=== PATIENT | female | born 1940 | race Caucasian/White ===

== ENCOUNTER → 2016-07-10 | Outpatient (CLI) | payer OTHER ==
[~2016-07-10] MED LIST: ADVIN25/60 INH; ALBINS/ INH; ALBU1NEB10 INH; ALBUAER19 INH; ANT25 PO; ASPI-435 PO; BENZ100C84 PO; BYS/5 PO; CHOL200010 PO; CLOB-65 EXT; CLOB-77 TOP; CYAN100048 PO; DBT/25 PO; FEXO1TAB46 PO; FLUT0.0529; FLUT0.15 NAE; GARL400T5 PO; GLYB2.5T7 PO; HYDR25SU4 RE; LEVO50TA6 PO; LIDO2GEL9; MENT4GEL TOP; METF-384 PO; MULT-190 PO; MULT-845 PO; OMEG-112 PO; SERT-234 PO; TELM40TA11 PO; VNTHFA/IN INH; ZNTT/150 PO
--- NOTE | 2016-07-10 15:33 | MAMMOGRAPHY REPORT ---
BILATERAL DIGITAL SCREENING MAMMOGRAM WITH CAD: 07/10/2016 CLINICAL HISTORY: Routine screening examination. TECHNIQUE: Bilateral CC, MLO and right axillary tail views were obtained. Current study was also ev aluated with a Computer Aided Detection (CAD) system. COMPARISON: Comparison is made to exams dated: 07/05/2015 mammogram, 02/03/2013 mammogram, 05/05/2014 mammogram, 01/29/2012 mammogram, 12/26/2010 mammogram, and 12/20/2009 mammogram - [facility]. BREAST COMPOSITION: The tissue of both breasts is almost entirely fatty. FINDINGS: There are benign calcifications and benign-appearing rodlike secretory calcifications in the breasts. No suspicious mass, architectural distortion or cluster of microcalcifications is seen . IMPRESSION: ACR BI-RADS CATEGORY 1: NEGATIVE There is no mammographic evidence of malignancy. A 1 year screening mammogram is recommended. The p atient will receive written notification of the results. Approximately 10% of breast cancers are not detected with mammography. A negative mammographic repor t should not delay biopsy if a clinically suggestive mass is present. Shantelle Vicente M.D. ay/:07/10/2016 14:35:59 Laser Set Up Operator: Ely HUMMEL(Master)(Edel), [facility] letter sent: Normal 1/2 BI-RADS Code: ACR BI-RADS Category 1: Negative
== END | disposition home or self-care (01) ==
LOC: C.MAMM 13:44
PROVIDERS: ATTEND Obstetrics & Gynecology
DX: Z12.31 Encounter for screening mammogram for malignant neoplasm of breast (principal)

== ENCOUNTER → 2016-07-12 | Outpatient (CLI) | payer OTHER ==
[2016-07-12 12:29] LABS: BASO % 0.3 %; BASO ABS # 0.02 K/uL (0-0.2); COMPLETE YES; EOS % 1.6 %; HEMATOCRIT 38.1 % (37-47); IG% 0.2 %; LYMPH % 31.9 %; LYMPH ABS # 1.83 K/uL (1.2-3.4); MEAN CELL VOLUME 82.3 fL (80-100); MEAN CORPUSCULAR HEMOGLOBIN 27.2 pg (25-34); MEAN CORPUSCULAR HGB CONC 33.1 g/dl (32-36); MONO % 9.1 %; NEUT % 56.9 %; PLATELET COUNT 147 K/uL (130-400); RED BLOOD COUNT 4.63 M/uL (4.2-5.4); WHITE BLOOD COUNT 5.73 K/uL (4.8-10.8)
[2016-07-12 12:49] LABS: ESTIMATED AVERAGE GLUCOSE 140 mg/dl; HA1C FLAG Normal (Normal)
[2016-07-12 12:57] LABS: ALT/SGPT 24 U/L (12-78); AST/SGOT 19 U/L (15-37); BLOOD UREA NITROGEN 12 mg/dl (7-18); BUN/CREATININE RATIO 19.3 (10-20); CALCIUM 9.3 mg/dl (8.5-10.1); CARBON DIOXIDE 24 mmol/L (21-32); CHLORIDE 106 mmol/L (98-107); CREATININE 0.64 mg/dl (0.60-1.20); GLUCOSE 154 mg/dl (70-99); POTASSIUM 4.4 mmol/L (3.5-5.1); SODIUM 140 mmol/L (136-145)
[2016-07-12 13:09] LABS: ALKALINE PHOSPHATASE 44 U/L (45-117); CHOLESTEROL 213 mg/dl (0-200); CHOLESTEROL/HDL RATIO 3.8; HDL CHOLESTEROL 56 mg/dl; LDL CHOLESTEROL CALCULATED 117 mg/dl; TRIGLYCERIDES 202 mg/dl (0-150); VERY LOW DENSITY LIPOPROT CALC 40 mg/dl
== END | disposition home or self-care (01) ==
LOC: C.LABBFT 08:58
PROVIDERS: ATTEND Internal Medicine
DX: E11.9 Type 2 diabetes mellitus without complications (principal); E03.9 Hypothyroidism, unspecified; E78.00 Pure hypercholesterolemia, unspecified; E55.9 Vitamin D deficiency, unspecified

== ENCOUNTER → 2016-07-22 | Outpatient (CLI) | payer OTHER ==
[2016-07-22 17:48] LABS: URINE APPEARANCE CLEAR (CLEAR); URINE BILIRUBIN NEG (NEG); URINE COLOR DK YELLOW; URINE EPITHELIAL CELL AUTO >30 /lpf (0-5); URINE NITRITE NEG (NEG); UROBILINOGEN NEG (NEG)
[2016-07-22 17:52] LABS: MANUAL MICROSCOPIC REQUIRED? NO; REVIEW REQ? YES
[2016-07-22 18:00] LABS: URINE MUCUS PRESENT (NONE PRSENT)
== END | disposition home or self-care (01) ==
LOC: C.LABBFT 16:36
PROVIDERS: ATTEND Internal Medicine
DX: R39.9 Unspecified symptoms and signs involving the genitourinary system (principal)

== ENCOUNTER 2016-09-08 12:00 | Emergency (ER) | payer OTHER ==
[~2016-09-08] VITALS: Ht 160 cm; Wt 108.0 kg
[~2016-09-08 12:00] MED LIST changes: -ALBINS/ INH; -BENZ100C84 PO; -CLOB-77 TOP; -FLUT0.15 NAE; -GLYB2.5T7 PO; -MULT-190 PO; -VNTHFA/IN INH
[2016-09-08 12:05] VITALS: TEMP 36.5; Ht 160 cm; Wt 108.0 kg
[2016-09-08] MEDS ORDERED: MULT-190 PO (12:20)
[2016-09-08] MEDS ORDERED: VNTHFA/IN INH (12:20)
[2016-09-08] MEDS ORDERED: BENZ100C84 PO (12:20)
[2016-09-08] MEDS ORDERED: ALBINS/ INH (12:20)
[2016-09-08] MEDS ORDERED: FLUT0.15 NAE (12:22)
[2016-09-08] MEDS ORDERED: CLOB-77 TOP (12:22)
[2016-09-08] MEDS ORDERED: GLYB2.5T7 PO (12:22)
[2016-09-08 12:50] LABS: HEMATOCRIT 41.1 % (37-47); MEAN CELL VOLUME 83.5 fL (80-100); MEAN CORPUSCULAR HEMOGLOBIN 26.8 pg (25-34); MEAN CORPUSCULAR HGB CONC 32.1 g/dl (32-36); MEAN PLATELET VOLUME 10.6 fL (7.4-10.4); PLATELET COUNT 123 K/uL (130-400); RED BLOOD COUNT 4.92 M/uL (4.2-5.4); WHITE BLOOD COUNT 6.75 K/uL (4.8-10.8)
[2016-09-08] MEDS ORDERED: SODIUM CHLORIDE 0.9% 500ML 500 ML IV STA (13:03)
--- NOTE | 2016-09-08 13:08 | EMERGENCY ROOM VISIT NOTE ---
History Report prepared by Rebecca: Romario Morel Under the Supervision of: Dr. Jatinder Vaughn M.D. First contact with patient: 12:55 Chief Complaint: NAUSEA Stated Complaint: NAUSEA, VOMIT Nursing Triage Summary: patient to ED via EMS from [facility], states "I was sitting at [facility] and all of a sudden just got really nauseous, I went and sat outside and vomited a little." Patient denies pain, symptoms at time of triage hx diabetes, hypertension History of Present Illness The patient is a 75 year old female who presents to the Emergency Room with complaints of nausea that began 1 and a half hours ago. She rates her symptom severity a 0/10, with her symptoms being resolved at this time. The patient was sitting down at [facility] when she began to feel dizzy and nauseated. She had one episode of emesis into her purse. She denies any problems with her upper extremities when this occurred. Her symptoms only lasted a couple of minutes. She denies any chest pain or shortness of breath when this occurred. She currently feels normal. Today, she was tired secondary to not sleeping last night. She notes that she did eat breakfast this morning. She has a history of hypertension, for which she is medicated. She took her medication this morning. Source of History: patient Onset: 1 and a half hours ago Position: other (GI) Symptom Intensity: moderate Quality: other (Nausea) Timing: resolved Associated Symptoms: + vomiting, No SOB, No chest pain Note: She experienced dizziness as well. Review of Systems See HPI for pertinent positives & negatives. A total of 10 systems reviewed and were otherwise negative. Past Medical & Surgical Medical Problems: (1) Diabetes (2) Heart murmur (3) HTN (hypertension) (4) Hyperlipidemia Family History Omitted secondary to age. Social History Smoking Status: Never Smoker Smokeless Tobacco Use: No Drug Use: none Occupation Status: retired Current/Historical Medications Scheduled Albuterol Hfa (Ventolin Hfa), 2 PUFFS INH QID Albuterol Sulf (Proventil 0.083% 2.5MG/3ML), 2.5 MG INH Q4H Aspirin (Aspirin 81), 81 MG PO HS Benzonatate (Tessalon Perles), 100 MG PO UD Cholecalciferol (Vitamin D), 2,000 INTUNIT PO QAM Clobetasol Propionate (Temovate), 1 APPLN TOP UD Cyanocobalamin (Vitamin B-12), 1 TAB PO QAM Fexofenadine Hcl (Sheila), 180 MG PO QAM Fluticasone Prop/Salmeterol (Advair Diskus 250/50 60 Dose), 1 PUFF INH BID Fluticasone Propionate (Nasal) (Flonase Allergy Relief), 1-2 SPRAYS ELEAZAR DAILY Garlic (Garlique), 1 TAB PO QAM Glyburide (Diabeta), 1.25-2.5 MG PO AC Levothyroxine Sodium (Levothyroxine Sodium), 50 MCG PO QAM Menthol (Topical Analgesic) (Biofreeze), 1 APPL TOP UD Metformin Hcl (Glucophage), 1,000 MG PO BID Multiple Vitamins W/ Minerals (Centrum Silver Adult 50+), 1 TAB PO LUNCH Nebivolol Hcl (Bystolic), 2.5 MG PO HS Ocuvite Preservision (Ocuvite Preservision), 1 TAB PO DAILY Qaweu-6-Hwxl Ethyl Esters ([place]-3), 1 CAP PO QAM Ranitidine (Zantac), 150 MG PO BID Sertraline (Zoloft), 100 MG PO QAM Telmisartan (Micardis), 40 MG PO QAM Allergies Coded Allergies: Amoxicillin (Verified Allergy, Mild, YEAST INFECTION, 09/08/16) Doxycycline (Verified Allergy, Mild, unknown, 09/08/16) Meloxicam (Verified Allergy, Mild, unknown, 09/08/16) Nitrofurantoin (Verified Allergy, Mild, unknown, 09/08/16) Ofloxacin (Verified Allergy, Mild, unknown, 09/08/16) Sulfamethoxazole w/Trimethoprim (Verified Allergy, Mild, unknown, 09/08/16) Ezetimibe (Verified Allergy, Unknown, UNKNOWN, 09/08/16) Rosuvastatin (Verified Allergy, Unknown, BODY PAINS, 09/08/16) Oxycodone (Verified Adverse Reaction, Mild, VOMITING, 09/08/16) Physical Exam Vital Signs Date Time Temp Pulse Resp B/P Pulse Ox O2 Delivery O2 Flow Rate FiO2 09/08/16 15:49 161/91 09/08/16 15:11 71 18 168/71 95 Room Air 09/08/16 13:43 74 20 156/106 96 Room Air 09/08/16 12:16 74 09/08/16 12:05 36.5 80 20 196/88 93 Room Air Physical Exam GENERAL: Patient is in no acute distress. HEENT: No acute trauma, normocephalic atraumatic, mucous membranes moist, no nasal congestion, no scleral icterus. NECK: No stridor, no adenopathy, no meningismus, trachea is midline. LUNGS: Clear to auscultation bilaterally, no wheeze, no rhonchi, breath sounds equal. HEART: 4/6 systolic murmur, with a regular rate and rhythm. ABDOMEN: Soft, nontender, bowel sounds positive, no hernias, no peritonitis. EXTREMITIES: No cyanosis or edema, full range of motion of all the joints without pain or difficulty, no signs for acute trauma. NEUROLOGIC: Oriented x 3, no acute motor or sensory deficits, no focal weakness. No cerebellar dysfunction or pronator drift. SKIN: No rash, no jaundice, no diaphoresis. Medical Decision & Procedures ER Provider Diagnostic Interpretation: Radiology results are stated below per my review and radiologist interpretation: HEAD CT NONCONTRAST CT DOSE: 537.48 mGy.cm HISTORY: dizzy, poss stroke TECHNIQUE: Multiaxial CT images of the head were performed without the use of intravenous contrast. Automated exposure control was utilized for this study. Comparison: None. Findings: Partially visualized right maxillary sinus is opacified. The calvarium and skull base are intact. There is no mass, hematoma, midline shift, acute infarct. White matter hypodensity is nonspecific but suggestive of microvascular ischemic change. The ventricles and sulci demonstrate mild age-related involutional changes. Impression: No acute intracranial abnormality. Atrophy and microvascular ischemic changes. Opacified right maxillary sinus. Electronically signed by: [place] M.D. 09/08/2016 2:04 PM Dictated Date/Time: 09/08/2016 2:00 PM CHEST ONE VIEW PORTABLE HISTORY: Short of breath. COMPARISON: Chest 09/09/2013. FINDINGS: The lungs are clear. No pleural effusions. No pneumothorax. The heart is mildly enlarged. IMPRESSION: Mild cardiomegaly. Electronically signed by: [place] M.D. 09/08/2016 1:41 PM Dictated Date/Time: 09/08/2016 1:40 PM Laboratory Results 09/08/16 12:40 Red Blood Count 4.92, Mean Corpuscular Volume 83.5, Mean Corpuscular Hemoglobin 26.8, Mean Corpuscular Hemoglobin Concent 32.1, Mean Platelet Volume 10.6, Neutrophils (%) (Auto) 71.9, Lymphocytes (%) (Auto) 20.7, Monocytes (%) (Auto) 6.1, Eosinophils (%) (Auto) 0.9, Basophils (%) (Auto) 0.1, Neutrophils # (Auto) 4.85, Lymphocytes # (Auto) 1.40, Monocytes # (Auto) 0.41, Eosinophils # (Auto) 0.06, Basophils # (Auto) 0.01 09/08/16 12:40 Test 09/08/16 12:06 09/08/16 12:40 09/08/16 14:15 09/08/16 15:11 Bedside Glucose 131 mg/dl (70-90) White Blood Count 6.75 K/uL (4.8-10.8) Red Blood Count 4.92 M/uL (4.2-5.4) Hemoglobin 13.2 g/dL (12.0-16.0) Hematocrit 41.1 % (37-47) Mean Corpuscular Volume 83.5 fL (80-100) Mean Corpuscular Hemoglobin 26.8 pg (25-34) Mean Corpuscular Hemoglobin Concent 32.1 g/dl (32-36) Platelet Count 123 K/uL (130-400) Mean Platelet Volume 10.6 fL (7.4-10.4) Neutrophils (%) (Auto) 71.9 % Lymphocytes (%) (Auto) 20.7 % Monocytes (%) (Auto) 6.1 % Eosinophils (%) (Auto) 0.9 % Basophils (%) (Auto) 0.1 % Neutrophils # (Auto) 4.85 K/uL (1.4-6.5) Lymphocytes # (Auto) 1.40 K/uL (1.2-3.4) Monocytes # (Auto) 0.41 K/uL (0.11-0.59) Eosinophils # (Auto) 0.06 K/uL (0-0.5) Basophils # (Auto) 0.01 K/uL (0-0.2) RDW Standard Deviation 43.8 fL (36.4-46.3) RDW Coefficient of Variation 14.3 % (11.5-14.5) Immature Granulocyte % (Auto) 0.3 % Immature Granulocyte # (Auto) 0.02 K/uL (0.00-0.02) Anion Gap 9.0 mmol/L (3-11) Est Creatinine Clear Calc Drug Dose 86.7 ml/min Estimated GFR () 99.8 Estimated GFR (Non- 86.1 BUN/Creatinine Ratio 20.6 (10-20) Calcium Level 9.3 mg/dl (8.5-10.1) Total Bilirubin 0.3 mg/dl (0.2-1) Aspartate Amino Transf (AST/SGOT) 19 U/L (15-37) Alanine Aminotransferase (ALT/SGPT) 29 U/L (12-78) Alkaline Phosphatase 52 U/L (45-117) Total Protein 8.0 gm/dl (6.4-8.2) Albumin 4.0 gm/dl (3.4-5.0) Globulin 4.0 gm/dl (2.5-4.0) Albumin/Globulin Ratio 1.0 (0.9-2) Urine Color YELLOW Urine Appearance CLEAR (CLEAR) Urine pH 5.0 (4.5-7.5) Urine Specific [place] 1.019 (1.000-1.030) Urine Protein TRACE (NEG) Urine Glucose (UA) NEG (NEG) Urine Ketones NEG (NEG) Urine Occult Blood TRACE (NEG) Urine Nitrite NEG (NEG) Urine Bilirubin NEG (NEG) Urine Urobilinogen NEG (NEG) Urine Leukocyte Esterase NEG (NEG) Urine WBC (Auto) 0 /hpf (0-5) Urine RBC (Auto) 0-4 /hpf (0-4) Urine Hyaline Casts (Auto) 1-5 /lpf (0-5) Urine Epithelial Cells (Auto) 10-20 /lpf (0-5) Urine Bacteria (Auto) NEG (NEG) Bedside Troponin I 0.000 ng/ml (0-0.045) Laboratory results reviewed by me. Medications Administered Medications (Trade) Dose Ordered Sig/Juan Route Start Time Stop Time Status Last Admin Dose Admin Sodium Chloride (Nss 500ml) 500 ml @ 999 mls/hr Q31M STAT IV 09/08/16 13:03 09/08/16 13:33 DC 09/08/16 13:16 999 MLS/HR ECG Indication: nausea, other (dizziness) Rate (beats per minute): 76 Rhythm: normal sinus Findings: no acute ischemic change, no ectopy ED Course 1255: The patient was evaluated in room C7. A complete history and physical exam was performed. 1303: Ordered Sodium Chloride 500 ml @ 999 mls/hr IV. 1530: Reevaluated the patient. She is doing well. Discussed results and discharge instructions: She verbalized understanding and agreement. The patient is ready for discharge. Medical Decision Differential diagnosis includes but is not limited to vertigo, electrolyte abnormality, anemia, infection, stroke, dysrhythmia, and VA. There is no leukocytosis or concerning anemia. No significant electrolyte abnormality, kidney failure or hepatitis. EKG shows a normal sinus rhythm, no acute ischemia. Cardiac enzyme testing 2 is not consistent with acute cardiac injury. Chest x-ray does not show pneumonia or CHF. Brain CT shows no acute bleed or mass effect. On exam, the patient is now completely asymptomatic, there are no focal neurologic findings. Urinalysis does not show infection. Patient has had no recurrence of symptoms while in the emergency room. She was given some IV saline during her stay. The patient is stable for discharge. She is hypertensive but she is anxious. The patient will follow with her doctors office for a repeat blood pressure check. She can return for worsening symptoms. Her presentation today may have been consistent with some intermittent vertigo. Impression Primary Impression: Dizziness Additional Impression: Vomiting Scribe Attestation The scribe's documentation has been prepared under my direction and personally reviewed by me in its entirety. I confirm that the note above accurately reflects all work, treatment, procedures, and medical decision making performed by me. Departure Information Dispostion Home / Self-Care Referrals Vinh Ardon M.D. (PCP) Forms HOME CARE DOCUMENTATION FORM, IMPORTANT VISIT INFORMATION Patient Instructions My [facility] Additional Instructions stay hydrated see your doctor this week for a recheck return if worsening testing today was all ok as we discussed see your doctor this week and be sure your blood pressure is checked--it was higher today Problem Qualifiers
[2016-09-08 13:14] LABS: BASO % 0.1 %; BASO ABS # 0.01 K/uL (0-0.2); COMPLETE YES; EOS % 0.9 %; IG% 0.3 %; LYMPH % 20.7 %; MONO % 6.1 %; NEUT % 71.9 %
[2016-09-08 13:17] LABS: BUN/CREATININE RATIO 20.6 (10-20); CALCIUM 9.3 mg/dl (8.5-10.1); CREATININE 0.64 mg/dl (0.60-1.20); POTASSIUM 4.4 mmol/L (3.5-5.1)
--- NOTE | 2016-09-08 13:43 | DIAGNOSTIC IMAGING REPORT ---
CHEST ONE VIEW PORTABLE HISTORY: Short of breath. COMPARISON: Chest 09/09/2013. FINDINGS: The lungs are clear. No pleural effusions. No pneumothorax. The heart is mildly enlarged. IMPRESSION: Mild cardiomegaly. Electronically signed by: [place] M.D. 09/08/2016 1:41 PM Dictated Date/Time: 09/08/2016 1:40 PM
--- NOTE | 2016-09-08 14:06 | DIAGNOSTIC IMAGING REPORT ---
HEAD CT NONCONTRAST CT DOSE: 537.48 mGy.cm HISTORY: dizzy, poss stroke TECHNIQUE: Multiaxial CT images of the head were performed without the use of intravenous contrast. Automated exposure control was utilized for this study. Comparison: None. Findings: Partially visualized right maxillary sinus is opacified. The calvarium and skull base are intact. There is no mass, hematoma, midline shift, acute infarct. White matter hypodensity is nonspecific but suggestive of microvascular ischemic change. The ventricles and sulci demonstrate mild age-related involutional changes. Impression: No acute intracranial abnormality. Atrophy and microvascular ischemic changes. Opacified right maxillary sinus. Electronically signed by: [place] M.D. 09/08/2016 2:04 PM Dictated Date/Time: 09/08/2016 2:00 PM
[2016-09-08 14:31] LABS: MANUAL MICROSCOPIC REQUIRED? NO; REVIEW REQ? NO; URINE APPEARANCE CLEAR (CLEAR); URINE BILIRUBIN NEG (NEG); URINE COLOR YELLOW; URINE NITRITE NEG (NEG); URINE SPECIFIC GRAVITY 1.019 (1.000-1.030); UROBILINOGEN NEG (NEG); ZZUR CULT IF INDIC CLEAN CATCH NO
[2016-09-08 15:11] VITALS: PULSE 71; O2SAT 95
[2016-09-08 15:49] VITALS: BP 161/91
== END 2016-09-08 15:45 | disposition home or self-care (01) ==
LOC: EDBD 12:00 → C.EDC 12:01
DX: R42 Dizziness and giddiness (principal); R11.10 Vomiting, unspecified; E11.9 Type 2 diabetes mellitus without complications; I10 Essential (primary) hypertension; E78.5 Hyperlipidemia, unspecified; Z79.82 Long term (current) use of aspirin; Z79.84 Long term (current) use of oral hypoglycemic drugs; Z79.899 Other long term (current) drug therapy; Z88.1 Allergy status to other antibiotic agents; Z88.2 Allergy status to sulfonamides; Z88.8 Allergy status to other drugs, medicaments and biological substances

== ENCOUNTER → 2016-09-24 | Outpatient (CLI) | payer OTHER ==
[~2016-09-24] MED LIST changes: +ALBINS/ INH; -ALBU1NEB10 INH; -ALBUAER19 INH; -ANT25 PO; +BENZ100C84 PO; -CLOB-65 EXT; +CLOB-77 TOP; -DBT/25 PO; -FLUT0.0529; +FLUT0.15 NAE; +GLYB2.5T7 PO; -HYDR25SU4 RE; -LIDO2GEL9; +MULT-190 PO; +VNTHFA/IN INH
== END | disposition home or self-care (01) ==
LOC: C.PAPS 08:17
PROVIDERS: ATTEND Obstetrics & Gynecology
DX: Z12.4 Encounter for screening for malignant neoplasm of cervix (principal)

== ENCOUNTER → 2016-11-27 | Outpatient (CLI) | payer OTHER ==
[2016-11-27 12:46] LABS: URINE APPEARANCE CLEAR (CLEAR); URINE BILIRUBIN NEG (NEG); URINE COLOR YELLOW; URINE NITRITE NEG (NEG); URINE PH 5.5 (4.5-7.5); URINE SPECIFIC GRAVITY 1.019 (1.000-1.030); UROBILINOGEN NEG (NEG); ZZUR CULT IF INDIC CLEAN CATCH NO
[2016-11-27 12:47] LABS: MANUAL MICROSCOPIC REQUIRED? NO; REVIEW REQ? NO
[2016-11-27 12:51] LABS: ALT/SGPT 24 U/L (12-78); AST/SGOT 18 U/L (15-37); BLOOD UREA NITROGEN 12 mg/dl (7-18); BUN/CREATININE RATIO 18.8 (10-20); CALCIUM 9.3 mg/dl (8.5-10.1); CARBON DIOXIDE 26 mmol/L (21-32); CHLORIDE 107 mmol/L (98-107); CHOLESTEROL 200 mg/dl (0-200); CREATININE 0.66 mg/dl (0.60-1.20); GLUCOSE 166 mg/dl (70-99); POTASSIUM 4.6 mmol/L (3.5-5.1); SODIUM 141 mmol/L (136-145)
[2016-11-27 12:55] LABS: ALB/GLOB RATIO 0.9 (0.9-2); ALKALINE PHOSPHATASE 45 U/L (45-117); HDL CHOLESTEROL 50 mg/dl; LDL CHOLESTEROL CALCULATED 116 mg/dl; TRIGLYCERIDES 171 mg/dl (0-150); VERY LOW DENSITY LIPOPROT CALC 34 mg/dl
[2016-11-27 13:06] LABS: ESTIMATED AVERAGE GLUCOSE 137 mg/dl; HA1C FLAG Normal (Normal)
[2016-11-27 13:24] LABS: RATIO 25.6 mcg/mg (0-30.0)
== END | disposition home or self-care (01) ==
LOC: C.LABBFT 10:02
PROVIDERS: ATTEND Internal Medicine
DX: E11.9 Type 2 diabetes mellitus without complications (principal); E78.00 Pure hypercholesterolemia, unspecified

== ENCOUNTER → 2017-05-27 | Outpatient (CLI) | payer OTHER ==
[2017-05-27 12:54] LABS: HEMOGLOBIN A1C 6.2 % (4.5-5.6)
== END | disposition home or self-care (01) ==
LOC: C.LABBFT 09:28
PROVIDERS: ATTEND Internal Medicine
DX: E55.9 Vitamin D deficiency, unspecified (principal); E11.9 Type 2 diabetes mellitus without complications; E03.9 Hypothyroidism, unspecified

== ENCOUNTER → 2017-06-27 | Outpatient (CLI) | payer OTHER ==
[~2017-06-27] MED LIST changes: +RANI150T85 PO; -ZNTT/150 PO
== END | disposition home or self-care (01) ==
LOC: C.LABBFT 14:51
PROVIDERS: ATTEND Internal Medicine
DX: R39.9 Unspecified symptoms and signs involving the genitourinary system (principal)

== ENCOUNTER → 2017-07-16 | Outpatient (CLI) | payer OTHER ==
--- NOTE | 2017-07-16 15:55 | MAMMOGRAPHY REPORT ---
BILATERAL DIGITAL SCREENING MAMMOGRAM TOMOSYNTHESIS WITH CAD: 07/16/2017 CLINICAL HISTORY: Routine screening. Patient has no complaints. TECHNIQUE: Breast tomosynthesis in addition to standard 2D mammography was performed. Current study was also evaluated with a Computer Aided Detection (CAD) system. COMPARISON: Comparison is made to exams dated: 07/10/2016 mammogram, 07/05/2015 mammogram, 05/05/2014 mammogram, 02/03/2013 mammogram, 01/29/2012 mammogram, and 12/26/2010 mammogram - [facility]. BREAST COMPOSITION: The tissue of both breasts is almost entirely fatty. FINDINGS: There are scattered benign-appearing rodlike and rim calcifications in both breasts. No kat spicious mass, architectural distortion or cluster of suspicious microcalcifications is seen. IMPRESSION: ACR BI-RADS CATEGORY 1: NEGATIVE There is no mammographic evidence of malignancy. A 1 year screening mammogram is recommended. The pa tient will receive written notification of the results. Approximately 10% of breast cancers are not detected with mammography. A negative mammographic report should not delay biopsy if a clinically suggestive mass is present. Shantelle Vicente M.D. ay/:07/16/2017 14:14:35 Mold Sander: Maricel HUMMEL(R)(M), [facility] letter sent: Normal 1/2 BI-RADS Code: ACR BI-RADS Category 1: Negative
== END | disposition home or self-care (01) ==
LOC: C.MAMM 13:24
PROVIDERS: ATTEND Obstetrics & Gynecology
DX: Z12.31 Encounter for screening mammogram for malignant neoplasm of breast (principal)

== ENCOUNTER → 2017-09-29 | Outpatient (CLI) | payer OTHER ==
--- NOTE | 2017-09-29 18:50 | DIAGNOSTIC IMAGING REPORT ---
CHEST 2 VIEWS ROUTINE CLINICAL HISTORY: 77 years-old Female presenting with R09.89 Lung [id number] Productive cough. TECHNIQUE: PA and lateral views of the chest were obtained. COMPARISON: 09/08/2016. FINDINGS: Atherosclerosis of aortic arch. Prominence and tortuosity of the aorta. Cardiac silhouette enlarged. Lungs and pleural spaces clear. Degenerative changes of the thoracic spine. Upper abdomen normal. IMPRESSION: 1. Cardiomegaly. No other convincing evidence of acute cardiopulmonary disease. Electronically signed by: Adolph Ruano M.D. 09/29/2017 6:49 PM Dictated Date/Time: 09/29/2017 6:48 PM
== END | disposition home or self-care (01) ==
LOC: C.RAD 18:19
PROVIDERS: ATTEND Internal Medicine
DX: I51.7 Cardiomegaly (principal); R05 Cough; R09.89 Other specified symptoms and signs involving the circulatory and respiratory systems

== ENCOUNTER 2020-03-06 12:38 | Inpatient (IN) ==
[2020-03-06] MEDS ORDERED: OPTIRAY 320 125ml IV ONE (12:55)
--- NOTE | 2020-03-06 13:01 | Emergency Department Note ---
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 sinus air-fluid levels are noted with moderate mucosal thickening of the left ethmoid air cells. Mastoid air cells are clear. Soft tissues are unremarkable. Prior bilateral lens replacement. IMPRESSION: 1. Motion degraded exam without acute intracranial abnormality identified. 2. Severe paranasal sinus disease as above with air-fluid levels suggestive of acute sinusitis. ACT 112: Negative or not required by law. The above report was generated using voice recognition software. It may contain grammatical, syntax or spelling errors. Electronically signed by: Po Sebastian M.D. 03/06/2020 1:12 PM HEAD & NECK CTA HISTORY: Stroke symptoms. Stroke evaluation TECHNIQUE: Multiaxial CT images of the head were performed following the intravenous administration of contrast to evaluate the major cerebral vessels. Multiaxial CT images of the neck were also performed following the intravenous administration of contrast to evaluate the major cervical vessels. Maximum intensity projection images were also obtained. A dose lowering technique was utilized adhering to the principles of ALARA. COMPARISON: Head CT 09/08/2016. FINDINGS: There is no mass, hematoma, midline shift, or acute infarct. Visualized intracranial internal carotid arteries, distal vertebral arteries, and basilar artery are widely patent. There is no significant stenosis, occlusion, or aneurysm seen within the bilateral ACAs, left MCA, or house officer. There is mild narrowing within the proximal right M1 segment. The distal branches of the right MCA appears slightly attenuated in comparison to the left. No definite arterial occlusion identified. The right A1 and right P1 segments are hypoplastic. The major dural venous sinuses appear patent. The aortic arch and proximal great vessels are widely patent. There is no significant stenosis, occlusion, or dissection identified within the bilateral common carotid, internal carotid, or vertebral arteries. Moderate calcified plaque within the aortic arch. There is a 9 mm saccular aneurysm extending from the left side of the aortic arch best seen image 77. Mild multifocal narrowing within the mid left subclavian artery and mild focal narrowing at the takeoff of the right subclavian artery. Evidence for a bovine arch. Medial deviation of the carotid arteries is noted. Mild calcified plaque within the bilateral carotid bifurcations. 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 The proximal vertebral arteries are not well visualized. This could be due to the severe hypoplasia rather than chronic occlusion. There are small collaterals extending from the subclavian arteries which likely feed the mid bilateral vertebral arteries. Question of a small weblike filling defect seen within the left lower lobe pulmonary artery is likely artifact. Advanced degenerative changes and a joint effusion within the left sternoclavicular joint. IMPRESSION: 1. Mild narrowing within the proximal right M1 segment. The distal branches of the right MCA appear attenuated in comparison to the left. However, no evidence for arterial occlusion at this time. 2. 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 The proximal vertebral arteries are not identified and could be absent on a congenital basis given the severe hypoplasia. 3. 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 4. Mild narrowing within the bilateral subclavian arteries. ACT 112: Negative or not required by law. Electronically signed by: [place] M.D. 03/06/2020 1:21 PM ECG Data Attestation: I personally reviewed and interpreted this ECG as follows: Indication: + weakness Rate (beats per minute): 85 Rhythm: + normal sinus ECG Intervals/blocks: + Normal QRS and + Normal QT ECG Cameron: + Normal ECG ST segments: + Nonspecific ST abnormalities Change: no significant change Blood Pressure Blood Pressure Findings: Elevated blood pressure Blood Pressure Disposition: further management by hospitalist MDM Narrative Pt initially brought by EMS for AMS but on initial bedside exam high suspicion of CVA so stroke alert immediately called to prioritize imaging and consultation with teleneurology. Pt recalls feeling well at 0830 and we attempted to contact PCP office to perhaps adjust last time known well. Pt at edge of window for extended tPA dosing at outset. Pt evaluated by neurology and tPA recommended. Dr. Blankenship did review CT and CTA's and I did confirm this with Maricel, environmental systems coordinator who was at the bedside throughout assisting with evaluation and o rders. Pt and son understood potential risks and were in agreement with Dr. Blankenship recommendation and and tPA ordered and given. VS remained stable and other labs were reassuring. Mild anemia noted although likely chronic given age. Magnesium also repleted. Pt showed improvement while in the ER following administration of tPA. An order was placed for continuous cardiac monitoring. The monitor shows a rate of _82__ with _normal sinus__ rhythm. Impression & Plan CVA (cerebral vascular accident), Aortic arch aneurysm, Hypomagnesemia, Anemia, Hyperglycemia Discharge Plan Visit Data Chief Complaint: Stroke/CVA Symptoms Stated Complaint: Illness ED Provider: Billie Degroot Discharge Problem: CVA (cerebral vascular accident), Aortic arch aneurysm, Hypomagnesemia, Anemia, Hyperglycemia Patient Disposition: Admitted As Inpatient Discharge Instructions Interventions: ED Discharge Assessment Last Done: 03/06/20 16:17 Discharge Problem: CVA (cerebral vascular accident) Qualifiers: CVA mechanism: unspecified Qualified Code(s): I63.9 - Cerebral infarction, unspecified Anemia Qualifiers: Anemia type: unspecified type Qualified Code(s): D64.9 - Anemia, unspecified
--- NOTE | 2020-03-06 13:14 | CT Scan Report ---
CT head/brain wo con CLINICAL HISTORY: 79 years-old Female with Stroke evaluation . Acute strokelike symptoms TECHNIQUE: Multiple axial CT images of the head were obtained without contrast. A dose lowering tech nique was utilized adhering to the principles of ALARA. COMPARISON: CTA head neck of same day. FINDINGS: Motion degraded exam. Portion of the study was then repeated. Age-related involutional changes. Cereb ral vascular calcifications. Patchy white matter hypodensities suggest chronic microvascular ischemic disease. No acute intracranial hemorrhage, midline shift, intracranial mass, hydrocephalus, territor ial ischemia or abnormal extra-axial collection. The calvarium is intact. There is severe opacification of the maxillary sinuses with air-fluid level on the left. Frontal sinus air-fluid levels are noted with moderate mucosal thickening of the left e thmoid air cells. Mastoid air cells are clear. Soft tissues are unremarkable. Prior bilateral lens re placement. IMPRESSION: 1. Motion degraded exam without acute intracranial abnormality identified. 2. Severe paranasal sinus disease as above with air-fluid levels suggestive of acute sinusitis. ACT 112: Negative or not required by law. The above report was generated using voice recognition software. It may contain grammatical, syntax o r spelling errors. Electronically signed by: Po Sebastian M.D. 03/06/2020 1:12 PM
--- NOTE | 2020-03-06 13:22 | CT Scan Report ---
HEAD & NECK CTA HISTORY: Stroke symptoms. Stroke evaluation TECHNIQUE: Multiaxial CT images of the head were performed following the intravenous administration o f contrast to evaluate the major cerebral vessels. Multiaxial CT images of the neck were also perform ed following the intravenous administration of contrast to evaluate the major cervical vessels. Maxim um intensity projection images were also obtained. A dose lowering technique was utilized adhering to the principles of ALARA. COMPARISON: Head CT 09/08/2016. FINDINGS: There is no mass, hematoma, midline shift, or acute infarct. Visualized intracranial internal carotid arteries, distal vertebral arteries, and basilar artery are widely patent. There is no significant s tenosis, occlusion, or aneurysm seen within the bilateral ACAs, left MCA, or activities assistant. There is mild narr owing within the proximal right M1 segment. The distal branches of the right MCA appears slightly att enuated in comparison to the left. No definite arterial occlusion identified. The right A1 and right P1 segments are hypoplastic. The major dural venous sinuses appear patent. The aortic arch and proximal great vessels are widely patent. There is no significant stenosis, occ lusion, or dissection identified within the bilateral common carotid, internal carotid, or vertebral arteries. Moderate calcified plaque within the aortic arch. There is a 9 mm saccular aneurysm extendi ng from the left side of the aortic arch best seen image 77. Mild multifocal narrowing within the mid left subclavian artery and mild focal narrowing at the takeoff of the right subclavian artery. Evide nce for a bovine arch. Medial deviation of the carotid arteries is noted. Mild calcified plaque withi n the bilateral carotid bifurcations. 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 The prox imal vertebral arteries are not well visualized. This could be due to the severe hypoplasia rather th an chronic occlusion. There are small collaterals extending from the subclavian arteries which likely feed the mid bilateral vertebral arteries. Question of a small weblike filling defect seen within th e left lower lobe pulmonary artery is likely artifact. Advanced degenerative changes and a joint effu duran within the left sternoclavicular joint. IMPRESSION: 1. Mild narrowing within the proximal right M1 segment. The distal branches of the right MCA appear a ttenuated in comparison to the left. However, no evidence for arterial occlusion at this time. 2. 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 The proximal vertebral arteries are not mehul ntified and could be absent on a congenital basis given the severe hypoplasia. 3. 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 4. Mild narrowing within the bilateral subclavian arteries. ACT 112: Negative or not required by law. Electronically signed by: [place] M.D. 03/06/2020 1:21 PM
[2020-03-06 13:32] LABS: Basophils # (auto) 0.01 K/uL (0-0.2); Basophils % (auto) 0.2 %; Eosinophils # (auto) 0.03 K/uL (0-0.5); Eosinophils % (auto) 0.5 %; Hematocrit (blood only) 36.7 % (37-47); Hemoglobin 11.7 g/dL (12.0-16.0); Immature Granulocytes # (auto) 0.01 K/uL (0.00-0.02); Immature Granulocytes % (auto) 0.2 %; Lymphocytes # (auto) 1.02 K/uL (1.2-3.4); Lymphocytes % (auto) 17.4 %; Mean Corpuscular Hemoglobin 26.5 pg (25-34); Mean Corpuscular Hgb Conc 31.9 g/dL (32-36); Mean Platelet Volume 11.6 fL (7.4-10.4); Monocytes # (auto) 0.47 K/uL (0.11-0.59); Neutrophils # (auto) 4.33 K/uL (1.4-6.5); Neutrophils % (auto) 73.7 %; Platelet Count 146 K/uL (130-400); RDW Coefficient of Variation 14.1 % (11.5-14.5); RDW Standard Deviation 43.1 fL (36.4-46.3); Red Blood Count 4.42 M/uL (4.2-5.4); White Blood Count 5.87 K/uL (4.8-10.8)
[2020-03-06] MEDS ORDERED: TPA for Stroke IV STA (13:32)
[2020-03-06 13:40] LABS: Alanine Aminotransferase 27 U/L (12-78); Albumin Level 3.1 gm/dl (3.4-5.0); Aspartate Aminotransferase 22 U/L (15-37); BUN Creatinine Ratio 16.8 (10-20); Blood Urea Nitrogen 11 mg/dl (7-18); Calcium 9.5 mg/dl (8.5-10.1); Carbon Dioxide 27 mmol/L (21-32); Chloride 101 mmol/L (98-107); Creatinine Clr Calc Pharmacy 70.7 ml/min; Est GFR (African American) 95.5; Est GFR (Non-African American) 82.4; Glucose 211 mg/dl (70-99); Magnesium 1.6 mg/dl (1.8-2.4); Potassium 3.8 mmol/L (3.5-5.1); Sodium 134 mmol/L (136-145)
[2020-03-06 13:41] LABS: INR 1.1 (0.9-1.1); Partial Thromboplastin Time 28.5 Seconds (21.0-31.0); Prothrombin Time 11.5 Seconds (9.0-12.0)
[2020-03-06] MEDS ORDERED: Alteplase Bolus 8 MG in SYRINGE 0 ML IV ONE (13:42)
[2020-03-06] MEDS ORDERED: RECOMBINANT IV ONE (13:43)
[2020-03-06] MEDS ORDERED: PRIMARY PLUMSET, PE LINED TUBING, 113 IN, NON-DEHP (2260-0500) IV ONE (13:43)
[2020-03-06] MEDS ORDERED: ALTEPLASE IV ONE (13:43)
[2020-03-06 13:44] LABS: Albumin Globulin Ratio 0.7 (0.9-2); Alkaline Phosphatase 48 U/L (45-117); Bilirubin,Total 0.7 mg/dl (0.2-1); Globulin 4.5 gm/dl (2.5-4.0); Total Protein 7.6 gm/dl (6.4-8.2); Troponin I < 0.015 ng/ml (0-0.045)
[2020-03-06] MEDS ORDERED: MAGNESIUM SULFATE / D5W 1 GM/100 ML BAG IV STA (13:58)
--- NOTE | 2020-03-06 14:08 | History & Physical Report ---
Date of Service March 06, 2020 Assessment & Plan (1) CVA (cerebral vascular accident): - Admit to PCU s/p TPA administration - Stroke order set completed - team to complete day 2 order set tomorrow - CT head shows some mild narrowing within the proximal right M1 segment. The distal branches of the right MCA appear attenuated in comparison to the left. However, no evidence for arterial occlusion at this time. - Check MRI brain - Neurology consulted - Dr. Berg - Will continue to control BP with aortic arch aneurysm which appears to be new on imaging. Consider cardiothoracic or vascular consultation - will need follow up on discharge - PT/OT consults - Neurochecks - Check A1C and lipids with am labs for completeness (2) Hyperlipidemia: - Check lipid panel with am labs - Cont omega 3 supplements (3) HTN (hypertension): - BP is well managed at 120/80 currently (4) Aortic arch aneurysm: - CT revealed 9mm aortic aneurysm- would recommend follow up after this to cardiothoracic surgeon as outpatient - s/p TPA administration (5) Aortic stenosis: - Noted, heard on exam (6) Carotid artery stenosis: -Noted (7) Diabetes: - ISS with accuchecks achs, glucose noted to be elevated at 200 on arrival, pt missed morning metformin. (8) Osteoarthritis: - Noted, continue supplements (9) Allergic rhinitis: - Continue flonase, tres, tessalon pearls prn (10) Sinusitis: - Will start on azithromycin for sinusititis as seen on imaging and pt with complaints of congestion/runny nose. - Very low probability of COVID since no fever, chills, loss of tast or smell, diarrhea, recent travel, known exposure or positive COVID contacts. (11) Asthma: - COntinue inhalers as ordered, CT revealed acute sinusitis, will start on azithromycin x 5 days for now. (12) Anxiety: - Stable on zoloft (13) Depression: - Well controlled currently on zoloft (14) Gastroesophageal reflux disease: - stable, noted (15) Hypothyroidism: -Continue levothyroxine DVT ppx; -teds CODE: Full Dispo: From home, likely to remain in the hospital x 2 days History of Present Illness Primary Care Provider: Vinh Ardon MD This is an 79 yo F with PMhx of HTN, HLD, aortic stenosis and insufficiency, DM II, hypothyroidism, osteoarthritis, GERD, depression, anxiety, Vit D deficiency, and also was subsequently found to have an aortic arch aneurysm measuring 9 mm on imaging performed today for concerns for CVA. Patient was found driving the wrong direction, 99, was confused and not able to recognize her family members earlier today. When authorities arrived on scene they noticed that she had eyes moving towards the right and her left upper extremity and ataxic and was brought to the hospital for fear for stroke. Once here she underwent evaluation by neurology at [facility] via telemedicine and was deemed a candidate for TPA. TPA was administered as well as magnesium IV for level of 1.6 on admission. Her left upper extremity weakness and ataxia is now improved compared to when she came in. Her son is present at baseline and reports she was talking like herself this morning when she was driving the wrong direction. She is making sense during our conversation and is able to follow commands. She denies any headache, changes in vision, pain, fever or chills. She reports the reason she was driving this morning was to try to get a COVID test because of having worsening dizziness and congestion. She typically gets bronchitis once a year, and has previously been treated with a Z-[place]. She has not been COVID-19 swab. She denies any fevers, loss of taste or smell, diarrhea, recent travel or known sick contacts. Allergies Allergy/AdvReac Type Severity Reaction Status Date / Time amoxicillin Allergy Mild YEAST Verified 03/06/20 15:04 INFECTION Bactrim Allergy Mild unknown Verified 09/08/16 12:12 doxycycline Allergy Mild unknown Verified 03/06/20 15:04 meloxicam Allergy Mild unknown Verified 03/06/20 15:04 nitrofurantoin Allergy Mild unknown Verified 03/06/20 15:04 ofloxacin Allergy Mild unknown Verified 03/06/20 15:04 sulfamethoxazole Allergy Mild unknown Verified 03/06/20 15:04 trimethoprim Allergy Mild unknown Verified 03/06/20 15:04 ezetimibe Allergy Unknown UNKNOWN Verified 03/06/20 15:04 rosuvastatin Allergy Unknown BODY PAINS Verified 03/06/20 15:04 atorvastatin [From Lipitor] Allergy Verified 03/06/20 15:04 gabapentin Allergy Verified 03/06/20 15:04 pravastatin Allergy Verified 03/06/20 15:04 oxycodone AdvReac Mild VOMITING Verified 03/06/20 15:04 Home Medications Home Medications Medication Instructions Recorded Confirmed Type aspirin 81 mg tablet,delayed 81 mg PO DAILY 12/21/18 01/17/20 History release fexofenadine 180 mg tablet 180 mg PO DAILY PRN tab 02/06/19 01/17/20 History omega 4-lci-pwl-fish oil 1,200 mg 1 cap PO DAILY cap 02/06/19 01/17/20 History (144 mg-216 mg) capsule cholecalciferol (vitamin D3) 50 1,000 units PO DAILY cap 04/12/19 01/17/20 History mcg (2,000 unit) capsule sertraline 100 mg tablet 100 mg PO DAILY #90 tab 05/05/19 01/17/20 Rx clobetasol 0.05 % topical ointment 1 appln TOP DAILY 28 Days #15 gm 06/22/19 01/17/20 Rx benzonatate 100 mg capsule 100 mg PO TID PRN #30 cap 06/24/19 01/17/20 Rx meclizine 25 mg tablet 25 mg PO .COMPLEX PRN #120 tab 06/24/19 01/17/20 Rx metformin 1,000 mg tablet 1,000 mg PO BID #180 tab 11/05/19 01/17/20 Rx albuterol sulfate 90 mcg/actuation 2 puffs INHALATION Q4H PRN #18 gm 12/15/19 01/17/20 Rx aerosol inhaler fluticasone 250 mcg-salmeterol 50 1 puffs INH BID #3 inhaler 12/15/19 01/17/20 Rx mcg/dose blistr powdr for inhalation psyllium husk PO 12/15/19 01/17/20 History mecobalamin (vitamin B12) 1,000 1,000 mcg PO DAILY #30 tab 01/17/20 01/17/20 Rx mcg chewable tablet glipizide 2.5 mg tablet, extended 2.5 mg PO DAILY #90 tab 01/19/20 Rx release 24 hr levothyroxine 50 mcg tablet 50 mcg PO DAILY #90 tab 02/03/20 Rx coenzyme Q10 10 mg PO DAILY 03/06/20 03/06/20 History garlic 1 ea PO DAILY 03/06/20 03/06/20 History geriatric pabimfmz-akko-drvn 1 tab PO DAILY 03/06/20 03/06/20 History [Multivitamin w/Minerals, Iron] Past Med/Surg History Medical History (Updated 03/06/20 @ 15:24 by Melinda Coronado PA-C) Hearing loss Sciatica TMJ (sprain of temporomandibular joint) Vertigo Surgical History History of cataract surgery History of laparoscopic cholecystectomy Family History (Updated 01/17/20 @ 13:07 by Merline Palmer MA) Unknown Esophageal reflux Denies family history of Ovarian cancer Prostate cancer Coronary heart disease Breast cancer Colorectal cancer Social History (Updated 01/17/20 @ 13:06 by Merline Palmer MA) Smoking Status: Unknown if ever smoked Second Hand Exposure: No; Hx Alcohol Use: Yes Hx Substance Use: No Preferred Language: Amharic Communication Ability: Effective Visual Impairment: No Limitations Hearing Ability: Use of Hearing Aid Beliefs That Will Affect Care: None marital status: / Current Living Situation: Alone current occupational status: retired Feels Safe at Home: Yes caffeine: Yes during the past year weight has: remained stable Dental Care, Regularly: Yes Physical Activity Frequency: 1-2 Times per Week Seatbelt Use: always Sunscreen Use: Yes Review of Systems Review of Systems: Constitutional: No fever, sweats or chills Eyes: No diplopia, no worsening or blurred vision ENT: normal hearing, no trouble swallowing Respiratory: No cough, sputum, dyspnea at rest or on exertion Cardiovascular: No chest pain, tightness or palpitations Abdomen: No pain, nausea, vomiting, diarrhea or constipation Musculoskeletal: No joint pain, calf pain, swelling Neurologic: No weakness, numbness/tingling, or balance problems Psychiatric: No anxiety or depression Skin: No rash or itch Physical Exam Physical Exam: General: awake, alert, no apparent distress Head: Normocephalic, atraumatic ENT: PERRL, EOMI, no pharyngeal exudate, mucous membranes moist Chest: Clear to auscultation, on room air, no adventitious breath sounds Cardiac: Regular rate and rhythm, + systolic murmur, no JVD, normal peripheral pulses, good capillary refill Abdominal: NABS x 4 quadrants, soft, nondistended, nontender to palpation, no rebound or guarding Extremities: Normal inspection, no peripheral edema or erythema, calfs nontender to palpation Psych: Normal mood and affect Neuro: AAO x 3, strength LUE slightly diminished compared to RUE, wheel shop supervisor strength 5/5 in BUE, otherwise BLE intact and rated 5/5, no motor deficits, speech is clear, no peripheral sensory deficits, able to perform cerebellar tests, [id number], rapid alternating movement slightly worse in the left compared to right, negative pronator drift. Results & Data Results & Data ([facility]) Vital Signs (Past 12 Hours) Vital Signs Temp Pulse Pulse Resp BP BP Pulse Ox 03/06/20 14:01 83 24 128/88 96 03/06/20 14:00 83 20 96 03/06/20 13:52 88 21 150/84 H 96 03/06/20 13:51 83 21 150/84 H 96 03/06/20 13:50 87 18 90 03/06/20 13:42 89 154/97 H 97 03/06/20 13:41 86 18 173/102 H 96 03/06/20 13:39 86 16 147/101 H 03/06/20 13:30 85 20 03/06/20 13:27 85 28 H 147/63 H 96 03/06/20 13:20 85 31 H 03/06/20 13:10 86 20 03/06/20 13:07 85 24 148/76 H 95 03/06/20 12:52 37.3 C 85 20 114/80 95 03/06/20 12:50 84 18 97 03/06/20 12:[address] head/brain wo con CLINICAL HISTORY: 79 years-old Female with Stroke evaluation . Acute strokelike symptoms TECHNIQUE: Multiple axial CT images of the head were obtained without contrast. A dose lowering technique was utilized adhering to the principles of ALARA. COMPARISON: CTA head neck of same day. FINDINGS: Motion degraded exam. Portion of the study was then repeated. Age-related involutional changes. Cerebral vascular calcifications. Patchy white matter hypodensities suggest chronic microvascular ischemic disease. No acute intracranial hemorrhage, midline shift, intracranial mass, hydrocephalus, territorial ischemia or abnormal extra-axial collection. The calvarium is intact. There is severe opacification of the maxillary sinuses with air-fluid level on the left. Frontal sinus air-fluid levels are noted with moderate mucosal thickening of the left ethmoid air cells. Mastoid air cells are clear. Soft tissues are unremarkable. Prior bilateral lens replacement. IMPRESSION: 1. Motion degraded exam without acute intracranial abnormality identified. 2. Severe paranasal sinus disease as above with air-fluid levels suggestive of acute sinusitis. ACT 112: Negative or not required by law. HEAD & NECK CTA HISTORY: Stroke symptoms. Stroke evaluation TECHNIQUE: Multiaxial CT images of the head were performed following the intravenous administration of contrast to evaluate the major cerebral vessels. Multiaxial CT images of the neck were also performed following the intravenous administration of contrast to evaluate the major cervical vessels. Maximum intensity projection images were also obtained. A dose lowering technique was utilized adhering to the principles of ALARA. COMPARISON: Head CT 09/08/2016. FINDINGS: There is no mass, hematoma, midline shift, or acute infarct. Visualized intracranial internal carotid arteries, distal vertebral arteries, and basilar artery are widely patent. There is no significant stenosis, occlusion, or aneurysm seen within the bilateral ACAs, left MCA, or manufacturing engineering manager. There is mild narrowing within the proximal right M1 segment. The distal branches of the right MCA appears slightly attenuated in comparison to the left. No definite arterial occlusion identified. The right A1 and right P1 segments are hypoplastic. The major dural venous sinuses appear patent. The aortic arch and proximal great vessels are widely patent. There is no significant stenosis, occlusion, or dissection identified within the bilateral common carotid, internal carotid, or vertebral arteries. Moderate calcified plaque within the aortic arch. There is a 9 mm saccular aneurysm extending from the left side of the aortic arch best seen image 77. Mild multifocal narrowing within the mid left subclavian artery and mild focal narrowing at the takeoff of the right subclavian artery. Evidence for a bovine arch. Medial deviation of the carotid arteries is noted. Mild calcified plaque within the bilateral carotid bifurcations. 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 The proximal vertebral arteries are not well visualized. This could be due to the severe hypoplasia rather than chronic occlusion. There are small collaterals extending from the subclavian arteries which likely feed the mid bilateral vertebral arteries. Question of a small weblike filling defect seen within the left lower lobe pulmonary artery is likely artifact. Advanced degenerative changes and a joint effusion within the left sternoclavicular joint. IMPRESSION: 1. Mild narrowing within the proximal right M1 segment. The distal branches of the right MCA appear attenuated in comparison to the left. However, no evidence for arterial occlusion at this time. 2. 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 The proximal vertebral arteries are not identified and could be absent on a congenital basis given the severe hypoplasia. 3. 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 4. Mild narrowing within the bilateral subclavian arteries. Code Status & VTE Plan Code Status Full code -discussed with the patient at bedside PG Care Time/CCT Total # of Minutes Spent Total Time Spent with Patient: Total time spent is greater than 50% in coordination of care (as documented) at patient's floor/unit and/or counseling patient: Coding Level of Care Code 72162 Initial Inpt Care Lvl 3 Diagnoses CVA (cerebral vascular accident) I63.9 Hyperlipidemia E78.5 HTN (hypertension) I10 Aortic arch aneurysm I71.2 Aortic stenosis I35.0 Carotid artery stenosis I65.29 Diabetes E11.9 Osteoarthritis M19.90 Allergic rhinitis J30.9 Sinusitis J32.9 Asthma J45.909 Anxiety F41.9 Depression F32.9 Gastroesophageal reflux disease K21.9 Hypothyroidism E03.9
--- NOTE | 2020-03-06 14:50 | XRay Report ---
XR chest 1V portable CLINICAL HISTORY: Cerebrovascular accident. COMPARISON STUDY: Chest radiograph September 29, 2017. FINDINGS: Moderate cardiomegaly is noted. There is no pneumothorax or pleural effusion. There is no e vidence for pulmonary edema. No consolidation is present. The appearance of the chest is similar to p rior exam. IMPRESSION: No acute cardiopulmonary findings. ACT 112: Negative or not required by law. Electronically signed by: Wilbur Wynn M.D. 03/06/2020 2:49 PM
--- NOTE | 2020-03-06 15:31 | Electrocardiogram Report ---
Test Reason : Blood Pressure : / mmHG Vent. Rate : 085 BPM Atrial Rate : 085 BPM P-R Int : 126 ms QRS Dur : 092 ms QT Int : 384 ms P-R-T Axes : 053 011 069 degrees QTc Int : 456 ms Poor data quality, interpretation may be adversely affected Normal sinus rhythm Minimal voltage criteria for LVH, may be normal variant Abnormal ECG When compared with ECG of 08-SEP-2016 12:05, No significant change was found Confirmed by Ran Nicole ([id number]) on 03/06/2020 3:31:10 PM Referred By: REFERRED SELF Confirmed By:Ran Nicole
[2020-03-06] MEDS ORDERED: GLUCOSE 10 TABS/TUBE PO PRN (17:04)
[2020-03-06] MEDS ORDERED: GLUCOSE 40% GEL 15 GM TUBE PO PRN (17:04)
[2020-03-06] MEDS ORDERED: DEXTROSE 50% 50 ML SYRINGE IV PRN (17:04)
[2020-03-06] MEDS ORDERED: ALBUTEROL HFA 8 GM INHALER INH PRN (17:04)
[2020-03-06] MEDS ORDERED: ACETAMINOPHEN 325 MG TAB PO PRN (17:04)
[2020-03-06] MEDS ORDERED: GLUCAGON FOR INJ 1 MG VIAL SQ PRN (17:04)
[2020-03-06] MEDS ORDERED: BENZONATATE 100 MG CAPSULE PO PRN (17:04)
[2020-03-06] MEDS ORDERED: CARBOHYDRATES FOR HYPOGLYCEMIA PO PRN (17:04)
[2020-03-06] MEDS ORDERED: ONDANSETRON INJ 2 MG/ML 2 ML VIAL IV PRN (17:04)
[2020-03-06] MEDS ORDERED: AZITHROMYCIN 250 MG TAB PO ONE (17:19)
[2020-03-06] MEDS: SODIUM CHLORIDE 0.9% 500 ML IV SCH (18:32)
[2020-03-06] MEDS: INSULIN ASPART 100 UNITS/ML 3 ML PEN SC SCH ×2 (18:37→20:43)
--- NOTE | 2020-03-06 20:12 | Critical Care Consultation ---
Date of Consultation March 06, 2020 Assessment & Plan (1) Admitted to intensive care unit: Reason Critically Ill: 79-year-old female with acute CVA status post TPA administration requiring close hemodynamic monitoring status post TPA administration. NEURO - * CAM ICU: NEGATIVE * CVA: * Received TPA in the ED. * Complete resolve of RIGHT sided gaze and confusion. * Slight residual LUE/LLE weakness. * Patient refuses MRI. * Neuro checks per unit protocol. * Close hemodynamic monitoring s/p TPA. * Will add AM Echo for sake of completeness. * Neuro consult placed per hospitalist. CARDIAC/VASCULAR - * HTN/HLD: * Continue home Rx as tolerated. * Aneurysmal dilation of the ascending aorta. * Agree with outpatient f/u. * EKG: NSR @ 85bpm. No ST/T-wave changes. QTc 456 ms. * Monitor on telemetry. RESPIRATORY - * No h/o pulmonary disease. * Saturating well on RA. GI/NUTRITION - * NPO pending swallow evaluation. RENAL/LYTES - * Hypomagnesemia. * Replace appropriately. - * No concerns at this time. ENDO - * h/o DM * BSGs per unit protocol. ISS --> gtt per unit policy. * Hypothyroidism: * Continue home Rx. HEME - * Stable H&H * Monitor for s/s bleeding s/p TPA administration. ID - * ??Sinusitis on CT. * Currently receiving Azithromycin. LINES/IV ACCESS - * PIVs x2 DVT PROPHYLAXIS - * Hold on chemoprophylaxis s/p TPA administration. * SCDs I have personally spent 35 minutes of critical care time in the direct management of this patient. This is a life/limb threatening event. This includes time spent evaluating patient, direct bedside care, chart review, placing orders, interpretation of diagnostic studies, discussion with consultants, patient, and family members, as well as other required patient management activities. This time is exclusive of all separately billable procedures, and teaching time and separate from and in addition to any other critical care service time. Thank you for allowing us to participate in the care of this patient. Please refer to my attending physician's documentation for any further recommendations. (2) CVA (cerebral vascular accident): (3) Received tissue plasminogen activator (tPA) less than 24 hours prior to arrival: (4) Sinusitis: (5) Aortic arch aneurysm: (6) Thrombocytopenia: (7) Hypothyroidism: (8) Gastroesophageal reflux disease: (9) Depression: (10) Asthma: (11) Anxiety: (12) AI (aortic insufficiency): (13) Hyperlipidemia: (14) Diabetes: (15) HTN (hypertension): History of Present Illness Attending Physician: Nash Morales MD History of Present Illness Patient is an 79-year-old female with a significant past medical history of hypertension, hyperlipidemia, diabetes, anxiety, aortic stenosis, asthma, carotid artery stenosis, depression, GERD, and hypothyroidism. Patient was reportedly having sinus congestion and on her way to receive COVID-19 testing. Apparently, she became confused and was [place] [address] When she was pulled over by police, the patient was confused. EMS performed a BSG which was appropriate. Stroke alert was called in to the emergency department. Upon arrival, the patient was taken to CT scan. She subsequently received TPA with near complete resolve of symptoms which included LEFT upper extremity weakness and RIGHT-sided gaze. Upon evaluation in the ICU, the patient is awake, alert, and oriented. She reports feeling much better at this time and complains of only minimal residual LEFT upper extremity weakness. She denies any complaints of headaches, dizziness, lightheadedness, chest pain, palpitations, shortness of breath, nausea, vomiting, abdominal pain, or numbness into the extremities. Allergies Allergy/AdvReac Type Severity Reaction Status Date / Time amoxicillin Allergy Mild YEAST Verified 03/06/20 15:04 INFECTION doxycycline Allergy Mild unknown Verified 03/06/20 15:04 meloxicam Allergy Mild unknown Verified 03/06/20 15:04 nitrofurantoin Allergy Mild unknown Verified 03/06/20 15:04 ofloxacin Allergy Mild unknown Verified 03/06/20 15:04 sulfamethoxazole Allergy Mild unknown Verified 03/06/20 15:04 trimethoprim Allergy Mild unknown Verified 03/06/20 15:04 atorvastatin [From Lipitor] Allergy Unknown ON MED LIST Verified 03/06/20 15:51 ezetimibe Allergy Unknown UNKNOWN Verified 03/06/20 15:04 gabapentin Allergy Unknown ON MED LIST Verified 03/06/20 15:51 pravastatin Allergy Unknown ON MED LIST Verified 03/06/20 15:51 rosuvastatin Allergy Unknown BODY PAINS Verified 03/06/20 15:04 oxycodone AdvReac Mild VOMITING Verified 03/06/20 15:04 Home Medications Home Medications Medication Instructions Recorded Confirmed Type aspirin 81 mg tablet,delayed 81 mg PO DAILY 12/21/18 03/06/20 History release fexofenadine 180 mg tablet 180 mg PO DAILY PRN tab 02/06/19 03/06/20 History omega 4-qlk-xae-fish oil 1,200 mg 1 cap PO DAILY cap 02/06/19 03/06/20 History (144 mg-216 mg) capsule cholecalciferol (vitamin D3) 50 1,000 units PO DAILY cap 04/12/19 03/06/20 History mcg (2,000 unit) capsule sertraline 100 mg tablet 100 mg PO DAILY #90 tab 05/05/19 03/06/20 Rx clobetasol 0.05 % topical ointment 1 appln TOP DAILY 28 Days #15 gm 06/22/19 03/06/20 Rx benzonatate 100 mg capsule 100 mg PO TID PRN #30 cap 06/24/19 03/06/20 Rx metformin 1,000 mg tablet 1,000 mg PO BID #180 tab 11/05/19 03/06/20 Rx albuterol sulfate 90 mcg/actuation 2 puffs INHALATION Q4H PRN #18 gm 12/15/19 03/06/20 Rx aerosol inhaler fluticasone 250 mcg-salmeterol 50 1 puffs INH BID #3 inhaler 12/15/19 03/06/20 Rx mcg/dose blistr powdr for inhalation levothyroxine 50 mcg tablet 50 mcg PO DAILY #90 tab 02/03/20 03/06/20 Rx coenzyme Q10 10 mg PO DAILY 03/06/20 03/06/20 History garlic 1 ea PO DAILY 03/06/20 03/06/20 History geriatric ektmtbtq-uuqv-xlxk 1 tab PO DAILY 03/06/20 03/06/20 History [Multivitamin w/Minerals, Iron] glyburide 1.25 mg PO BID 03/06/20 03/06/20 History meclizine 25 mg PO Q6H PRN 03/06/20 03/06/20 History psyllium husk 0.4 g PO DAILY 03/06/20 03/06/20 History Patient History Medical History Hearing loss Sciatica TMJ (sprain of temporomandibular joint) Vertigo Surgical History History of cataract surgery History of laparoscopic cholecystectomy Family History Unknown Esophageal reflux Denies family history of Ovarian cancer Prostate cancer Coronary heart disease Breast cancer Colorectal cancer Social History Smoking Status: Former smoker Second Hand Exposure: No; Do You Dip or Chew Tobacco: No; Tobacco Cessation Education Requested by Patient: No Hx Alcohol Use: No Hx Substance Use: No Preferred Language: Cambodian Communication Ability: Effective Visual Impairment: No Limitations Hearing Ability: Use of Hearing Aid 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 All else were negative. Physical Exam Physical Exam: VITAL SIGNS - Vital signs and nursing notes were reviewed. GENERAL - 79-year-old female appearing her stated age who is in no acute distress. Communicates well with provider and answers questions appropriately. HEAD - Normocephalic, Atraumatic. EYES - PERRL with EOMI bilaterally. Sclera anicteric. Palpebral conjunctiva pink and moist with no injection noted. EARS - No deformities of external structures noted on gross examination bilaterally. NOSE - Midline and without cyanosis. No epistaxis or purulent drainage noted. Septum midline without deviation or septal hematoma noted. MOUTH/OROPHARYNX - Without perioral cyanosis. Buccal mucosa pink and moist and without leukoplakia. Tongue midline with equal elevation of palate bilaterally. Good dentition noted. NECK - Neck with FROM. Supple to palpation. No lymphadenopathy noted. No nuchal rigidity. LUNGS - Chest wall symmetric without accessory muscle use, intercostals retractions, or central cyanosis. Normal vesicular breath sounds CTA B/L. No wheezes, rales, or rhonchi appreciated. CARDIAC - RRR with S1/S2. No murmur, rubs, or gallops appreciated. ABDOMEN - Abdominal contour flat without pulsations or visible masses. BS normoactive all four quadrants. No tenderness, palpable masses, hepatosplenomegaly, or ascites noted. EXTREMITIES - No pretibial edema present. +3/5 radial and dorsalis pedis pulses palpated throughout. FROM with no tremors, fasciculations, or clonus noted on PROM throughout. +5/5 strength noted in RU/RLE. +4/5 strength noted to the DORIS/LLE. NEUROLOGIC - Cranial nerves II through XII grossly intact. Sensory intact to light touch throughout. Negative drift. PSYCH - A&Ox3 and cooperates fully with examiner. Pt is very pleasant and interacts well with examiner. Results & Data Results & Data ([facility]) Vital Signs (Past 12 Hours) Vital Signs Temp Pulse Pulse Resp BP BP Pulse Ox 03/06/20 19:36 71 20 118/67 97 03/06/20 19:06 37.2 C 72 20 118/53 L 98 03/06/20 18:36 71 16 98/60 L 94 03/06/20 18:06 70 16 117/64 96 03/06/20 17:45 72 28 H 93 03/06/20 17:36 72 16 88/54 L 93 03/06/20 17:32 72 24 88/54 L 03/06/20 17:30 68 18 03/06/20 17:15 78 22 03/06/20 17:12 70 23 100/66 93 03/06/20 17:10 37.6 C H 69 16 81/63 L 96 03/06/20 17:06 69 18 81/63 L 94 03/06/20 17:00 37.6 C H 69 18 81/63 L 96 03/06/20 16:36 73 20 102/91 96 03/06/20 16:11 73 19 113/62 93 03/06/20 16:00 77 22 93 03/06/20 15:47 79 20 121/41 L 95 03/06/20 15:45 79 20 90 03/06/20 15:41 79 16 113/58 L 91 03/06/20 15:36 77 18 113/58 L 95 03/06/20 15:31 79 24 94 03/06/20 15:29 80 20 105/70 95 03/06/20 15:21 78 20 105/70 97 03/06/20 15:20 80 22 96 03/06/20 15:10 80 19 03/06/20 15:06 79 20 122/75 95 03/06/20 15:00 81 24 122/75 03/06/20 14:51 82 22 136/107 H 03/06/20 14:50 81 20 03/06/20 14:45 82 25 H 119/81 96 03/06/20 14:40 81 24 95 03/06/20 14:38 81 21 113/60 94 03/06/20 14:36 81 24 113/60 94 03/06/20 14:30 83 26 H 96 03/06/20 14:21 81 22 129/96 95 03/06/20 14:20 83 19 97 03/06/20 14:19 82 20 129/96 97 03/06/20 14:10 93 H 16 03/06/20 14:07 82 20 130/106 H 03/06/20 14:06 81 19 130/106 H 94 03/06/20 14:01 83 24 128/88 96 03/06/20 14:00 83 20 96 03/06/20 13:52 88 21 150/84 H 96 03/06/20 13:51 83 21 150/84 H 96 03/06/20 13:50 87 18 90 03/06/20 13:42 89 154/97 H 97 03/06/20 13:41 86 18 173/102 H 96 03/06/20 13:39 86 16 147/101 H 03/06/20 13:30 85 20 03/06/20 13:27 85 28 H 147/63 H 96 03/06/20 13:20 85 31 H 03/06/20 13:10 86 20 03/06/20 13:07 85 24 148/76 H 95 03/06/20 12:52 37.3 C 85 20 114/80 95 03/06/20 12:50 84 18 97 03/06/20 12:45 85 97 Coding Level of Care Code Critical Care 1st 30-74 mins Diagnoses Admitted to intensive care unit Z78.9 CVA (cerebral vascular accident) I63.9 Received tissue plasminogen activator (tPA) less than 24 hours prior to arrival Z92.82 Sinusitis J32.9 Aortic arch aneurysm I71.2 Thrombocytopenia D69.6 Hypothyroidism E03.9 Gastroesophageal reflux disease K21.9 Depression F32.9 Asthma J45.909 Anxiety F41.9 AI (aortic insufficiency) I35.1 Hyperlipidemia E78.5 Diabetes E11.9 HTN (hypertension) I10 Time Spent (min) 35
[2020-03-07] MEDS: SODIUM CHLORIDE 0.9% 500 ML IV SCH ×2 (00:51→08:31)
[2020-03-07 04:55] LABS: Hematocrit (blood only) 33.2 % (37-47); Hemoglobin 10.6 g/dL (12.0-16.0); Mean Corpuscular Hemoglobin 26.2 pg (25-34); Mean Corpuscular Hgb Conc 31.9 g/dL (32-36); Platelet Count 112 K/uL (130-400); RDW Coefficient of Variation 13.8 % (11.5-14.5); RDW Standard Deviation 41.8 fL (36.4-46.3); Red Blood Count 4.05 M/uL (4.2-5.4)
[2020-03-07 05:25] LABS: Albumin Level 2.5 gm/dl (3.4-5.0); BUN Creatinine Ratio 21.1 (10-20); Calcium 8.3 mg/dl (8.5-10.1); Creatinine Clr Calc Pharmacy 105.9 ml/min; Est GFR (African American) 110.6; Est GFR (Non-African American) 95.4; Magnesium 1.7 mg/dl (1.8-2.4); Potassium 3.8 mmol/L (3.5-5.1)
[2020-03-07 05:30] LABS: Albumin Globulin Ratio 0.7 (0.9-2); Bilirubin,Total 0.6 mg/dl (0.2-1); Globulin 3.7 gm/dl (2.5-4.0); Phosphorus 2.7 mg/dl (2.5-4.9); Total Protein 6.2 gm/dl (6.4-8.2)
[2020-03-07] MEDS: LEVOTHYROXINE SODIUM 50 MCG TABLET PO SCH (05:56)
[2020-03-07 07:47] LABS: Estimated Average Glucose 126 mg/dl
[2020-03-07] MEDS: OMEGA-3 (PURIFIED FISH OIL) 1 GM CAP PO SCH (08:20)
[2020-03-07] MEDS: FLUTICASONE/VILANTEROL 200/25MCG 14 PUFFS/INHALER INH SCH (08:20)
[2020-03-07] MEDS: CYANOCOBALAMIN 500 MCG TABLET (VITAMIN B-12) PO SCH (08:23)
[2020-03-07] MEDS: FEXOFENADINE HCL 180 MG TAB PO PRN (08:24)
[2020-03-07] MEDS: AZITHROMYCIN 250 MG TAB PO SCH ×2 (08:28→16:41)
[2020-03-07] MEDS: SERTRALINE HCL 100 MG TABLET PO SCH (08:29)
[2020-03-07] MEDS: CHOLECALCIFEROL 1,000 UNITS 25 MCG TAB PO SCH (08:29)
[2020-03-07] MEDS: INSULIN ASPART 100 UNITS/ML 3 ML PEN SC SCH ×4 (08:29→20:44)
--- NOTE | 2020-03-07 08:32 | Critical Care Progress Note ---
Date of Service March 07, 2020 Assessment & Plan (1) Admitted to intensive care unit: Reason Critically Ill: 79-year-old female with acute CVA status post TPA administration requiring close hemodynamic monitoring status post TPA administration. NEURO - * CAM ICU: NEGATIVE * CVA: * Received TPA in the ED. * Complete resolve of RIGHT sided gaze and confusion. * Slight residual LUE/LLE weakness. * Patient refuses MRI. * Neuro checks per unit protocol. * Close hemodynamic monitoring s/p TPA. * Echo was ordered * Neuro consult placed per hospitalist. * She is currently on aspirin and will need to be likely escalated to Plavix. Will wait for neuro input. She will need to be started on Lovenox full axis once her 24-hour CT head is completed. * She notes that she had previous weakness with statin. CARDIAC/VASCULAR - * HTN/HLD: * Continue home Rx as tolerated. * Aneurysmal dilation of the ascending aorta. * Agree with outpatient f/u. RESPIRATORY - * Continue inhaler. She was started on azithromycin by the hospitalist for sinusitis. We can continue this for 5 days. GI/NUTRITION - * NPO pending swallow evaluation. RENAL/LYTES - * Hypomagnesemia. * Replace appropriately. - * No concerns at this time. ENDO - * h/o DM however A1c is 6 * BSGs per unit protocol. ISS --> gtt per unit policy. * Hypothyroidism: * Continue home Rx. HEME - * Hemoglobin trended down a bit to 10.6. No obvious signs of bleeding. Continue to monitor. CT head pending. * Monitor for s/s bleeding s/p TPA administration. ID - * ??Sinusitis on CT. * Currently receiving Azithromycin. Complete a 5-day course. LINES/IV ACCESS - * PIVs x2 DVT PROPHYLAXIS - * Hold on chemoprophylaxis s/p TPA administration. * SCDs (2) CVA (cerebral vascular accident): (3) Received tissue plasminogen activator (tPA) less than 24 hours prior to arrival: (4) Sinusitis: (5) Aortic arch aneurysm: (6) Thrombocytopenia: (7) Hypothyroidism: (8) Gastroesophageal reflux disease: (9) Depression: (10) Asthma: (11) Anxiety: (12) AI (aortic insufficiency): (13) Hyperlipidemia: (14) Diabetes: (15) HTN (hypertension): Admission and Anticipated Discharge Date Admission Date: March 06, 2020 Subjective I woke the patient up and she was sleeping. She was a bit lethargic and falling asleep easily. She notes that some of her symptoms have improved along with her confusion. She apparently had a facial droop yesterday which seems to be improved. She still complains of some weakness in her left upper extremity. Review of Systems Review of Systems: All systems reviewed & are unremarkable except as noted in HPI & below Physical Exam Physical Exam: VITAL SIGNS - Vital signs and nursing notes were reviewed. GENERAL - 79-year-old female appearing her stated age who is in no acute distress. Communicates well with provider and answers questions appropriately. HEAD - Normocephalic, Atraumatic. EYES - PERRL with EOMI bilaterally. Sclera anicteric. Palpebral conjunctiva pink and moist with no injection noted. EARS - No deformities of external structures noted on gross examination bilaterally. NOSE - Midline and without cyanosis. No epistaxis or purulent drainage noted. Septum midline without deviation or septal hematoma noted. MOUTH/OROPHARYNX - Without perioral cyanosis. Buccal mucosa pink and moist and without leukoplakia. Tongue midline with equal elevation of palate bilaterally. Good dentition noted. NECK - Neck with FROM. Supple to palpation. No lymphadenopathy noted. No nuchal rigidity. LUNGS - Chest wall symmetric without accessory muscle use, intercostals retractions, or central cyanosis. Normal vesicular breath sounds CTA B/L. No wheezes, rales, or rhonchi appreciated. CARDIAC - RRR with S1/S2. No murmur, rubs, or gallops appreciated. ABDOMEN - Abdominal contour flat without pulsations or visible masses. BS normoactive all four quadrants. No tenderness, palpable masses, hepatosplenomegaly, or ascites noted. EXTREMITIES - No pretibial edema present. +3/5 radial and dorsalis pedis pulses palpated throughout. FROM with no tremors, fasciculations, or clonus noted on PROM throughout. +5/5 strength noted in RU/RLE. +4/5 strength noted to the DORIS/LLE. NEUROLOGIC - Cranial nerves II through XII grossly intact. Sensory intact to light touch throughout. Negative drift. PSYCH - A&Ox3 and cooperates fully with examiner. Pt is very pleasant and interacts well with examiner. Results & Data Results & Data ([place]) Vital Signs (Past 12 Hours) Vital Signs Temp Pulse Resp BP Pulse Ox 03/07/20 06:36 99.1 F 72 23 134/59 L 94 03/07/20 05:36 99.0 F 74 21 129/74 93 03/07/20 04:36 99.0 F 71 22 102/62 96 03/07/20 03:36 99.0 F 77 18 112/73 94 03/07/20 02:36 99.0 F 75 16 113/66 96 03/07/20 01:36 99.1 F 75 19 132/66 95 03/07/20 00:36 99.3 F 71 24 101/62 93 03/06/20 23:36 99.3 F 73 20 92/68 L 94 03/06/20 22:36 99.0 F 73 17 140/66 96 03/06/20 21:36 98.6 F 74 18 120/70 94 03/06/20 21:06 98.8 F 65 20 126/46 L 95 03/06/20 20:36 73 23 139/56 L 96 I reviewed vital signs, labs and imaging Coding Level of Care Code 26498 Subseq Hosp Care Lvl 3 Diagnoses Admitted to intensive care unit Z78.9 CVA (cerebral vascular accident) I63.9 Received tissue plasminogen activator (tPA) less than 24 hours prior to arrival Z92.82 Sinusitis J32.9 Aortic arch aneurysm I71.2 Thrombocytopenia D69.6 Hypothyroidism E03.9 Gastroesophageal reflux disease K21.9 Depression F32.9 Asthma J45.909 Anxiety F41.9 AI (aortic insufficiency) I35.1 Hyperlipidemia E78.5 Diabetes E11.9 HTN (hypertension) I10
[2020-03-07] MEDS ORDERED: ASPIRIN 81 MG ECTAB PO SCH (09:00)
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
[2020-03-07] MEDS: MAGNESIUM SULFATE / D5W 1 GM/100 ML BAG IV SCH ×2 (11:50→12:44)
[2020-03-07] MEDS: POTASSIUM CHLORIDE / WTR 10 MEQ/100 ML PLCT IV SCH ×2 (11:51→12:45)
[2020-03-07] MEDS: MULTIVITAMIN CHEWABLE TAB PO SCH (11:51)
--- NOTE | 2020-03-07 13:00 | XCELERA ---
[id number] \\[id number]
--- NOTE | 2020-03-07 13:39 | CT Scan Report ---
HEAD CT NONCONTRAST CT DOSE: 537.48 mGy.cm HISTORY: Stroke symptoms. s/p tpa 24 hours out TECHNIQUE: Multiaxial CT images of the head were performed without the use of intravenous contrast. A utomated exposure control was utilized for this study. A dose lowering technique was utilized adheri ng to the principles of ALARA. Comparison: Head CT 03/06/2020. Findings: Near complete opacification of the left ethmoid air cells and left maxillary sinus with flu id levels. There is also a fluid level within the left frontal sinus and complete opacities in the ri ght maxillary sinus. This is unchanged and is consistent with acute pansinusitis. The mastoid air maria d ls are clear. The calvarium and skull base are intact. There is no mass, hematoma, midline shift. Pos sible 9 mm hypodense focus within the left hemipons. This could represent a small subacute infarct. T his will be better assessed on the same day brain MRI. Impression: 1. No acute intracranial hemorrhage. 2. Acute pansinusitis is again noted. 3. Possible 9 mm hypodense focus within the left hemipons. This could represent a small subacute infa rct. This will be better assessed on the same day brain MRI. ACT 112: Negative or not required by law. Electronically signed by: [place] M.D. 03/07/2020 1:38 PM
--- NOTE | 2020-03-07 14:13 | Magnetic Resonance Report ---
MRI OF THE BRAIN WITHOUT CONTRAST CLINICAL HISTORY: stroke, s/p tpa COMPARISON STUDY: Noncontrast head CT dated 03/07/2020 FINDINGS: Sagittal T1, axial diffusion, proton density and T2 weighted axial, coronal FLAIR, and axial T1-weigh debbie images were acquired. No intra or extra-axial mass lesions are visualized There are foci of restricted water diffusion involving the right basal ganglia and right occipital lo be indicative of acute/subacute infarcts. There is no evidence of ventricular dilatation. Proton density T2-weighted and FLAIR images reveal scattered foci of increased T2 signal within the w raghav matter, likely on a small vessel basis. There are no abnormal flow voids. There is evidence for pansinus disease. IMPRESSION: 1. Small foci of restricted water diffusion involving the right basal ganglia and right occipital lob e indicative of acute/subacute infarcts. 3. Pansinus disease ACT 112: Negative or not required by law. Electronically signed by: Jason Yepez M.D. 03/07/2020 2:11 PM
[2020-03-07] MEDS: ENOXAPARIN INJ 40 MG/0.4 ML SYR SQ SCH (16:40)
--- NOTE | 2020-03-07 16:55 | Cardiology Consultation ---
Date of Consultation March 07, 2020 Assessment & Plan (1) Severe aortic stenosis: Despite being severe aortic stenosis by Doppler echocardiography, her aortic closure sound is audible, suggesting her aortic stenosis is noncritical. Since her daily activity is limited by orthopedic (uses an electric cart) and respiratory issues (asthma which manifests as paroxysmal of coughing) rather than exertional dyspnea, angina, presyncope, or syncope, she would be unlikely to derive symptomatic benefit from aortic valve replacement at this time and her risk from such a procedure would be amplified by her recent CVA. Going forward, once she recovers from her current CVA, would monitor for the o ccurrence of any warning symptoms such as exertional dyspnea, angina, or syncope, which might indicate further progression of her aortic valvular disease to the point that intervention is warranted. 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 If she were to develop aortic stenosis symptoms in the future, she could be a candidate for an open procedure which could address this small aneurysm as well. Alternatively, consideration of an endovascular intervention could be entertained after she convalesces from her current acute CVA. In the meantime, conservative management is warranted, with antiplatelet agent (clopidogrel will replace aspirin) to reduce the risk of thrombotic event. Apparently, she is not a statin candidate due to perceived side effects. (3) CVA (cerebral vascular accident): Status post TPA. History of Present Illness Reason for Consultation: Aortic stenosis Requesting Physician: Jameel Ibarra MD Attending Physician: Donnie Cuevas History of Present Illness 79-year-old woman with aortic stenosis (previously moderate, now severe), hypertension, diabetes, nonocclusive carotid stenoses, and other medical conditions, who was admitted 03/06/2020 with an acute CVA for which she received TPA with near complete resolution of her initial symptoms (left upper extremity weakness and right-sided gaze problems). As part of her work-up, she was found to now have severe aortic stenosis (valve area 0.9 cm). She is also noted to have a 9 mm saccular aneurysm in her aortic arch. At baseline, she notes that she is not very active due to orthopedic problems and asthma. She uses an electric cart to get around. She has no stairs at home and does not participate in activities sufficient to cause her any dyspnea. She denies any chest pain, presyncope, or syncope. At the time of my evaluation, she was resting comfortably and had no specific complaints. Allergies Allergy/AdvReac Type Severity Reaction Status Date / Time amoxicillin Allergy Mild YEAST Verified 03/06/20 15:04 INFECTION doxycycline Allergy Mild unknown Verified 03/06/20 15:04 meloxicam Allergy Mild unknown Verified 03/06/20 15:04 nitrofurantoin Allergy Mild unknown Verified 03/06/20 15:04 ofloxacin Allergy Mild unknown Verified 03/06/20 15:04 sulfamethoxazole Allergy Mild unknown Verified 03/06/20 15:04 trimethoprim Allergy Mild unknown Verified 03/06/20 15:04 atorvastatin [From Lipitor] Allergy Unknown ON MED LIST Verified 03/06/20 15:51 ezetimibe Allergy Unknown UNKNOWN Verified 03/06/20 15:04 gabapentin Allergy Unknown ON MED LIST Verified 03/06/20 15:51 pravastatin Allergy Unknown ON MED LIST Verified 03/06/20 15:51 rosuvastatin Allergy Unknown BODY PAINS Verified 03/06/20 15:04 oxycodone AdvReac Mild VOMITING Verified 03/06/20 15:04 Home Medications Home Medications Medication Instructions Recorded Confirmed Type aspirin 81 mg tablet,delayed 81 mg PO DAILY 12/21/18 03/06/20 History release fexofenadine 180 mg tablet 180 mg PO DAILY PRN tab 02/06/19 03/06/20 History omega 5-rmr-ncx-fish oil 1,200 mg 1 cap PO DAILY cap 02/06/19 03/06/20 History (144 mg-216 mg) capsule cholecalciferol (vitamin D3) 50 1,000 units PO DAILY cap 04/12/19 03/06/20 History mcg (2,000 unit) capsule sertraline 100 mg tablet 100 mg PO DAILY #90 tab 05/05/19 03/06/20 Rx clobetasol 0.05 % topical ointment 1 appln TOP DAILY 28 Days #15 gm 06/22/19 03/06/20 Rx benzonatate 100 mg capsule 100 mg PO TID PRN #30 cap 06/24/19 03/06/20 Rx metformin 1,000 mg tablet 1,000 mg PO BID #180 tab 11/05/19 03/06/20 Rx albuterol sulfate 90 mcg/actuation 2 puffs INHALATION Q4H PRN #18 gm 12/15/19 03/06/20 Rx aerosol inhaler fluticasone 250 mcg-salmeterol 50 1 puffs INH BID #3 inhaler 12/15/19 03/06/20 Rx mcg/dose blistr powdr for inhalation levothyroxine 50 mcg tablet 50 mcg PO DAILY #90 tab 02/03/20 03/06/20 Rx coenzyme Q10 10 mg PO DAILY 03/06/20 03/06/20 History garlic 1 ea PO DAILY 03/06/20 03/06/20 History geriatric ycgrfsiu-zebi-bytp 1 tab PO DAILY 03/06/20 03/06/20 History [Multivitamin w/Minerals, Iron] glyburide 1.25 mg PO BID 03/06/20 03/06/20 History meclizine 25 mg PO Q6H PRN 03/06/20 03/06/20 History psyllium husk 0.4 g PO DAILY 03/06/20 03/06/20 History Patient History Medical History Hearing loss Sciatica TMJ (sprain of temporomandibular joint) Vertigo Surgical History History of cataract surgery History of laparoscopic cholecystectomy Family History Father, age 75 of a stroke Mother, age 73 of dementia Dementia Mother Myocardial infarction Mother Esophageal reflux Unknown Stroke Father Denies family history of Ovarian cancer Prostate cancer Coronary heart disease Breast cancer Colorectal cancer Social History Smoking Status: Former smoker Smoking End Date: 1981; Second Hand Exposure: No; Do You Dip or Chew Tobacco: No; Tobacco Cessation Education Requested by Patient: No Hx Alcohol Use: No Hx Substance Use: No Preferred Language: Syrian Communication Ability: Effective Visual Impairment: No Limitations Hearing Ability: Use of Hearing Aid [employer] Required: No Beliefs That Will Affect Care: None marital status: / Current Living Situation: Alone current occupational status: retired 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 Feels Safe at Home: Yes Safety Concerns: Feels Safe At This Time caffeine: Yes during the past year weight has: remained stable Dental Care, Regularly: Yes Physical Activity Frequency: 1-2 Times per Week Seatbelt Use: always Sunscreen Use: Yes Assistive Devices: Denture - Upper Review of Systems Constitutional: + fatigue; no fever, no chills, no weight loss and no weight gain Eyes: no problem reported Ear, Nose, Mouth, Throat: no problem reported Respiratory: as per Subjective / HPI and + cough (Episodic paroxysms of coughing which respond to inhalers.); no dyspnea Cardiovascular: as per Subjective / HPI Gastrointestinal: no abdominal pain and no change in stools Genitourinary: no problem reported Musculoskeletal: + joint pain Integumentary: no rash and no new lesions Neurologic: no falls and no syncope Psychiatric: no problem reported Hematologic / Lymphatic: no easy bleeding and no easy bruising Physical Exam Physical Exam: Elderly white female appears comfortable. Afebrile. Normotensive. Pulse 72 and regular. Respirations 16 and unlabored. Skin: no ecchymoses or generalized lesions. HEENT: unremarkable. Neck: Jugular venous pulse normal, bilateral transmitted carotid murmurs. Lungs: Clear and equal breath sounds, no wheezing on forced exhalation. Cardiac: regular rhythm, 4/6 crescendo decrescendo systolic ejection murmur at the right upper sternal border rating to the carotids and left sternal border, mildly reduced but readily audible aortic closure sound, no diastolic murmur or gallop. Abdomen benign. Extremities: no edema, pulses brisk. Neurologic: normal affect and conversation, focal deficits as per neurology evaluation. Results & Data ([facility] [place]) Laboratory Results WBC 4.3, hemoglobin 10.6, platelet count 112,000. Normal electrolytes, BUN 9, creatinine 0.43. Negative troponin x1. Albumin 2.5. LDL cholesterol 86. Diagnostic Findings Chest x-ray unremarkable. ECG showed sinus rhythm at 85 bpm with LVH by voltage, otherwise unremarkable. Compared with ECG from August 2016, no significant change. Echocardiogram showed low normal systolic function (EF 50-55%) with no regional wall motion abnormalities. Moderate left ventricle hypertrophy with focal thickening of the basal septum and grade 1 diastolic dysfunction. Severe aortic stenosis (valve area 0.88 cm), mild to moderate mitral regurgitation, mild tricuspid regurgitation with moderate pulmonary hypertension. Brain MRI with evidence of right basal ganglia/right occipital lobe acute infarcts. Neck CTA showed hypoplastic vertebral arteries, 9 mm saccular aneurysm the left side of the aortic arch, "bovine" arch configuration. PG Care Time/CCT Total # of Minutes Spent Total Time Spent with Patient: Total time spent is greater than 50% in coordination of care (as documented) at patient's floor/unit and/or counseling patient: Coding Level of Care Code 56506 Initial Inpt Care Lvl 3 Diagnoses Severe aortic stenosis I35.0 Saccular aneurysm I67.1 CVA (cerebral vascular accident) I63.9
--- NOTE | 2020-03-07 22:44 | Hospitalist Progress Note ---
Date of Service March 07, 2020 Assessment & Plan (1) CVA (cerebral vascular accident): - Admit to PCU s/p TPA administration - Stroke order set completed - team to complete day 2 order set tomorrow - CT head shows some mild narrowing within the proximal right M1 segment. The distal branches of the right MCA appear attenuated in comparison to the left. However, no evidence for arterial occlusion at this time. - MRI confirmed stroke - Neurology consulted - Dr. Berg Appreciate input. - Will continue to control BP with aortic arch aneurysm which appears to be new on imaging. Consider cardiothoracic or vascular consultation - will need follow up on discharge - PT/OT consults awaiting input. - will continue on plavix. (2) Hyperlipidemia: - Check lipid panel with am labs - Cont omega 3 supplements (3) HTN (hypertension): - BP is well managed (4) Aortic arch aneurysm: - CT revealed 9mm aortic aneurysm- would recommend follow up after this to cardiothoracic surgeon as outpatient - s/p TPA administration (5) Aortic stenosis: - Noted, heard on exam (6) Carotid artery stenosis: -Noted (7) Diabetes: - ISS with accuchecks achs, glucose noted to be elevated at 200 on arrival, pt missed morning metformin. (8) Osteoarthritis: - Noted, continue supplements (9) Allergic rhinitis: - Continue flonase, tres, tessalon pearls prn (10) Sinusitis: - Will start on azithromycin for sinusititis as seen on imaging and pt with complaints of congestion/runny nose. - Very low probability of COVID since no fever, chills, loss of tast or smell, diarrhea, recent travel, known exposure or positive COVID contacts. (11) Asthma: - COntinue inhalers as ordered, CT revealed acute sinusitis, will start on azithromycin x 5 days for now. (12) Anxiety: - Stable on zoloft (13) Depression: - Well controlled currently on zoloft (14) Gastroesophageal reflux disease: - stable, noted (15) Hypothyroidism: -Continue levothyroxine DVT ppx; -teds CODE: Full Dispo: From home, likely to remain in the hospital x 2 days Admission and Anticipated Discharge Date Admission Date: March 06, 2020 Subjective Patient reports feeling well. She has no new complaints. Review of Systems Review of Systems: Constitutional: No fever, sweats or chills Eyes: No diplopia, no worsening or blurred vision ENT: normal hearing, no trouble swallowing Respiratory: No cough, sputum, dyspnea at rest or on exertion Cardiovascular: No chest pain, tightness or palpitations Abdomen: No pain, nausea, vomiting, diarrhea or constipation Musculoskeletal: No joint pain, calf pain, swelling Neurologic: No weakness, numbness/tingling, or balance problems Psychiatric: No anxiety or depression Skin: No rash or itch Physical Exam Physical Exam: General: awake, alert, no apparent distress Head: Normocephalic, atraumatic ENT: PERRL, EOMI, no pharyngeal exudate, mucous membranes moist Chest: Clear to auscultation, on room air, no adventitious breath sounds Cardiac: Regular rate and rhythm, + systolic murmur, no JVD, normal peripheral pulses, good capillary refill Abdominal: NABS x 4 quadrants, soft, nondistended, nontender to palpation, no rebound or guarding Extremities: Normal inspection, no peripheral edema or erythema, calfs nontender to palpation Psych: Normal mood and affect Neuro: AAO x 3 Results & Data Results & Data ([facility]) Vital Signs (Past 12 Hours) Vital Signs Temp Pulse Pulse Pulse Resp BP BP 03/07/20 22:14 84 03/07/20 21:53 36.9 C 84 18 115/74 03/07/20 19:04 37.4 C 72 19 105/68 03/07/20 17:43 76 18 91/75 L 03/07/20 17:30 77 25 H 03/07/20 17:00 79 20 03/07/20 16:37 74 23 119/70 03/07/20 16:30 36.8 C 75 24 03/07/20 16:00 73 17 03/07/20 15:36 70 19 122/59 L 03/07/20 15:00 70 16 03/07/20 14:37 67 22 03/07/20 14:17 69 20 109/65 03/07/20 14:12 67 22 03/07/20 13:37 03/07/20 12:36 74 20 97/59 L 03/07/20 11:36 77 20 117/74 03/07/20 10:45 72 18 130/54 L Pulse Ox 03/07/20 22:14 03/07/20 21:53 96 03/07/20 19:04 95 03/07/20 17:43 95 03/07/20 17:30 93 03/07/20 17:00 03/07/20 16:37 96 03/07/20 16:30 96 03/07/20 16:00 94 03/07/20 15:36 95 03/07/20 15:00 99 03/07/20 14:37 94 03/07/20 14:17 94 03/07/20 14:12 03/07/20 13:37 93 03/07/20 12:36 95 03/07/20 11:36 92 03/07/20 10:45 95 PG Care Time/CCT Total # of Minutes Spent Total Time Spent with Patient: Total time spent is greater than 50% in coordination of care (as documented) at patient's floor/unit and/or counseling patient: Coding Level of Care Code 18340 Subseq Hosp Care Lvl 3 Diagnoses CVA (cerebral vascular accident) I63.9 Hyperlipidemia E78.5 HTN (hypertension) I10 Aortic arch aneurysm I71.2 Aortic stenosis I35.0 Carotid artery stenosis I65.29 Diabetes E11.9 Osteoarthritis M19.90 Allergic rhinitis J30.9 Sinusitis J32.9 Asthma J45.909 Anxiety F41.9 Depression F32.9 Gastroesophageal reflux disease K21.9 Hypothyroidism E03.9 Time Spent (min) 35
[2020-03-08] MEDS: LEVOTHYROXINE SODIUM 50 MCG TABLET PO SCH (06:17)
[2020-03-08 07:21] LABS: Hemoglobin 10.8 g/dL (12.0-16.0); Mean Corpuscular Hemoglobin 26.1 pg (25-34); Mean Corpuscular Hgb Conc 31.8 g/dL (32-36); Mean Corpuscular Volume 82.1 fL (80-100); Mean Platelet Volume 11.1 fL (7.4-10.4); Platelet Count 124 K/uL (130-400); RDW Coefficient of Variation 13.9 % (11.5-14.5); RDW Standard Deviation 42.2 fL (36.4-46.3); Red Blood Count 4.14 M/uL (4.2-5.4); White Blood Count 3.87 K/uL (4.8-10.8)
[2020-03-08 07:57] LABS: Albumin Level 2.6 gm/dl (3.4-5.0); BUN Creatinine Ratio 21.2 (10-20); Calcium 9.4 mg/dl (8.5-10.1); Est GFR (Non-African American) 83.7
[2020-03-08 08:00] LABS: Albumin Globulin Ratio 0.6 (0.9-2); Bilirubin,Total 0.5 mg/dl (0.2-1); Globulin 4.1 gm/dl (2.5-4.0); Total Protein 6.7 gm/dl (6.4-8.2)
[2020-03-08] MEDS ORDERED: CLOPIDOGREL BISULFATE 75 MG TAB PO SCH (09:00)
--- NOTE | 2020-03-08 10:19 | Neurology Progress Note ---
Date of Service March 08, 2020 Assessment & Plan (1) CVA (cerebral vascular accident): (2) Diabetes: Patient has a history of an episodes March 06 consisting of some confusion and left upper extremity weakness. She received tPA on a presumed stroke diagnosis and CT angiography showed some vascular changes in the left middle cerebral artery distribution not present on the left. Today she is largely asymptomatic with no focal neurologic findings. Her dysarthria is improved. I cannot exclude a mild underlying dementia. She was not seem encephalopathic this morning. 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 Her episode happened on aspirin. MRI of the brain showed 2 small subacute strokes in the right occipital area and right frontal periventricular region. She has generalized atrophy and moderate old small vessel ischemic disease. Recommendations: 1. Continue clopidogrel 75 milligrams daily for stroke prevention. keep off aspirin. 2. Increase activity as able 3. follow up with Neurology in 4-6 weeks. Overall, I spent a total of 35 minutes with this case including review of records, review of CT and MRI films, direct evaluation of the patient at bedside, discussion of the case with Dr. Nicole and Dr. Cuevas including differential diagnosis and treatment options. Admission and Anticipated Discharge Date Admission Date: March 06, 2020 Subjective Feels better than yesterday and has no new complaints or issues. Echocardiogram revealed some left ventricular hypertrophy and severe valvular aortic stenosis. I have spoken with Dr. Nicole regarding this. He also saw the aortic arch saccular aneurysm and address this in his consultation note. MRI of the brain showed 2 small strokes of a subacute nature including right occipital and right frontal periventricular. There was generalized atrophy and diffuse white matter changes consistent with age also. CBC showed anemia as before and glucose was 160. blood pressure was 99/55 this morning. Results & Data ([facility]) Vital Signs (Past 12 Hours) Vital Signs Temp Pulse Resp BP Pulse Ox 03/08/20 07:35 36.8 C 69 20 99/55 L 90 03/08/20 03:20 36.8 C 76 18 128/80 93 03/08/20 00:03 36.7 C 77 18 112/74 95 Exam (Neuro) Physical Exam: She is awake and alert. Speech is without aphasia or dysarthria. Mood is normal and affect is appropriate. Thought processes are intact to conversation. Extraocular eye muscles are intact without nystagmus. There is no facial droop. Tongue is midline. With outstretched arms there is no drift and there is no ataxia with [id number] testing. Strength seems symmetrical in all 4 limbs. PG Care Time/CCT Total # of Minutes Spent Total Time Spent with Patient: Total time spent is greater than 50% in coordination of care (as documented) at patient's floor/unit and/or counseling patient: Coding Level of Care Code 17959 Subseq Hosp Care Lvl 3 Diagnoses CVA (cerebral vascular accident) I63.9 CVA mechanism: unspecified Diabetes E11.9 Time Spent (min) 35 (1) CVA (cerebral vascular accident) CVA mechanism: unspecified Qualified Code(s): I63.9 - Cerebral infarction, un specified
--- NOTE | 2020-03-08 10:43 | Cardiology Progress Note ---
Date of Service March 08, 2020 Assessment & Plan (1) Severe aortic stenosis: As noted, given her limited physical activity would conservatively manage her aortic stenosis at this point. Continue to monitor for warning symptoms. (2) Saccular aneurysm: This does confer increased risk of thrombosis, agree with switching from aspirin to clopidogrel. Not a candidate for intervention until she convalesces from her acute CVA, in several months would send to tertiary care for evaluation for endovascular procedure, open procedure with TAVR, or conservative management. (3) CVA (cerebral vascular accident): Status post TPA. Admission and Anticipated Discharge Date Admission Date: March 06, 2020 Subjective Uneventful night. She continues to recuperate from her CVA. No cardiopulmonary complaints, specifically she notes no chest pain, dyspnea, subjective palpitations, or lightheadedness. Physical Exam Physical Exam: Elderly white female appears comfortable. Afebrile. Normotensive. Pulse 70 and regular. Respirations 20 but unlabored. Skin: no ecchymoses or generalized lesions. HEENT: unremarkable. Neck: Jugular venous pulse normal, bilateral transmitted carotid murmurs. Lungs: Clear and equal breath sounds, no wheezing on forced exhalation. Cardiac: regular rhythm, 4/6 crescendo decrescendo systolic ejection murmur at the right upper sternal border rating to the carotids and left sternal border, mildly reduced but readily audible aortic closure sound, no diastolic murmur or gallop. Abdomen benign. Extremities: no edema, pulses brisk. Neurologic: normal affect and conversation, focal deficits as per neurology evaluation. Results & Data ([facility]) Laboratory Results WBC 3.87, hemoglobin 10.8, platelet count 124,000. Normal electrolytes, BUN 14, creatinine 0.64. PG Care Time/CCT Total # of Minutes Spent Total Time Spent with Patient: Total time spent is greater than 50% in coordination of care (as documented) at patient's floor/unit and/or counseling patient: Coding Level of Care Code 60828 Subseq Hosp Care Lvl 3 Diagnoses Severe aortic stenosis I35.0 Saccular aneurysm I67.1 CVA (cerebral vascular accident) I63.9 CVA mechanism: unspecified (1) CVA (cerebral vascular accident) CVA mechanism: unspecified Qualified Code(s): I63.9 - Cerebral infarction, unspecified
[2020-03-08] MEDS: SERTRALINE HCL 100 MG TABLET PO SCH (10:45)
[2020-03-08] MEDS: CHOLECALCIFEROL 1,000 UNITS 25 MCG TAB PO SCH (10:45)
[2020-03-08] MEDS: MULTIVITAMIN CHEWABLE TAB PO SCH (10:45)
[2020-03-08] MEDS: OMEGA-3 (PURIFIED FISH OIL) 1 GM CAP PO SCH (10:45)
[2020-03-08] MEDS: ENOXAPARIN INJ 40 MG/0.4 ML SYR SQ SCH (10:45)
[2020-03-08] MEDS: CYANOCOBALAMIN 500 MCG TABLET (VITAMIN B-12) PO SCH (10:45)
[2020-03-08] MEDS: FEXOFENADINE HCL 180 MG TAB PO PRN (10:46)
[2020-03-08] MEDS: FLUTICASONE/VILANTEROL 200/25MCG 14 PUFFS/INHALER INH SCH (11:02)
[2020-03-08 11:20] VITALS: BP 139/75; TEMP 98.1; O2SAT 96
[2020-03-08] MEDS: INSULIN ASPART 100 UNITS/ML 3 ML PEN SC SCH ×2 (11:26→12:43)
[2020-03-08 13:40] VITALS: PULSE 74
--- NOTE | 2020-03-15 08:58 | Discharge Summary ---
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 Patient was found driving the wrong direction, 99, was confused and not able to recognize her family members earlier today. When authorities arrived on scene they noticed that she had eyes moving towards the right and her left upper extremity and ataxic and was brought to the hospital for fear for stroke. Once here she underwent evaluation by neurology at [facility] via telemedicine and was deemed a candidate for TPA. TPA was administered as well as magnesium IV for level of 1.6 on admission. Her left upper extremity weakness and ataxia is now improved compared to when she came in. Her son is present at baseline and reports she was talking like herself this morning when she was driving the wrong direction. She is making sense during our conversation and is able to follow commands. She denies any headache, changes in vision, pain, fever or chills. She reports the reason she was driving this morning was to try to get a COVID test because of having worsening dizziness and congestion. She typically gets bronchitis once a year, and has previously been treated with a [place]. She has not been COVID-19 swab. She denies any fevers, loss of taste or smell, diarrhea, recent travel or known sick contacts. Principal Diagnosis CVA Discharge Exam General: awake, alert, no apparent distress Head: Normocephalic, atraumatic ENT: PERRL, EOMI, no pharyngeal exudate, mucous membranes moist Chest: Clear to auscultation, on room air, no adventitious breath sounds Cardiac: Regular rate and rhythm, + systolic murmur, no JVD, normal peripheral pulses, good capillary refill Abdominal: NABS x 4 quadrants, soft, nondistended, nontender to palpation, no rebound or guarding Extremities: Normal inspection, no peripheral edema or erythema, calfs nontender to palpation Psych: Normal mood and affect Neuro: AAO x 3 Discharge Data Allergies Allergy/AdvReac Type Severity Reaction Status Date / Time amoxicillin Allergy Mild YEAST Verified 03/06/20 15:04 INFECTION doxycycline Allergy Mild unknown Verified 03/06/20 15:04 meloxicam Allergy Mild unknown Verified 03/06/20 15:04 nitrofurantoin Allergy Mild unknown Verified 03/06/20 15:04 ofloxacin Allergy Mild unknown Verified 03/06/20 15:04 sulfamethoxazole Allergy Mild unknown Verified 03/06/20 15:04 trimethoprim Allergy Mild unknown Verified 03/06/20 15:04 atorvastatin [From Lipitor] Allergy Unknown ON MED LIST Verified 03/06/20 15:51 ezetimibe Allergy Unknown UNKNOWN Verified 03/06/20 15:04 gabapentin Allergy Unknown ON MED LIST Verified 03/06/20 15:51 pravastatin Allergy Unknown ON MED LIST Verified 03/06/20 15:51 rosuvastatin Allergy Unknown BODY PAINS Verified 03/06/20 15:04 oxycodone AdvReac Mild VOMITING Verified 03/06/20 15:04 Consultations 03/06/20 14:10 ED Decision to Admit Stat 03/06/20 17:04 Consult Case Management - Discharge Planning Routine Consult Blister Packing Machine Tender Routine Consult Neurology Routine 03/07/20 14:15 Consult Cardiology Routine Ordered Studies 03/06/20 12:51 CT angio head w con Stat CT angio neck with con Stat CT head/brain wo con Stat 03/07/20 10:55 MR brain wo con Urgent 03/07/20 14:30 CT head/brain wo con Routine Hospital Course (1) CVA (cerebral vascular accident): - Admit to PCU s/p TPA administration - Stroke order set completed - team to complete day 2 order set tomorrow - CT head shows some mild narrowing within the proximal right M1 segment. The distal branches of the right MCA appear attenuated in comparison to the left. However, no evidence for arterial occlusion at this time. - MRI confirmed stroke - Neurology consulted - Dr. Berg Appreciate input. - Will continue to control BP with aortic arch aneurysm which appears to be new on imaging. Consider cardiothoracic or vascular consultation - will need follow up on discharge - PT/OT consults awaiting input. - will continue on plavix. Appreciate input from NEURO: Patient has a history of an episodes March 06 consisting of some confusion and left upper extremity weakness. She received tPA on a presumed stroke diagnosis and CT angiography showed some vascular changes in the left middle cerebral artery distribution not present on the left. Today she is largely asymptomatic with no focal neurologic findings. Her dysarthria is improved. I cannot exclude a mild underlying dementia. She was not seem encephalopathic this morning. 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 Her episode happened on aspirin. MRI of the brain showed 2 small subacute strokes in the right occipital area and right frontal periventricular region. She has generalized atrophy and moderate old small vessel ischemic disease. Recommendations: 1. Continue clopidogrel 75 milligrams daily for stroke prevention. keep off aspirin. 2. Increase activity as able 3. follow up with Neurology in 4-6 weeks. (2) Hyperlipidemia: - Check lipid panel with am labs - Cont omega 3 supplements (3) HTN (hypertension): - BP is well managed (4) Aortic arch aneurysm: - CT revealed 9mm aortic aneurysm- would recommend follow up after this to cardiothoracic surgeon as outpatient - s/p TPA administration Appreciate input from cardio: This does confer increased risk of thrombosis, agree with switching from aspirin to clopidogrel. Not a candidate for intervention until she convalesces from her acute CVA, in several months would send to tertiary care for evaluation for endovascular procedure, open procedure with TAVR, or conservative management. (5) Aortic stenosis: - Noted, heard on exam As noted, given her limited physical activity would conservatively manage her aortic stenosis at this point. Continue to monitor for warning symptoms. (6) Carotid artery stenosis: -Noted (7) Diabetes: - ISS with accuchecks achs, glucose noted to be elevated at 200 on arrival, pt missed morning metformin. (8) Osteoarthritis: - Noted, continue supplements (9) Allergic rhinitis: - Continue flonase, tres, tessalon pearls prn (10) Sinusitis: - Will start on azithromycin for sinusititis as seen on imaging and pt with complaints of congestion/runny nose. - Very low probability of COVID since no fever, chills, loss of tast or smell, diarrhea, recent travel, known exposure or positive COVID contacts. (11) Asthma: - COntinue inhalers as ordered, CT revealed acute sinusitis, will start on azithromycin x 5 days for now. (12) Anxiety: - Stable on zoloft (13) Depression: - Well controlled currently on zoloft (14) Gastroesophageal reflux disease: - stable, noted (15) Hypothyroidism: -Continue levothyroxine DVT ppx; -teds CODE: Full Dispo: From home, likely to remain in the hospital x 2 days Total Time Total Time Spent Total Time Spent (In Minutes): 32 Total Time Includes: Examination of the Patient, Discharge Planning and Medication Reconciliation Discharge Plan Discharge Items Patient Disposition: Home - Self-Care Reason For Visit: CVA Discharge Diagnosis: CVA Activity: Resume your previous activity Non-emergency contact: Primary Care Provider Call non-emergency contact if: you have any medication questions Follow-up/Referrals: Kilo Ardon MD [Primary Care Provider] - 03/14/20 3:00 pm (APPT WITH SHAYNE MCCLENDON) Diet: Carb Consistent or DM2 and Heart Healthy Diet Texture: Easy to Chew Addtl Attending Provider Instructions: You have been hospitalized for an acute medical problem. During your stay at [facility], we have made an effort to correct the problem that brought you to the hospital while keeping you as comfortable as possible. Medications were used to bring your condition under control and your discharge instructions will include directions for any medications you should take after leaving the hospital. Please make sure you see your Primary Care Provider as part of your follow up plan. Risk Factors for Stroke: You can reduce your chances of stroke by working with your medical provider to adopt a healthy lifestyle. Some specific ways to lower your chance of stroke are: * If you are a smoker, now is the time to stop smoking cigarettes * If you are diabetic, improve the control of your blood sugars * Avoid excessive amounts of alcohol * Control high blood pressure * Lose weight if you are overweight * Be sure to lead an active lifestyle * Eat a healthy diet low in salt, cholesterol and fat You should know about other risk factors for stroke that you are unable to control. These include: * Age 55 years or older * Male gender * Certain racial groups: , or / * Family History of Stroke, Mini stroke or Heart Attack * Sickle Cell Disease Follow Up: It is important for you to keep your follow up appointments with your medical provider. Who to Call and When: Medical Emergencies: Call 911 immediately if you experience any of the following warning signs and symptoms of Stroke: * Sudden numbness or weakness of the face, arm or leg, especially on one side of the body * Sudden confusion, trouble speaking or understanding * Sudden trouble seeing in one or both eyes * Sudden trouble walking, dizziness, loss of balance or coordination * Sudden severe headache with no cause Do not delay calling 911 if you experience any warning signs or symptoms of a stroke. Delay in seeking medical attention may affect what treatments can be given to you. . Recommend followup in 4-6 weeks. Pending Studies at Discharge: No Stand-Alone Forms: My [facility] [employer], Smoking Cessation Medications and DC Order Prescriptions: New clopidogrel 75 mg Tablet 75 mg PO QAM Qty: 30 RF: 0 Continued fexofenadine 180 mg tablet 180 mg PO DAILY PRN (Reason: Allergic Symptoms) RF: 0 cholecalciferol (vitamin D3) 50 mcg (2,000 unit) capsule 1,000 units PO DAILY RF: 0 sertraline 100 mg tablet 100 mg PO DAILY Qty: 90 RF: 3 metformin 1,000 mg tablet 1,000 mg PO BID Qty: 180 RF: 3 levothyroxine 50 mcg tablet 50 mcg PO DAILY Qty: 90 RF: 3 clobetasol 0.05 % ointment 1 appln TOP DAILY 28 Days Qty: 15 RF: 1 omega [id number]-omx-ivh-fish oil 1,200 (144-216) mg capsule 1 cap PO DAILY RF: 0 albuterol sulfate 90 mcg/actuation HFA aerosol inhaler 2 puffs inhalation Q4H PRN (Reason: shortness of breath or wheezing) Qty: 18 RF: 11 fluticasone propion-salmeterol [Advair Diskus] 250-50 mcg/dose blister with device 1 puffs INH BID Qty: 3 RF: 3 coenzyme Q10 10 mg Capsule 10 mg PO DAILY RF: 0 garlic 1,000 mg Capsule 1 ea PO DAILY RF: 0 geriatric [id number] Tablet 1 tab PO DAILY RF: 0 glyburide 1.25 mg Tablet 1.25 mg PO BID RF: 0 psyllium husk 0.4 gram Capsule 0.4 g PO DAILY RF: 0 meclizine 25 mg tablet 25 mg PO Q6H PRN (Reason: dizziness) RF: 0 Discontinued aspirin [Aspirin Low Dose] 81 mg tablet,delayed release (DR/EC) 81 mg PO DAILY RF: 0 No Action benzonatate [Tessalon Perles] 100 mg capsule 200 mg PO TID PRN (Reason: cough) Qty: 240 RF: 2 azithromycin 250 mg tablet 250 mg PO DAILY 10 Days Qty: 10 RF: 0 Discharge Orders: Discharge Order (Routine); Ordered 03/08/20 Ordered By: Donnie Longo/Other Patient Handouts: High Blood Sugar (Hyperglycemia), Hypoglycemia (Low Blood Sugar), Managing Type 2 Diabetes Admission Data Admit Date/Time: 03/06/20 15:20 Attending Provider: Donnie Cuevas Admit Provider: Nash Morales Primary Care Provider: Kilo Ardon Other Providers: Nash Morales ; Jameel Ibarra ; Arben Berg ; Murali Subramanian ; Ran Nicole ; Taqueria Diamond ; Chris Moser ; Josh Fay ; Marcell Garcia Jr ; Kingsley Escalante ; Beti Piper ; Shantelle Isaacs ; Kilo Hood ; Kilo Mueller ; Cody Knott ; Jose Alberto Beltran ; Doreen Yap ; Aggie Langford ; Justino Cruz ; Flaquito Riley ; Milan Dong Other Interventions: Discharge Summary Assessment (RN) Last Done: 03/08/20 13:39 Coding Level of Care Code D/C Day Management >30 mins Diagnoses CVA (cerebral vascular accident) I63.9 CVA mechanism: unspecified Hyperlipidemia E78.5 HTN (hypertension) I10 Aortic arch aneurysm I71.2 Aortic stenosis I35.0 Carotid artery stenosis I65.29 Diabetes E11.9 Osteoarthritis M19.90 Allergic rhinitis J30.9 Sinusitis J32.9 Asthma J45.909 Anxiety F41.9 Depression F32.9 Gastroesophageal reflux disease K21.9 Hypothyroidism E03.9 Time Spent (min) 32
== END 2020-03-08 14:38 | disposition home or self-care (01) | DRG 62 ==
LOC: ED 12:38 → 1E 15:20 → SUATTDRO 15:20 → 1E 16:17 → 2N 03-07 21:47

== ENCOUNTER 2021-08-26 12:50 | Inpatient (IN) ==
--- NOTE | 2021-08-26 13:10 | Emergency Department Note ---
Impression & Plan Asthma, Hypoxia, Viral URI, Laryngitis ED Provider Note NAME: NATI BARKER AGE: 80 SEX: F : 1940 ARRIVES VIA: Walk-In INFORMANT: Patient ED PROVIDER(S): Stephan Walker DO CHIEF COMPLAINT: cough, shortness of breath HPI: Patient is an 80-year-old female with a past medical history of hypertension, diabetes, hyperlipidemia, aortic insufficiency and aortic stenosis/CVA that presents to the ER for shortness of breath. Symptoms started within the past 24 to 48 hours. She admits to persistent dry cough along with loss of voice. She always has a runny nose and does not believe that this is worsened. No sore throat. She does have some congestion. She also admits to shortness of breath with this. No chest pain or belly pain. No nausea vomiting or diarrhea. No dysuria urgency or frequency. No other exacerbating or remitting factors. This past she went to be evaluated by [facility] has been set up for heart cath in September. ROS: See above HPI for pertinent positives & negatives. A total of 10 systems reviewed and were otherwise negative. PAST MEDICAL HISTORY:See Below PAST SURGICAL HISTORY:See Below FAMILY HISTORY:See Below SOCIAL HISTORY:See Below HOME MEDICATIONS:See Below ALLERGIES:See Below VITALS:See Below PHYSICAL EXAMINATION: GENERAL: Sitting up in bed, alert, with a hoarse voice EYE EXAM: normal conjunctiva. PERRL and EOM's grossly intact. OROPHARYNX: no exudate, no erythema, lips, buccal mucosa, and tongue normal and mucous membranes are moist NECK: supple, no nuchal rigidity, no adenopathy, non-tender LUNGS: Clear to auscultation. Normal chest wall mechanics HEART: no murmurs, S1 normal and S2 normal ABDOMEN: abdomen soft, non-tender, normo-active bowel sounds, no masses, no rebound or guarding. UPPER EXTREMITIES: upper extremities are grossly normal. LOWER EXTREMITIES: No pitting edema. Calves are equal bilateral NEURO EXAM: Normal sensorium, cranial nerves II-XII grossly intact, normal speech, no gross weakness of arms, no gross weakness of legs. MEDICAL DECISION MAKING: Patient is an 80-year-old female who presents ER with above-stated complaint. IV was established blood was obtained. Labs show no significant leukocytosis or anemia. BMP was unremarkable. T bili slightly elevated at 2 up from a baseline of 1. LFTs were remarkable for a slight elevation in AST at 75. Troponin was elevated 0.05 consistent with previous and unchanged. Lipase was normal. Influenza and Covid were negative. Chest x-ray shows an enlarged heart. EKG was unchanged from previous. Patient was given neb treatments as well as steroids. Do favor that this is infectious in nature. With the mild hypoxia discussed with Leodan from the hospital service for further evaluation. Triage Nursing notes reviewed. Limited review of prior medical records performed Vital Signs: reviewed and remarkable for no significant abnormalities Differential diagnosis: Differential diagnoses includes but is not limited to pneumonia, bronchitis, COPD/Asthma exacerbation, pneumothorax, pulmonary embolism, congestive heart failure, acute coronary syndrome ER treatment provided: See below Diagnostics interpreted by me: ECG: Sinus rhythm rate 86 Normal axis No PVCs ST depressions in the lateral leads QTC 459 No significant change from previous Cardiac Monitoring: An order was placed for continuous cardiac monitoring. The monitor shows a rate of 82 with sinus rhythm. Laboratory studies: As stated above and show below. 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 Sciatica TMJ (sprain of temporomandibular joint) Vertigo Surgical History History of cataract surgery History of laparoscopic cholecystectomy Family History Unknown Esophageal reflux Mother , age 73 of dementia Dementia Myocardial infarction Father , age 75 of a stroke Stroke Denies family history of Ovarian cancer Prostate cancer Coronary heart disease Breast cancer Colorectal cancer Social History Smoking Status: Former smoker Tobacco Type: Cigarettes Second Hand Exposure: No; Hx Alcohol Use: No Hx Substance Use: No Preferred Language: Bulgarian Communication Ability: Effective Visual Impairment: No Limitations Hearing Ability: Use of Hearing Aid Claim Inspector Required: No Beliefs That Will Affect Care: None marital status: / Current Living Situation: Alone current occupational status: retired 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 Feels Safe at Home: Yes Childhood Exposure to Second-Hand Smoke: Yes caffeine: Yes during the past year weight has: remained stable Dental Care, Regularly: Yes Physical Activity Frequency: 1-2 Times per Week Seatbelt Use: always Sunscreen Use: Yes Assistive Devices: Wheelchair Allergies Allergies Allergy/AdvReac Type Severity Reaction Status Date / Time amoxicillin Allergy Mild YEAST Verified 08/26/21 15:08 INFECTION doxycycline Allergy Mild unknown Verified 08/26/21 15:08 meloxicam Allergy Mild unknown Verified 08/26/21 15:08 nitrofurantoin Allergy Mild unknown Verified 08/26/21 15:08 ofloxacin Allergy Mild unknown Verified 08/26/21 15:08 sulfamethoxazole Allergy Mild unknown Verified 08/26/21 15:08 trimethoprim Allergy Mild unknown Verified 08/26/21 15:08 atorvastatin [From Lipitor] Allergy Unknown ON MED LIST Verified 08/26/21 15:08 ezetimibe Allergy Unknown UNKNOWN Verified 08/26/21 15:08 gabapentin Allergy Unknown ON MED LIST Verified 08/26/21 15:08 pravastatin Allergy Unknown ON MED LIST Verified 08/26/21 15:08 rosuvastatin Allergy Unknown BODY PAINS Verified 08/26/21 15:08 oxycodone AdvReac Mild VOMITING Verified 08/26/21 15:08 Home Meds Home Medications Medication Instructions Recorded Confirmed omega 0-rac-box-fish oil 1,200 mg 1 cap PO QAM cap 02/06/19 08/26/21 (144 mg-216 mg) capsule cholecalciferol (vitamin D3) 50 1,000 units PO QAM cap 04/12/19 08/26/21 mcg (2,000 unit) capsule coenzyme Q10 10 mg capsule 10 mg PO QAM 03/06/20 08/26/21 geriatric ufoyjpyn-reiw-aaor 1 tab PO QAM 03/06/20 08/26/21 fexofenadine 180 mg tablet 180 mg PO DAILY tab 10/03/20 08/26/21 garlic 1,000 mg capsule 1,000 mg PO QAM 10/03/20 08/26/21 cyanocobalamin (vitamin B-12) 100 100 mcg PO QAM tab 04/24/21 08/26/21 mcg tablet benzonatate 100 mg capsule 100 mg PO TID PRN 05/31/21 08/26/21 fluticasone 250 mcg-salmeterol 50 2 ea INHALATION QAM 05/31/21 08/26/21 mcg/dose blistr powdr for inhalation (Advair Diskus) garlic 100 mg tablet 100 mg PO QAM 08/26/21 08/26/21 levothyroxine 50 mcg tablet 50 mcg PO DAILYBB 08/26/21 08/26/21 Previous Rx's Medication Instructions Recorded albuterol sulfate 90 mcg/actuation 2 puff INHALATION Q4H PRN #18 gm 12/18/20 aerosol inhaler clopidogrel 75 mg tablet 75 mg PO QAM #90 tab 03/27/21 clobetasol 0.05 % topical ointment 1 applic TOP TID PRN #15 g 05/29/21 metformin 1,000 mg tablet 500 mg PO BID #90 tab 06/26/21 sertraline 100 mg tablet 100 mg PO HS #90 tab 06/26/21 Results & Data (ED) Vital Signs Vital Signs - 24 hr 08/26/21 12:51 08/26/21 13:10 08/26/21 13:14 Temperature 36.4 C L Temperature Source Temporal Artery Scan Pulse Rate 87 85 Pulse Rate [Left Radial] 85 Pulse Rate from SpO2 Sensor 85 Pulse Rhythm Regular Pulse Rhythm [Left Radial] Regular Pulse Strength Normal Respiratory Rate 20 29 H Respiratory Effort / Characteristics Non-Labored Respiratory Depth Normal Blood Pressure 126/71 110/90 Blood Pressure [Left Arm] 128/106 H Blood Pressure Mean 89 96 Blood Pressure Mean [Left Arm] 113 Blood Pressure Position [Left Arm] Lying Pulse Oximetry 97 93 93 Oxygen Delivery Method Room Air Room Air Room Air Sepsis Recent Fever Within 48 Hours No Sepsis New/Unexplained Change in Mental Status N/A Sepsis Action Taken by Nursing No Action Required 08/26/21 13:15 08/26/21 13:30 08/26/21 14:00 Temperature Temperature Source Pulse Rate 86 86 86 Pulse Rate [Left Radial] Pulse Rate from SpO2 Sensor 86 86 85 Pulse Rhythm Pulse Rhythm [Left Radial] Pulse Strength Respiratory Rate 28 H 31 H 37 H Respiratory Effort / Characteristics Respiratory Depth Blood Pressure 128/106 H 130/74 Blood Pressure [Left Arm] Blood Pressure Mean 113 92 Blood Pressure Mean [Left Arm] Blood Pressure Position [Left Arm] Pulse Oximetry 93 92 93 Oxygen Delivery Method Room Air Room Air Room Air Sepsis Recent Fever Within 48 Hours Sepsis New/Unexplained Change in Mental Status Sepsis Action Taken by Nursing 08/26/21 14:04 08/26/21 14:31 08/26/21 15:00 Temperature Temperature Source Pulse Rate 86 84 Pulse Rate [Left Radial] 73 Pulse Rate from SpO2 Sensor 86 84 Pulse Rhythm Pulse Rhythm [Left Radial] Regular Pulse Strength Respiratory Rate 20 29 H 22 Respiratory Effort / Characteristics Non-Labored Respiratory Depth Normal Blood Pressure 142/99 H 103/86 Blood Pressure [Left Arm] Blood Pressure Mean 113 91 Blood Pressure Mean [Left Arm] Blood Pressure Position [Left Arm] Pulse Oximetry 87 L 96 91 Oxygen Delivery Method Room Air Nebulizer Sepsis Recent Fever Within 48 Hours Sepsis New/Unexplained Change in Mental Status Sepsis Action Taken by Nursing 08/26/21 15:15 Temperature Temperature Source Pulse Rate 81 Pulse Rate [Left Radial] Pulse Rate from SpO2 Sensor 81 Pulse Rhythm Pulse Rhythm [Left Radial] Pulse Strength Respiratory Rate 23 Respiratory Effort / Characteristics Respiratory Depth Blood Pressure Blood Pressure [Left Arm] Blood Pressure Mean Blood Pressure Mean [Left Arm] Blood Pressure Position [Left Arm] Pulse Oximetry 92 Oxygen Delivery Method Sepsis Recent Fever Within 48 Hours Sepsis New/Unexplained Change in Mental Status Sepsis Action Taken by Nursing Laboratory Data Result diagrams: 08/26/21 13:11 08/26/21 13:11 Lab Results 08/26/21 08/26/21 08/26/21 Range/Units 13:00 13:11 13:11 WBC 9.33 (4.8-10.8) K/uL RBC 4.55 (4.2-5.4) M/uL Hgb 12.6 (12.0-16.0) g/dL Hct 38.5 (37-47) % MCV 84.6 (80-100) fL MCH 27.7 (25-34) pg MCHC 32.7 (32-36) g/dL RDW Std Deviation 48.9 H (36.4-46.3) fL RDW Coeff of Marty 16.0 H (11.5-14.5) % Plt Count 146 (130-400) K/uL MPV 11.9 H (7.4-10.4) fL Immature Gran % (Auto) 0.2 % Neut % (Auto) 80.9 % Lymph % (Auto) 10.0 % [place] % (Auto) 8.4 % Eos % (Auto) 0.3 % Baso % (Auto) 0.2 % Neut # (Auto) 7.55 H (1.4-6.5) K/uL Lymph # (Auto) 0.93 L (1.2-3.4) K/uL [place] # (Auto) 0.78 H (0.11-0.59) K/uL Eos # (Auto) 0.03 (0-0.5) K/uL Baso # (Auto) 0.02 (0-0.2) K/uL Immature Gran # (Auto) 0.02 (0.00-0.02) K/uL Sodium 136 (136-145) mmol/L Potassium 4.5 (3.5-5.1) mmol/L Chloride 103 (98-107) mmol/L Carbon Dioxide 25 (21-32) mmol/L Anion Gap 8 (3-11) BUN 14 (6-23) mg/dl Creatinine 0.53 L (0.6-1.2) mg/dl Est Cr Clr Drug Dosing Not Reportable Est GFR ( Amer) 102.5 ml/min Est GFR (Non-Af Amer) 88.4 ml/min BUN/Creatinine Ratio 26.4 H (10-20) Glucose 170 H (70-99(Fasting)) mg/dl Calcium 9.3 (8.5-10.1) mg/dl Total Bilirubin 2.0 H (0.2-1.0) mg/dl AST 75 H (13-39) U/L ALT 47 (7-52) U/L Alkaline Phosphatase 67 (34-104) U/L Troponin I 0.05 H* (0-0.04) ng/ml Total Protein 6.9 (6.0-8.3) gm/dl Albumin 3.6 (3.4-5.0) gm/dl Globulin 3.3 (2.5-4.0) gm/dl Albumin/Globulin Ratio 1.1 (0.9-2) Lipase 21 (11-82) U/L Influ A Molecular Assay Negative (Negative) Influ B Molecular Assay Negative (Negative) SARS-CoV-2, RNA, NAAT (NEGATIVE) 08/26/21 Range/Units 13:11 WBC (4.8-10.8) K/uL RBC (4.2-5.4) M/uL Hgb (12.0-16.0) g/dL Hct (37-47) % MCV (80-100) fL MCH (25-34) pg MCHC (32-36) g/dL RDW Std Deviation (36.4-46.3) fL RDW Coeff of Marty (11.5-14.5) % Plt Count (130-400) K/uL MPV (7.4-10.4) fL Immature Gran % (Auto) % Neut % (Auto) % Lymph % (Auto) % [place] % (Auto) % Eos % (Auto) % Baso % (Auto) % Neut # (Auto) (1.4-6.5) K/uL Lymph # (Auto) (1.2-3.4) K/uL [place] # (Auto) (0.11-0.59) K/uL Eos # (Auto) (0-0.5) K/uL Baso # (Auto) (0-0.2) K/uL Immature Gran # (Auto) (0.00-0.02) K/uL Sodium (136-145) mmol/L Potassium (3.5-5.1) mmol/L Chloride (98-107) mmol/L Carbon Dioxide (21-32) mmol/L Anion Gap (3-11) BUN (6-23) mg/dl Creatinine (0.6-1.2) mg/dl Est Cr Clr Drug Dosing Est GFR ( Amer) ml/min Est GFR (Non-Af Amer) ml/min BUN/Creatinine Ratio (10-20) Glucose (70-99(Fasting)) mg/dl Calcium (8.5-10.1) mg/dl Total Bilirubin (0.2-1.0) mg/dl AST (13-39) U/L ALT (7-52) U/L Alkaline Phosphatase (34-104) U/L Troponin I (0-0.04) ng/ml Total Protein (6.0-8.3) gm/dl Albumin (3.4-5.0) gm/dl Globulin (2.5-4.0) gm/dl Albumin/Globulin Ratio (0.9-2) Lipase (11-82) U/L Influ A Molecular Assay (Negative) Influ B Molecular Assay (Negative) SARS-CoV-2, RNA, NAAT NEGATIVE (NEGATIVE) Administered Medications Discontinued Medications Albuterol (Albuterol 0.083% Nebu Soln 3 Ml Vial) 5 mg NEB NOW STA; Protocol Stop: 08/26/21 14:06 Last Admin: 08/26/21 14:14 Dose: 5 mg Documented by: [id number] Methylprednisolone (Methylprednisolone 40 Mg/Ml Vial) 40 mg IV NOW STA Stop: 08/26/21 14:06 Last Admin: 08/26/21 14:14 Dose: 40 mg Documented by: [id number] Imaging Data Radiologist's Impression: Chest X-Ray 08/26/21 13:06 SINGLE VIEW CHEST CLINICAL HISTORY: Atypical chest pain. FINDINGS: An AP, portable, upright chest radiograph is compared to chest x-ray and chest CT dated 05/31/2021. The examination is degraded by portable technique and patient rotation. The heart is markedly enlarged. The pulmonary vasculature is noncongested. Chronic interstitial thickening is similar to prev ious. No airspace consolidation or large pleural effusion is identified. No pneumothorax is seen. The skeletal structures are osteopenic. The bony thorax is grossly intact. IMPRESSION: Marked cardiomegaly with no acute cardiopulmonary abnormality. ACT 112: Negative or not required by law. Electronically signed by: Jatinder Masterson M.D. 08/26/2021 1:23 PM Discharge Plan Visit Data Chief Complaint: Shortness of Breath/Dyspnea Stated Complaint: SOB, COUGH ED Provider: Stephan Walker Discharge Problem: Asthma, Hypoxia, Viral URI, Laryngitis Forms Stand Alone Forms: My [facility] [employer] Prescriptions Prescriptions: No Action cholecalciferol (vitamin D3) 50 mcg (2,000 unit) capsule 1,000 units PO QAM RF: 0 fexofenadine 180 mg tablet 180 mg PO DAILY RF: 0 albuterol sulfate 90 mcg/actuation HFA aerosol inhaler 2 puff inhalation Q4H PRN (Reason: shortness of breath or wheezing) Qty: 18 RF: 11 clopidogrel 75 mg tablet 75 mg PO QAM Qty: 90 RF: 3 cyanocobalamin (vitamin B-12) 100 mcg tablet 100 mcg PO QAM RF: 0 clobetasol 0.05 % ointment 1 applic TOP TID PRN (Reason: itching) Qty: 15 RF: 1 metformin 1,000 mg tablet 500 mg PO BID Qty: 90 RF: 3 sertraline 100 mg tablet 100 mg PO HS Qty: 90 RF: 3 omega 5-znz-shm-fish oil 1,200 (144-216) mg capsule 1 cap PO QAM RF: 0 coenzyme Q10 10 mg Capsule 10 mg PO QAM RF: 0 geriatric bpwjochv-hqff-babt Tablet 1 tab PO QAM RF: 0 garlic 1,000 mg capsule 1,000 mg PO QAM RF: 0 fluticasone propion-salmeterol [Advair Diskus] 250-50 mcg/dose blister with device 2 ea INHALATION QAM RF: 0 benzonatate 100 mg capsule 100 mg PO TID PRN (Reason: Cough) RF: 0 garlic 100 mg Tablet 100 mg PO QAM RF: 0 levothyroxine 50 mcg tablet 50 mcg PO DAILYBB RF: 0 Referrals Referrals: Vinh Ardon MD [Primary Care Provider] - Discharge Problem: Asthma Qualifiers: Asthma severity: unspecified severity Asthma persistence: intermittent Asthma complication type: unspecified Qualified Code(s): J45.20 - Mild intermittent asthma, uncomplicated
[2021-08-26 13:20] LABS: Basophils # (auto) 0.02 K/uL (0-0.2); Basophils % (auto) 0.2 %; Eosinophils # (auto) 0.03 K/uL (0-0.5); Eosinophils % (auto) 0.3 %; Hematocrit (blood only) 38.5 % (37-47); Hemoglobin 12.6 g/dL (12.0-16.0); Immature Granulocytes # (auto) 0.02 K/uL (0.00-0.02); Immature Granulocytes % (auto) 0.2 %; Lymphocytes # (auto) 0.93 K/uL (1.2-3.4); Mean Corpuscular Hemoglobin 27.7 pg (25-34); Mean Corpuscular Hgb Conc 32.7 g/dL (32-36); Mean Corpuscular Volume 84.6 fL (80-100); Mean Platelet Volume 11.9 fL (7.4-10.4); Monocytes # (auto) 0.78 K/uL (0.11-0.59); Monocytes % (auto) 8.4 %; Neutrophils # (auto) 7.55 K/uL (1.4-6.5); Neutrophils % (auto) 80.9 %; Platelet Count 146 K/uL (130-400); RDW Standard Deviation 48.9 fL (36.4-46.3); Red Blood Count 4.55 M/uL (4.2-5.4); White Blood Count 9.33 K/uL (4.8-10.8)
--- NOTE | 2021-08-26 13:25 | XRay Report ---
SINGLE VIEW CHEST CLINICAL HISTORY: Atypical chest pain. FINDINGS: An AP, portable, upright chest radiograph is compared to chest x-ray and chest CT dated 05/19. The examination is degraded by portable technique and patient rotation. The heart is marked ly enlarged. The pulmonary vasculature is noncongested. Chronic interstitial thickening is similar to previous. No airspace consolidation or large pleural effusion is identified. No pneumothorax is seen . The skeletal structures are osteopenic. The bony thorax is grossly intact. IMPRESSION: Marked cardiomegaly with no acute cardiopulmonary abnormality. ACT 112: Negative or not required by law. Electronically signed by: Jatinder Masterson M.D. 08/26/2021 1:23 PM
[2021-08-26 13:41] LABS: Alanine Aminotransferase 47 U/L (7-52); Albumin Globulin Ratio 1.1 (0.9-2); Albumin Level 3.6 gm/dl (3.4-5.0); Alkaline Phosphatase 67 U/L (34-104); Anion Gap 8 (3-11); Aspartate Aminotransferase 75 U/L (13-39); BUN Creatinine Ratio 26.4 (10-20); Blood Urea Nitrogen 14 mg/dl (6-23); Calcium 9.3 mg/dl (8.5-10.1); Carbon Dioxide 25 mmol/L (21-32); Chloride 103 mmol/L (98-107); Est GFR (African American) 102.5 ml/min; Est GFR (Non-African American) 88.4 ml/min; Globulin 3.3 gm/dl (2.5-4.0); Glucose 170 mg/dl (70-99(Fasting)); Lipase 21 U/L (11-82); Potassium 4.5 mmol/L (3.5-5.1); Sodium 136 mmol/L (136-145); Total Protein 6.9 gm/dl (6.0-8.3)
[2021-08-26 13:47] LABS: Influenza A virus by PCR Negative (Negative); Influenza B virus by PCR Negative (Negative)
[2021-08-26 13:48] LABS: Troponin I 0.05 ng/ml (0-0.04)
[2021-08-26] MEDS ORDERED: ALBUTEROL 0.083% NEBU SOLN 3 ML VIAL NEB STA (14:05)
--- NOTE | 2021-08-26 15:16 | History & Physical Report ---
Date of Service August 26, 2021 Assessment & Plan (1) Bronchitis: Plan: Patient exam and cough is most consistent with bronchitis - COVID and Flu: NEGATIVE - Responded well to Albuterol Nebulizer and IV steroid - Continue with scheduled nebulizers through the day q6 hour - Methyl-pred- 40mg IV BID - tonight and then in morning- transition to oral prednisone after morning dose of desired - As no fevers and without COPD history will hold on Azithro or Doxy for now - Continue Benzonatate - Continue with fexofenadine - Continue with Advair daily - Follow clinical and biomarker data (2) Severe aortic stenosis: Plan: Don't believe at this time her current symptoms or radiological film is consistent with worsening of her or HF presentation - NOT on SENDY/ARB or BB -Is in the process of having a TAVR arranged as an outpatient and has upcoming cardiac catheterization (3) Aortic arch aneurysm: Plan: Incidentally noted with CTA in 2019- 9mm- interestingly no note of this on CTA of the chest performed 06/09 - reported as left side of the aortic arch (4) Elevated troponin I level: Plan: At 0.05- same previous 2 levels in May - without anginal complaints - trend Troponin I - ECG without dyanmic changes (5) Ascites: Plan: Presumed Related to her Heart function/cardiac cirrhosis-followed by GI Had paracentesis recently - Gram stain negative from her paracentesis in 08/07 - WBC 416, LDH 62, Glucose 138, With mild increase in total bilirubin and AST here likely related to cirrhosis- follow LFTs in the morning (6) History of CVA (cerebrovascular accident): Plan: With tPA administration in 2019 minimal residual effects - Is intolerant to statins - Continue with Plavix (7) Allergic rhinitis: Plan: Continue fexofenadiine, benzonatate, (8) Gastroesophageal reflux disease: Plan: Will start on PPI with addition of steroids (9) Hypothyroidism: Plan: Continue with synthroid TSH normal in 03/2021 (10) Diabetes: Plan: Hold Metformin Hemoglobin A1c normal at 5.6% in 03/2021 - Continue with BG ACH/HS and add aspart insulin coverage - Goal <180 History of Present Illness Primary Care Provider: Vinh Ardon MD 80 YOF with past medical history of: Severe Aortic Stenosis (just started process for TAVR at [facility] [place] SHARMA, CVA (with tPA), HLD, COVID 19- 06/09, , Moderate MR, 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 Patient was brought to the EMD today as she was noted to be very dyspneic and wheezing at home. Her son and his called her this morning to see how she was feeling and noted that she sounded "horrible" on the phone, the went to check on her and noted that she was sitting on the edge of her bed, pale in color and dyspneic more than her normal baseline. The patient reports that she just started feeling like that this morning and had a slight nagging cough yesterday. Of note the patient did just return from [facility] on for her initial evaluation for TAVR, for which is planned in September. The patient does carry a diagnosis of allergic rhinitis and bronchitis, which she reports that she normally does get like this in the spring, but not this severe. She has a raspy bronchitic cough with thin secretions, she does not expectorate them because they make her nauseated. She denies any fevers or chills. For her Asthma she has nebulizers at home and reports a rescue steroid pack, but she uses them so rare that she is unsure if s till good. In the EMD the patient was noted to have one desaturation episode to 87 at 1400 and remains on room air. She was then given 40mg IV solumedrol and albuterol neb and hospitalist team was consulted for admission. The patient feels like she is back to her baseline and responded well following her nebulizer that was still finishing up upon evaluation. The patient would like to go home, however as above she does not have her nebulizer supplies readily available for use as well doubt her cognitive ability to do these throughout the night and follow on by herself. Of note her Troponin is 0.05 and is the same level as it was back in May. and remains with out chest pain, dizziness, leg swelling, or syncope. COVID and FLU A/B are: NEGATIVE Allergies Allergy/AdvReac Type Severity Reaction Status Date / Time amoxicillin Allergy Mild YEAST Verified 08/26/21 15:08 INFECTION doxycycline Allergy Mild unknown Verified 08/26/21 15:08 meloxicam Allergy Mild unknown Verified 08/26/21 15:08 nitrofurantoin Allergy Mild unknown Verified 08/26/21 15:08 ofloxacin Allergy Mild unknown Verified 08/26/21 15:08 sulfamethoxazole Allergy Mild unknown Verified 08/26/21 15:08 trimethoprim Allergy Mild unknown Verified 08/26/21 15:08 atorvastatin [From Lipitor] Allergy Unknown ON MED LIST Verified 08/26/21 15:08 ezetimibe Allergy Unknown UNKNOWN Verified 08/26/21 15:08 gabapentin Allergy Unknown ON MED LIST Verified 08/26/21 15:08 pravastatin Allergy Unknown ON MED LIST Verified 08/26/21 15:08 rosuvastatin Allergy Unknown BODY PAINS Verified 08/26/21 15:08 oxycodone AdvReac Mild VOMITING Verified 08/26/21 15:08 Home Medications Medication Instructions Recorded Confirmed Type omega 4-yhe-arh-fish oil 1,200 mg 1 cap PO QAM cap 02/06/19 08/26/21 History (144 mg-216 mg) capsule cholecalciferol (vitamin D3) 50 1,000 units PO QAM cap 04/12/19 08/26/21 History mcg (2,000 unit) capsule coenzyme Q10 10 mg capsule 10 mg PO QAM 03/06/20 08/26/21 History geriatric ayucyqag-jvex-vmhb 1 tab PO QAM 03/06/20 08/26/21 History fexofenadine 180 mg tablet 180 mg PO DAILY tab 10/03/20 08/26/21 History garlic 1,000 mg capsule 1,000 mg PO QAM 10/03/20 08/26/21 History albuterol sulfate 90 mcg/actuation 2 puff INHALATION Q4H PRN #18 gm 12/18/20 08/26/21 Rx aerosol inhaler clopidogrel 75 mg tablet 75 mg PO QAM #90 tab 03/27/21 08/26/21 Rx cyanocobalamin (vitamin B-12) 100 100 mcg PO QAM tab 04/24/21 08/26/21 History mcg tablet clobetasol 0.05 % topical ointment 1 applic TOP TID PRN #15 g 05/29/21 08/26/21 Rx benzonatate 100 mg capsule 100 mg PO TID PRN 05/31/21 08/26/21 History fluticasone 250 mcg-salmeterol 50 2 ea INHALATION QAM 05/31/21 08/26/21 History mcg/dose blistr powdr for inhalation (Advair Diskus) metformin 1,000 mg tablet 500 mg PO BID #90 tab 06/26/21 08/26/21 Rx sertraline 100 mg tablet 100 mg PO HS #90 tab 06/26/21 08/26/21 Rx garlic 100 mg tablet 100 mg PO QAM 08/26/21 08/26/21 History levothyroxine 50 mcg tablet 50 mcg PO DAILYBB 08/26/21 08/26/21 History Past Med/Surg History Medical History (Updated 08/26/21 @ 21:00 by Jackelyn Wilkinson MD) Allergic rhinitis Anemia Anxiety Aortic arch aneurysm Ascites Asthma Carotid artery stenosis Cirrhosis CVA (cerebral vascular accident) (02/2020) Dementia Depression Diabetes Gastroesophageal reflux disease Hearing loss HTN (hypertension) Hyperglycemia Hyperlipidemia Hypomagnesemia Hypothyroidism Moderate mitral regurgitation Osteoarthritis 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 Sciatica Severe aortic stenosis Severe tricuspid regurgitation Stenosis, cervical spine TMJ (sprain of temporomandibular joint) Vertigo Vitamin D deficiency Surgical History History of cataract surgery History of laparoscopic cholecystectomy Family History Unknown Esophageal reflux Mother , age 73 of dementia Dementia Myocardial infarction Father , age 75 of a stroke Stroke Denies family history of Ovarian cancer Prostate cancer Coronary heart disease Breast cancer Colorectal cancer Social History Smoking Status: Former smoker Tobacco Type: Cigarettes Second Hand Exposure: No; Hx Alcohol Use: No Hx Substance Use: No Preferred Language: Yi Communication Ability: Effective Visual Impairment: No Limitations Hearing Ability: Use of Hearing Aid Hot Bread Baker Required: Yes Beliefs That Will Affect Care: None marital status: / Current Living Situation: Alone current occupational status: retired 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 Feels Safe at Home: Yes Childhood Exposure to Second-Hand Smoke: Yes caffeine: Yes during the past year weight has: remained stable Dental Care, Regularly: Yes Physical Activity Frequency: 1-2 Times per Week Seatbelt Use: always Sunscreen Use: Yes Assistive Devices: Denture - Upper, Glasses, Hearing Aid - Bilateral and Walker Review of Systems Review of Systems: REVIEW OF SYSTEMS: Constitutional: No fever, sweats or chills Eyes: No diplopia, no worsening or blurred vision ENT: normal hearing, no trouble swallowing Respiratory: (+) cough, sputum, dyspnea at rest and exertion Cardiovascular: No chest pain, tightness or palpitations Abdomen: (+) ascites, No pain, nausea, vomiting, diarrhea or constipation Musculoskeletal: No joint pain, calf pain, swelling Neurologic: No weakness, numbness/tingling, or balance problems Psychiatric: No anxiety or depression Skin: No rash or itch Physical Exam Physical Exam: PHYSICAL EXAM: General: awake, alert, no apparent distress Head: Normocephalic, atraumatic ENT: PERRLA, EOMI, no pharyngeal exudate, mucous membranes dry Neuro: AAO x 3, speech clear and appropriate, strength intact bilaterally 5/5, sensation intact and equal all extremities and dermatomes, no pronator drift Chest: equal rise and fall of the chest, no accessory muscle use, inspiratory and, expiratory wheeze with upper bronchial-vesicular wheezing, and raspy cough Cardiac: Regular rate and rhythm, telemetry reviewed, skin warm dry, cap refill <3 seconds, peripheral pulses +2 no JVD, grade III systolic murmur, GI: NABS x 4 quadrants, soft- distended no fluid wave, nontender to palpation, no rebound, guarding or tenderness : Spontaneously voiding, no pain, no CVA tenderness, Extremities: Normal inspection, no peripheral edema or erythema, calfs nontende r to palpation Psych: Normal mood and affect Skin: no rash or erythema Results & Data Results & Data ([facility]) Vital Signs (Past 12 Hours) Vital Signs Temp Pulse Pulse Resp BP BP Pulse Ox 08/26/21 14:31 86 29 H 142/99 H 96 08/26/21 14:04 73 20 87 L 08/26/21 14:00 86 37 H 130/74 93 08/26/21 13:30 86 31 H 128/106 H 92 08/26/21 13:15 86 28 H 93 08/26/21 13:14 85 29 H 110/90 93 08/26/21 13:10 93 08/26/21 12:51 36.4 C L 87 85 20 126/71 128/106 H 97 Laboratory Results Abnormal lab results 08/26/21 08/26/21 Range/Units 13:11 13:11 RDW Std Deviation 48.9 H (36.4-46.3) fL RDW Coeff of Marty 16.0 H (11.5-14.5) % MPV 11.9 H (7.4-10.4) fL Neut # (Auto) 7.55 H (1.4-6.5) K/uL Lymph # (Auto) 0.93 L (1.2-3.4) K/uL [place] # (Auto) 0.78 H (0.11-0.59) K/uL Creatinine 0.53 L (0.6-1.2) mg/dl BUN/Creatinine Ratio 26.4 H (10-20) Glucose 170 H (70-99(Fasting)) mg/dl Total Bilirubin 2.0 H (0.2-1.0) mg/dl AST 75 H (13-39) U/L Troponin I 0.05 H* (0-0.04) ng/ml Diagnostic Findings Chest X-Ray 08/26/21 13:06 SINGLE VIEW CHEST CLINICAL HISTORY: Atypical chest pain. FINDINGS: An AP, portable, upright chest radiograph is compared to chest x-ray and chest CT dated 05/31/2021. The examination is degraded by portable technique and patient rotation. The heart is markedly enlarged. The pulmonary vasculature is non-congested. Chronic interstitial thickening is similar to previous. No airspace consolidation or large pleural effusion is identified. No pneumothorax is seen. The skeletal structures are osteopenic. The bony thorax is grossly intact. IMPRESSION: Marked cardiomegaly with no acute cardiopulmonary abnormality. ACT 112: Negative or not required by law. Electronically signed by: Jatinder Masterson M.D. 08/26/2021 1:23 PM Medications Administered Discontinued Medications Albuterol (Albuterol 0.083% Nebu Soln 3 Ml Vial) 5 mg NEB NOW STA; Protocol Stop: 08/26/21 14:06 Last Admin: 08/26/21 14:14 Dose: 5 mg Documented by: [id number] Methylprednisolone (Methylprednisolone 40 Mg/Ml Vial) 40 mg IV NOW STA Stop: 08/26/21 14:06 Last Admin: 08/26/21 14:14 Dose: 40 mg Documented by: [id number] ECG Additional Comments: Sinus rhythm with Premature atrial complexes Nonspecific T wave abnormality Abnormal ECG When compared with ECG of 31-MAY-2021 21:34, Premature atrial complexes are now Present Code Status & VTE Plan Code Status CODE: FULL VTE: SCDS, Heparin 5000 units subq Supervising Physician Co-Signing Physician Notes RN DIALYSIS Supervision note: I have personally seen and examined the patient and discussed and verified the estrada points of the history and physical along with the plan with DOUG Oliveira with the following exceptions and/or additions: This patient is an 80-year-old female with a history of severe aortic stenosis, hypothyroidism, CVA, cardiogenic cirrhosis with ascites, GERD, hyperlipidemia, HTN, DM 2, depression/anxiety, who presents with shortness of breath and cough with mild hypoxia She is already feeling improved after receiving nebulizer treatment. She is afebrile. History and ROS reviewed as above Vitals reviewed Gen: AAOx3, NAD HEENT: Anicteric sclerae, EOMI CV: RRR 3/6 DAVID at [facility] Pulm: Diffuse expiratory wheezes, no crackles, normal respiratory effort Abd: +BS soft NT, MILDLY DISTENDED, no masses or hernias Ext: No edema, 2+ DP pulses Skin: No rashes, warm/dry Neuro: Full strength throughout Labs and rads reviewed, ECG reviewed 80-year-old female here with acute bronchitis and mild acute respiratory failure with hypoxia Bring in on observation overnight for IV steroids and nebulizer treatments Plan to convert to prednisone and discharged home tomorrow with refills of nebulized medications Do not believe this is cardiogenic in nature-she will keep her planned follow-up with cardiac catheterization for TAVR upcoming in the near future Trend troponin PG Care Time/CCT Total # of Minutes Spent Total Time Spent with Patient: Total time spent is greater than 50% in coordination of care (as documented) at patient's floor/unit and/or counseling patient: Coding Level of Care Code INT OBSERVATION CARE 70M LVL 3 Diagnoses Bronchitis J40 Aortic arch aneurysm I71.2 Severe aortic stenosis I35.0 Ascites R18.8 History of CVA (cerebrovascular accident) Z86.73 Allergic rhinitis J30.9 Gastroesophageal reflux disease K21.9 Hypothyroidism E03.9 Diabetes E11.9 Elevated troponin I level R77.8
[2021-08-26] MEDS ORDERED: ACETAMINOPHEN 325 MG TAB PO PRN (18:22)
[2021-08-26] MEDS ORDERED: GLUCAGON FOR INJ 1 MG VIAL SQ PRN (18:22)
[2021-08-26] MEDS ORDERED: ALBUTEROL HFA 8 GM INHALER INH PRN (18:22)
[2021-08-26] MEDS ORDERED: GLUCOSE 10 TABS/TUBE PO PRN (18:22)
[2021-08-26] MEDS ORDERED: GLUCOSE 40% GEL 15 GM TUBE PO PRN (18:22)
[2021-08-26] MEDS ORDERED: DEXTROSE 50% 50 ML SYRINGE IV PRN (18:22)
[2021-08-26] MEDS ORDERED: CARBOHYDRATES FOR HYPOGLYCEMIA PO PRN (18:22)
[2021-08-26] MEDS ORDERED: POLYETHYLENE (MIRALAX) 17 GM PACK PO PRN (18:22)
[2021-08-26] MEDS ORDERED: CLOBETASOL PROPIONATE 0.05% OINT 15 GM TUBE EXT PRN (18:46)
[2021-08-26] MEDS: INSULIN ASPART PER UNIT SC SCH ×2 (19:19→22:17)
[2021-08-26] MEDS: BENZONATATE 100 MG CAPSULE PO PRN (19:19)
[2021-08-26] MEDS: PANTOprazole 40 MG TAB PO SCH (19:50)
[2021-08-26] MEDS: ALBUT/IPRATROP 3MG/0.5MG NEB 3 ML VIAL NEB SCH (19:54)
[2021-08-26] MEDS: HEPARIN SOD 5,000 UNIT/0.5 ML VIAL SQ SCH (20:17)
[2021-08-26] MEDS: SERTRALINE HCL 100 MG TABLET PO SCH (20:17)
[2021-08-26] MEDS ORDERED: HEPARIN SOD 5,000 UNIT/0.5 ML VIAL SQ SCH (21:00)
[2021-08-26] MEDS ORDERED: methylPREDNISolone 40 MG in SYRINGE 0 ML IV ONE (21:00)
[2021-08-27] MEDS: ALBUT/IPRATROP 3MG/0.5MG NEB 3 ML VIAL NEB SCH ×5 (00:44→23:56)
[2021-08-27 01:34] LABS: Hematocrit (blood only) 34.6 % (37-47); Hemoglobin 11.5 g/dL (12.0-16.0); Immature Granulocytes # (auto) 0.01 K/uL (0.00-0.02); Immature Granulocytes % (auto) 0.1 %; Lymphocytes # (auto) 0.64 K/uL (1.2-3.4); Lymphocytes % (auto) 9.3 %; Mean Corpuscular Hemoglobin 27.8 pg (25-34); Mean Corpuscular Hgb Conc 33.2 g/dL (32-36); Mean Corpuscular Volume 83.8 fL (80-100); Mean Platelet Volume 10.8 fL (7.4-10.4); Monocytes # (auto) 0.28 K/uL (0.11-0.59); Monocytes % (auto) 4.1 %; Neutrophils # (auto) 5.98 K/uL (1.4-6.5); Neutrophils % (auto) 86.5 %; Platelet Count 120 K/uL (130-400); RDW Coefficient of Variation 15.8 % (11.5-14.5); RDW Standard Deviation 48.1 fL (36.4-46.3); Red Blood Count 4.13 M/uL (4.2-5.4); White Blood Count 6.91 K/uL (4.8-10.8)
[2021-08-27 01:57] LABS: Albumin Level 3.4 gm/dl (3.4-5.0); BUN Creatinine Ratio 27.3 (10-20); Bilirubin Direct 0.4 mg/dl (0-0.2); Bilirubin,Total 1.2 mg/dl (0.2-1.0); Calcium 8.9 mg/dl (8.5-10.1); Creatinine Clr Calc Pharmacy 75.1 ml/min; Est GFR (African American) 101.2 ml/min; Est GFR (Non-African American) 87.4 ml/min; Magnesium 1.6 mg/dl (1.7-2.4); Potassium 4.2 mmol/L (3.5-5.1); Total Protein 6.5 gm/dl (6.0-8.3)
[2021-08-27 01:58] LABS: Troponin I 0.05 ng/ml (0-0.04)
[2021-08-27] MEDS: LEVOTHYROXINE SODIUM 50 MCG TABLET PO SCH (05:49)
[2021-08-27] MEDS ORDERED: methylPREDNISolone 40 MG in SYRINGE 0 ML IV ONE (06:00)
--- NOTE | 2021-08-27 10:24 | Hospitalist Progress Note ---
Date of Service August 27, 2021 Assessment & Plan (1) Asthma: Plan: Patient admitted with an astham exacerbation SP COVID 19 [address] NEBS will place on antibiotics given her sputum production. will monitor overnight. Despite not being hypoxic, patient is having significant SOB and is not ready to be home. will continue nebs, add antibiotics (2) Bronchitis: Plan: Patient exam and cough is most consistent with bronchitis - COVID and Flu: NEGATIVE - Responded well to Albuterol Nebulizer and IV steroid - Continue with scheduled nebulizers through the day q6 hour - Methyl-pred- 40mg IV BID - tonight and then in morning- transition to oral prednisone after morning dose of desired - As no fevers and without COPD history will hold on Azithro or Doxy for now - Continue Benzonatate - Continue with fexofenadine - Continue with Advair daily - Follow clinical and biomarker data (3) Severe aortic stenosis: Plan: Don't believe at this time her current symptoms or radiological film is consistent with worsening of her or HF presentation - NOT on SENDY/ARB or BB -Is in the process of having a TAVR arranged as an outpatient and has upcoming cardiac catheterization (4) Aortic arch aneurysm: Plan: Incidentally noted with CTA in 2019- 9mm- interestingly no note of this on CTA of the chest performed 06/09 - reported as left side of the aortic arch (5) Elevated troponin I level: Plan: At 0.05- same previous 2 levels in May - without anginal complaints - trend Troponin I - ECG without dyanmic changes (6) Ascites: Plan: Presumed Related to her Heart function/cardiac cirrhosis-followed by GI Had paracentesis recently - Gram stain negative from her paracentesis in 08/07 - WBC 416, LDH 62, Glucose 138, With mild increase in total bilirubin and AST here likely related to cirrhosis- follow LFTs in the morning (7) History of CVA (cerebrovascular accident): Plan: With tPA administration in 2019 minimal residual effects - Is intolerant to statins - Continue with Plavix (8) Allergic rhinitis: Plan: Continue fexofenadiine, benzonatate, (9) Gastroesophageal reflux disease: Plan: Will start on PPI with addition of steroids (10) Hypothyroidism: Plan: Continue with synthroid TSH normal in 03/2021 (11) Diabetes: Plan: Hold Metformin Hemoglobin A1c normal at 5.6% in 03/2021 - Continue with BG ACH/HS and add aspart insulin coverage - Goal <180 Admission and Anticipated Discharge Date Admission Date: August 26, 2021 Subjective Patient continues to be SOB. Review of Systems Review of Systems: All systems reviewed & are unremarkable except as noted in HPI & below Physical Exam Physical Exam: General: awake, alert, no apparent distress Head: Normocephalic, atraumatic ENT: PERRLA, EOMI, no pharyngeal exudate, mucous membranes dry Neuro: AAO x 3, speech clear and appropriate, strength intact bilaterally 5/5, sensation intact and equal all extremities and dermatomes, no pronator drift Chest: equal rise and fall of the chest, no accessory muscle use,decreased wheezing Cardiac: Regular rate and rhythm, telemetry reviewed, skin warm dry, cap refill <3 seconds, peripheral pulses +2 no JVD, grade III systolic murmur, GI: NABS x 4 quadrants, soft- distended no fluid wave, nontender to palpation, no rebound, guarding or tenderness : Spontaneously voiding, no pain, no CVA tenderness, Extremities: Normal inspection, no peripheral edema or erythema, calfs nontender to palpation Psych: Normal mood and affect Skin: no rash or erythema Results & Data Results & Data ([facility]) Vital Signs (Past 12 Hours) Vital Signs Temp Pulse Pulse Resp BP Pulse Ox 08/27/21 07:35 36.3 C L 89 20 136/82 99 08/27/21 07:01 82 16 88 L 08/27/21 03:56 36.4 C L 84 20 120/70 90 08/27/21 00:44 76 20 94 08/26/21 23:06 36.3 C L 91 H 22 122/72 90 08/26/21 22:17 85 PG Care Time/CCT Total # of Minutes Spent Total Time Spent with Patient: Total time spent is greater than 50% in coordination of care (as documented) at patient's floor/unit and/or counseling patient: Coding Level of Care Code 99193 Subseq Hosp Care Lvl 2 Diagnoses Bronchitis J40 Severe aortic stenosis I35.0 Aortic arch aneurysm I71.2 Elevated troponin I level R77.8 Ascites R18.8 History of CVA (cerebrovascular accident) Z86.73 Allergic rhinitis J30.9 Gastroesophageal reflux disease K21.9 Hypothyroidism E03.9 Diabetes E11.9 Asthma J45.20 Asthma complication type: unspecified Asthma persistence: intermittent Asthma severity: unspecified severity Time Spent (min) 25 (1) Asthma Asthma complication type: unspecified Asthma persistence: intermittent Asthma severity: unspecified severity Qualified Code(s): J45.20 - Mild intermittent asthma, uncomplicated
[2021-08-27] MEDS: OMEGA-3 (PURIFIED FISH OIL) 1 GM CAP PO SCH (10:27)
[2021-08-27] MEDS: FEXOFENADINE HCL 180 MG TAB PO SCH (10:27)
[2021-08-27] MEDS: FLUTICASONE/VILANTEROL 200/25MCG 14 PUFFS/INHALER INH SCH (10:27)
[2021-08-27] MEDS: CLOPIDOGREL BISULFATE 75 MG TAB PO SCH (10:27)
[2021-08-27] MEDS: HEPARIN SOD 5,000 UNIT/0.5 ML VIAL SQ SCH ×2 (10:28→20:54)
[2021-08-27] MEDS: INSULIN ASPART PER UNIT SC SCH ×4 (10:48→20:54)
[2021-08-27] MEDS: BENZONATATE 100 MG CAPSULE PO PRN ×2 (10:53→18:09)
[2021-08-27] MEDS: cefTRIAXone SODIUM 1,000 MG in DEXTROSE 5% 50 ML IV SCH (11:03)
[2021-08-27] MEDS: PANTOprazole 40 MG TAB PO SCH (11:03)
[2021-08-27] MEDS ORDERED: AZITHROMYCIN 500 MG in DEXTROSE 5% 250 ML IV ONE (11:30)
[2021-08-27] MEDS: guaiFENesin/DEXTROM SYRUP 200MG/20MG 10ML UDC PO PRN (17:36)
[2021-08-27] MEDS: SERTRALINE HCL 100 MG TABLET PO SCH (20:54)
[2021-08-28] MEDS: LEVOTHYROXINE SODIUM 50 MCG TABLET PO SCH (05:40)
--- NOTE | 2021-08-28 05:47 | Electrocardiogram Report ---
Test Reason : Blood Pressure : / mmHG Vent. Rate : 086 BPM Atrial Rate : 086 BPM P-R Int : 152 ms QRS Dur : 094 ms QT Int : 384 ms P-R-T Axes : 067 008 132 degrees QTc Int : 459 ms Sinus rhythm with Premature atrial complexes Nonspecific T wave abnormality Abnormal ECG When compared with ECG of 31-MAY-2021 21:34, Premature atrial complexes are now Present Confirmed by Kingsley Escalante ([id number]) on 08/28/2021 5:46:45 AM Referred By: Confirmed By:Kingsley Escalante
[2021-08-28] MEDS: ALBUT/IPRATROP 3MG/0.5MG NEB 3 ML VIAL NEB SCH ×3 (07:03→20:06)
[2021-08-28 07:16] LABS: Basophils # (auto) 0.01 K/uL (0-0.2); Basophils % (auto) 0.1 %; Eosinophils # (auto) 0.04 K/uL (0-0.5); Eosinophils % (auto) 0.5 %; Hematocrit (blood only) 33.5 % (37-47); Hemoglobin 11.1 g/dL (12.0-16.0); Immature Granulocytes # (auto) 0.01 K/uL (0.00-0.02); Immature Granulocytes % (auto) 0.1 %; Lymphocytes # (auto) 1.63 K/uL (1.2-3.4); Lymphocytes % (auto) 21.2 %; Mean Corpuscular Hemoglobin 27.8 pg (25-34); Mean Corpuscular Hgb Conc 33.1 g/dL (32-36); Monocytes # (auto) 0.73 K/uL (0.11-0.59); Monocytes % (auto) 9.5 %; Neutrophils # (auto) 5.28 K/uL (1.4-6.5); Neutrophils % (auto) 68.6 %; Platelet Count 140 K/uL (130-400); RDW Standard Deviation 48.9 fL (36.4-46.3); Red Blood Count 3.99 M/uL (4.2-5.4)
[2021-08-28 07:30] LABS: BUN Creatinine Ratio 32.3 (10-20); Calcium 8.8 mg/dl (8.5-10.1); Creatinine Clr Calc Pharmacy 63.6 ml/min; Est GFR (African American) 95.8 ml/min; Est GFR (Non-African American) 82.7 ml/min; Magnesium 1.6 mg/dl (1.7-2.4)
[2021-08-28] MEDS: HEPARIN SOD 5,000 UNIT/0.5 ML VIAL SQ SCH ×2 (09:05→19:56)
[2021-08-28] MEDS: CLOPIDOGREL BISULFATE 75 MG TAB PO SCH (09:05)
[2021-08-28] MEDS: FEXOFENADINE HCL 180 MG TAB PO SCH (09:05)
[2021-08-28] MEDS: FLUTICASONE/VILANTEROL 200/25MCG 14 PUFFS/INHALER INH SCH (09:05)
[2021-08-28] MEDS: OMEGA-3 (PURIFIED FISH OIL) 1 GM CAP PO SCH (09:05)
[2021-08-28] MEDS: PANTOprazole 40 MG TAB PO SCH (09:05)
[2021-08-28] MEDS: INSULIN ASPART PER UNIT SC SCH ×4 (09:06→21:04)
[2021-08-28] MEDS: guaiFENesin/DEXTROM SYRUP 200MG/20MG 10ML UDC PO PRN (09:53)
[2021-08-28] MEDS: AZITHROMYCIN 250 MG TAB PO SCH (09:53)
[2021-08-28] MEDS: cefTRIAXone SODIUM 1,000 MG in DEXTROSE 5% 50 ML IV SCH (09:58)
[2021-08-28] MEDS: BENZONATATE 100 MG CAPSULE PO PRN ×2 (14:47→21:03)
--- NOTE | 2021-08-28 15:23 | XRay Report ---
TWO VIEW CHEST CLINICAL HISTORY: Cough and dyspnea FINDINGS: PA and lateral chest radiographs are compared to study dated 08/26/2021. Correlation is made with chest CT dated 05/31/2021. The heart is markedly enlarged noting atherosclerotic calcification a nd uncoiling of the thoracic aorta. The pulmonary vasculature is noncongested. Chronic residual thick ening is similar to previous. No airspace consolidation or large pleural effusion is identified. Scar ring/atelectasis is noted at the lung bases. No pneumothorax is seen. The skeletal structures are ost eopenic. The bony thorax is grossly intact. Degenerative change is noted in the shoulders and thoraci c spine. IMPRESSION: Marked cardiomegaly with no acute cardiopulmonary abnormality. ACT 112: Negative or not required by law. Electronically signed by: Jatinder Masterson M.D. 08/28/2021 3:22 PM
[2021-08-28] MEDS: SERTRALINE HCL 100 MG TABLET PO SCH (19:57)
[2021-08-28] MEDS ORDERED: FAMOTIDINE 10 MG in SYRINGE 3 ML IV STA (20:30)
--- NOTE | 2021-08-28 21:10 | Hospitalist Progress Note ---
Date of Service August 28, 2021 Assessment & Plan (1) Asthma: Plan: Patient admitted with an asthma exacerbation SP COVID 19 [address]BS will place on antibiotics given her sputum production. Despite not being hypoxic, patient is having significant SOB and is not ready to be home. will continue nebs, and antibiotics (2) Bronchitis: Plan: Patient exam and cough is most consistent with bronchitis - COVID and Flu: NEGATIVE - Responded well to Albuterol Nebulizer and IV steroid - Continue with scheduled nebulizers through the day q6 hour - Methyl-pred- 40mg IV BID - tonight and then in morning- transition to oral prednisone after morning dose of desired - As no fevers and without COPD history will hold on Azithro or Doxy for now - Continue Benzonatate - Continue with fexofenadine - Continue with Advair daily - Follow clinical and biomarker data (3) Severe aortic stenosis: Plan: Don't believe at this time her current symptoms or radiological film is consistent with worsening of her or HF presentation - NOT on SENDY/ARB or BB -Is in the process of having a TAVR arranged as an outpatient and has upcoming cardiac catheterization (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 Updated son and daughter at bedside. Review of Systems Review of Systems: All systems reviewed & are unremarkable except as noted in HPI & below Physical Exam Physical Exam: General: awake, alert, no apparent distress Head: Normocephalic, atraumatic ENT: PERRLA, EOMI, no pharyngeal exudate, mucous membranes dry Neuro: AAO x 3, speech clear and appropriate, strength intact bilaterally 5/5, sensation intact and equal all extremities and dermatomes, no pronator drift Chest: equal rise and fall of the chest, no accessory muscle use,decreased whe ezing Cardiac: Regular rate and rhythm, telemetry reviewed, skin warm dry, cap refill <3 seconds, peripheral pulses +2 no JVD, grade III systolic murmur, GI: NABS x 4 quadrants, soft- distended no fluid wave, nontender to palpation, no rebound, guarding or tenderness : Spontaneously voiding, no pain, no CVA tenderness, Extremities: Normal inspection, no peripheral edema or erythema, calfs n ontender to palpation Psych: Normal mood and affect Skin: no rash or erythema Results & Data Results & Data ([facility]) Vital Signs (Past 12 Hours) Vital Signs Temp Pulse Pulse Resp BP BP Pulse Ox 08/28/21 20:09 87 22 96 08/28/21 19:07 80 08/28/21 18:45 36.8 C 77 18 109/67 95 08/28/21 14:59 36.3 C L 91 H 18 102/52 L 93 08/28/21 13:07 83 18 94 08/28/21 11:44 36.4 C L 84 20 123/63 92 PG Care Time/CCT Total # of Minutes Spent Total Time Spent with Patient: Total time spent is greater than 50% in coordination of care (as documented) at patient's floor/unit and/or counseling patient: Coding Level of Care Code 13763 Subseq Hosp Care Lvl 2 Diagnoses Asthma J45.20 Asthma complication type: unspecified Asthma persistence: intermittent Asthma severity: unspecified severity Bronchitis J40 Severe aortic stenosis I35.0 Aortic arch aneurysm I71.2 Elevated troponin I level R77.8 Ascites R18.8 History of CVA (cerebrovascular accident) Z86.73 Allergic rhinitis J30.9 Gastroesophageal reflux disease K21.9 Hypothyroidism E03.9 Diabetes E11.9 Cirrhosis K74.60 (1) Asthma Asthma complication type: unspecified Asthma persistence: intermittent Asthma severity: unspecified severity Qualified Code(s): J45.20 - Mild intermittent asthma, uncomplicated
[2021-08-29] MEDS: ALBUT/IPRATROP 3MG/0.5MG NEB 3 ML VIAL NEB SCH ×4 (01:49→19:10)
[2021-08-29] MEDS: LEVOTHYROXINE SODIUM 50 MCG TABLET PO SCH (04:52)
[2021-08-29] MEDS: guaiFENesin/DEXTROM SYRUP 200MG/20MG 10ML UDC PO PRN (04:55)
[2021-08-29 06:27] LABS: Basophils # (auto) 0.01 K/uL (0-0.2); Basophils % (auto) 0.2 %; Eosinophils # (auto) 0.08 K/uL (0-0.5); Eosinophils % (auto) 1.3 %; Hematocrit (blood only) 35.9 % (37-47); Hemoglobin 11.7 g/dL (12.0-16.0); Immature Granulocytes # (auto) 0.02 K/uL (0.00-0.02); Immature Granulocytes % (auto) 0.3 %; Lymphocytes # (auto) 1.01 K/uL (1.2-3.4); Lymphocytes % (auto) 16.9 %; Mean Corpuscular Hemoglobin 27.5 pg (25-34); Mean Corpuscular Hgb Conc 32.6 g/dL (32-36); Mean Corpuscular Volume 84.5 fL (80-100); Monocytes # (auto) 0.55 K/uL (0.11-0.59); Monocytes % (auto) 9.2 %; Neutrophils # (auto) 4.29 K/uL (1.4-6.5); Neutrophils % (auto) 72.1 %; Platelet Count 131 K/uL (130-400); RDW Coefficient of Variation 15.8 % (11.5-14.5); RDW Standard Deviation 48.9 fL (36.4-46.3); Red Blood Count 4.25 M/uL (4.2-5.4); White Blood Count 5.96 K/uL (4.8-10.8)
[2021-08-29 06:37] LABS: INR 1.2 (0.9-1.1); Partial Thromboplastin Time 28.5 Seconds (21.0-31.0); Prothrombin Time 12.4 Seconds (9.0-12.0)
[2021-08-29 07:10] LABS: Albumin Level 3.2 gm/dl (3.4-5.0); Bilirubin Direct 0.2 mg/dl (0-0.2); Bilirubin,Total 0.9 mg/dl (0.2-1.0); Calcium 8.8 mg/dl (8.5-10.1); Creatinine Clr Calc Pharmacy 78.4 ml/min; Est GFR (African American) 102.5 ml/min; Est GFR (Non-African American) 88.4 ml/min; Magnesium 1.6 mg/dl (1.7-2.4); Total Protein 6.3 gm/dl (6.0-8.3)
[2021-08-29] MEDS: FLUTICASONE/VILANTEROL 200/25MCG 14 PUFFS/INHALER INH SCH (07:58)
[2021-08-29] MEDS: OMEGA-3 (PURIFIED FISH OIL) 1 GM CAP PO SCH (07:59)
[2021-08-29] MEDS: CLOPIDOGREL BISULFATE 75 MG TAB PO SCH (07:59)
[2021-08-29] MEDS: PANTOprazole 40 MG TAB PO SCH (07:59)
[2021-08-29] MEDS: AZITHROMYCIN 250 MG TAB PO SCH (08:00)
[2021-08-29] MEDS: FEXOFENADINE HCL 180 MG TAB PO SCH (08:00)
[2021-08-29] MEDS: INSULIN ASPART PER UNIT SC SCH ×4 (08:06→21:59)
--- NOTE | 2021-08-29 11:36 | Ultrasound Report ---
US abdomen ltd ascites HISTORY: 80 years-old Female ascities/ SOB recurrent ascites. Acute shortness of breath COMPARISON: Ultrasound-guided paracentesis 08/01/2021 TECHNIQUE: Multiple real-time sonographic images of the abdomen were obtained assessing grayscale desmond earance FINDINGS: Small volume of ascites is noted with several loops of associated bowel. IMPRESSION: There is only a small volume of ascites present with numerous adjacent loops of bowel. Pa racentesis therefore was not conducted. ACT 112: Negative or not required by law. The above report was generated using voice recognition software. It may contain grammatical, syntax o r spelling errors. Electronically signed by: Mike Sebastian M.D. 08/29/2021 11:34 AM
[2021-08-29] MEDS: HEPARIN SOD 5,000 UNIT/0.5 ML VIAL SQ SCH ×2 (12:49→20:27)
[2021-08-29] MEDS: cefTRIAXone SODIUM 2,000 MG in DEXTROSE 5% 50 ML IV SCH (15:44)
[2021-08-29] MEDS: cefTRIAXone SODIUM 1,000 MG in DEXTROSE 5% 50 ML IV SCH (16:00)
[2021-08-29] MEDS: SERTRALINE HCL 100 MG TABLET PO SCH (20:27)
[2021-08-29] MEDS: BENZONATATE 100 MG CAPSULE PO PRN (22:10)
[2021-08-30] MEDS: ALBUT/IPRATROP 3MG/0.5MG NEB 3 ML VIAL NEB SCH ×4 (00:54→19:29)
[2021-08-30] MEDS: LEVOTHYROXINE SODIUM 50 MCG TABLET PO SCH (05:42)
--- NOTE | 2021-08-30 06:34 | Hospitalist Progress Note ---
Date of Service August 29, 2021 Assessment & Plan (1) Asthma: Plan: Patient admitted with an asthma exacerbation SP COVID 19 Symptoms appear to have improved from paracenthesis Initally patient was SOB and this was hindering discharge, however, she is now diagnosed with SBP. on antibiotics given her sputum production. will continue nebs, and antibiotics (2) Spontaneous bacterial peritonitis: Plan: Patient had an elevated WBC. will treat with ceftriaxone at 2 gr IV daily. first dose on 08/29. will need at least 5 days and likely repeat paracenthesis. (3) Bronchitis: Plan: Patient exam and cough is most consistent with bronchitis - COVID and Flu: NEGATIVE - Responded well to Albuterol Nebulizer and IV steroid - Continue with scheduled nebulizers through the day q6 hour - Methyl-pred- 40mg IV BID - tonight and then in morning- transition to oral prednisone after morning dose of desired - As no fevers and without COPD history will hold on Azithro or Doxy for now - Continue Benzonatate - Continue with fexofenadine - Continue with Advair daily - Follow clinical and biomarker data (4) Severe aortic stenosis: Plan: Don't believe at this time her current symptoms or radiological film is consistent with worsening of her or HF presentation - NOT on SENDY/ARB or BB -Is in the process of having a TAVR arranged as an outpatient and has upcoming cardiac catheterization (5) 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 (8) History of CVA (cerebrovascular accident): Plan: With tPA administration in 2019 minimal residual effects - Is intolerant to statins - Continue with Plavix (9) Allergic rhinitis: Plan: Continue fexofenadiine, benzonatate, (10) Gastroesophageal reflux disease: Plan: Will start on PPI with addition of steroids (11) Hypothyroidism: Plan: Continue with synthroid TSH normal in 03/2021 (12) Diabetes: Plan: Hold Metformin Hemoglobin A1c normal at 5.6% in 03/2021 - Continue with BG ACH/HS and add aspart insulin coverage - Goal <180 (13) Cirrhosis: Plan: cardiogenic cirrhosis Admission and Anticipated Discharge Date Admission Date: August 27, 2021 Subjective 80 yo female reports breathing better after paracenthesis. Patient reports no new symptoms. Updated son on the phone Review of Systems Review of Systems: All systems reviewed & are unremarkable except as noted in HPI & below Physical Exam Physical Exam: General: awake, alert, no apparent distress Head: Normocephalic, atraumatic ENT: PERRLA, EOMI, no pharyngeal exudate, mucous membranes dry Neuro: AAO x 3, speech clear and appropriate, strength intact bilaterally 5/5, sensation intact and equal all extremities and dermatomes, no pronator drift Chest: equal rise and fall of the chest, no accessory muscle use,decreased wheezing Cardiac: Regular rate and rhythm, telemetry reviewed, skin warm dry, cap refill <3 seconds, peripheral pulses +2 no JVD, grade III systolic murmur, GI: NABS x 4 quadrants, soft- distended no fluid wave, nontender to palpation, no rebound, guarding or tenderness : Spontaneously voiding, no pain, no CVA tenderness, Extremities: Normal inspection, no peripheral edema or erythema, calfs nontender to palpation Psych: Normal mood and affect Skin: no rash or erythema Results & Data Results & Data ([facility]) Vital Signs (Past 12 Hours) Vital Signs Temp Pulse Pulse Resp BP BP Pulse Ox 08/30/21 03:26 36.7 C 85 22 110/72 90 08/30/21 00:56 86 20 94 08/29/21 23:33 36.5 C 85 22 123/80 90 08/29/21 22:20 87 08/29/21 19:50 36.7 C 89 20 120/74 94 08/29/21 19:10 84 22 93 PG Care Time/CCT Total # of Minutes Spent Total Time Spent with Patient: Total time spent is greater than 50% in coordination of care (as documented) at patient's floor/unit and/or counseling patient: Coding Level of Care Code 92008 Subseq Hosp Care Lvl 2 Diagnoses Asthma J45.20 Asthma complication type: unspecified Asthma persistence: intermittent Asthma severity: unspecified severity Bronchitis J40 Severe aortic stenosis I35.0 Aortic arch aneurysm I71.2 Elevated troponin I level R77.8 Ascites R18.8 History of CVA (cerebrovascular accident) Z86.73 Allergic rhinitis J30.9 Gastroesophageal reflux disease K21.9 Hypothyroidism E03.9 Diabetes E11.9 Cirrhosis K74.60 Spontaneous bacterial peritonitis K65.2 (1) Asthma Asthma complication type: unspecified Asthma persistence: intermittent Asthma severity: unspecified severity Qualified Code(s): J45.20 - Mild intermittent asthma, uncomplicated
[2021-08-30] MEDS: CLOPIDOGREL BISULFATE 75 MG TAB PO SCH (08:18)
[2021-08-30] MEDS: FLUTICASONE/VILANTEROL 200/25MCG 14 PUFFS/INHALER INH SCH (08:19)
[2021-08-30] MEDS: FEXOFENADINE HCL 180 MG TAB PO SCH (08:19)
[2021-08-30] MEDS: PANTOprazole 40 MG TAB PO SCH (08:19)
[2021-08-30] MEDS: OMEGA-3 (PURIFIED FISH OIL) 1 GM CAP PO SCH (08:19)
[2021-08-30] MEDS: HEPARIN SOD 5,000 UNIT/0.5 ML VIAL SQ SCH ×2 (08:20→20:46)
[2021-08-30 08:28] LABS: Basophils # (auto) 0.01 K/uL (0-0.2); Basophils % (auto) 0.2 %; Eosinophils % (auto) 2.2 %; Hematocrit (blood only) 35.8 % (37-47); Hemoglobin 11.5 g/dL (12.0-16.0); Immature Granulocytes # (auto) 0.01 K/uL (0.00-0.02); Immature Granulocytes % (auto) 0.2 %; Lymphocytes # (auto) 0.97 K/uL (1.2-3.4); Mean Corpuscular Hemoglobin 27.3 pg (25-34); Mean Corpuscular Volume 84.8 fL (80-100); Mean Platelet Volume 10.6 fL (7.4-10.4); Monocytes # (auto) 0.29 K/uL (0.11-0.59); Monocytes % (auto) 6.3 %; Neutrophils # (auto) 3.24 K/uL (1.4-6.5); Neutrophils % (auto) 70.1 %; Platelet Count 122 K/uL (130-400); RDW Coefficient of Variation 15.7 % (11.5-14.5); RDW Standard Deviation 48.2 fL (36.4-46.3); Red Blood Count 4.22 M/uL (4.2-5.4); White Blood Count 4.62 K/uL (4.8-10.8)
[2021-08-30 08:34] LABS: Mean Corpuscular Hgb Conc 32.1 g/dL (32-36)
[2021-08-30] MEDS: INSULIN ASPART PER UNIT SC SCH ×4 (08:34→20:47)
[2021-08-30 08:52] LABS: Albumin Level 3.1 gm/dl (3.4-5.0); BUN Creatinine Ratio 30.4 (10-20); Bilirubin,Total 0.9 mg/dl (0.2-1.0); C Reactive Protein 2.75 mg/dl (0-0.5); Calcium 8.9 mg/dl (8.5-10.1); Creatinine Clr Calc Pharmacy 90.3 ml/min; Est GFR (African American) 107.4 ml/min; Est GFR (Non-African American) 92.6 ml/min; Globulin 3.1 gm/dl (2.5-4.0); Magnesium 1.5 mg/dl (1.7-2.4); Total Protein 6.2 gm/dl (6.0-8.3)
[2021-08-30 09:09] LABS: Anisocytosis Present
[2021-08-30] MEDS ORDERED: MAGNESIUM SULFATE / D5W 1 GM/100 ML BAG IV ONE (11:15)
--- NOTE | 2021-08-30 12:28 | CT Scan Report ---
CT chest diagnostic wo con CT DOSE: 417.20 mGy.cm CLINICAL HISTORY: 80 years-old Female with cough and SOB- ? PVC/ PNA. Acute cough with shortness of breath TECHNIQUE: Multiaxial CT images of the chest were performed without contrast. A dose lowering techni que was utilized adhering to the principles of ALARA. COMPARISON: CTA chest 05/31/2021 FINDINGS: No thyroid nodule identified. Mild mediastinal and hilar adenopathy. Marked cardiomegaly wi th trace pericardial effusion. Extensive coronary artery and thoracic aortic calcifications. Pulmonar y artery hypertension. Small left with small to moderate right pleural effusions. Dilated azygos vein . Intralobular septal thickening. No pneumothorax. Mild patchy bilateral groundglass and nodular cons olidative opacities are noted within a multi segmental distribution. Mild tracheobronchial secretions . Compressive atelectasis of the basal right lower lobe. No acute process of the imaged upper abdomen. Hepatosplenomegaly with abdominal ascites and anasarca. Distal esophageal wall thickening. Degenerative changes of the shoulders and spine. Endplate irregul arity at T7-T8 and T10-T11 appear unchanged and are likely on a degenerative basis. T11 superior endp late Schmorl's node redemonstrated. IMPRESSION: 1. Cardiomegaly with pulmonary artery hypertension and pulmonary edema. Small left and small to moder ate right pleural effusions. 2. Mild patchy multilobar distribution of bilateral groundglass and nodular consolidative opacities a re suggestive of a superimposed infectious or inflammatory pneumonitis. 3. Hepatosplenomegaly with anasarca and upper abdominal ascites. 4. Additional findings as above. ACT 112: Negative or not required by law. Electronically signed by: Mike Sebastian M.D. 08/30/2021 12:25 PM
--- NOTE | 2021-08-30 14:11 | Hospitalist Progress Note ---
Date of Service August 30, 2021 Assessment & Plan (1) Shortness of breath: Plan: 80-year-old white female known underlying past medical history of severe aortic stenosis (awaiting TAVR), asthma, and recent Covid (06/09) presented to the emergency department complaining of increased shortness of breath and a nonproductive cough. Overall, has not been requiring supplemental oxygen but does easily desaturate into the high 80s with minimal exertion. Shortness of breath likely multifactorial (asthma exacerbation, pneumonia, volume overload) -Upon arrival, she was thought to have an acute exacerbation of her asthma and hospitalized with IV steroids and routine nebulized treatments -Covid and bio fire panel are negative -Afebrile. White blood cell count normal and not requiring supplemental oxygen -No significant change in symptomatology with IV steroids on board -CT of the chest shows diffuse groundglass opacities consistent with infectious process. -At this point, appears to have opacities consistent with pneumonia. Uncertain if this is fibrotic changes from recent Covid diagnosis or perhaps subsequent bacterial infection following recent illness -In addition, patient seems to have mild pulmonary vascular congestion. Echocardiogram done 08/07 showing diminished EF of 35 to 40% and significant valvular disease -Continue IV steroids and DuoNeb treatments -Add Pulmicort/Perforomist -1 dose of IV Lasix now. Add Aldactone (which is necessary given her underlying cirrhosis and ascites) -She is on Rocephin (for concern for peritonitis). Add azithromycin for further atypical coverage, mucolytic agents and antitussives -Continue to follow clinically (2) Ascites: Plan: -Patient with chronic underlying cirrhosis -Recent paracentesis done 08/01 -Upon review of her peritoneal fluid, there is no growth but she had a peritoneal WBC count of 416 and LDH of 253. She does not have abdominal pain, fever, or leukocytosis. -Prior provider has started Rocephin X 5 days -Discussed with infectious disease and although her culture data showing no growth, she has a slightly elevated WBC count and LDH. Given her underlying cirrhosis and immunocompromise state, there is risk of bacterial peritonitis and ID agrees with 5 days of IV antibiotics -Last dose will conclude on Sunday 09/03 -Follow-up abdominal ultrasound done today showing only trace ascites, not enough for repeat paracentesis (to retest peritoneal fluid) and infectious disease says not necessary since no growth on initial -Add Aldactone. 1 dose of IV Lasix given today. Consider continued oral Lasix if BP will allow (3) Severe aortic stenosis: Plan: -To follow-up in [place] for TAVR. Appointment already made (4) CHF (congestive heart failure): Plan: -Patient does not carry a formal diagnosis; however, with review of her recent echocardiogram done 11/06, she does have mild systolic dysfunction (EF 35 to 40%) -Added Aldactone (as underlying cirrhosis noted). 1 dose of IV Lasix now as volume overloaded state likely contributing to shortness of breath. May be inclined to add long-term chronic Lasix but would do this cautiously given her underlying severe aortic stenosis -Beta-blockers being avoided as contraindicated with peritonitis. Could consider nadolol in the future if BP and heart rate would allow -Would avoid any preload reducing agents such as SENDY inhibitor's given her severe aortic stenosis (5) Elevated troponin I level: Plan: At 0.05- same previous 2 levels in May - without anginal complaints - ECG without dyanmic changes (6) HTN (hypertension): Plan: -Currently not on any antihypertensive agents. Watch BP closely with the addition of Aldactone (7) Diabetes: Plan: Hold Metformin Hemoglobin A1c normal at 5.6% in 03/2021 - Continue with BG ACH/HS and add aspart insulin coverage - Goal <180 (8) Hypothyroidism: Plan: Continue with synthroid TSH normal in 03/2021 Plan: Remain in house until Friday when she will complete IV Rocephin Continue PT/OT Admission and Anticipated Discharge Date Admission Date: August 27, 2021 Subjective Patient seen on daily rounds today. Was hospitalized on 08/26 with increased shortness of breath, audible wheezes, a dry cough that started the morning of admission. She presented to the hospital where she was found to have a negative Covid/flu, normal white blood cell count. Afebrile. Was doing well on room air but would easily desaturate to 87% briefly with minimal exertion. She has been treated with IV steroids and DuoNeb treatments. Overall, she voices no significant change in her breathing. She still coughing. Nonproductive. Given clinical suspicion of pneumonia, CT scan was performed showing mild pulmonary edema with patchy multilobar infiltrates consistent with groundglass opacities suggestive of infectious process. In addition, she had a paracentesis done on 08/01 due to her underlying cirrhosis. That culture data shows no growth but her WBC count was 416. LDH was elevated at 253. She has since been started on Rocephin for concern for peritonitis. Otherwise, she remains afebrile and hemodynamically stable. Her serum white blood cell count is normal. CRP is slightly elevated at 2.75 with a normal ESR of 26. Patient denies abd pain. Review of Systems Review of Systems: All systems reviewed and are unremarkable except as noted in HPI and below Denies fevers, chills, headache, nasal congestion, sore throat,chest pain, palpitations, orthopnea, PND, abdominal pain, nausea, vomiting, diarrhea, constipation, dysuria, hematuria, frequency, back pain, joint pain or swelling, easy bruising or bleeding, skin lesions or rashes. Physical Exam Physical Exam: General: Resting comfortably in her hospital bed. Appears mildly ill but not toxic. NAD. HEENT: Head is AT/NC. Buccal mucosa is moist and pink Neck: No JVD. Negative hepatojugular reflex Cardiac: RRR with 3/6 holosystolic murmur Lungs: Mild conversational dyspnea noted. Otherwise breathing comfortably on ambient air. Diminished breath sounds throughout with mid to end expiratory wheezes. Questionable Rales in the bases bilaterally. Negative egophony Abdomen: Normoactive X4. Abdomen is not distended. Nontender in all quadrants. Extremities: No peripheral clubbing cyanosis or edema Neuro: A&O X4. Cranial nerves II through XII are grossly intact. No focal neuro deficits Skin: No obvious skin lesions or rashes Psych: Appropriate affect. Pleasant and cooperative Results & Data Results & Data ([facility]) Vital Signs (Past 12 Hours) Vital Signs Temp Pulse Pulse Resp BP BP Pulse Ox 08/30/21 13:04 77 20 96 08/30/21 11:01 36.7 C 82 22 126/63 92 08/30/21 09:28 83 08/30/21 07:24 36.6 C 92 H 22 120/75 92 08/30/21 06:54 79 18 93 08/30/21 03:26 36.7 C 85 22 110/72 90 Laboratory Results 08/30/21 08:09 08/30/21 08:09 PG Care Time/CCT Total # of Minutes Spent Total Time Spent with Patient: Total time spent is greater than 50% in coordination of care (as documented) at patient's floor/unit and/or counseling patient: Coding Level of Care Code 65345 Subseq Hosp Care Lvl 3 Diagnoses Shortness of breath R06.02 Ascites R18.8 Severe aortic stenosis I35.0 Elevated troponin I level R77.8 HTN (hypertension) I10 Diabetes E11.9 Hypothyroidism E03.9 CHF (congestive heart failure) I50.9
[2021-08-30] MEDS: FORMOTEROL 20 MCG/2 ML VIAL NEB SCH ×2 (15:16→20:17)
[2021-08-30] MEDS: cefTRIAXone SODIUM 2,000 MG in DEXTROSE 5% 50 ML IV SCH (15:26)
[2021-08-30 16:13] LABS: Adenovirus PCR Not Detected (NotDetected); Bordetella parapertussis PCR Not Detected (NotDetected); Bordetella pertussis PCR Not Detected (NotDetected); Chlamydia pneumoniae PCR Not Detected (NotDetected); Coronavirus 229E PCR Not Detected (NotDetected); Coronavirus CoV-2 (COVID19)PCR Not Detected (NotDetected); Coronavirus HKU1 PCR Not Detected (NotDetected); Coronavirus NL63 PCR Not Detected (NotDetected); Coronavirus OC43PCR Not Detected (NotDetected); Human Metapneumovirus PCR Not Detected (NotDetected); Influenza A PCR Not Detected (NotDetected); Influenza B PCR Not Detected (NotDetected); Mycoplasma pneumoniae PCR Not Detected (NotDetected); Parainfluenza Virus 1 PCR Not Detected (NotDetected); Parainfluenza Virus 2 PCR Not Detected (NotDetected); Parainfluenza Virus 3 PCR Not Detected (NotDetected); Parainfluenza Virus 4 PCR Not Detected (NotDetected); Respiratory Syncytial VirusPCR Not Detected (NotDetected); Rhinovirus/Enterovirus PCR Not Detected (NotDetected)
[2021-08-30] MEDS: AZITHROMYCIN 500 MG in DEXTROSE 5% 250 ML IV SCH (16:37)
[2021-08-30] MEDS ORDERED: BENZONATATE 100 MG CAPSULE PO PRN (17:07)
[2021-08-30] MEDS ORDERED: FUROSEMIDE INJ 20 MG/2 ML VIAL IV ONE (17:10)
[2021-08-30] MEDS: SPIRONOLACTONE 25 MG TAB PO SCH (17:47)
[2021-08-30] MEDS: BUDESONIDE 0.5 MG/2 ML VIAL (PULMICORT) NEB SCH (19:48)
[2021-08-30] MEDS: SERTRALINE HCL 100 MG TABLET PO SCH (20:46)
[2021-08-30] MEDS: BENZONATATE 100 MG CAPSULE PO PRN (20:46)
[2021-08-30] MEDS: MAGNESIUM OXIDE 400 MG TAB PO SCH (20:46)
[2021-08-30] MEDS: guaiFENesin 600 MG TABCR PO SCH (20:47)
[2021-08-30] MEDS: guaiFENesin/DEXTROM SYRUP 200MG/20MG 10ML UDC PO PRN (23:15)
[2021-08-31] MEDS: ALBUT/IPRATROP 3MG/0.5MG NEB 3 ML VIAL NEB SCH ×4 (00:27→19:10)
[2021-08-31] MEDS: LEVOTHYROXINE SODIUM 50 MCG TABLET PO SCH (05:38)
[2021-08-31] MEDS: BUDESONIDE 0.5 MG/2 ML VIAL (PULMICORT) NEB SCH ×2 (07:08→19:10)
[2021-08-31 07:58] LABS: Albumin Globulin Ratio 1.1 (0.9-2); Albumin Level 3.2 gm/dl (3.4-5.0); BUN Creatinine Ratio 31.1 (10-20); Bilirubin,Total 0.7 mg/dl (0.2-1.0); Calcium 8.8 mg/dl (8.5-10.1); Creatinine Clr Calc Pharmacy 91.5 ml/min; Est GFR (African American) 108.2 ml/min; Est GFR (Non-African American) 93.3 ml/min; Magnesium 1.6 mg/dl (1.7-2.4); Potassium 3.8 mmol/L (3.5-5.1); Total Protein 6.2 gm/dl (6.0-8.3)
[2021-08-31] MEDS ORDERED: MAGNESIUM SULFATE / D5W 1 GM/100 ML BAG IV ONE (08:30)
[2021-08-31] MEDS: INSULIN ASPART PER UNIT SC SCH ×4 (08:54→20:59)
[2021-08-31] MEDS: BENZONATATE 100 MG CAPSULE PO PRN (08:54)
[2021-08-31] MEDS: HEPARIN SOD 5,000 UNIT/0.5 ML VIAL SQ SCH ×2 (08:55→20:25)
[2021-08-31] MEDS: OMEGA-3 (PURIFIED FISH OIL) 1 GM CAP PO SCH (08:55)
[2021-08-31] MEDS: SPIRONOLACTONE 25 MG TAB PO SCH ×2 (08:55→17:31)
[2021-08-31] MEDS: FLUTICASONE/VILANTEROL 200/25MCG 14 PUFFS/INHALER INH SCH (08:55)
[2021-08-31] MEDS: FEXOFENADINE HCL 180 MG TAB PO SCH (08:55)
[2021-08-31] MEDS: guaiFENesin 600 MG TABCR PO SCH ×2 (08:55→20:25)
[2021-08-31] MEDS: MAGNESIUM OXIDE 400 MG TAB PO SCH ×2 (08:55→20:24)
[2021-08-31] MEDS: CLOPIDOGREL BISULFATE 75 MG TAB PO SCH (08:55)
[2021-08-31] MEDS: PANTOprazole 40 MG TAB PO SCH (08:55)
--- NOTE | 2021-08-31 14:40 | Hospitalist Progress Note ---
Date of Service August 31, 2021 Assessment & Plan (1) Shortness of breath: Plan: 80-year-old white female known underlying past medical history of severe aortic stenosis (awaiting TAVR), asthma, and recent Covid (06/09) presented to the emergency department complaining of increased shortness of breath and a nonproductive cough. Overall, has not been requiring supplemental oxygen but does easily desaturate into the high 80s with minimal exertion. Shortness of breath likely multifactorial (asthma exacerbation, pneumonia, volume overload) -Upon arrival, she was thought to have an acute exacerbation of her asthma and hospitalized with IV steroids and routine nebulized treatments -Covid and bio fire panel are negative -Afebrile. White blood cell count normal and not requiring supplemental oxygen -No significant change in symptomatology with IV steroids on board -CT of the chest shows diffuse groundglass opacities consistent with infectious process. -At this point, appears to have opacities consistent with pneumonia. Uncertain if this is fibrotic changes from recent Covid diagnosis or perhaps subsequent bacterial infection following recent illness -In addition, patient seems to have mild pulmonary vascular congestion. Echocardiogram done 08/07 showing diminished EF of 35 to 40% and significant valvular disease -Continue DuoNeb treatments, was given IV steroids briefly on admission but hasn't received any further doses since 08/27 -Add Pulmicort/Perforomist -1 dose of IV Lasix now. Add Aldactone (which is necessary given her underlying cirrhosis and ascites) -She is on Rocephin (for concern for peritonitis). Added azithromycin 08/30 for further atypical coverage, mucolytic agents and antitussives -Continue to follow clinically (2) Ascites: Plan: -Patient with chronic underlying cirrhosis -Recent paracentesis done 08/01 -Upon review of her peritoneal fluid, there is no growth but she had a peritoneal WBC count of 416 and LDH of 253. She does not have abdominal pain, fever, or leukocytosis. -Prior provider has started Rocephin X 5 days -Discussed with infectious disease and although her culture data showing no growth, she has a slightly elevated WBC count and LDH. Given her underlying cirrhosis and immunocompromise state, there is risk of bacterial peritonitis and ID agrees with 5 days of IV antibiotics -Last dose will conclude on Sunday 09/03 -Follow-up abdominal ultrasound done today showing only trace ascites, not enough for repeat paracentesis (to retest peritoneal fluid) and infectious disease says not necessary since no growth on initial -Add Aldactone. 1 dose of IV Lasix given 08/30 -Start daily Lasix 40mg to help manage acites (3) Severe aortic stenosis: Plan: -To follow-up in [place] for TAVR. Appointment already made (4) CHF (congestive heart failure): Plan: -Patient does not carry a formal diagnosis; however, with review of her recent echocardiogram done 11/06, she does have mild systolic dysfunction (EF 35 to 40%) -Added Aldactone (as underlying cirrhosis noted). 1 dose of IV Lasix now as volume overloaded state likely contributing to shortness of breath. May be inclined to add long-term chronic Lasix but would do this cautiously given her underlying severe aortic stenosis -Beta-blockers being avoided as contraindicated with peritonitis. Could consider nadolol in the future if BP and heart rate would allow -Would avoid any preload reducing agents such as SENDY inhibitor's given her severe aortic stenosis (5) Elevated troponin I level: Plan: At 0.05- same previous 2 levels in May - without anginal complaints - ECG without dyanmic changes (6) HTN (hypertension): Plan: - Currently not on any antihypertensive agents. Watch BP closely with the addition of Aldactone and Lasix (7) Diabetes: Plan: Hold Metformin Hemoglobin A1c normal at 5.6% in 03/2021 - Continue with BG ACH/HS and add aspart insulin coverage - Goal <180 (8) Hypothyroidism: Plan: Continue with synthroid TSH normal in 03/2021 Plan: Remain in house until Friday when she will complete IV Rocephin Continue PT/OT Admission and Anticipated Discharge Date Admission Date: August 27, 2021 Subjective Patient seen on daily rounds today. Was hospitalized on 08/26 with increased shortness of breath, audible wheezes, a dry cough that started the morning of admission. She presented to the hospital where she was found to have a negative Covid/flu, normal white blood cell count. Afebrile. Was doing well on room air but would easily desaturate to 87% briefly with minimal exertion. She has been treated with IV steroids and DuoNeb treatments. Overall, she voices no significant change in her breathing. She still coughing. Nonproductive. Given clinical suspicion of pneumonia, CT scan was performed showing mild pulmonary edema with patchy multilobar infiltrates consistent with groundglass opacities suggestive of infectious process. In addition, she had a paracentesis done on 08/01 due to her underlying cirrhosis. That culture data shows no growth but her WBC count was 416. LDH was elevated at 253. She has since been started on Rocephin for concern for SBP. Otherwise, she remains afebrile and hemodynamically stable. Her serum white blood cell count is normal. CRP is slightly elevated at 2.75 with a normal ESR of 26. Patient denies abd pain. Review of Systems Review of Systems: All systems reviewed and are unremarkable except as noted in HPI and below Denies fevers, chills, headache, nasal congestion, sore throat,chest pain, palpitations, orthopnea, PND, abdominal pain, nausea, vomiting, diarrhea, constipation, dysuria, hematuria, frequency, back pain, joint pain or swelling, easy bruising or bleeding, skin lesions or rashes. Physical Exam Physical Exam: GENERAL: 80 yo well-developed, well-nourished WF. NAD.. LUNGS: Clear to auscultation bilaterally. No W/R/R. CARDIOVASCULAR: Regular rate and rhythm. 3/6 DAVID. No JVD. ABDOMEN: Soft, non-tender and non-distended. +fluid wave. BS normal x 4 quad. EXTREMITIES: No edema. Non-tender. Peripheral pulses +2/4. NEUROLOGIC: A&O x3 but seems drowsy during rounds which RN reports is normal for her. PSYCHIATRIC: Cooperative. Appropriate mood and affect. SKIN: Warm, dry, intact. No rashes or lesions. Results & Data Results & Data ([facility]) Vital Signs (Past 12 Hours) Vital Signs Temp Pulse Pulse Resp BP Pulse Ox 08/31/21 12:45 82 16 93 08/31/21 11:21 36.8 C 62 18 116/76 94 08/31/21 07:47 36.9 C 82 18 130/82 98 08/31/21 07:41 78 08/31/21 07:08 80 18 91 08/31/21 03:21 36.4 C L 79 20 102/63 93 Laboratory Results 08/30/21 08:09 08/31/21 07:10 mag-1.6 PG Care Time/CCT Total # of Minutes Spent Total Time Spent with Patient: Total time spent is greater than 50% in coordination of care (as documented) at patient's floor/unit and/or counseling patient: Coding Level of Care Code 56771 Subseq Hosp Care Lvl 2 Diagnoses Shortness of breath R06.02 Ascites R18.8 Severe aortic stenosis I35.0 CHF (congestive heart failure) I50.9 Elevated troponin I level R77.8 HTN (hypertension) I10 Diabetes E11.9 Hypothyroidism E03.9
[2021-08-31] MEDS: cefTRIAXone SODIUM 2,000 MG in DEXTROSE 5% 50 ML IV SCH (15:22)
[2021-08-31] MEDS: AZITHROMYCIN 500 MG in DEXTROSE 5% 250 ML IV SCH (15:45)
[2021-08-31] MEDS: FORMOTEROL 20 MCG/2 ML VIAL NEB SCH (19:10)
[2021-08-31] MEDS: SERTRALINE HCL 100 MG TABLET PO SCH (20:24)
[2021-08-31] MEDS: guaiFENesin/DEXTROM SYRUP 200MG/20MG 10ML UDC PO PRN (22:06)
[2021-09-01] MEDS: ALBUT/IPRATROP 3MG/0.5MG NEB 3 ML VIAL NEB SCH ×4 (00:14→19:18)
[2021-09-01] MEDS: LEVOTHYROXINE SODIUM 50 MCG TABLET PO SCH (05:59)
[2021-09-01 06:52] LABS: BUN Creatinine Ratio 20.8 (10-20); Calcium 8.7 mg/dl (8.5-10.1); Creatinine Clr Calc Pharmacy 77.9 ml/min; Est GFR (African American) 102.5 ml/min; Est GFR (Non-African American) 88.4 ml/min; Magnesium 1.7 mg/dl (1.7-2.4); Potassium 4.1 mmol/L (3.5-5.1)
[2021-09-01] MEDS: FORMOTEROL 20 MCG/2 ML VIAL NEB SCH ×2 (07:25→19:20)
[2021-09-01] MEDS: BUDESONIDE 0.5 MG/2 ML VIAL (PULMICORT) NEB SCH ×2 (07:25→19:20)
[2021-09-01] MEDS: MAGNESIUM OXIDE 400 MG TAB PO SCH ×2 (08:35→20:27)
[2021-09-01] MEDS: HEPARIN SOD 5,000 UNIT/0.5 ML VIAL SQ SCH ×2 (08:35→20:30)
[2021-09-01] MEDS: guaiFENesin 600 MG TABCR PO SCH ×2 (08:35→20:28)
[2021-09-01] MEDS: FLUTICASONE/VILANTEROL 200/25MCG 14 PUFFS/INHALER INH SCH (08:35)
[2021-09-01] MEDS: SPIRONOLACTONE 25 MG TAB PO SCH ×2 (08:35→17:15)
[2021-09-01] MEDS: PANTOprazole 40 MG TAB PO SCH (08:36)
[2021-09-01] MEDS: OMEGA-3 (PURIFIED FISH OIL) 1 GM CAP PO SCH (08:36)
[2021-09-01] MEDS: CLOPIDOGREL BISULFATE 75 MG TAB PO SCH (08:36)
[2021-09-01] MEDS: FEXOFENADINE HCL 180 MG TAB PO SCH (08:36)
[2021-09-01] MEDS: guaiFENesin/DEXTROM SYRUP 200MG/20MG 10ML UDC PO PRN ×2 (08:36→20:23)
[2021-09-01] MEDS: INSULIN ASPART PER UNIT SC SCH ×4 (08:39→20:29)
[2021-09-01] MEDS ORDERED: FUROSEMIDE 40 MG TAB PO SCH (09:00)
--- NOTE | 2021-09-01 11:42 | Hospitalist Progress Note ---
Date of Service September 01, 2021 Assessment & Plan (1) Shortness of breath: Plan: Shortness of breath likely multifactorial (asthma exacerbation, pneumonia, volume overload) -Upon arrival, she was thought to have an acute exacerbation of her asthma and hospitalized with IV steroids and routine nebulized treatments -Covid and bio fire panel are negative -Afebrile. White blood cell count normal and not requiring supplemental oxygen -No significant change in symptomatology with IV steroids on board -CT of the chest shows diffuse groundglass opacities consistent with infectious process. -At this point, appears to have opacities consistent with pneumonia. Uncertain if this is fibrotic changes from recent Covid diagnosis or perhaps subsequent bacterial infection following recent illness -In addition, patient seems to have mild pulmonary vascular congestion. E chocardiogram done 08/07 showing diminished EF of 35 to 40% and significant valvular disease -Continue DuoNeb treatments, was given IV steroids briefly on admission but hasn't received any further doses since 08/27 -Add Pulmicort/Perforomist -1 dose of IV Lasix given 08/30 and Aldactone added (which is necessary given her underlying cirrhosis and ascites) -She is on Rocephin (for concern for SBP). Added azithromycin 08/30 for further atypical coverage, mucolytic agents and antitussives -Continue to follow clinically (2) Ascites: Plan: -Patient with chronic underlying cirrhosis -Recent paracentesis done 08/01 -Upon review of her peritoneal fluid, there is no growth but she had a peritoneal WBC count of 416 and LDH of 253. She does not have abdominal pain, fever, or leukocytosis. -Prior provider has started Rocephin X 5 days -Discussed with infectious disease and although her culture data showing no growth, she has a slightly elevated WBC count and LDH. Given her underlying cirrhosis and immunocompromise state, there is risk of bacterial peritonitis and ID agrees with 5 days of IV antibiotics -Last dose will conclude on Sunday 09/03 -Follow-up abdominal ultrasound done today showing only trace ascites, not enough for repeat paracentesis (to retest peritoneal fluid) and infectious disease says not necessary since no growth on initial -Added Aldactone and 1 dose of IV Lasix given 08/30 -Given a dose of Lasix 40mg orally 09/01, will avoid daily dosing to avoid significant preload reduction d/t her severe -May need to consider f/u ultrasound of abd to quantify acites and ensure that a paracentesis does not need repeated prior to d/c (3) Severe aortic stenosis: Plan: -To follow-up in [place] for TAVR. Appointment already made (4) CHF (congestive heart failure): Plan: -Patient does not carry a formal diagnosis; however, with review of her recent echocardiogram done 11/06, she does have mild systolic dysfunction (EF 35 to 40%) -Added Aldactone (as underlying cirrhosis noted). 1 dose of IV Lasix now as volume overloaded state likely contributing to shortness of breath. May be inclined to add long-term chronic Lasix but would do this cautiously given her underlying severe aortic stenosis -Beta-blockers being avoided as contraindicated with peritonitis. Could consi brandin nadolol in the future if BP and heart rate would allow -Would avoid any preload reducing agents such as SENDY inhibitor's given her severe aortic stenosis (5) Elevated troponin I level: Plan: At 0.05- same previous 2 levels in May - without anginal complaints - ECG without dyanmic changes (6) HTN (hypertension): Plan: - Currently not on any antihypertensive agents. Watch BP closely with the addition of Aldactone (7) Diabetes: Plan: Hold Metformin Hemoglobin A1c normal at 5.6% in 03/2021 - Continue with BG ACH/HS and add aspart insulin coverage - Goal <180 (8) Hypothyroidism: Plan: Continue with synthroid TSH normal in 03/2021 Plan: Remain in house until Friday when she will complete IV Rocephin Continue PT/OT--recommending continued PT as she tires easily and during today's session (09/01) she required 2 person assist while ambulating. Per their note, she would not be safe to return home at this time. Suspect she will require a short stay in rehab in order to be able to safely return home. Will reach out to case management to d/w patient. Plan to be d/w Dr. Butsillo. Admission and Anticipated Discharge Date Admission Date: August 27, 2021 Subjective Patient seen on daily rounds today. Was hospitalized on 08/26 with increased shortness of breath, audible wheezes, a dry cough that started the morning of admission. She presented to the hospital where she was found to have a negative Covid/flu, normal white blood cell count. Afebrile. Was doing well on room air but would easily desaturate to 87% briefly with minimal exertion. She has been treated with IV steroids and DuoNeb treatments. Given clinical suspicion of pneumonia, CT scan was performed showing mild pulmonary edema with patchy multilobar infiltrates consistent with groundglass opacities suggestive of infectious process. She had a paracentesis done on 08/01 due to her underlying cirrhosis. That culture data shows no growth but her WBC count was 416. LDH was elevated at 253. She was subsequently started on Rocephin on 08/29 for concern for SBP with plans to complete 5 days of therapy, to conclude on Monday 09/04. Patient denies abd pain today. Continues to have mild cough but nonproductive. Denies fever, chills, chest pain, or dyspnea. Review of Systems Review of Systems: All systems reviewed and are unremarkable except as noted in HPI and below Denies fevers, chills, headache, nasal congestion, sore throat,chest pain, palpitations, orthopnea, PND, abdominal pain, nausea, vomiting, diarrhea, constipation, dysuria, hematuria, frequency, back pain, joint pain or swelling, easy bruising or bleeding, skin lesions or rashes. Physical Exam Physical Exam: GENERAL: 80 yo well-developed, well-nourished WF. NAD.. LUNGS: Clear to auscultation bilaterally. No W/R/R. CARDIOVASCULAR: Regular rate and rhythm. 3/6 DAVID. No JVD. ABDOMEN: Soft, non-tender and non-distended. +fluid wave. BS normal x 4 quad. EXTREMITIES: No edema. Non-tender. Peripheral pulses +2/4. NEUROLOGIC: A&O x3 but seems drowsy during rounds which RN reports is normal for her. PSYCHIATRIC: Cooperative. Appropriate mood and affect. SKIN: Warm, dry, intact. No rashes or lesions. Results & Data Results & Data ([facility]) Vital Signs (Past 12 Hours) Vital Signs Temp Pulse Pulse Resp BP BP Pulse Ox 09/01/21 07:35 36.6 C 75 16 128/59 L 98 09/01/21 07:30 74 09/01/21 07:25 78 18 97 09/01/21 04:23 79 20 124/73 94 Laboratory Results 08/30/21 08:09 09/01/21 06:08 PG Care Time/CCT Total # of Minutes Spent Total Time Spent with Patient: Total time spent is greater than 50% in coordination of care (as documented) at patient's floor/unit and/or counseling patient: Coding Level of Care Code 34916 Subseq Hosp Care Lvl 2 Diagnoses Shortness of breath R06.02 Ascites R18.8 Severe aortic stenosis I35.0 CHF (congestive heart failure) I50.9 Elevated troponin I level R77.8 HTN (hypertension) I10 Diabetes E11.9 Hypothyroidism E03.9
[2021-09-01] MEDS: cefTRIAXone SODIUM 2,000 MG in DEXTROSE 5% 50 ML IV SCH (14:32)
[2021-09-01] MEDS: AZITHROMYCIN 500 MG in DEXTROSE 5% 250 ML IV SCH (15:08)
[2021-09-01] MEDS: SERTRALINE HCL 100 MG TABLET PO SCH (20:28)
[2021-09-02] MEDS: ALBUT/IPRATROP 3MG/0.5MG NEB 3 ML VIAL NEB SCH ×2 (00:16→07:28)
[2021-09-02] MEDS: guaiFENesin/DEXTROM SYRUP 200MG/20MG 10ML UDC PO PRN (03:19)
[2021-09-02] MEDS: LEVOTHYROXINE SODIUM 50 MCG TABLET PO SCH (03:25)
[2021-09-02] MEDS: FEXOFENADINE HCL 180 MG TAB PO SCH (07:04)
[2021-09-02] MEDS: OMEGA-3 (PURIFIED FISH OIL) 1 GM CAP PO SCH (07:04)
[2021-09-02] MEDS: SPIRONOLACTONE 25 MG TAB PO SCH ×2 (07:04→15:56)
[2021-09-02] MEDS: guaiFENesin 600 MG TABCR PO SCH ×2 (07:04→20:11)
[2021-09-02] MEDS: MAGNESIUM OXIDE 400 MG TAB PO SCH ×2 (07:04→20:11)
[2021-09-02] MEDS: PANTOprazole 40 MG TAB PO SCH (07:05)
[2021-09-02] MEDS: CLOPIDOGREL BISULFATE 75 MG TAB PO SCH (07:05)
[2021-09-02] MEDS: FLUTICASONE/VILANTEROL 200/25MCG 14 PUFFS/INHALER INH SCH (07:05)
[2021-09-02] MEDS: HEPARIN SOD 5,000 UNIT/0.5 ML VIAL SQ SCH ×2 (07:05→20:11)
[2021-09-02 07:23] LABS: BUN Creatinine Ratio 23.4 (10-20); Bilirubin,Total 0.7 mg/dl (0.2-1.0); Calcium 8.7 mg/dl (8.5-10.1); Creatinine Clr Calc Pharmacy 87.3 ml/min; Est GFR (African American) 106.6 ml/min; Globulin 2.9 gm/dl (2.5-4.0); Potassium 3.8 mmol/L (3.5-5.1); Total Protein 5.9 gm/dl (6.0-8.3)
[2021-09-02] MEDS: FORMOTEROL 20 MCG/2 ML VIAL NEB SCH ×2 (07:28→19:12)
[2021-09-02] MEDS: BUDESONIDE 0.5 MG/2 ML VIAL (PULMICORT) NEB SCH ×2 (07:28→19:12)
[2021-09-02] MEDS: INSULIN ASPART PER UNIT SC SCH ×4 (08:22→20:20)
[2021-09-02] MEDS ORDERED: ALBUT/IPRATROP 3MG/0.5MG NEB 3 ML VIAL NEB PRN (12:50)
[2021-09-02] MEDS: BENZONATATE 100 MG CAPSULE PO PRN ×2 (13:00→20:13)
--- NOTE | 2021-09-02 15:49 | Hospitalist Progress Note ---
Date of Service September 02, 2021 Assessment & Plan (1) Shortness of breath: Plan: Shortness of breath likely multifactorial (asthma exacerbation, pneumonia, volume overload) -Upon arrival, she was thought to have an acute exacerbation of her asthma and hospitalized with IV steroids and routine nebulized treatments -Covid and bio fire panel are negative -Afebrile. White blood cell count normal and not requiring supplemental oxygen -No significant change in symptomatology with IV steroids on board -CT of the chest done showing diffuse groundglass opacities consistent with infectious process. -At this point, appears to have opacities consistent with pneumonia. Uncertain if this is fibrotic changes from recent Covid diagnosis or perhaps subsequent bacterial infection following recent illness -In addition, patient seems to have mild pulmonary vascular congestion. Echocardiogram done 08/07 showing diminished EF of 35 to 40% and significant valvular disease -Continue DuoNeb treatments (but change to prn given favorable response), was given IV steroids briefly on admission but hasn't received any further doses since 08/27 -continuePulmicort/Perforomist -1 dose of IV Lasix given 08/30 and Aldactone added (which is necessary given her underlying cirrhosis and ascites) -She is on Rocephin (for concern for SBP). Added azithromycin 08/30 for further atypical coverage, mucolytic agents and antitussives -Overall is showing favorable response. She has remained afebrile and hemodynamically stable. Improved air exchange throughout and her shortness of breath has since resolved. Not requiring supplemental oxygen. Lengthy discussion with patient regarding her cough and that this may linger for 4 to 6 weeks following resolution of her pneumonia. She will need a repeat CT scan of the chest in approximately 6 to 12 weeks to ensure resolution of infiltratesat discretion of PCP (2) Ascites: Plan: -Patient with chronic underlying cirrhosis -Recent paracentesis done 08/01 -Upon review of her peritoneal fluid, there is no growth but she had a peritoneal WBC count of 416 and LDH of 253. She does not have abdominal pain, fever, or leukocytosis. -Prior provider has started Rocephin X 5 days -Discussed with infectious disease and although her culture data showing no growth, she has a slightly elevated WBC count and LDH. Given her underlying cirrhosis and immunocompromise state, there is risk of bacterial peritonitis and ID agrees with 5 days of IV antibiotics (especially given plan for TAVR in the near future) -Last dose will conclude on Sunday 09/03 -Follow-up abdominal ultrasound done showing only trace ascites, not enough for repeat paracentesis (to retest peritoneal fluid) and infectious disease says not necessary since no growth on initial -Added Aldactone and 1 dose of IV Lasix given 08/30 -Given a dose of Lasix 40mg orally 09/01, will avoid daily dosing to avoid sig nificant preload reduction d/t her severe -May need to consider f/u ultrasound of abd to quantify acites and ensure that a paracentesis does not need repeated prior to d/c (3) Severe aortic stenosis: Plan: -To follow-up in [place] for TAVR. Appointment already made (4) CHF (congestive heart failure): Plan: -Patient does not carry a formal diagnosis; however, with review of her recent echocardiogram done 11/06, she does have mild systolic dysfunction (EF 35 to 40%) -Added Aldactone (as underlying cirrhosis noted). 1 dose of IV Lasix now as volume overloaded state likely contributing to shortness of breath. May be inclined to add long-term chronic Lasix but would do this cautiously given her underlying severe aortic stenosis -Beta-blockers being avoided as contraindicated with peritonitis. Could consider nadolol in the future if BP and heart rate would allow -Would avoid any preload reducing agents such as SENDY inhibitor's given her severe aortic stenosis (5) Elevated troponin I level: Plan: At 0.05- same previous 2 levels in May - without anginal complaints - ECG without dyanmic changes (6) HTN (hypertension): Plan: - Currently not on any antihypertensive agents. Watch BP closely with the addition of Aldactone (7) Diabetes: Plan: Hold Metformin Hemoglobin A1c normal at 5.6% in 03/2021 - Continue with BG ACH/HS and add aspart insulin coverage - Goal <180 (8) Hypothyroidism: Plan: Continue with synthroid TSH normal in 03/2021 Plan: Remain in house until Friday when she will complete IV Rocephin Continue PT/OT--patient does tire easily and upfront, PT/OT were recommending rehab but patient declined. Case management has discussed this with patient's daughter and all feel that patient can return to home with additional family support. Therapy agrees with this plan. Potential D/C Friday after IV abx given Plan to be d/w Dr. Bustillo. Admission and Anticipated Discharge Date Admission Date: August 27, 2021 Subjective Patient seen on daily rounds today. Vocalizes no significant complaints or concerns. Overall, her breathing continues to improve. She is complaining of a persistent dry cough but utilizing Tessalon Perles for this. Denies fevers, chills, chest pain, shortness of breath, abdominal pain, nausea or vomiting. Review of Systems Review of Systems: All systems reviewed and are unremarkable except as noted in HPI and below Denies fevers, chills, headache, nasal congestion, sore throat, cough, chest pain, shortness of breath, palpitations, orthopnea, PND, abdominal pain, nausea, vomiting, diarrhea, constipation, dysuria, hematuria, frequency, back pain, joint pain or swelling, easy bruising or bleeding, skin lesions or rashes. Physical Exam Physical Exam: General: Resting comfortably in her bedside chair. NAD. HEENT: Head is AT/NC. Buccal mucosa is moist and pink Neck: No JVD. Negative hepatojugular reflex Cardiac: RRR with 3/6 holosystolic murmur Lungs: Breathing comfortably on ambient air. Normal respiratory effort. Good air exchange throughout without wheezes, rales or rhonchi Abdomen: Normoactive X4. Abdomen soft. No clinical signs of ascites. Extremities: No peripheral clubbing cyanosis or edema Neuro: A&O X4. Cranial nerves II through XII are grossly intact. No focal neuro deficits Skin: No obvious skin lesions or rashes Psych: Appropriate affect. Pleasant and cooperative Results & Data Results & Data ([facility]) Vital Signs (Past 12 Hours) Vital Signs Temp Pulse Pulse Resp BP Pulse Ox 09/02/21 15:27 36.9 C 70 18 90/62 L 96 09/02/21 15:03 78 09/02/21 11:42 36.6 C 75 18 110/70 95 09/02/21 07:28 74 22 95 09/02/21 07:07 36.8 C 75 18 112/62 94 09/02/21 06:55 76 Laboratory Results 08/30/21 08:09 09/02/21 06:39 PG Care Time/CCT Total # of Minutes Spent Total Time Spent with Patient: Total time spent is greater than 50% in coordination of care (as documented) at patient's floor/unit and/or counseling patient: Coding Level of Care Code 00276 Subseq Hosp Care Lvl 2 Diagnoses Shortness of breath R06.02 Ascites R18.8 Severe aortic stenosis I35.0 CHF (congestive heart failure) I50.9 Elevated troponin I level R77.8 HTN (hypertension) I10 Diabetes E11.9 Hypothyroidism E03.9
[2021-09-02] MEDS: cefTRIAXone SODIUM 2,000 MG in DEXTROSE 5% 50 ML IV SCH (15:56)
[2021-09-02] MEDS: AZITHROMYCIN 500 MG in DEXTROSE 5% 250 ML IV SCH (16:36)
[2021-09-02] MEDS: SERTRALINE HCL 100 MG TABLET PO SCH (20:11)
[2021-09-03] MEDS: LEVOTHYROXINE SODIUM 50 MCG TABLET PO SCH (05:21)
[2021-09-03] MEDS: CLOPIDOGREL BISULFATE 75 MG TAB PO SCH (08:50)
[2021-09-03] MEDS: INSULIN ASPART PER UNIT SC SCH ×4 (08:56→20:27)
[2021-09-03] MEDS: SPIRONOLACTONE 25 MG TAB PO SCH ×2 (08:58→18:24)
[2021-09-03] MEDS: FLUTICASONE/VILANTEROL 200/25MCG 14 PUFFS/INHALER INH SCH (08:58)
[2021-09-03] MEDS: PANTOprazole 40 MG TAB PO SCH (08:59)
[2021-09-03] MEDS: FEXOFENADINE HCL 180 MG TAB PO SCH (08:59)
[2021-09-03] MEDS: guaiFENesin 600 MG TABCR PO SCH ×2 (08:59→20:03)
[2021-09-03] MEDS: OMEGA-3 (PURIFIED FISH OIL) 1 GM CAP PO SCH (08:59)
[2021-09-03] MEDS: MAGNESIUM OXIDE 400 MG TAB PO SCH ×2 (08:59→20:03)
[2021-09-03] MEDS: HEPARIN SOD 5,000 UNIT/0.5 ML VIAL SQ SCH ×2 (09:00→20:01)
--- NOTE | 2021-09-03 16:36 | Hospitalist Progress Note ---
Date of Service September 03, 2021 Assessment & Plan (1) Shortness of breath: Plan: Shortness of breath likely multifactorial (asthma exacerbation, pneumonia, volume overload) -Upon arrival, she was thought to have an acute exacerbation of her asthma and hospitalized with IV steroids and routine nebulized treatments -Covid and bio fire panel are negative -Afebrile. White blood cell count normal and not requiring supplemental oxygen -No significant change in symptomatology with IV steroids on board -CT of the chest done showing diffuse groundglass opacities consistent with infectious process. -At this point, appears to have opacities consistent with pneumonia. Uncertain if this is fibrotic changes from recent Covid diagnosis or perhaps subsequent bacterial infection following recent illness -In addition, patient seems to have mild pulmonary vascular congestion. Echocardiogram done 08/07 showing diminished EF of 35 to 40% and significant valvular disease -Continue DuoNeb treatments (but change to prn given favorable response), was given IV steroids briefly on admission but hasn't received any further doses since 08/27 -Continue Pulmicort/Perforomist -1 dose of IV Lasix given 08/30 and Aldactone added (which is necessary given her underlying cirrhosis and ascites) -She is on Rocephin (for concern for SBP). Added azithromycin 08/30 for further atypical coverage, mucolytic agents and antitussives -Overall is showing favorable response. She has remained afebrile and hemodynamically stable. Improved air exchange throughout and her shortness of breath has since resolved. Not requiring supplemental oxygen. Lengthy discussion with patient regarding her cough and that this may linger for 4 to 6 weeks following resolution of her pneumonia. She will need a repeat CT scan of the chest in approximately 6 to 12 weeks to ensure resolution of infiltratesat discretion of PCP (2) Ascites: Plan: -Patient with chronic underlying cirrhosis -Recent paracentesis done 08/01 -Upon review of her peritoneal fluid, there is no growth but she had a peritoneal WBC count of 416 and LDH of 253. She does not have abdominal pain, fever, or leukocytosis. -Prior provider has started Rocephin X 5 days -Discussed with infectious disease and although her culture data showing no growth, she has a slightly elevated WBC count and LDH. Given her underlying cirrhosis and immunocompromise state, there is risk of bacterial peritonitis and ID agrees with 5 days of IV antibiotics (especially given plan for TAVR in the near future) which she completes as of today (09/03) -Follow-up abdominal ultrasound done showing only trace ascites, not enough for repeat paracentesis (to retest peritoneal fluid) and infectious disease says not necessary since no growth on initial -Added Aldactone and 1 dose of IV Lasix given 08/30 -Given a dose of Lasix 40mg orally 09/01, will avoid daily dosing to avoid significant preload reduction d/t her severe (3) Severe aortic stenosis: Plan: -To follow-up in [place] for TAVR. Appointment already made (4) CHF (congestive heart failure): Plan: -Patient does not carry a formal diagnosis; however, with review of her recent echocardiogram done 11/06, she does have mild systolic dysfunction (EF 35 to 40%) -Added Aldactone (as underlying cirrhosis noted). 1 dose of IV Lasix given 08/30 as volume overloaded state likely contributing to shortness of breath. May be inclined to add long-term chronic Lasix but would do this cautiously given her underlying severe aortic stenosis -Beta-blockers being avoided as contraindicated with peritonitis. Could consider nadolol in the future if BP and heart rate would allow -Would avoid any preload reducing agents such as SENDY inhibitor's given her severe aortic stenosis (5) Elevated troponin I level: Plan: At 0.05- same previous 2 levels in May -without anginal complaints -ECG without dynamic changes (6) HTN (hypertension): Plan: -Currently not on any antihypertensive agents. Watch BP closely with the addition of Aldactone (7) Diabetes: Plan: -Hold Metformin -Hemoglobin A1c normal at 5.6% in 03/2021 -Continue with BG ACH/HS and add aspart insulin coverage -Goal <180 (8) Hypothyroidism: Plan: -Continue with synthroid -TSH normal in 03/2021 Plan: Continue PT/OT--patient tires easily, updated therapy notes now recommending SNF w/ rehab emphasis. Pt initially was resistant but after speaking with her family is now agreeable. D/w case management, referral placed to [facility] and [facility]. No update since referrals sent this morning on bed availability. Has since complete IV Rocephin for possible SBP (last dose at 1500 today). Medically stable for d/c once bed available at [facility]. Plan to be d/w Dr. Bustillo. Admission and Anticipated Discharge Date Admission Date: August 27, 2021 Subjective Patient seen on daily rounds today. Vocalizes no significant complaints or concerns. Overall, her breathing continues to improve. She is complaining of a persistent dry cough but utilizing Tessalon Perles for this. Denies fevers, chills, chest pain, shortness of breath, abdominal pain, nausea or vomiting. Review of Systems Review of Systems: All systems reviewed and are unremarkable except as noted in HPI and below Denies fevers, chills, headache, nasal congestion, sore throat, cough, chest pain, shortness of breath, palpitations, orthopnea, PND, abdominal pain, nausea, vomiting, diarrhea, constipation, dysuria, hematuria, frequency, back pain, joint pain or swelling, easy bruising or bleeding, skin lesions or rashes. Physical Exam Physical Exam: GENERAL: 80 yo well-developed, well-nourished WF. NAD. LUNGS: Clear to auscultation bilaterally. No W/R/R. CARDIOVASCULAR: Regular rate and rhythm. 3/6 DAVID. ABDOMEN: Soft, non-tender and non-distended. +fluid wave. BS normal x 4 quad. EXTREMITIES: No edema. Non-tender. Peripheral pulses +2/4. NEUROLOGIC: A&O x3 PSYCHIATRIC: Cooperative. Appropriate mood and affect. SKIN: Warm, dry, intact. No rashes or lesions. Results & Data Results & Data ([facility]) Vital Signs (Past 12 Hours) Vital Signs Temp Pulse Pulse Resp BP BP Pulse Ox 09/03/21 15:33 69 09/03/21 14:58 36.8 C 70 20 98/64 L 94 09/03/21 12:44 36.4 C L 72 22 110/73 93 09/03/21 08:18 36.7 C 70 18 123/75 92 09/03/21 07:48 74 PG Care Time/CCT Total # of Minutes Spent Total Time Spent with Patient: Total time spent is greater than 50% in coordination of care (as documented) at patient's floor/unit and/or counseling patient: Coding Level of Care Code 40763 Subseq Hosp Care Lvl 2 Diagnoses Shortness of breath R06.02 Ascites R18.8 Severe aortic stenosis I35.0 CHF (congestive heart failure) I50.9 Elevated troponin I level R77.8 HTN (hypertension) I10 Diabetes E11.9 Hypothyroidism E03.9
[2021-09-03] MEDS: cefTRIAXone SODIUM 2,000 MG in DEXTROSE 5% 50 ML IV SCH (16:43)
[2021-09-03] MEDS: AZITHROMYCIN 500 MG in DEXTROSE 5% 250 ML IV SCH (17:44)
[2021-09-03] MEDS: BENZONATATE 100 MG CAPSULE PO PRN (18:31)
[2021-09-03] MEDS: SERTRALINE HCL 100 MG TABLET PO SCH (20:03)
[2021-09-04] MEDS: LEVOTHYROXINE SODIUM 50 MCG TABLET PO SCH (06:19)
[2021-09-04] MEDS: guaiFENesin 600 MG TABCR PO SCH (09:12)
[2021-09-04] MEDS: MAGNESIUM OXIDE 400 MG TAB PO SCH (09:12)
[2021-09-04] MEDS: OMEGA-3 (PURIFIED FISH OIL) 1 GM CAP PO SCH (09:12)
[2021-09-04] MEDS: FEXOFENADINE HCL 180 MG TAB PO SCH (09:13)
[2021-09-04] MEDS: CLOPIDOGREL BISULFATE 75 MG TAB PO SCH (09:13)
[2021-09-04] MEDS: SPIRONOLACTONE 25 MG TAB PO SCH (09:13)
[2021-09-04] MEDS: PANTOprazole 40 MG TAB PO SCH (09:13)
[2021-09-04] MEDS: INSULIN ASPART PER UNIT SC SCH ×2 (09:14→12:05)
[2021-09-04] MEDS: HEPARIN SOD 5,000 UNIT/0.5 ML VIAL SQ SCH (09:15)
[2021-09-04] MEDS: FLUTICASONE/VILANTEROL 200/25MCG 14 PUFFS/INHALER INH SCH (09:16)
--- NOTE | 2021-09-04 09:44 | Ultrasound Report ---
US abdomen ltd ascites HISTORY: 80 years-old Female quantify acites, known cirrhosis . Study in a patient with cirrhotic li sandra disease and ascites COMPARISON: Abdominal ultrasound 08/29/2021 TECHNIQUE: Multiple real-time sonographic images of the abdomen were obtained assessing grayscale desmond earance FINDINGS: Cirrhotic liver. Small volume of ascites noted within all 4 quadrants of the abdomen. IMPRESSION: Small volume of abdominal ascites. ACT 112: Negative or not required by law. The above report was generated using voice recognition software. It may contain grammatical, syntax o r spelling errors. Electronically signed by: Mike Sebastian M.D. 09/04/2021 9:42 AM
--- NOTE | 2021-09-04 10:01 | Discharge Summary ---
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 Patient was brought to the EMD today as she was noted to be very dyspneic and wheezing at home. Her son and his called her this morning to see how she was feeling and noted that she sounded "horrible" on the phone, the went to check on her and noted that she was sitting on the edge of her bed, pale in color and dyspneic more than her normal baseline. The patient reports that she just started feeling like that this morning and had a slight nagging cough yesterday. Of note the patient did just return from [facility] on for her initial evaluation for TAVR, for which is planned in September. The patient does carry a diagnosis of allergic rhinitis and bronchitis, which she reports that she normally does get like this in the spring, but not this severe. She has a raspy bronchitic cough with thin secretions, she does not expectorate them because they make her nauseated. She denies any fevers or chills. For her Asthma she has nebulizers at home and reports a rescue steroid pack, but she uses them so rare that she is unsure if still good. In the EMD the patient was noted to have one desaturation episode to 87 at 1400 and remains on room air. She was then given 40mg IV solumedrol and albuterol neb and hospitalist team was consulted for admission. The patient feels like she is back to her baseline and responded well following her nebulizer that was still finishing up upon evaluation. The patient would like to go home, however as above she does not have her nebulizer supplies readily available for use as well doubt her cognitive ability to do these throughout the night and follow on by herself. Of note her Troponin is 0.05 and is the same level as it was back in May. and remains with out chest pain, dizziness, leg swelling, or syncope. COVID and FLU A/B are: NEGATIVE Principal Diagnosis Pneumonia + asthma exacerbation SBP Discharge Exam GENERAL: 80 yo well-developed, well-nourished WF. NAD. LUNGS: Clear to auscultation bilaterally. No W/R/R. CARDIOVASCULAR: Regular rate and rhythm. 3/6 DAVID. ABDOMEN: Soft, non-tender and non-distended. +fluid wave. BS normal x 4 quad. EXTREMITIES: No edema. Non-tender. Peripheral pulses +2/4. NEUROLOGIC: A&O x3 PSYCHIATRIC: Cooperative. Appropriate mood and affect. SKIN: Warm, dry, intact. No rashes or lesions. Discharge Data Allergies Allergy/AdvReac Type Severity Reaction Status Date / Time amoxicillin Allergy Mild YEAST Verified 08/26/21 15:08 INFECTION doxycycline Allergy Mild unknown Verified 08/26/21 15:08 meloxicam Allergy Mild unknown Verified 08/26/21 15:08 nitrofurantoin Allergy Mild unknown Verified 08/26/21 15:08 ofloxacin Allergy Mild unknown Verified 08/26/21 15:08 sulfamethoxazole Allergy Mild unknown Verified 08/26/21 15:08 trimethoprim Allergy Mild unknown Verified 08/26/21 15:08 atorvastatin [From Lipitor] Allergy Unknown ON MED LIST Verified 08/26/21 15:08 ezetimibe Allergy Unknown UNKNOWN Verified 08/26/21 15:08 gabapentin Allergy Unknown ON MED LIST Verified 08/26/21 15:08 pravastatin Allergy Unknown ON MED LIST Verified 08/26/21 15:08 rosuvastatin Allergy Unknown BODY PAINS Verified 08/26/21 15:08 oxycodone AdvReac Mild VOMITING Verified 08/26/21 15:08 Consultations 08/26/21 14:06 ED Decision to Admit Stat Ordered Studies Chest X-Ray 08/26/21 13:06 SINGLE VIEW CHEST CLINICAL HISTORY: Atypical chest pain. FINDINGS: An AP, portable, upright chest radiograph is compared to chest x-ray and chest CT dated 05/31/2021. The examination is degraded by portable technique and patient rotation. The heart is markedly enlarged. The pulmonary vasculature is noncongested. Chronic interstitial thickening is similar to previous. No airspace consolidation or large pleural effusion is identified. No pneumothorax is seen. The skeletal structures are osteopenic. The bony thorax is grossly intact. IMPRESSION: Marked cardiomegaly with no acute cardiopulmonary abnormality. ACT 112: Negative or not required by law. Electronically signed by: Jatinder Masterson M.D. 08/26/2021 1:23 PM Chest X-Ray 08/28/21 14:13 TWO VIEW CHEST CLINICAL HISTORY: Cough and dyspnea FINDINGS: PA and lateral chest radiographs are compared to study dated 08/26/2021. Correlation is made with chest CT dated 05/31/2021. The heart is markedly enlarged noting atherosclerotic calcification and uncoiling of the thoracic aorta. The pulmonary vasculature is noncongested. Chronic residual thickening is similar to previous. No airspace consolidation or large pleural effusion is identified. Scarring/atelectasis is noted at the lung bases. No pneumothorax is seen. The skeletal structures are osteopenic. The bony thorax is grossly intact. Degenerative change is noted in the shoulders and thoracic spine. IMPRESSION: Marked cardiomegaly with no acute cardiopulmonary abnormality. ACT 112: Negative or not required by law. Electronically signed by: Jatinder Masterson M.D. 08/28/2021 3:22 PM Abdomen Ultrasound 08/29/21 08:01 US abdomen ltd ascites HISTORY: 80 years-old Female ascities/ SOB recurrent ascites. Acute shortness of breath COMPARISON: Ultrasound-guided paracentesis 08/01/2021 TECHNIQUE: Multiple real-time sonographic images of the abdomen were obtained assessing grayscale appearance FINDINGS: Small volume of ascites is noted with several loops of associated bowel. IMPRESSION: There is only a small volume of ascites present with numerous adjacent loops of bowel. Paracentesis therefore was not conducted. ACT 112: Negative or not required by law. The above report was generated using voice recognition software. It may contain grammatical, syntax or spelling errors. Electronically signed by: Mike Sebastian M.D. 08/29/2021 11:[address] 08/30/21 10:54 CT chest diagnostic wo con CT DOSE: 417.20 mGy.cm CLINICAL HISTORY: 80 years-old Female with cough and SOB- ? PVC/ PNA. Acute cough with shortness of breath TECHNIQUE: Multiaxial CT images of the chest were performed without contrast. A dose lowering technique was utilized adhering to the principles of ALARA. COMPARISON: CTA chest 05/31/2021 FINDINGS: No thyroid nodule identified. Mild mediastinal and hilar adenopathy. Marked cardiomegaly with trace pericardial effusion. Extensive coronary artery and thoracic aortic calcifications. Pulmonary artery hypertension. Small left with small to moderate right pleural effusions. Dilated azygos vein. Intralobular septal thickening. No pneumothorax. Mild patchy bilateral groundglass and nodular consolidative opacities are noted within a multi segmental distribution. Mild tracheobronchial secretions. Compressive at electasis of the basal right lower lobe. No acute process of the imaged upper abdomen. Hepatosplenomegaly with abdominal ascites and anasarca. Distal esophageal wall thickening. Degenerative changes of the shoulders and spine. Endplate irregularity at T7-T8 and T10-T11 appear unchanged and are likely on a degenerative basis. T11 superior endplate Schmorl's node redemonstrated. IMPRESSION: 1. Cardiomegaly with pulmonary artery hypertension and pulmonary edema. Small left and small to moderate right pleural effusions. 2. Mild patchy multilobar distribution of bilateral groundglass and nodular consolidative opacities are suggestive of a superimposed infectious or inflammatory pneumonitis. 3. Hepatosplenomegaly with anasarca and upper abdominal ascites. 4. Additional findings as above. ACT 112: Negative or not required by law. Electronically signed by: Mike Sebastian M.D. 08/30/2021 12:25 PM Abdomen Ultrasound 09/04/21 08:10 Memetales abdomen ltd ascites HISTORY: 80 years-old Female quantify acites, known cirrhosis . Study in a patient with cirrhotic liver disease and ascites COMPARISON: Abdominal ultrasound 08/29/2021 TECHNIQUE: Multiple real-time sonographic images of the abdomen were obtained assessing grayscale appearance FINDINGS: Cirrhotic liver. Small volume of ascites noted within all 4 quadrants of the abdomen. IMPRESSION: Small volume of abdominal ascites. ACT 112: Negative or not required by law. The above report was generated using voice recognition software. It may contain grammatical, syntax or spelling errors. Electronically signed by: Mike Sebastian M.D. 09/04/2021 9:42 AM Hospital Course (1) Shortness of breath: Shortness of breath likely multifactorial (asthma exacerbation, pneumonia, volume overload) -Upon arrival, she was thought to have an acute exacerbation of her asthma and hospitalized with IV steroids and routine nebulized treatments -Covid and bio fire panel are negative -Afebrile. White blood cell count normal and not requiring supplemental oxygen -No significant change in symptomatology with IV steroids on board -CT of the chest done showing diffuse groundglass opacities consistent with infectious process. -At this point, appears to have opacities consistent with pneumonia. Uncertain if this is fibrotic changes from recent Covid diagnosis or perhaps subsequent bacterial infection following recent illness -In addition, patient seems to have mild pulmonary vascular congestion. E chocardiogram done 08/07 showing diminished EF of 35 to 40% and significant valvular disease -Continue DuoNeb treatments (but change to prn given favorable response), was given IV steroids briefly on admission but hasn't received any further doses since 08/27 -Continue Pulmicort/Perforomist -1 dose of IV Lasix given 08/30 and Aldactone added (which is necessary given her underlying cirrhosis and ascites) -She is on Rocephin (for concern for SBP). Added azithromycin 08/30 for further atypical coverage, mucolytic agents and antitussives -Overall is showing favorable response. She has remained afebrile and hemodynamically stable. Improved air exchange throughout and her shortness of breath has since resolved. Not requiring supplemental oxygen. Lengthy discussion with patient regarding her cough and that this may linger for 4 to 6 weeks following resolution of her pneumonia. She will need a repeat CT scan of the chest in approximately 6 to 12 weeks to ensure resolution of infiltratesat discretion of PCP (2) Ascites: -Patient with chronic underlying cirrhosis -Recent paracentesis done 08/01 -Upon review of her peritoneal fluid, there is no growth but she had a peritoneal WBC count of 416 and LDH of 253. She does not have abdominal pain, fever, or leukocytosis. -Prior provider has started Rocephin X 5 days -Discussed with infectious disease and although her culture data showing no growth, she has a slightly elevated WBC count and LDH. Given her underlying cirrhosis and immunocompromise state, there is risk of bacterial peritonitis and ID agrees with 5 days of IV antibiotics (especially given plan for TAVR in the near future) which she completed on 09/03 -Follow-up abdominal ultrasound done showing only trace ascites (on 08/28), not enough for repeat paracentesis (to retest peritoneal fluid) and infectious disease says not necessary since no growth on initial -Added Aldactone and 1 dose of IV Lasix given 08/30 -Given a dose of Lasix 40mg orally 09/01, will avoid daily dosing to avoid significant preload reduction d/t her severe -Repeated ultrasound at patient's family's request today (09/04), continues to demonstrate only small amount of acites, not enough to drain (3) Severe aortic stenosis: -To follow-up in [place] for TAVR. Appointment already made (4) CHF (congestive heart failure): -Patient does not carry a formal diagnosis; however, with review of her recent echocardiogram done 11/06, she does have mild systolic dysfunction (EF 35 to 40%) -Added Aldactone (as underlying cirrhosis noted). 1 dose of IV Lasix given 08/30 as volume overloaded state likely contributing to shortness of breath. May be inclined to add long-term chronic Lasix but would do this cautiously given her underlying severe aortic stenosis -Beta-blockers being avoided as contraindicated with peritonitis. Could consider nadolol in the future if BP and heart rate would allow -Would avoid any preload reducing agents such as SENDY inhibitor's given her severe aortic stenosis (5) Elevated troponin I level: At 0.05- same previous 2 levels in May -without anginal complaints -ECG without dynamic changes (6) HTN (hypertension): -Currently not on any antihypertensive agents. Watch BP closely with the addition of Aldactone (7) Diabetes: -Hold Metformin -Hemoglobin A1c normal at 5.6% in 03/2021 -Continue with BG ACH/HS and add aspart insulin coverage -Goal <180 (8) Hypothyroidism: -Continue with synthroid -TSH normal in 03/2021 PT/OT advised SNF for rehab due to tires easily. Referrals sent to [facility] and [facility], both of which accepted and had beds available today. Pt is medically and hemodynamically stable for discharge to SNF today. Updated patient's son this morning regarding ultrasound showing only small amount of acites and that she will very likely need an updated one in the near future but will need to monitor clinically to assess for need. He verbalized understanding. Family to transport to SNF today. Pt seen and evaluated this morning by Dr. Bustillo prior to d/c who is in agreement with plan. Total Time Total Time Spent Total Time Spent (In Minutes): >30 minutes Discharge Plan Discharge Items Patient Disposition: Transfer Residential Fac Reason For Visit: DYSPNEA,COUGH Discharge Diagnosis: pneumonia infected fluid in belly (treated with antibiotics) Activity: Per Instructions section Activity Comment: with assist as tolerated Non-emergency contact: Primary Care Provider Call non-emergency contact if: you have any medication questions and your symptoms worsen Follow-up/Referrals: Vinh Arodn MD [Primary Care Provider] - Diet: Carb Consistent or DM2 Addtl Attending Provider Instructions: You have been treated for shortness of breath which was felt to be related to pneumonia during this hospitalization as well as due to concern of infected fluid in your belly. For both issues, you completed a 5 day course of IV antibiotics called Rocephin as well as an oral antibiotic called Zithromax. Please note, you may have a lingering cough for up to 4 weeks following your pneumonia. You may continue to use Tessalon perles (the small clear capsules) as needed for your cough (you may take 2 up to three times each day as needed). Your PCP can consider doing a follow up CAT scan of your lungs to make sure that the pneumonia has completely resolved. An ultrasound of your belly was done on 08/28 and 09/04, both showing a small amount of fluid in your belly. You may need to have this repeated in the future if you notice that your belly begins to feel full or become larger in size. You may need to have more fluid drained at that point. To help manage your fluid, you were started on a medication called Aldactone. Please take this as pres cribed. Physical and occupational therapy saw you during your hospitalization and felt that due to your generalized weakness, you would benefit from a stay in rehabilitation. You will continue to do physical and occupational therapy at [facility]. We would recommend that you follow up with the healthcare provider at the SNF within 48-72 hours of your arrival. They will continue to follow you while you are there. After your discharge, would recommend that you follow up with your regular primary care provider. Please keep all other scheduled appointments as they are made. If any questions, please call the nonemergency number listed on your discharge instructions. Pending Studies at Discharge: No Stand-Alone Forms: My [facility] Skilled Items Patient informed of condition?: Yes DNR: No Discharge Level of Care: Skilled Communicable Disease: No Discharge Prognosis: Improving Lines: None Urinary Catheter: No Medications and DC Order Prescriptions: New spironolactone 25 mg Tablet 25 mg PO [id number] Qty: 60 RF: 0 magnesium oxide 400 mg (241.3 mg magnesium) Tablet 400 mg PO BID Qty: 60 RF: 0 pantoprazole 40 mg Tablet,Delayed Release (Dr/Ec) 40 mg PO DAILY Qty: 30 RF: 0 Continued cholecalciferol (vitamin D3) 50 mcg (2,000 unit) capsule 1,000 units PO QAM RF: 0 fexofenadine 180 mg tablet 180 mg PO DAILY RF: 0 albuterol sulfate 90 mcg/actuation HFA aerosol inhaler 2 puff inhalation Q4H PRN (Reason: shortness of breath or wheezing) Qty: 18 RF: 11 clopidogrel 75 mg tablet 75 mg PO QAM Qty: 90 RF: 3 cyanocobalamin (vitamin B-12) 100 mcg tablet 100 mcg PO QAM RF: 0 clobetasol 0.05 % ointment 1 applic TOP TID PRN (Reason: itching) Qty: 15 RF: 1 metformin 1,000 mg tablet 500 mg PO BID Qty: 90 RF: 3 sertraline 100 mg tablet 100 mg PO HS Qty: 90 RF: 3 omega 3-fjw-zzd-fish oil 1,200 (144-216) mg capsule 1 cap PO QAM RF: 0 coenzyme Q10 10 mg Capsule 10 mg PO QAM RF: 0 geriatric ishidgrw-frqv-dxzm Tablet 1 tab PO QAM RF: 0 garlic 1,000 mg capsule 1,000 mg PO QAM RF: 0 fluticasone propion-salmeterol [Advair Diskus] 250-50 mcg/dose blister with device 2 ea INHALATION QAM RF: 0 garlic 100 mg Tablet 100 mg PO QAM RF: 0 levothyroxine 50 mcg tablet 50 mcg PO DAILYBB RF: 0 Changed benzonatate 100 mg capsule 200 mg PO TID PRN (Reason: Cough) Qty: 0 RF: 0 Discharge Orders: Discharge Order (Routine); Ordered 09/04/21 Ordered By: Kaylah Lopez Admission Data Admit Date/Time: 08/27/21 23:05 Attending Provider: Maciel Bustillo Admit Provider: Jackelyn Wilkinson Primary Care Provider: Vinh Ardon Other Providers: Jackelyn Wilkinson ; [place] Other Interventions: Discharge Summary Assessment (RN) Last Done: 09/04/21 12:17 Coding Level of Care Code D/C DAY MANAGEMENT >30 MINS Diagnoses Shortness of breath R06.02 Ascites R18.8 Severe aortic stenosis I35.0 CHF (congestive heart failure) I50.9 Elevated troponin I level R77.8 HTN (hypertension) I10 Diabetes E11.9 Hypothyroidism E03.9
[2021-09-04] MEDS: BENZONATATE 100 MG CAPSULE PO PRN (12:04)
== END 2021-09-04 13:51 | DRG 193 ==
LOC: 2N 12:50 → ED 12:50 → SUATTDRO 16:01 → 2N 18:04 → SUATTDRO 08-27 23:05

== ENCOUNTER 2022-07-13 04:31 | Inpatient (IN) ==
[2022-07-13 06:10] LABS: Appearance Urine Clear (Clear); Bacteria Urine Automated Negative (Negative); Bilirubin Urine Negative (Negative); Blood Urine Trace (Negative); Cast Urine Automated 0 /lpf (0-5); Color Urine Yellow; Epithelial Cell Urine Auto 0-5 /lpf (0-5); Glucose Urine UA Negative (Negative); Ketones Urine Negative (Negative); Leukocyte Esterase Urine Negative (Negative); Nitrite Urine Negative (Negative); RBC Urine Automated 0-4 /hpf (0-4); Specific Gravity Urine 1.013 (1.000-1.030); Urobilinogen Urine Negative (Negative); WBC Urine Automated 0 /hpf (0-5); pH Urine 8.5 (4.5-7.5)
[2022-07-13 06:11] LABS: Protein Urine 1+ (Negative)
[2022-07-13 06:20] LABS: Albumin Globulin Ratio 1.3 (0.9-2); Albumin Level 3.9 gm/dl (3.4-5.0); BUN Creatinine Ratio 38.8 (10-20); Bilirubin,Total 0.9 mg/dl (0.2-1.0); Calcium 9.6 mg/dl (8.5-10.1); Creatinine Clr Calc Pharmacy 85.8 ml/min; Est GFR (African American) 104.4 ml/min; Est GFR (Non-African American) 90.1 ml/min; Total Protein 6.9 gm/dl (6.0-8.3)
[2022-07-13 06:31] LABS: Basophils # (auto) 0.01 K/uL (0-0.2); Basophils % (auto) 0.2 %; Hematocrit (blood only) 38.9 % (37.0-47.0); Immature Granulocytes # (auto) 0.01 K/uL (0.01-0.20); Immature Granulocytes % (auto) 0.2 %; Lymphocytes # (auto) 0.64 K/uL (1.2-3.4); Lymphocytes % (auto) 15.8 %; Mean Corpuscular Hemoglobin 27.1 pg (25.0-34.0); Mean Corpuscular Hgb Conc 33.4 g/dL (32.0-36.0); Mean Corpuscular Volume 81.2 fL (80.0-100.0); Mean Platelet Volume 10.6 fL (9.4-12.4); Monocytes # (auto) 0.27 K/uL (0.11-0.59); Monocytes % (auto) 6.7 %; Neutrophils # (auto) 3.11 K/uL (1.40-6.50); Neutrophils % (auto) 77.1 %; Platelet Count 76 K/uL (130-400); RDW Coefficient of Variation 14.4 % (11.5-14.5); RDW Standard Deviation 42.3 fL (36.4-46.3); Red Blood Count 4.79 M/uL (4.20-5.40); White Blood Count 4.04 K/ul (4.8-10.8)
[2022-07-13] MEDS ORDERED: SODIUM CHLORIDE 0.9% 1000ML 1,000 ML IV ONE (07:02)
--- NOTE | 2022-07-13 07:39 | CT Scan Report ---
CT OF THE ABDOMEN AND PELVIS WITHOUT CONTRAST CLINICAL HISTORY: pain, cramping, fall COMPARISON STUDY: Right upper quadrant ultrasound March 26, 2022. Lumbar spine CT July 08 3. TECHNIQUE: Axial images of the abdomen and pelvis were obtained without IV contrast. Images were revi ewed in the axial, sagittal, and coronal planes. Automated exposure control was utilized for the shital dy. A dose lowering technique was utilized adhering to the principles of ALARA. FINDINGS: Cardiomegaly and a prosthetic aortic valve are present. No pneumatosis, free air or portal venous gas is noted. Evaluation of the abdomen and pelvis is suboptimal on this unenhanced examinatio n. There is slight nodularity of the liver surface. This favors cirrhosis. There is no biliary ductal dilatation status post cholecystectomy. No hepatic lesions are identified on this unenhanced exam. M oderate splenomegaly has increased since chest CT of August 30, 2021. Unenhanced images of the adrenal glands and pancreas are unremarkable. There is no pancreatic ductal dilatation. Low-attenuation lesi on within the lower pole of the left kidney is suboptimally assessed on this unenhanced exam but favo rs a cyst. There is no hydronephrosis. There is no evidence for a bowel obstruction. Moderate amount of stool within the colon is present. There is no lymphadenopathy. No acute pelvic or hip fracture is present. An acute compression fracture of the superior endplate of L1 is again noted with 20% loss o f vertebral body height. There is 4 mm of retropulsion with disruption of the posterior cortex. No ex tension into posterior elements is noted. Vertebral body height loss has mildly increased since the l umbar spine CT of July 08, 2022. Paravertebral stranding is noted. Grade II anterolisthesis of L5 on S1 is unchanged and due to bilateral L5 pars defects. There are no additional acute fractures. IMPRESSION: 1. Acute L1 compression fracture with 20% loss of vertebral body height and 4 mm of retropulsion that results in mild central canal stenosis. Vertebral body height loss and retropulsion have increased s ge CT of July 08, 2022. Associated paravertebral infiltration. 2. No bowel obstruction. No bowel wall thickening on unenhanced exam. Moderate amount of stool within the colon. 3. Suspected cirrhosis. Moderate splenomegaly, increased since chest CT of August 30, 2021. 4. No acute pelvic or hip fracture. ACT 112: Negative or not required by law. Electronically signed by: Wilbur Wynn M.D. 07/13/2022 7:37 AM
--- NOTE | 2022-07-13 07:41 | Emergency Department Note ---
Impression & Plan Lumbar back pain, Constipation, Compression fracture, Failure of outpatient treatment ED Provider Note NAME: NATI BARKER AGE: 81 SEX: F : 1940 ARRIVES VIA: Ambulance INFORMANT: [Patient][family] ED PROVIDER(S): [Jatinder Vaughn MD] CHIEF COMPLAINT: Back pain, constipation HISTORY OF PRESENT ILLNESS: The patient is an 81-year-old female who was diagnosed with an L1 compression fracture at this ER 5 days ago. The patient states that this morning, her back pain seemed somewhat worse, she could just not find a comfortable position. In addition, patient does not believe she has had a bowel movement in 5 days and she feels bloated with some subtle abdominal cramps. No vomiting or diarrhea. No fever, chills, cough or congestion. Patient has tried a dose of lactulose as well as prunes, she has had no relief of her constipation. PMHx/PSHx: See Below SOCIAL HISTORY: See Below. PHYSICAL EXAM: GENERAL: Patient is in no acute distress. HEENT: No acute trauma, normocephalic atraumatic, mucous membranes moist, no nasal congestion. NECK: No stridor, no adenopathy, no meningismus, trachea is midline. LUNGS: Clear to auscultation bilaterally, no wheeze, no rhonchi, breath sounds equal. HEART: 1/6 systolic murmur, regular rate and rhythm. ABDOMEN: Soft, nontender, bowel sounds positive, no peritonitis. EXTREMITIES: No cyanosis or edema, full range of motion of all the joints with out pain or difficulty, no signs for acute trauma. NEUROLOGIC: Oriented x 3, no acute motor or sensory deficits, no focal weakness. SKIN: No rash, no jaundice, no diaphoresis. DIFFERENTIAL DIAGNOSIS: Compression fracture, musculoskeletal pain, dehydration, electrolyte imbalance, UTI, constipation or bowel obstruction, among others. EMERGENCY DEPARTMENT COURSE/PROCEDURES: Prior/Outside records reviewed: EMS records, recent ED visit. MEDICAL DECISION MAKING: There is no leukocytosis or worrisome anemia. Platelet count is low at 76 however, a lower platelet count has been documented before. No renal failure or significant electrolyte abnormality. No concerning liver enzyme elevation. Urinalysis does not show infection. COVID test returned negative. Abdominal and pelvis CT shows worsening of her L1 compression fracture with surrounding edema. Constipation was seen. No bowel obstruction. Patient received IV saline, 1 L, she received oral Senokot. She was given IV Toradol and IV Tylenol. The patient presents with increasing back pain, now also constipation. She is not doing well as an outpatient. I do think she requires a hospital stay for pain control and help with her constipation. I spoke with the patient and case management, the on-call hospitalist was consulted. DISPOSITION: Patient's presentation and findings warrant a hospital stay/further work-up. 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 Sciatica Severe aortic stenosis Severe tricuspid regurgitation Stenosis, cervical spine TMJ (sprain of temporomandibular joint) Vertigo Vitamin D deficiency Surgical History History of cataract surgery History of laparoscopic cholecystectomy Family History Unknown Esophageal reflux Mother , age 73 of dementia Dementia Myocardial infarction Father , age 75 of a stroke Stroke Denies family history of Ovarian cancer Prostate cancer Coronary heart disease Breast cancer Colorectal cancer Social History Smoking Status: Former smoker Tobacco Type: Cigarettes Second Hand Exposure: No; Hx Alcohol Use: No Hx Substance Use: No Preferred Language: Yi Communication Ability: Effective Visual Impairment: No Limitations Hearing Ability: Use of Hearing Aid Biomedical Equipment Specialist Required: No Beliefs That Will Affect Care: None marital status: / Current Living Situation: Alone current occupational status: retired 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 Feels Safe at Home: Yes Childhood Exposure to Second-Hand Smoke: Yes caffeine: Yes during the past year weight has: remained stable Dental Care, Regularly: Yes Physical Activity Frequency: 1-2 Times per Week Seatbelt Use: always Sunscreen Use: Yes Assistive Devices: Glasses, Nebulizer, Scooter/Electric Scooter and Walker Allergies Allergies Allergy/AdvReac Type Severity Reaction Status Date / Time amoxicillin Allergy Mild YEAST Verified 07/13/22 09:06 INFECTION doxycycline Allergy Mild unknown Verified 07/13/22 09:06 meloxicam Allergy Mild unknown Verified 07/13/22 09:06 nitrofurantoin Allergy Mild unknown Verified 07/13/22 09:06 ofloxacin Allergy Mild unknown Verified 07/13/22 09:06 sulfamethoxazole Allergy Mild unknown Verified 07/13/22 09:06 trimethoprim Allergy Mild unknown Verified 07/13/22 09:06 atorvastatin [From Lipitor] Allergy Unknown ON MED LIST Verified 07/13/22 09:06 ezetimibe Allergy Unknown UNKNOWN Verified 07/13/22 09:06 gabapentin Allergy Unknown ON MED LIST Verified 07/13/22 09:06 pravastatin Allergy Unknown ON MED LIST Verified 07/13/22 09:06 rosuvastatin Allergy Unknown BODY PAINS Verified 07/13/22 09:06 oxycodone AdvReac Mild VOMITING Verified 07/13/22 09:06 Home Meds Home Medications Medication Instructions Recorded Confirmed cholecalciferol (vitamin D3) 50 1,000 units PO QAM 04/12/19 07/13/22 mcg (2,000 unit) capsule coenzyme Q10 10 mg capsule 10 mg PO QAM 03/06/20 07/13/22 geriatric [id number] 1 tab PO QAM 03/06/20 07/13/22 fexofenadine 180 mg tablet 180 mg PO DAILY Allergic Symptoms 10/03/20 07/13/22 garlic 1,000 mg capsule 1,000 mg PO QAM 10/03/20 07/13/22 cyanocobalamin (vitamin B-12) 100 100 mcg PO QAM 04/24/21 07/13/22 mcg tablet spironolactone 25 mg tablet 25 mg PO Q2D 04/01/22 07/13/22 fluticasone 250 mcg-salmeterol 50 1 inh inhalation BID 07/13/22 07/13/22 mcg/dose blistr powdr for inhalation (Advair Diskus) prednisone 20 mg tablet 60 mg PO DAILY 07/13/22 07/13/22 Previous Rx's Medication Instructions Recorded albuterol sulfate 90 mcg/actuation 2 puff inhalation Q4H PRN 12/18/20 aerosol inhaler shortness of breath or wheezing #18 grams clobetasol 0.05 % topical ointment 1 applic topical TID PRN itching 05/29/21 #15 grams levothyroxine 50 mcg tablet 50 mcg PO DAILY #90 tabs 10/17/21 clopidogrel 75 mg tablet 75 mg PO QAM #90 tabs 12/20/21 metformin 500 mg tablet 500 mg PO BID #180 tabs 02/06/22 furosemide 40 mg tablet 40 mg PO DAILY PRN weight gain #90 04/25/22 tabs benzonatate 100 mg capsule 200 mg PO TID PRN Cough #60 caps 05/28/22 blood sugar diagnostic (OneTouch #100 ea 06/03/22 Ultra Test strips) lancets (MaintenanceNetTouch UltraSoft #100 ea 06/17/22 Lancets) diclofenac sodium 1 % topical gel 4 g topical QID #100 grams 07/08/22 (Voltaren Arthritis Pain) magnesium oxide 400 mg (241.3 mg 400 mg PO BID #90 tabs 07/10/22 magnesium) tablet Results & Data (ED) Vital Signs Vital Signs - 24 hr 07/13/22 04:22 07/13/22 04:22 07/13/22 04:37 Temperature 36.9 C 36.9 C Temperature Source Oral Oral Pulse Rate 73 72 Pulse Rate [Apical] 73 Pulse Rhythm [Apical] Regular Pulse Strength [Apical] Respiratory Rate 18 16 Respiratory Effort / Characteristics Non-Labored Non-Labored Respiratory Depth Normal Normal Respiratory Pattern Regular Regular Blood Pressure 159/95 H Blood Pressure [Right Arm] 159/95 H Blood Pressure Mean 116 Blood Pressure Mean [Right Arm] 116 Blood Pressure Position [Right Arm] Pulse Oximetry 98 98 Oxygen Delivery Method Room Air Room Air Sepsis Recent Fever Within 48 Hours No Sepsis New/Unexplained Change in Mental Status N/A Sepsis Action Taken by Nursing No Action Required 07/13/22 04:37 07/13/22 05:00 07/13/22 05:30 Temperature Temperature Source Pulse Rate 72 69 63 Pulse Rate [Apical] Pulse Rhythm [Apical] Pulse Strength [Apical] Respiratory Rate 19 15 17 Respiratory Effort / Characteristics Respiratory Depth Respiratory Pattern Blood Pressure 159/95 H 130/78 Blood Pressure [Right Arm] Blood Pressure Mean 116 95 Blood Pressure Mean [Right Arm] Blood Pressure Position [Right Arm] Pulse Oximetry 99 Oxygen Delivery Method Room Air Sepsis Recent Fever Within 48 Hours Sepsis New/Unexplained Change in Mental Status Sepsis Action Taken by Nursing 07/13/22 06:00 07/13/22 06:30 07/13/22 07:35 Temperature Temperature Source Pulse Rate 69 69 Pulse Rate [Apical] 63 Pulse Rhythm [Apical] Regular Pulse Strength [Apical] Normal Respiratory Rate 13 18 18 Respiratory Effort / Characteristics Non-Labored Spontaneous Respiratory Depth Normal Respiratory Pattern Regular Blood Pressure 139/114 H Blood Pressure [Right Arm] 145/91 H Blood Pressure Mean 122 Blood Pressure Mean [Right Arm] 109 Blood Pressure Position [Right Arm] Lying Pulse Oximetry 98 97 98 Oxygen Delivery Method Room Air Room Air Room Air Sepsis Recent Fever Within 48 Hours Sepsis New/Unexplained Change in Mental Status Sepsis Action Taken by Nursing 07/13/22 08:25 Temperature Temperature Source Pulse Rate 66 Pulse Rate [Apical] Pulse Rhythm [Apical] Pulse Strength [Apical] Respiratory Rate Respiratory Effort / Characteristics Respiratory Depth Respiratory Pattern Blood Pressure Blood Pressure [Right Arm] Blood Pressure Mean Blood Pressure Mean [Right Arm] Blood Pressure Position [Right Arm] Pulse Oximetry Oxygen Delivery Method Sepsis Recent Fever Within 48 Hours Sepsis New/Unexplained Change in Mental Status Sepsis Action Taken by [facility] Medications Current Medication List: was personally reviewed by me Laboratory Data Attestation: I reviewed the patient's lab results. 07/13/22 05:50 07/13/22 05:50 Lab Results 07/13/22 07/13/22 07/13/22 Range/Units 05:50 05:50 06:00 WBC 4.04 L (4.8-10.8) K/ul RBC 4.79 (4.20-5.40) M/uL Hgb 13.0 (12.0-16.0) g/dl Hct 38.9 (37.0-47.0) % MCV 81.2 (80.0-100.0) fL MCH 27.1 (25.0-34.0) pg MCHC 33.4 (32.0-36.0) g/dL RDW Std Deviation 42.3 (36.4-46.3) fL RDW Coeff of Marty 14.4 (11.5-14.5) % Plt Count 76 L (130-400) K/uL MPV 10.6 (9.4-12.4) fL Immature Gran % (Auto) 0.2 % Neut % (Auto) 77.1 % Lymph % (Auto) 15.8 % [place] % (Auto) 6.7 % Eos % (Auto) 0.0 % Baso % (Auto) 0.2 % Neut # (Auto) 3.11 (1.40-6.50) K/uL Lymph # (Auto) 0.64 L (1.2-3.4) K/uL [place] # (Auto) 0.27 (0.11-0.59) K/uL Eos # (Auto) 0.00 (0-0.50) K/uL Baso # (Auto) 0.01 (0-0.2) K/uL Immature Gran # (Auto) 0.01 (0.01-0.20) K/uL Sodium 135 L (136-145) mmol/L Potassium 4.0 (3.5-5.1) mmol/L Chloride 103 (98-107) mmol/L Carbon Dioxide 28 (21-32) mmol/L Anion Gap 4 (3-11) BUN 19 (6-23) mg/dl Creatinine 0.49 L (0.6-1.2) mg/dl Est Cr Clr Drug Dosing 85.8 ml/min Est GFR ( Amer) 104.4 ml/min Est GFR (Non-Af Amer) 90.1 ml/min BUN/Creatinine Ratio 38.8 H (10-20) Glucose 198 H (70-99(Fasting)) mg/dl Calcium 9.6 (8.5-10.1) mg/dl Total Bilirubin 0.9 (0.2-1.0) mg/dl AST 25 (13-39) U/L ALT 20 (7-52) U/L Alkaline Phosphatase 47 (34-104) U/L Total Protein 6.9 (6.0-8.3) gm/dl Albumin 3.9 (3.4-5.0) gm/dl Globulin 3.0 (2.5-4.0) gm/dl Albumin/Globulin Ratio 1.3 (0.9-2) Urine Color Yellow Urine Appearance Clear (Clear) Urine pH 8.5 H (4.5-7.5) Ur Specific [place] 1.013 (1.000-1.030) Urine Protein 1+ H (Negative) Urine Glucose (UA) Negative (Negative) Urine Ketones Negative (Negative) Urine Blood Trace H (Negative) Urine Nitrite Negative (Negative) Urine Bilirubin Negative (Negative) Urine Urobilinogen Negative (Negative) Ur Leukocyte Esterase Negative (Negative) Urine WBC (Auto) 0 (0-5) /hpf Urine RBC (Auto) 0-4 (0-4) /hpf U Hyaline Cast (Auto) 0 (0-5) /lpf U Epithel Cells (Auto) 0-5 (0-5) /lpf Urine Bacteria (Auto) Negative (Negative) SARS-CoV-2, RNA, NAAT (NEGATIVE) 07/13/22 Range/Units 08:15 WBC (4.8-10.8) K/ul RBC (4.20-5.40) M/uL Hgb (12.0-16.0) g/dl Hct (37.0-47.0) % MCV (80.0-100.0) fL MCH (25.0-34.0) pg MCHC (32.0-36.0) g/dL RDW Std Deviation (36.4-46.3) fL RDW Coeff of Marty (11.5-14.5) % Plt Count (130-400) K/uL MPV (9.4-12.4) fL Immature Gran % (Auto) % Neut % (Auto) % Lymph % (Auto) % [place] % (Auto) % Eos % (Auto) % Baso % (Auto) % Neut # (Auto) (1.40-6.50) K/uL Lymph # (Auto) (1.2-3.4) K/uL [place] # (Auto) (0.11-0.59) K/uL Eos # (Auto) (0-0.50) K/uL Baso # (Auto) (0-0.2) K/uL Immature Gran # (Auto) (0.01-0.20) K/uL Sodium (136-145) mmol/L Potassium (3.5-5.1) mmol/L Chloride (98-107) mmol/L Carbon Dioxide (21-32) mmol/L Anion Gap (3-11) BUN (6-23) mg/dl Creatinine (0.6-1.2) mg/dl Est Cr Clr Drug Dosing ml/min Est GFR ( Amer) ml/min Est GFR (Non-Af Amer) ml/min BUN/Creatinine Ratio (10-20) Glucose (70-99(Fasting)) mg/dl Calcium (8.5-10.1) mg/dl Total Bilirubin (0.2-1.0) mg/dl AST (13-39) U/L ALT (7-52) U/L Alkaline Phosphatase (34-104) U/L Total Protein (6.0-8.3) gm/dl Albumin (3.4-5.0) gm/dl Globulin (2.5-4.0) gm/dl Albumin/Globulin Ratio (0.9-2) Urine Color Urine Appearance (Clear) Urine pH (4.5-7.5) Ur Specific [place] (1.000-1.030) Urine Protein (Negative) Urine Glucose (UA) (Negative) Urine Ketones (Negative) Urine Blood (Negative) Urine Nitrite (Negative) Urine Bilirubin (Negative) Urine Urobilinogen (Negative) Ur Leukocyte Esterase (Negative) Urine WBC (Auto) (0-5) /hpf Urine RBC (Auto) (0-4) /hpf U Hyaline Cast (Auto) (0-5) /lpf U Epithel Cells (Auto) (0-5) /lpf Urine Bacteria (Auto) (Negative) SARS-CoV-2, RNA, NAAT NEGATIVE (NEGATIVE) Administered Medications Methylprednisolone 40 mg/ (Syringe) 0.64 mls @ 1.5 mls/min IV Q8H [facility] Stop: 08/12/22 11:29 Last Admin: 07/13/22 12:42 Dose: 1.5 mls/min Documented By: EMILY Insulin Aspart (Insulin Aspart Per Unit) 0 units SC ACHS [facility] Stop: 08/12/22 11:29 Last Admin: 07/13/22 12:42 Dose: Not Given Documented By: EMILY Polyethylene Glycol (Polyethylene (Miralax) 17 Gm Pack) 17 gm PO BID [facility] Stop: 08/12/22 10:33 Last Admin: 07/13/22 12:42 Dose: 17 gm Documented By: EMILY Spironolactone (Spironolactone 25 Mg Tab) 25 mg PO Q2D@0900 [facility] Stop: 08/12/22 10:33 Last Admin: 07/13/22 12:42 Dose: 25 mg Documented By: EMILY Discontinued Medications Sodium Chloride (Nss 1000ml) 1,000 mls @ 999 mls/hr IV .Q1H1M ONE Stop: 07/13/22 08:02 Last Infusion: 07/13/22 08:35 Dose: 0 mls/hr Documented By: Admin: 07/13/22 07:35 Dose: 999 mls/hr Documented By: KAVITA Acetaminophen (Ofirmev) 1,000 mg in 100 mls @ 400 mls/hr IV NOW STA Stop: 07/13/22 08:08 Last Infusion: 07/13/22 08:38 Dose: 0 mls/hr Documented By: Admin: 07/13/22 08:23 Dose: 400 mls/hr Documented By: KAVITA Ketorolac Tromethamine (Ketorolac Tromethamine 15 Mg/Ml Vial) 10 mg IV NOW ONE Stop: 07/13/22 07:55 Last Admin: 07/13/22 08:23 Dose: 10 mg Documented By: KAVITA Senna/Docusate Sodium (Docusate Sodium/Senna 50/8.6mg Tab) 2 tab PO NOW STA Stop: 07/13/22 07:52 Last Admin: 07/13/22 08:23 Dose: 2 tab Documented By: KAVITA Imaging Data Radiologist's Impression: Abdomen/Pelvis CT 07/13/22 06:30 CT OF THE ABDOMEN AND PELVIS WITHOUT CONTRAST CLINICAL HISTORY: pain, cramping, fall COMPARISON STUDY: Right upper quadrant ultrasound March 26, 2022. Lumbar spine CT July 08, 2022. TECHNIQUE: Axial images of the abdomen and pelvis were obtained without IV contr ast. Images were reviewed in the axial, sagittal, and coronal planes. Automated exposure control was utilized for the study. A dose lowering technique was utilized adhering to the principles of ALARA. FINDINGS: Cardiomegaly and a prosthetic aortic valve are present. No pneumatosis, free air or portal venous gas is noted. Evaluation of the abdomen and pelvis is suboptimal on this unenhanced examination. There is slight nodularity of the liver surface. This favors cirrhosis. There is no biliary ductal dilatation status post cholecystectomy. No hepatic lesions are identified on this unenhanced exam. Moderate splenomegaly has increased since chest CT of August 30, 2021. Unenhanced images of the adrenal glands and pancreas are unremarkable. There is no pancreatic ductal dilatation. Low-attenuation lesion within the lower pole of the left kidney is suboptimally assessed on this unenhanced exam but favors a cyst. There is no hydronephrosis. There is no evidence for a bowel obstruction. Moderate amount of stool within the colon is present. There is no lymphadenopathy. No acute pelvic or hip fracture is present. An acute compression fracture of the superior endplate of L1 is again noted with 20% loss of vertebral body height. There is 4 mm of retropulsion with disruption of the posterior cortex. No extension into posterior elements is noted. Vertebral body height loss has mildly increased since the lumbar spine CT of July 08, 2022. Paravertebral stranding is noted. Grade II anterolisthesis of L5 on S1 is unchanged and due to bilateral L5 pars defects. There are no additional acute fractures. IMPRESSION: 1. Acute L1 compression fracture with 20% loss of vertebral body height and 4 mm of retropulsion that results in mild central canal stenosis. Vertebral body height loss and retropulsion have increased since CT of July 08, 2022. Associated paravertebral infiltration. 2. No bowel obstruction. No bowel wall thickening on unenhanced exam. Moderate amount of stool within the colon. 3. Suspected cirrhosis. Moderate splenomegaly, increased since chest CT of August 30, 2021. 4. No acute pelvic or hip fracture. ACT 112: Negative or not required by law. Electronically signed by: Wilbur Wynn M.D. 07/13/2022 7:37 AM Discharge Plan Visit Data Chief Complaint: Back Injury/Pain ED Provider: Jatinder Vaughn Discharge Problem: Lumbar back pain, Constipation, Compression fracture, Failure of outpatient treatment Patient Disposition: Admitted As Inpatient Condition: Fair Discharge Instructions Interventions: ED Discharge Assessment Last Done: 07/13/22 09:55
[2022-07-13] MEDS ORDERED: DOCUSATE SODIUM/SENNA 50/8.6MG TAB PO STA (07:51)
[2022-07-13] MEDS ORDERED: KETOROLAC TROMETHAMINE 15 MG/ML VIAL IV ONE (07:54)
[2022-07-13] MEDS ORDERED: ACETAMINOPHEN 1,000 MG/100 ML VIAL IV STA (07:54)
--- NOTE | 2022-07-13 09:34 | History & Physical Report ---
Date of Service July 13, 2022 Assessment & Plan (1) Low back pain: Plan: Acute on chronic. Parenteral steroid therapy ordered. Oxycodone IR as needed. Supportive care (2) Compression fracture of L1 lumbar vertebra: Plan: Occurred recently. No surgical intervention indicated at this time. We will consult orthopedic surgery if her symptoms persist (3) Constipation: Plan: MiraLAX ordered twice daily scheduled dosing. Also Colace ordered. (4) Type 2 diabetes mellitus: Plan: ADA diet. Continue metformin. Sliding scale coverage as needed (5) Cirrhosis: Plan: Known history of cirrhosis with splenomegaly and thrombocytopenia. Serial labs. No acute problems at this time Plan Eventual OT and PT assessments. She may need short-term SNF before she can return home History of Present Illness Chief Complaint: Acute on chronic low back pain, constipation Primary Care Provider: Vinh Ardon MD 81-year-old female with a history of type 2 diabetes, cirrhosis with splenomegal y and thrombocytopenia. She recently had a L1 compression fracture. Her pain is increased over the past several days and she has constipation for the past 5 days. She came to the ED for further treatment and relief. She will be admitted for further management. Allergies Allergy/AdvReac Type Severity Reaction Status Date / Time amoxicillin Allergy Mild YEAST Verified 07/13/22 09:06 INFECTION doxycycline Allergy Mild unknown Verified 07/13/22 09:06 meloxicam Allergy Mild unknown Verified 07/13/22 09:06 nitrofurantoin Allergy Mild unknown Verified 07/13/22 09:06 ofloxacin Allergy Mild unknown Verified 07/13/22 09:06 sulfamethoxazole Allergy Mild unknown Verified 07/13/22 09:06 trimethoprim Allergy Mild unknown Verified 07/13/22 09:06 atorvastatin [From Lipitor] Allergy Unknown ON MED LIST Verified 07/13/22 09:06 ezetimibe Allergy Unknown UNKNOWN Verified 07/13/22 09:06 gabapentin Allergy Unknown ON MED LIST Verified 07/13/22 09:06 pravastatin Allergy Unknown ON MED LIST Verified 07/13/22 09:06 rosuvastatin Allergy Unknown BODY PAINS Verified 07/13/22 09:06 oxycodone AdvReac Mild VOMITING Verified 07/13/22 09:06 Home Medications Medication Instructions Recorded Confirmed Type cholecalciferol (vitamin D3) 50 1,000 units PO QAM 04/12/19 07/13/22 History mcg (2,000 unit) capsule coenzyme Q10 10 mg capsule 10 mg PO QAM 03/06/20 07/13/22 History geriatric cupbyygx-betu-djpv 1 tab PO QAM 03/06/20 07/13/22 History fexofenadine 180 mg tablet 180 mg PO DAILY Allergic Symptoms 10/03/20 07/13/22 History garlic 1,000 mg capsule 1,000 mg PO QAM 10/03/20 07/13/22 History albuterol sulfate 90 mcg/actuation 2 puff inhalation Q4H PRN 12/18/20 07/13/22 Rx aerosol inhaler shortness of breath or wheezing #18 grams cyanocobalamin (vitamin B-12) 100 100 mcg PO QAM 04/24/21 07/13/22 History mcg tablet clobetasol 0.05 % topical ointment 1 applic topical TID PRN itching 05/29/21 07/13/22 Rx #15 grams levothyroxine 50 mcg tablet 50 mcg PO DAILY #90 tabs 10/17/21 07/13/22 Rx clopidogrel 75 mg tablet 75 mg PO QAM #90 tabs 12/20/21 07/13/22 Rx metformin 500 mg tablet 500 mg PO BID #180 tabs 02/06/22 07/13/22 Rx spironolactone 25 mg tablet 25 mg PO Q2D 04/01/22 07/13/22 History furosemide 40 mg tablet 40 mg PO DAILY PRN weight gain #90 04/25/22 07/13/22 Rx tabs benzonatate 100 mg capsule 200 mg PO TID PRN Cough #60 caps 05/28/22 07/13/22 Rx blood sugar diagnostic (OneTouch #100 ea 06/03/22 07/11/22 Rx Ultra Test strips) lancets (OneTouch UltraSoft #100 ea 06/17/22 07/11/22 Rx Lancets) diclofenac sodium 1 % topical gel 4 g topical QID #100 grams 07/08/22 07/13/22 Rx (Voltaren Arthritis Pain) magnesium oxide 400 mg (241.3 mg 400 mg PO BID #90 tabs 07/10/22 07/13/22 Rx magnesium) tablet fluticasone 250 mcg-salmeterol 50 1 inh inhalation BID 02/25/23 02/25/23 History mcg/dose blistr powdr for inhalation (Advair Diskus) prednisone 20 mg tablet 60 mg PO DAILY 07/13/22 07/13/22 History Past Med/Surg History Medical History (Updated 07/13/22 @ 09:33 by Jose Alberto Ordonez MD) Allergic rhinitis Anemia Anxiety Aortic arch aneurysm Aortic stenosis Ascites Asthma Carotid artery stenosis Cirrhosis CVA (cerebral vascular accident) (02/2020) Dementia Depression Diabetes Elevated troponin Gastroesophageal reflux disease Hearing loss HTN (hypertension) Hyperlipidemia Hypomagnesemia Hypothyroidism Moderate mitral regurgitation Osteoarthritis Received tissue plasminogen activator (tPA) less than 24 hours prior to arrival 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 Sciatica Severe aortic stenosis Severe tricuspid regurgitation Stenosis, cervical spine TMJ (sprain of temporomandibular joint) Vertigo Vitamin D deficiency Surgical History History of cataract surgery History of laparoscopic cholecystectomy Family History Unknown Esophageal reflux Mother , age 73 of dementia Dementia Myocardial infarction Father , age 75 of a stroke Stroke Denies family history of Ovarian cancer Prostate cancer Coronary heart disease Breast cancer Colorectal cancer Social History Smoking Status: Never smoker Tobacco Type: Cigarettes Second Hand Exposure: No; Hx Alcohol Use: No Hx Substance Use: No Preferred Language: Nepali Communication Ability: Effective Visual Impairment: No Limitations Hearing Ability: Use of Hearing Aid Safety Lamp Keeper Required: Yes Beliefs That Will Affect Care: None marital status: / Current Living Situation: Alone current occupational status: retired 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 Feels Safe at Home: Yes Childhood Exposure to Second-Hand Smoke: Yes caffeine: Yes during the past year weight has: remained stable Dental Care, Regularly: Yes Physical Activity Frequency: 1-2 Times per Week Seatbelt Use: always Sunscreen Use: Yes Assistive Devices: Glasses, Nebulizer, Scooter/Electric Scooter and Walker Review of Systems Review of Systems: Constitutional-no fever or chills ENT-no blurred vision, no double vision, no epistaxis, no sore throat Respiratory-no cough, no wheezing, no shortness of breath Cardiac-no palpitations, no chest pain, no syncope GI-no nausea, vomiting, diarrhea, melena, hematochezia -no urinary retention, no urinary incontinence, no dysuria, no hematuria Musculoskeletal-severe low back pain with limited range of motion Skin-no bruising, no rashes, no pruritus Neuro-no isolated weakness, no paresthesia, no weakness Psych-no depression, no anxiety Physical Exam Physical Exam: General-alert and oriented x3, no fevers, no chills HEENT-head atraumatic and normocephalic, pupils equal and reactive to light, extraocular muscles intact Neck-no lymphadenopathy or thyromegaly, trachea midline Chest-clear to auscultation percussion. No rales wheezing or rhonchi Cardiac-regular rate and rhythm, normal S1 and S2 Abdomen-normal bowel sounds, nontender, no hepatosplenomegaly Extremities-no cyanosis, clubbing, or edema. Severe lumbar pain limiting range of motion Neuro-cranial nerves II through XII intact, motor and sensory function within normal limits, strength symmetrical, no focal deficits Psych-normal affect, normal mood Results & Data Results & Data ([facility]) Vital Signs (Past 12 Hours) Vital Signs Temp Pulse Pulse Resp BP BP Pulse Ox 07/13/22 08:25 66 07/13/22 07:35 63 18 145/91 H 98 07/13/22 06:30 69 18 97 07/13/22 06:00 69 13 139/114 H 98 07/13/22 05:30 63 17 07/13/22 05:00 69 15 130/78 07/13/22 04:37 72 19 159/95 H 99 07/13/22 04:37 72 07/13/22 04:22 36.9 C 73 16 159/95 H 98 07/13/22 04:22 36.9 C 73 18 159/95 H 98 O2 Del Method 07/13/22 08:25 07/13/22 07:35 Room Air 07/13/22 06:30 Room Air 07/13/22 06:00 Room Air 07/13/22 05:30 07/13/22 05:00 07/13/22 04:37 Room Air 07/13/22 04:37 07/13/22 04:22 Room Air 07/13/22 04:22 Room Air Laboratory Results 07/13/22 05:50 07/13/22 05:50 PG Care Time/CCT Total # of Minutes Spent Total Time Spent with Patient: Total time spent is greater than 50% in coordination of care (as documented) at patient's floor/unit and/or counseling patient: Coding Level of Care Code 09625 INT INP/OBS CARE 3/75MIN Diagnoses Low back pain M54.50 Compression fracture of L1 lumbar vertebra S32.010A Constipation K59.00 Type 2 diabetes mellitus E11.9 Cirrhosis K74.60
[2022-07-13] MEDS ORDERED: GLUCOSE 10 TAB/TUBE PO PRN (10:34)
[2022-07-13] MEDS ORDERED: CARBOHYDRATES FOR HYPOGLYCEMIA PO PRN (10:34)
[2022-07-13] MEDS ORDERED: ALBUTEROL HFA 8 GM INHALER INH PRN (10:34)
[2022-07-13] MEDS ORDERED: ONDANSETRON INJ 2 MG/ML 2 ML VIAL IV PRN (10:34)
[2022-07-13] MEDS ORDERED: BENZONATATE 100 MG CAPSULE PO PRN (10:34)
[2022-07-13] MEDS ORDERED: methylPREDNISolone 40 MG in SYRINGE 0 ML IV SCH (10:34)
[2022-07-13] MEDS ORDERED: GLUCOSE 40% GEL 15 GM TUBE PO PRN (10:34)
[2022-07-13] MEDS ORDERED: ACETAMINOPHEN 325 MG TAB PO PRN (10:34)
[2022-07-13] MEDS ORDERED: DEXTROSE 50% 50 ML SYRINGE IV PRN (10:34)
[2022-07-13] MEDS ORDERED: GLUCAGON FOR INJ 1 MG VIAL SQ PRN (10:34)
[2022-07-13] MEDS ORDERED: CLOBETASOL PROPIONATE 0.05% OINT 15 GM TUBE EXT PRN (10:57)
[2022-07-13] MEDS: INSULIN ASPART PER UNIT SC SCH ×3 (12:42→20:43)
[2022-07-13] MEDS: SPIRONOLACTONE 25 MG TAB PO SCH (12:42)
[2022-07-13] MEDS: POLYETHYLENE (MIRALAX) 17 GM PACK PO SCH ×2 (12:42→19:31)
[2022-07-13] MEDS: methylPREDNISolone 40 MG in SYRINGE 0 ML IV SCH ×2 (12:42→19:30)
[2022-07-13] MEDS: oxyCODONE HCL IR 5 MG TAB (IMMEDIATE RELEASE) PO PRN (17:11)
[2022-07-13] MEDS: metFORMIN HCL 500 MG TAB PO SCH (17:11)
[2022-07-13] MEDS: DOCUSATE SODIUM 100 MG CAP PO SCH (19:30)
[2022-07-13] MEDS: MAGNESIUM OXIDE 400 MG TAB PO SCH (19:31)
[2022-07-14] MEDS: methylPREDNISolone 40 MG in SYRINGE 0 ML IV SCH ×2 (02:54→19:17)
[2022-07-14] MEDS: LEVOTHYROXINE SODIUM 50 MCG TABLET PO SCH (05:52)
[2022-07-14] MEDS: POLYETHYLENE (MIRALAX) 17 GM PACK PO SCH ×2 (08:57→19:14)
[2022-07-14] MEDS: metFORMIN HCL 500 MG TAB PO SCH ×2 (08:57→18:07)
[2022-07-14] MEDS: CHOLECALCIFEROL 1,000 UNITS 25 MCG TAB PO SCH (08:57)
[2022-07-14] MEDS: DOCUSATE SODIUM 100 MG CAP PO SCH ×2 (08:57→19:15)
[2022-07-14] MEDS: CLOPIDOGREL BISULFATE 75 MG TAB PO SCH (08:58)
[2022-07-14] MEDS: FEXOFENADINE HCL 180 MG TAB PO SCH (08:58)
[2022-07-14] MEDS: FLUTICASONE/VILANTEROL 200/25MCG 14 PUFFS/INHALER INH SCH (08:58)
[2022-07-14] MEDS: MAGNESIUM OXIDE 400 MG TAB PO SCH ×2 (08:58→19:14)
[2022-07-14] MEDS: CYANOCOBALAMIN (B-12) 100 MCG TABLET PO SCH (08:58)
[2022-07-14] MEDS: MULTIVITAMIN TAB PO SCH (08:58)
[2022-07-14] MEDS ORDERED: NON-FORMULARY MEDICATION (Garlic 1,000 mg capsule) PO SCH (09:00)
[2022-07-14] MEDS ORDERED: NON-FORMULARY MEDICATION (Coenzyme Q10 10 mg Capsule) PO SCH (09:00)
[2022-07-14] MEDS: INSULIN ASPART PER UNIT SC SCH ×4 (09:02→21:19)
--- NOTE | 2022-07-14 10:47 | Hospitalist Progress Note ---
Date of Service July 14, 2022 Assessment & Plan (1) Low back pain: Plan: Acute on chronic. Much improved with parenteral steroid therapy. Frequency of dosing taper down today, July 14. Oxycodone IR as needed. Supportive care (2) Compression fracture of L1 lumbar vertebra: Plan: Occurred recently. No surgical intervention indicated at this time. Much improved symptoms with current treatment (3) Constipation: Plan: MiraLAX ordered twice daily scheduled dosing. Also Colace ordered. Continue current treatment plan. She eventually will have a bowel movement (4) Type 2 diabetes mellitus: Plan: ADA diet. Continue metformin. Sliding scale coverage as needed (5) Cirrhosis: Plan: Known history of cirrhosis with splenomegaly and thrombocytopenia. Serial labs. No acute problems at this time Plan Anticipate discharge home tomorrow, July 15 Admission and Anticipated Discharge Date Admission Date: July 13, 2022 Subjective Much improved from admission. She is sitting on the side of the bed. She has yet to have a bowel movement however. She remains on MiraLAX twice daily scheduled dosing and a stool softener. Solu-Medrol tapered down. She probably can go home tomorrow, July 15 Review of Systems Review of Systems: Constitutional-no fever or chills ENT-no blurred vision, no double vision, no epistaxis, no sore throat Respiratory-no cough, no wheezing, no shortness of breath Cardiac-no palpitations, no chest pain, no syncope GI-no nausea, vomiting, diarrhea, melena, hematochezia -no urinary retention, no urinary incontinence, no dysuria, no hematuria Musculoskeletal-severe low back pain with limited range of motion has improved markedly since admission Skin-no bruising, no rashes, no pruritus Neuro-no isolated weakness, no paresthesia, no weakness Psych-no depression, no anxiety Physical Exam Physical Exam: General-alert and oriented x3, no fevers, no chills HEENT-head atraumatic and normocephalic, pupils equal and reactive to light, extraocular muscles intact Neck-no lymphadenopathy or thyromegaly, trachea midline Chest-clear to auscultation percussion. No rales wheezing or rhonchi Cardiac-regular rate and rhythm, normal S1 and S2 Abdomen-normal bowel sounds, nontender, no hepatosplenomegaly Extremities-no cyanosis, clubbing, or edema. Severe lumbar pain limiting range of motion has improved markedly since admission Neuro-cranial nerves II through XII intact, motor and sensory function within normal limits, strength symmetrical, no focal deficits Psych-normal affect, normal mood Results & Data Results & [facility] ([facility]) Vital Signs (Past 12 Hours) Vital Signs Temp Pulse Resp BP Pulse Ox O2 Del Method 07/14/22 08:06 36.3 C L 68 16 184/71 H 95 Room Air Laboratory Results 07/13/22 05:50 07/13/22 05:50 PG Care Time/CCT Total # of Minutes Spent Total Time Spent with Patient: Total time spent is greater than 50% in coordination of care (as documented) at patient's floor/unit and/or counseling patient: Coding Level of Care Code 40800 SUB INP/OBS CARE 3/50MIN Diagnoses Low back pain M54.50 Compression fracture of L1 lumbar vertebra S32.010A Constipation K59.00 Type 2 diabetes mellitus E11.9 Cirrhosis K74.60
[2022-07-14] MEDS: oxyCODONE HCL IR 5 MG TAB (IMMEDIATE RELEASE) PO PRN (15:21)
[2022-07-15] MEDS: oxyCODONE HCL IR 5 MG TAB (IMMEDIATE RELEASE) PO PRN ×3 (01:16→20:22)
[2022-07-15] MEDS: LEVOTHYROXINE SODIUM 50 MCG TABLET PO SCH (05:40)
[2022-07-15] MEDS: methylPREDNISolone 40 MG in SYRINGE 0 ML IV SCH (08:20)
[2022-07-15] MEDS: DOCUSATE SODIUM 100 MG CAP PO SCH ×2 (08:23→20:22)
[2022-07-15] MEDS: MAGNESIUM OXIDE 400 MG TAB PO SCH ×2 (08:23→20:22)
[2022-07-15] MEDS: SPIRONOLACTONE 25 MG TAB PO SCH (08:23)
[2022-07-15] MEDS: CYANOCOBALAMIN (B-12) 100 MCG TABLET PO SCH (08:23)
[2022-07-15] MEDS: CHOLECALCIFEROL 1,000 UNITS 25 MCG TAB PO SCH (08:23)
[2022-07-15] MEDS: FEXOFENADINE HCL 180 MG TAB PO SCH (08:23)
[2022-07-15] MEDS: POLYETHYLENE (MIRALAX) 17 GM PACK PO SCH ×3 (08:23→20:22)
[2022-07-15] MEDS: CLOPIDOGREL BISULFATE 75 MG TAB PO SCH (08:24)
[2022-07-15] MEDS: MULTIVITAMIN TAB PO SCH (08:24)
[2022-07-15] MEDS: metFORMIN HCL 500 MG TAB PO SCH ×2 (08:24→18:13)
[2022-07-15] MEDS: FLUTICASONE/VILANTEROL 200/25MCG 14 PUFFS/INHALER INH SCH (08:25)
[2022-07-15] MEDS: INSULIN ASPART PER UNIT SC SCH ×4 (08:36→20:46)
[2022-07-15] MEDS ORDERED: bisacodyL 10 MG SUPP PR STA (10:44)
[2022-07-15] MEDS: SENNA 8.6 MG TAB PO SCH (12:16)
[2022-07-15] MEDS ORDERED: MAGNESIUM HYDROXIDE SUSP 30 ML UDC PO ONE (15:11)
--- NOTE | 2022-07-15 15:17 | Hospitalist Progress Note ---
Date of Service July 15, 2022 Assessment & Plan (1) Low back pain: Plan: Acute on chronic. Much improved with parenteral steroid therapy. dc steroids, see below (2) Compression fracture of L1 lumbar vertebra: Plan: Occurred recently. L1 with 20% loss of height and 4 mm retropulsion with mild central canal stenosis and paravertebral infiltration No surgical intervention indicated at this time. No focal neuro symptoms Much improved symptoms with current treatment -dc steroids -start calcitonin nasal spray and continue for 2-4 weeks -f/u with Ortho Spine as outpt if not continuing to improve -continue oxycodone prn (3) Constipation: Plan: Secondary to opioids. Had small BM on 07/15 -increase MiraLAX to tid -continue Colace bid -gave bisacodyl NC x 1 today -add on senna 17.2mg qAM -add on MOM x 1 now (4) Type 2 diabetes mellitus: Plan: ADA diet. Continue metformin. Sliding scale coverage as needed (5) Cirrhosis: Plan: Known history of cirrhosis with splenomegaly and thrombocytopenia. Serial labs. No acute problems at this time. Follows with GI lovally, has esophageal varices unknown cause, not EtOH use Seeing hepatology at [facility] in 1-2 weeks (6) History of CVA (cerebrovascular accident): Plan: continue plavix not on statin-defer to PCP (7) S/p TAVR (transcatheter aortic valve replacement), bioprosthetic: Plan: noted, follows with Cardiology (8) Hypothyroidism: Plan: TSH normal in 03/2022 continue LT4 Plan Dispo-continued stay, PT recommending SNF-d/w Battery Inspector who will get referrals Admission and Anticipated Discharge Date Admission Date: July 13, 2022 Subjective Pt reports back pain much better. Has been OOB and ambulating to the bathroom. No radiating pain, no numbness/tingling/weakness down lower extremities. Had one small BM today but does not want to leave the hospital until she moves her bowels more. Denies CP, SOB, lightheadedness Review of Systems Review of Systems: All systems reviewed & are unremarkable except as noted in HPI & below Physical Exam Constitutional: WD/WN, vitals as above Eyes: + anicteric sclerae Respiratory: normal respiratory effort, lungs clear to auscultation Cardiovascular: RRR, no murmur, no edema Gastrointestinal (Abdomen): normal bowel sounds, soft, nontender, no hepatosplenomegaly Musculoskeletal: no cyanosis or clubbing, extremities motor strength 5/5 Neurologic: PERRL, EOMI, accommodation nl, no face palsy, no dysarthria Psychiatric: A+Ox3, euthymic affect Results & Data Results & Data ([facility]) Vital Signs (Past 12 Hours) Vital Signs Temp Pulse Pulse Resp BP Pulse Ox O2 Del Method 07/15/22 15:01 126/83 07/15/22 14:56 37.0 C 71 16 95/53 L 95 Room Air 07/15/22 08:08 36.5 C 68 18 146/84 H 100 Room Air Laboratory Results no labs to review PG Care Time/CCT Total # of Minutes Spent Total Time Spent with Patient: Total time spent is greater than 50% in coordination of care (as documented) at patient's floor/unit and/or counseling patient: Coding Level of Care Code 07963 SUB INP/OBS CARE 2/35MIN Diagnoses Low back pain M54.50 Compression fracture of L1 lumbar vertebra S32.010A Constipation K59.00 Type 2 diabetes mellitus E11.9 Cirrhosis K74.60 History of CVA (cerebrovascular accident) Z86.73 S/p TAVR (transcatheter aortic valve replacement), bioprosthetic Z95.3 Hypothyroidism E03.9
[2022-07-15] MEDS: CALCITONIN SALMON NA 200 IU/AC 3.7 ML BTL SCH (17:35)
[2022-07-16] MEDS: oxyCODONE HCL IR 5 MG TAB (IMMEDIATE RELEASE) PO PRN ×4 (00:30→23:16)
[2022-07-16] MEDS: LEVOTHYROXINE SODIUM 50 MCG TABLET PO SCH (06:03)
[2022-07-16] MEDS: CYANOCOBALAMIN (B-12) 100 MCG TABLET PO SCH (08:05)
[2022-07-16] MEDS: MULTIVITAMIN TAB PO SCH (08:05)
[2022-07-16] MEDS: MAGNESIUM OXIDE 400 MG TAB PO SCH ×2 (08:05→20:00)
[2022-07-16] MEDS: FEXOFENADINE HCL 180 MG TAB PO SCH (08:06)
[2022-07-16] MEDS: CLOPIDOGREL BISULFATE 75 MG TAB PO SCH (08:06)
[2022-07-16] MEDS: CHOLECALCIFEROL 1,000 UNITS 25 MCG TAB PO SCH (08:06)
[2022-07-16] MEDS: SENNA 8.6 MG TAB PO SCH (08:07)
[2022-07-16] MEDS: metFORMIN HCL 500 MG TAB PO SCH ×2 (08:08→16:37)
[2022-07-16] MEDS: DOCUSATE SODIUM 100 MG CAP PO SCH ×2 (08:08→20:00)
[2022-07-16] MEDS: CALCITONIN SALMON NA 200 IU/AC 3.7 ML BTL SCH (08:09)
[2022-07-16] MEDS: POLYETHYLENE (MIRALAX) 17 GM PACK PO SCH ×3 (08:09→20:00)
[2022-07-16] MEDS: FLUTICASONE/VILANTEROL 200/25MCG 14 PUFFS/INHALER INH SCH (08:09)
[2022-07-16] MEDS: INSULIN ASPART PER UNIT SC SCH (08:14)
--- NOTE | 2022-07-16 16:41 | Hospitalist Progress Note ---
Date of Service July 16, 2022 Assessment & Plan (1) Low back pain: Plan: Acute on chronic. Much improved with parenteral steroid therapy. dcd steroids but now with worsening pain--> restart decadron 6mg IV bid start topical Aspercreme (2) Compression fracture of L1 lumbar vertebra: Plan: Occurred recently. L1 with 20% loss of height and 4 mm retropulsion with mild central canal stenosis and paravertebral infiltration No surgical intervention indicated at this time. No focal neuro symptoms Was much improved with pain but now worse again--> restart steroids -start Aspercreme bid -started calcitonin nasal spray and continue for 2-4 weeks -f/u with Ortho Spine as outpt if not continuing to improve -continue oxycodone prn (3) Constipation: Plan: Secondary to opioids. Had small BM on 07/15 and 2 larger ones sine then with laxatives-MOM and bisacodyl GA -continue MiraLAX tid -continue Colace bid -continue senna 17.2mg qAM (4) Type 2 diabetes mellitus: Plan: ADA diet. Continue metformin. dc insulin as not needed (5) Cirrhosis: Plan: Known history of cirrhosis with splenomegaly and thrombocytopenia. Serial labs. No acute problems at this time. Follows with GI lovally, has esophageal varices unknown cause, not EtOH use Seeing hepatology at [facility] in 1-2 weeks (6) History of CVA (cerebrovascular accident): Plan: continue plavix not on statin-defer to PCP (7) S/p TAVR (transcatheter aortic valve replacement), bioprosthetic: Plan: noted, follows with Cardiology (8) Hypothyroidism: Plan: TSH normal in 03/2022 continue LT4 Plan Dispo-continued stay, PT recommending SNF-accepted at [facility] tomorrow and family will transport Called family with update on 07/16 Admission and Anticipated Discharge Date Admission Date: July 13, 2022 Subjective Pain much worse today in lower back. Nonradiating, no weakness or numbness down LEs. Is moving bowels regularly now, no trouble voiding. Reports she walked back from the bathroom last night and sort of hopped into the bed with her knee and felt acute worsening of pain after that. Otherwise has good appetite, no nausea or abd pain, no CP, SOB. Physical Exam Constitutional: WD/WN, vitals as above Eyes: + anicteric sclerae Respiratory: normal respiratory effort, lungs clear to auscultation Cardiovascular: RRR, no murmur, no edema Gastrointestinal (Abdomen): normal bowel sounds, soft, nontender, no hepatosplenomegaly Musculoskeletal: no cyanosis or clubbing, extremities motor strength 5/5 Neurologic: PERRL, EOMI, accommodation nl, no face palsy, no dysarthria Psychiatric: A+Ox3, euthymic affect Results & Data Results & Data ([facility]) Vital Signs (Past 12 Hours) Vital Signs Temp Pulse Resp BP Pulse Ox O2 Del Method 07/16/22 14:52 36.8 C 68 18 117/60 93 Room Air 07/16/22 12:10 36.5 C 68 14 167/82 H 97 Room Air 07/16/22 07:53 36.5 C 63 18 138/81 94 Room Air PG Care Time/CCT Total # of Minutes Spent Total Time Spent with Patient: Total time spent is greater than 50% in coordination of care (as documented) at patient's floor/unit and/or counseling patient: Coding Level of Care Code 78941 SUB INP/OBS CARE 2/35MIN Diagnoses Low back pain M54.50 Compression fracture of L1 lumbar vertebra S32.010A Constipation K59.00 Type 2 diabetes mellitus E11.9 Cirrhosis K74.60 History of CVA (cerebrovascular accident) Z86.73 S/p TAVR (transcatheter aortic valve replacement), bioprosthetic Z95.3 Hypothyroidism E03.9
[2022-07-16] MEDS: dexAMETHasone 6 MG in SYRINGE 0 ML IV SCH ×2 (17:12→20:00)
[2022-07-16] MEDS: TROLAMINE SALICYLATE 10% CRM 255 APPLN/85 GM TUBE EXT SCH ×2 (17:41→20:00)
--- NOTE | 2022-07-16 19:22 | XRay Report ---
XR thoracic spine 3V routine CLINICAL HISTORY: lower thoracic back pain,L1 compression fracture COMPARISON STUDY: Chest radiograph January 11, 2022. FINDINGS: Cardiomegaly is noted. There is a prosthetic aortic valve. No acute thoracic spine fracture is noted. An acute compression fracture involving the superior endplate of L1 is noted. There is desmond roximate 30% loss of vertebral body height. Multilevel degenerative changes within the thoracic spine are noted with disc space narrowing and osteophytosis. There is no acute thoracic spine fracture. IMPRESSION: 1. No thoracic spine fracture or subluxation. Moderate multilevel degenerative changes within the tho racic spine. 2. Redemonstration of an L1 superior endplate compression fracture. ACT 112: Negative or not required by law. Electronically signed by: Wilbur Wynn M.D. 07/16/2022 7:20 PM
--- NOTE | 2022-07-16 19:25 | XRay Report ---
XR lumbar spine 2-3V CLINICAL HISTORY: L1 fracture,worsening pain COMPARISON STUDY: Lumbar spine CT July 08, 2022. CT of the abdomen and pelvis July 13, 2022. FINDINGS: Anterolisthesis of L5 on S1 due to bilateral L5 pars defect is unchanged. Note is again mad e of a superior endplate compression fracture of L1 with 30% loss of vertebral body height. Vertebral body height loss has increased since CT of July 08, 2022. This is similar to abdominal CT of Jun. No additional lumbar spine fractures are present. There is severe disc space narrowin g at L5-S1. Moderate multilevel facet arthrosis is present. IMPRESSION: 1. Redemonstration of an acute L1 superior endplate compression fracture, similar to abdominal CT of July 13, 2022. 2. No additional lumbar spine fractures. 3. Multilevel degenerative changes, as above. ACT 112: Negative or not required by law. Electronically signed by: Wilbur Wynn M.D. 07/16/2022 7:23 PM
[2022-07-17] MEDS: oxyCODONE HCL IR 5 MG TAB (IMMEDIATE RELEASE) PO PRN ×2 (04:23→10:55)
[2022-07-17] MEDS: LEVOTHYROXINE SODIUM 50 MCG TABLET PO SCH (05:48)
[2022-07-17] MEDS: CLOPIDOGREL BISULFATE 75 MG TAB PO SCH (08:15)
[2022-07-17] MEDS: FEXOFENADINE HCL 180 MG TAB PO SCH (08:15)
[2022-07-17] MEDS: MULTIVITAMIN TAB PO SCH (08:16)
[2022-07-17] MEDS: CYANOCOBALAMIN (B-12) 100 MCG TABLET PO SCH (08:17)
[2022-07-17] MEDS: DOCUSATE SODIUM 100 MG CAP PO SCH (08:17)
[2022-07-17] MEDS: CHOLECALCIFEROL 1,000 UNITS 25 MCG TAB PO SCH (08:17)
[2022-07-17] MEDS: MAGNESIUM OXIDE 400 MG TAB PO SCH (08:17)
[2022-07-17] MEDS: SPIRONOLACTONE 25 MG TAB PO SCH (08:18)
[2022-07-17] MEDS: POLYETHYLENE (MIRALAX) 17 GM PACK PO SCH (08:18)
[2022-07-17] MEDS: metFORMIN HCL 500 MG TAB PO SCH (08:18)
[2022-07-17] MEDS: SENNA 8.6 MG TAB PO SCH (08:19)
[2022-07-17] MEDS: CALCITONIN SALMON NA 200 IU/AC 3.7 ML BTL SCH (08:20)
[2022-07-17] MEDS: TROLAMINE SALICYLATE 10% CRM 255 APPLN/85 GM TUBE EXT SCH (08:20)
[2022-07-17] MEDS: FLUTICASONE/VILANTEROL 200/25MCG 14 PUFFS/INHALER INH SCH (08:20)
[2022-07-17] MEDS: dexAMETHasone 6 MG in SYRINGE 0 ML IV SCH (08:22)
--- NOTE | 2022-07-17 11:53 | Discharge Summary ---
Date of Service July 17, 2022 Admission HPI Per Admitting Provider 81-year-old female with a history of type 2 diabetes, cirrhosis with splenomegaly and thrombocytopenia. She recently had a L1 compression fracture. Her pain is increased over the past several days and she has constipation for the past 5 days. She came to the ED for further treatment and relief. She will be admitted for further management. Principal Diagnosis L1 compression fracture, lower back pain Constipation Discharge Exam Constitutional WD/WN, vitals as above Eyes + anicteric sclerae Respiratory normal respiratory effort, lungs clear to auscultation Cardiovascular RRR, no murmur, no edema Gastrointestinal (Abdomen) normal bowel sounds, soft, nontender, no hepatosplenomegaly Musculoskeletal no cyanosis or clubbing, extremities motor strength 5/5 Neurologic PERRL, EOMI, accommodation nl, no face palsy, no dysarthria no focal motor deficits Psychiatric A+Ox3, euthymic affect Discharge Data Allergies Allergy/AdvReac Type Severity Reaction Status Date / Time amoxicillin Allergy Mild YEAST Verified 07/13/22 09:06 INFECTION doxycycline Allergy Mild unknown Verified 07/13/22 09:06 meloxicam Allergy Mild unknown Verified 07/13/22 09:06 nitrofurantoin Allergy Mild unknown Verified 07/13/22 09:06 ofloxacin Allergy Mild unknown Verified 07/13/22 09:06 sulfamethoxazole Allergy Mild unknown Verified 07/13/22 09:06 trimethoprim Allergy Mild unknown Verified 07/13/22 09:06 atorvastatin [From Lipitor] Allergy Unknown ON MED LIST Verified 07/13/22 09:06 ezetimibe Allergy Unknown UNKNOWN Verified 07/13/22 09:06 gabapentin Allergy Unknown ON MED LIST Verified 07/13/22 09:06 pravastatin Allergy Unknown ON MED LIST Verified 07/13/22 09:06 rosuvastatin Allergy Unknown BODY PAINS Verified 07/13/22 09:06 oxycodone AdvReac Mild VOMITING Verified 07/13/22 09:06 Consultations 07/13/22 08:05 ED Decision to Admit Stat Ordered Studies 07/13/22 06:30 CT abd pelvis wo con Stat Hospital Course (1) Low back pain: Acute on chronic. Much improved with parenteral steroid therapy. dcd steroids but then with worsening pain--> restarted decadron 6mg IV bid with some improvement--> finish out 5 more days pof pprednisone 40mg daily start topical Voltaren gel qid (2) Compression fracture of L1 lumbar vertebra: Occurred recently. L1 with 20% loss of height and 4 mm retropulsion with mild central canal stenosis and paravertebral infiltration No surgical intervention indicated at this time. No focal neuro symptoms improved with pain on steroids -start voltaren gel on discharge -started calcitonin nasal spray and continue for 4 weeks -f/u with Ortho Spine as outpt if not continuing to improve for consideration for kyphoplasty -continue oxycodone prn (3) Constipation: Secondary to opioids. Had small BM on 07/15 and 2 larger ones sine then with laxatives-MOM and bisacodyl MA -continue MiraLAX tid -continue Colace bid -continue senna 17.2mg qAM -bisacodyl MA daily prn (4) Type 2 diabetes mellitus: ADA diet. Continue metformin. (5) Cirrhosis: Known history of cirrhosis with splenomegaly and thrombocytopenia. Serial labs. No acute problems at this time. Follows with GI locally, has esophageal varices unknown cause, not EtOH use Seeing hepatology at [facility] in 1-2 weeks continue aldactone (6) History of CVA (cerebrovascular accident): continue plavix but dc if platelets drop less than 50k not on statin-defer to PCP (7) S/p TAVR (transcatheter aortic valve replacement), bioprosthetic: noted, follows with Cardiology (8) Hypothyroidism: TSH normal in 03/2022 continue LT4 (9) Restless leg: Pt's roommate in the hospital reported that patient has severe restless legs all through the night (reported on day of discharge) -recommend outpt follow up with PCP Plan Dispo- PT recommending SNF-accepted at [facility] today Total Time Total Time Spent Total Time Spent (In Minutes): 35 min Discharge Plan Discharge Items Patient Disposition: Transfer Snf Fac Reason For Visit: BACK PAIN Discharge Diagnosis: Back pain from L1 compression fracture Constipation Condition on Discharge: Fair Activity: As commented below Lifting: No more than 5 pounds Bathing: No limitations Exercise/Sports: Gradually increase as tolerated Weightbearing: Full weightbearing Non-emergency contact: Primary Care Provider Call non-emergency contact if: you have any medication questions and your symptoms worsen Follow-up/Referrals: Vinh Ardon MD [Primary Care Provider] - (Follow up within 1-2 weeks after discharge from rehab) Mando Waller, DO [Surgeon] - (Please schedule an appointment if pain not improving over the next 1-2 weeks.) Diet: Carb Consistent or DM2 and Heart Healthy Addtl Attending Provider Instructions: You were admitted with back pain from a lumbar compression fracture. You were treated with pain medicine. You will need PT/OT at rehab. If you are not improving, you should be referred to the Spine Surgeon to consider kyphoplasty. Continue the bowel regimen for your constipation which is improving. Pending Studies at Discharge: No Stand-Alone Forms: My [facility] Skilled Items Patient informed of condition?: Yes DNR: No Discharge Level of Care: Skilled Communicable Disease: No Discharge Prognosis: Stable Lines: None Urinary Catheter: No Medications and DC Order Prescriptions: New oxycodone 5 mg Tablet 5 mg PO Q4H PRN (Reason: moderate-severe pain) Qty: 15 0RF sennosides [Senokot] 8.6 mg Tablet 17.2 mg PO QAM Qty: 60 0RF polyethylene glycol 3350 [Miralax] 17 gram Powder In Packet 17 g PO TID Qty: 90 0RF calcitonin (salmon) 200 unit/actuation [place],Non-Aerosol 1 spray NA DAILY 28 Days Qty: 3.7 0RF docusate sodium 100 mg Capsule 100 mg PO BID Qty: 60 0RF bisacodyl 10 mg suppository 10 mg MA DAILY PRN (Reason: constipation) Qty: 12 0RF prednisone 20 mg tablet 40 mg PO DAILY 5 Days Qty: 10 0RF acetaminophen 325 mg Tablet 650 mg PO Q4H PRN (Reason: pain) Qty: 60 0RF Continued cholecalciferol (vitamin D3) 50 mcg (2,000 unit) capsule 1,000 units PO QAM fexofenadine 180 mg tablet 180 mg PO DAILY albuterol sulfate 90 mcg/actuation HFA aerosol inhaler 2 puff inhalation Q4H PRN (Reason: shortness of breath or wheezing) Qty: 18 11RF cyanocobalamin (vitamin B-12) 100 mcg tablet 100 mcg PO QAM clobetasol 0.05 % ointment 1 applic TOP TID PRN (Reason: itching) Qty: 15 1RF levothyroxine 50 mcg tablet 50 mcg PO DAILY Qty: 90 3RF Rx Instructions: Take before breakfast clopidogrel 75 mg tablet 75 mg PO QAM Qty: 90 3RF furosemide 40 mg tablet 40 mg PO DAILY PRN (Reason: weight gain) Qty: 90 1RF Rx Instructions: For sudden weight gain of more than 5 lbs. benzonatate 100 mg capsule 200 mg PO TID PRN (Reason: Cough) Qty: 60 0RF (DME) OneTouch Ultra Test Strip See Rx Instructions .Route Qty: 100 3RF Rx Instructions: testing once daily and as needed (DME) lancets [OneTouch UltraSoft Lancets] Misc See Rx Instructions .Route Qty: 100 3RF Rx Instructions: testing once daily and as needed magnesium oxide 400 mg (241.3 mg magnesium) tablet 400 mg PO BID Qty: 90 3RF spironolactone 25 mg tablet 25 mg PO Q2D metformin 500 mg tablet 500 mg PO BID Qty: 180 3RF coenzyme Q10 10 mg Capsule 10 mg PO QAM geriatric [id number] Tablet 1 tab PO QAM garlic 1,000 mg capsule 1,000 mg PO QAM diclofenac sodium [Voltaren Arthritis Pain] 1 % gel 4 g topical QID Qty: 100 0RF Rx Instructions: apply to low back. fluticasone propion-salmeterol [Advair Diskus] 250-50 mcg/dose blister with device 1 inh inhalation BID Discontinued prednisone 20 mg tablet 60 mg PO DAILY Rx Instructions: take 60mg for 4 days Discharge Orders: Discharge Order (Routine); Ordered 07/17/22 Ordered By: Jackelyn Wilkinson Admission Data Admit Date/Time: 07/13/22 09:28 Attending Provider: Jackelyn Wilkinson Admit Provider: Jose Alberto Ordonez Primary Care Provider: Vinh Ardon Other Providers: Jose Alberto Ordonez ; [facility] Coding Level of Care Code 63175 INP/OBS DISCH >30 MIN Diagnoses Low back pain M54.50 Compression fracture of L1 lumbar vertebra S32.010A Constipation K59.00 Type 2 diabetes mellitus E11.9 Cirrhosis K74.60 History of CVA (cerebrovascular accident) Z86.73 S/p TAVR (transcatheter aortic valve replacement), bioprosthetic Z95.3 Hypothyroidism E03.9 Restless leg G25.81
== END 2022-07-17 14:03 | DRG 543 ==
LOC: ED 04:31 → SUATTDRO 09:28 → 3W 09:28

== ENCOUNTER 2022-08-07 06:31 | Inpatient (IN) ==
[2022-08-07] MEDS ORDERED: oxyCODONE/ACETAMINOPHEN 5mg/325mg TAB PO STA (07:41)
[2022-08-07] MEDS ORDERED: SODIUM CHLORIDE 0.9% 500 ML IV SCH (07:45)
--- NOTE | 2022-08-07 07:50 | Emergency Department Note ---
Impression & Plan Low back pain ED Provider Note INFORMANT: Patient and family of patient ED PROVIDER(S): Luís Brink DO CHIEF COMPLAINT: Low back pain, inability to get around PLAN: Disposition: Admission Outpatient prescription management: none Discussion with: Case management. I spoke with the hospitalist, who will see the patient for admission/observation and further evaluation and consultation. MEDICAL DECISION MAKING: This is a 81-year-old female who presents to the ED with a chief complaint of trouble getting to the bathroom and back to bed. The patient was in the [facility] on 07/08/2022 and had a L1 compression fracture diagnosed. She was ultimately discharged to [facility]. She was there for a couple of weeks and then discharged back home 2 days ago. According to the son, the patient called him this morning stating that she was having a lot of pain and could not get back to bed after going to the bathroom. She also reported to them that her pain was so bad that she felt short of breath. Her pain is in the low back area. Last dose of oxycodone was last night around 10:30 PM, according to the daughter. The patient's family feels that she is not doing well at home, where she lives in a apartment by herself. The patient denies any additional compla ints. No abdominal pains. No shortness of breath now. No fevers or cough. She feels that the pain caused her shortness of breath. She reports that her pain was severe. Her vital signs here were normal. Mild hypertension. Moves her legs appropriately without discomfort in her back. Does have back pain just with lying and this is worsened with movements of her back. The patient's EKG shows normal sinus rhythm. CBC did not show concerning anemia or leukocytosis. Chemistry panel showed no electrolyte abnormality. Troponin was mildly elevated at 33.9. Her previous visit shows that it was elevated higher than this. This is probably a chronic elevation. She does not have any chest pains to suggest myocardial infarction and her EKG does not show acute ischemic changes. The patient's urinalysis did not show infection. Free T4 was normal. Chest x-ray does not show acute process. X-ray of the lumbar spine shows chronic L1 compression fracture. No acute findings. Because of the patient's pain, she was given a Percocet here. She was also given some IV fluids. Family feels that the patient is not safe to go home. She is not getting along well by herself and they feel she needs more long-term placement. The hospitalist will see the patient for further evaluation and care. Triage Nursing notes reviewed. Vital Signs: reviewed Prior /Outside records reviewed: Center care nursing notes reviewed Differential diagnosis: Acute on chronic back pain, compression fracture, kidney stone, UTI, pyelonephritis, less likely aortic dissection, other. Diagnostics, as interpreted by me: 12 lead ECG: Normal sinus rhythm rate of 89. No ST elevation. No PVCs. Normal QTc. Cardiac Monitoring ordered: Sinus rhythm in the 80s Medical decision rules: none Imaging studies: Chest x-ray: No acute disease. Procedures: none. Critical care: none. HPI: See MDM above. PAST MEDICAL HISTORY: See Below PAST SURGICAL HISTORY: See Below SOCIAL HISTORY: See Below HOME MEDICATIONS: See Below ALLERGIES: See Below VITALS: See Below PHYSICAL EXAMINATION: See MDM for positive findings otherwise unremarkable. CONSTITUTIONAL/VITAL SIGNS: Reviewed GENERAL:done as appropriate INTEGUMENTARY: done as appropriate HEAD: done as appropriate EYES: done as appropriate RESPIRATORY: done as appropriate CARDIOVASCULAR:done as appropriate GI/ABDOMEN:done as appropriate EXTREMITIES: done as appropriate NEUROLOGICAL: done as appropriate PSYCHIATRIC:done as appropriate MUSCULOSKELETAL:done as appropriate TRIAGE NURSING DOCUMENTATION REVIEWED. 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 Sciatica Severe aortic stenosis Severe tricuspid regurgitation Stenosis, cervical spine TMJ (sprain of temporomandibular joint) Vertigo Vitamin D deficiency Surgical History History of cataract surgery History of laparoscopic cholecystectomy Family History Unknown Esophageal reflux Mother , age 73 of dementia Dementia Myocardial infarction Father , age 75 of a stroke Stroke Denies family history of Ovarian cancer Prostate cancer Coronary heart disease Breast cancer Colorectal cancer Social History Smoking Status: Former smoker Tobacco Type: Cigarettes Second Hand Exposure: No; Hx Alcohol Use: No Hx Substance Use: No Preferred Language: Canadian Communication Ability: Effective Visual Impairment: No Limitations Hearing Ability: Use of Hearing Aid Training And Development Officer Required: No Beliefs That Will Affect Care: None marital status: / Current Living Situation: Alone current occupational status: retired 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 Feels Safe at Home: Yes Childhood Exposure to Second-Hand Smoke: Yes caffeine: Yes during the past year weight has: remained stable Dental Care, Regularly: Yes Physical Activity Frequency: 1-2 Times per Week Seatbelt Use: always Sunscreen Use: Yes Assistive Devices: Cane and Walker Allergies Allergies Allergy/AdvReac Type Severity Reaction Status Date / Time amoxicillin Allergy Mild YEAST Verified 07/13/22 09:06 INFECTION doxycycline Allergy Mild unknown Verified 07/13/22 09:06 meloxicam Allergy Mild unknown Verified 07/13/22 09:06 nitrofurantoin Allergy Mild unknown Verified 07/13/22 09:06 ofloxacin Allergy Mild unknown Verified 07/13/22 09:06 sulfamethoxazole Allergy Mild unknown Verified 07/13/22 09:06 trimethoprim Allergy Mild unknown Verified 07/13/22 09:06 atorvastatin [From Lipitor] Allergy Unknown ON MED LIST Verified 07/13/22 09:06 ezetimibe Allergy Unknown UNKNOWN Verified 07/13/22 09:06 gabapentin Allergy Unknown ON MED LIST Verified 07/13/22 09:06 pravastatin Allergy Unknown ON MED LIST Verified 07/13/22 09:06 rosuvastatin Allergy Unknown BODY PAINS Verified 07/13/22 09:06 oxycodone AdvReac Mild VOMITING Verified 07/13/22 09:06 Home Meds Home Medications Medication Instructions Recorded Confirmed cholecalciferol (vitamin D3) 50 1,000 units PO QAM 04/12/19 08/07/22 mcg (2,000 unit) capsule coenzyme Q10 10 mg capsule 10 mg PO QAM 03/06/20 08/07/22 geriatric [id number] 1 tab PO QAM 03/06/20 08/07/22 fexofenadine 180 mg tablet 180 mg PO DAILY Allergic Symptoms 10/03/20 08/07/22 garlic 1,000 mg capsule 1,000 mg PO QAM 10/03/20 08/07/22 cyanocobalamin (vitamin B-12) 100 100 mcg PO QAM 04/24/21 08/07/22 mcg tablet spironolactone 25 mg tablet 25 mg PO Q2D 04/01/22 08/07/22 fluticasone 250 mcg-salmeterol 50 1 inh inhalation BID 07/13/22 08/07/22 mcg/dose blistr powdr for inhalation (Advair Diskus) Previous Rx's Medication Instructions Recorded albuterol sulfate 90 mcg/actuation 2 puff inhalation Q4H PRN 12/18/20 aerosol inhaler shortness of breath or wheezing #18 grams clobetasol 0.05 % topical ointment 1 applic topical TID PRN itching 05/29/21 #15 grams levothyroxine 50 mcg tablet 50 mcg PO DAILY #90 tabs 10/17/21 clopidogrel 75 mg tablet 75 mg PO QAM #90 tabs 12/20/21 metformin 500 mg tablet 500 mg PO BID #180 tabs 02/06/22 furosemide 40 mg tablet 40 mg PO DAILY PRN weight gain #90 04/25/22 tabs benzonatate 100 mg capsule 200 mg PO TID PRN Cough #60 caps 05/28/22 lancets (OneTouch UltraSoft #100 ea 06/17/22 Lancets) diclofenac sodium 1 % topical gel 4 g topical QID #100 grams 07/08/22 (Voltaren Arthritis Pain) magnesium oxide 400 mg (241.3 mg 400 mg PO BID #90 tabs 07/10/22 magnesium) tablet acetaminophen 325 mg tablet 650 mg PO Q4H PRN pain #60 tabs 07/17/22 bisacodyl 10 mg rectal suppository [address] DAILY PRN constipation 07/17/22 #12 ea calcitonin (salmon) 200 1 spray NA DAILY 4 weeks #3.7 mL 07/17/22 unit/actuation nasal spray docusate sodium 100 mg capsule 100 mg PO BID #60 caps 07/17/22 oxycodone 5 mg tablet 5 mg PO Q4H PRN moderate-severe 07/17/22 pain #15 tabs polyethylene glycol 3350 17 gram 17 g PO TID #90 ea 07/17/22 oral powder packet (Miralax) sennosides 8.6 mg tablet (Senokot) 17.2 mg PO QAM #60 tabs 07/17/22 Results & Data (ED) Vital Signs Vital Signs - 24 hr 08/07/22 06:46 08/07/22 08:08 08/07/22 07:21 Temperature 37.2 C Temperature Source Oral Pulse Rate 87 74 77 Pulse Rate [Apical] Pulse Rate from SpO2 Sensor Pulse Rhythm [Apical] Pulse Strength [Apical] Respiratory Rate 20 14 Respiratory Effort / Characteristics Non-Labored Spontaneous Respiratory Depth Normal Respiratory Pattern Regular Blood Pressure 139/118 H 131/105 H Blood Pressure [Right Arm] Blood Pressure Mean 125 113 Blood Pressure Mean [Right Arm] Blood Pressure Position [Right Arm] Pulse Oximetry 100 100 Oxygen Delivery Method Room Air Room Air Sepsis Recent Fever Within 48 Hours No Sepsis New/Unexplained Change in Mental Status No Sepsis Action Taken by Nursing No Action Required 08/07/22 08:00 08/07/22 09:45 Temperature Temperature Source Pulse Rate 75 Pulse Rate [Apical] 71 Pulse Rate from SpO2 Sensor 75 Pulse Rhythm [Apical] Regular Pulse Strength [Apical] Normal Respiratory Rate 12 18 Respiratory Effort / Characteristics Non-Labored Respiratory Depth Normal Respiratory Pattern Regular Blood Pressure 148/76 H Blood Pressure [Right Arm] 119/77 Blood Pressure Mean 100 Blood Pressure Mean [Right Arm] 91 Blood Pressure Position [Right Arm] Lying Pulse Oximetry 98 100 Oxygen Delivery Method Room Air Room Air Sepsis Recent Fever Within 48 Hours Sepsis New/Unexplained Change in Mental Status Sepsis Action Taken by Nursing Laboratory Data 08/07/22 06:50 08/07/22 06:50 Lab Results 08/07/22 08/07/22 08/07/22 Range/Units 06:50 06:50 06:50 WBC 6.33 (4.8-10.8) K/ul RBC 5.08 (4.20-5.40) M/uL Hgb 13.8 (12.0-16.0) g/dl Hct 41.5 (37.0-47.0) % MCV 81.7 (80.0-100.0) fL MCH 27.2 (25.0-34.0) pg MCHC 33.3 (32.0-36.0) g/dL RDW Std Deviation 41.4 (36.4-46.3) fL RDW Coeff of Marty 14.1 (11.5-14.5) % Plt Count 98 L (130-400) K/uL MPV 10.3 (9.4-12.4) fL Immature Gran % (Auto) 0.3 % Neut % (Auto) 49.5 % Lymph % (Auto) 40.0 % [place] % (Auto) 8.1 % Eos % (Auto) 1.6 % Baso % (Auto) 0.5 % Neut # (Auto) 3.14 (1.40-6.50) K/uL Lymph # (Auto) 2.53 (1.2-3.4) K/uL [place] # (Auto) 0.51 (0.11-0.59) K/uL Eos # (Auto) 0.10 (0-0.50) K/uL Baso # (Auto) 0.03 (0-0.2) K/uL Immature Gran # (Auto) 0.02 (0.01-0.20) K/uL Sodium 139 (136-145) mmol/L Potassium 4.2 (3.5-5.1) mmol/L Chloride 105 (98-107) mmol/L Carbon Dioxide 26 (21-32) mmol/L Anion Gap 8 (3-11) BUN 18 (6-23) mg/dl Creatinine 0.55 L (0.6-1.2) mg/dl Est Cr Clr Drug Dosing 69.6 ml/min Est GFR ( Amer) 100.5 ml/min Est GFR (Non-Af Amer) 86.7 ml/min BUN/Creatinine Ratio 32.7 H (10-20) Glucose 128 H (70-99(Fasting)) mg/dl Calcium 9.6 (8.5-10.1) mg/dl Total Bilirubin 0.5 (0.2-1.0) mg/dl AST 29 (13-39) U/L ALT 21 (7-52) U/L Alkaline Phosphatase 94 (34-104) U/L Troponin I High Sens 33.9 H (0-14) pg/ml Total Protein 6.7 (6.0-8.3) gm/dl Albumin 3.6 (3.4-5.0) gm/dl Globulin 3.1 (2.5-4.0) gm/dl Albumin/Globulin Ratio 1.2 (0.9-2) TSH 6.691 H (0.300-4.500) uIu/ml Free T4 1.04 (0.61-1.60) ng/dl Urine Color Urine Appearance (Clear) Urine pH (4.5-7.5) Ur Specific [place] (1.000-1.030) Urine Protein (Negative) Urine Glucose (UA) (Negative) Urine Ketones (Negative) Urine Blood (Negative) Urine Nitrite (Negative) Urine Bilirubin (Negative) Urine Urobilinogen (Negative) Ur Leukocyte Esterase (Negative) SARS-CoV-2, RNA, NAAT (NEGATIVE) 08/07/22 08/07/22 Range/Units 07:53 08:44 WBC (4.8-10.8) K/ul RBC (4.20-5.40) M/uL Hgb (12.0-16.0) g/dl Hct (37.0-47.0) % MCV (80.0-100.0) fL MCH (25.0-34.0) pg MCHC (32.0-36.0) g/dL RDW Std Deviation (36.4-46.3) fL RDW Coeff of Marty (11.5-14.5) % Plt Count (130-400) K/uL MPV (9.4-12.4) fL Immature Gran % (Auto) % Neut % (Auto) % Lymph % (Auto) % [place] % (Auto) % Eos % (Auto) % Baso % (Auto) % Neut # (Auto) (1.40-6.50) K/uL Lymph # (Auto) (1.2-3.4) K/uL [place] # (Auto) (0.11-0.59) K/uL Eos # (Auto) (0-0.50) K/uL Baso # (Auto) (0-0.2) K/uL Immature Gran # (Auto) (0.01-0.20) K/uL Sodium (136-145) mmol/L Potassium (3.5-5.1) mmol/L Chloride (98-107) mmol/L Carbon Dioxide (21-32) mmol/L Anion Gap (3-11) BUN (6-23) mg/dl Creatinine (0.6-1.2) mg/dl Est Cr Clr Drug Dosing ml/min Est GFR ( Amer) ml/min Est GFR (Non-Af Amer) ml/min BUN/Creatinine Ratio (10-20) Glucose (70-99(Fasting)) mg/dl Calcium (8.5-10.1) mg/dl Total Bilirubin (0.2-1.0) mg/dl AST (13-39) U/L ALT (7-52) U/L Alkaline Phosphatase (34-104) U/L Troponin I High Sens (0-14) pg/ml Total Protein (6.0-8.3) gm/dl Albumin (3.4-5.0) gm/dl Globulin (2.5-4.0) gm/dl Albumin/Globulin Ratio (0.9-2) TSH (0.300-4.500) uIu/ml Free T4 (0.61-1.60) ng/dl Urine Color Yellow Urine Appearance Clear (Clear) Urine pH >= 9.0 H (4.5-7.5) Ur Specific [place] 1.015 (1.000-1.030) Urine Protein Negative (Negative) Urine Glucose (UA) Negative (Negative) Urine Ketones Negative (Negative) Urine Blood Negative (Negative) Urine Nitrite Negative (Negative) Urine Bilirubin Negative (Negative) Urine Urobilinogen Negative (Negative) Ur Leukocyte Esterase Negative (Negative) SARS-CoV-2, RNA, NAAT NEGATIVE (NEGATIVE) Administered Medications Discontinued Medications Sodium Chloride (Nss) 500 mls @ 999 mls/hr IV .Q31M [facility] Stop: 08/07/22 08:15 Last Infusion: 08/07/22 08:40 Dose: 0 mls/hr Documented By: Admin: 08/07/22 07:51 Dose: 999 mls/hr Documented By: Co-signed By: GERSON Oxycodone/Acetaminophen (Oxycodone/Acetaminophen 5mg/325mg Tab) 1 tab PO NOW STA Stop: 08/07/22 07:42 Last Admin: 08/07/22 07:48 Dose: 1 tab Documented By: Co-signed By: GERSON Imaging Data Radiologist's Impression: Lumbar Spine X-Ray 08/07/22 07:41 LUMBAR SPINE 5 VIEWS CLINICAL HISTORY: Recent fall. Low back pain. FINDINGS: 5 views of the lumbar spine are compared to study dated 07/16/[address] scan of lumbar spine dated 07/08/2022. The skeletal structures are osteopenic. There is no radiographic evidence of acute fracture or malalignment. Again seen is a subacute superior endplate compression fracture of L1 with a mild loss of height. Vertebral body height is otherwise maintained throughout the lumbar spine. There are bilateral pars defects at L5 with advanced disc space narrowing and 14 mm of anterolisthesis at L5-S1. There is only mild disc space narrowing at the remaining lumbar levels. Alignment is otherwise preserved. Anterior and lateral marginal osteophytes are seen throug hout. The transverse and spinous processes appear intact. Advanced facet arthropathy is seen in the lower lumbar region. The visualized sacrum and bony pelvis appear intact. Degenerative sclerosis is noted in the sacroiliac joints. Cholecystectomy clips are seen in the right upper quadrant. There is no bowel obstruction. There is advanced atherosclerotic calcification of the abdominal aorta. IMPRESSION: 1. No acute bony abnormality is identified. 2. Again seen is a subacute superior endplate compression fracture of L1. 3. Bilateral pars defects at L5 with grade 1 anterolisthesis at L5-S1. 4. Osteopenia and spondylotic change as above. Dictated: 08/07/2022 9:17 AM Transcribed: 08/07/2022 9:25 AM Didi [id number] [facility] Electronically signed by: Jatinder Masterson M.D. 08/07/2022 9:29 AM Chest X-Ray 08/07/22 07:42 XR chest 1V not portable CLINICAL HISTORY: weakness TECHNIQUE: Single frontal radiograph of the chest was obtained. Comparison: Comparison is made to chest radiograph 01/11/2022 FINDINGS: No lines and tubes are seen. Cardiomegaly is noted. The aortic arch is calcified. Aortic valvular prosthesis is noted. The lungs are clear. No evidence of pleural effusion or pneumothorax. Degenerative changes are seen in the bila teral shoulder joints and spine. IMPRESSION: No acute chest disease. Cardiomegaly is noted. ACT 112: Negative or not required by law. Electronically signed by: Amos Gomez M.D. 08/07/2022 9:24 AM Discharge Plan Visit Data Chief Complaint: Back Injury/Pain Stated Complaint: BACK PAIN ED Provider: Luís Brink Discharge Problem: Low back pain Patient Disposition: Being Evaluated by Hospitalist Forms Stand Alone Forms: My [facility] Prescriptions Prescriptions: No Action cholecalciferol (vitamin D3) 50 mcg (2,000 unit) capsule 1,000 units PO QAM fexofenadine 180 mg tablet 180 mg PO DAILY albuterol sulfate 90 mcg/actuation HFA aerosol inhaler 2 puff inhalation Q4H PRN (Reason: shortness of breath or wheezing) Qty: 18 11RF cyanocobalamin (vitamin B-12) 100 mcg tablet 100 mcg PO QAM clobetasol 0.05 % ointment 1 applic TOP TID PRN (Reason: itching) Qty: 15 1RF levothyroxine 50 mcg tablet 50 mcg PO DAILY Qty: 90 3RF Rx Instructions: Take before breakfast clopidogrel 75 mg tablet 75 mg PO QAM Qty: 90 3RF furosemide 40 mg tablet 40 mg PO DAILY PRN (Reason: weight gain) Qty: 90 1RF Rx Instructions: For sudden weight gain of more than 5 lbs. benzonatate 100 mg capsule 200 mg PO TID PRN (Reason: Cough) Qty: 60 0RF (DME) lancets [OneTouch UltraSoft Lancets] Misc See Rx Instructions .Route Qty: 100 3RF Rx Instructions: testing once daily and as needed magnesium oxide 400 mg (241.3 mg magnesium) tablet 400 mg PO BID Qty: 90 3RF spironolactone 25 mg tablet 25 mg PO Q2D metformin 500 mg tablet 500 mg PO BID Qty: 180 3RF coenzyme Q10 10 mg Capsule 10 mg PO QAM geriatric [id number] Tablet 1 tab PO QAM garlic 1,000 mg capsule 1,000 mg PO QAM diclofenac sodium [Voltaren Arthritis Pain] 1 % gel 4 g topical QID Qty: 100 0RF Rx Instructions: apply to low back. fluticasone propion-salmeterol [Advair Diskus] 250-50 mcg/dose blister with device 1 inh inhalation BID acetaminophen 325 mg Tablet 650 mg PO Q4H PRN (Reason: pain) Qty: 60 0RF oxycodone 5 mg Tablet 5 mg PO Q4H PRN (Reason: moderate-severe pain) Qty: 15 0RF sennosides [Senokot] 8.6 mg Tablet 17.2 mg PO QAM Qty: 60 0RF polyethylene glycol 3350 [Miralax] 17 gram Powder In Packet 17 g PO TID Qty: 90 0RF calcitonin (salmon) 200 unit/actuation [place],Non-Aerosol 1 spray NA DAILY 28 Days Qty: 3.7 0RF docusate sodium 100 mg Capsule 100 mg PO BID Qty: 60 0RF bisacodyl 10 mg suppository [address] DAILY PRN (Reason: constipation) Qty: 12 0RF Referrals Referrals: [facility] [Non-Staff] -
[2022-08-07 08:45] LABS: Basophils # (auto) 0.03 K/uL (0-0.2); Basophils % (auto) 0.5 %; Eosinophils % (auto) 1.6 %; Hematocrit (blood only) 41.5 % (37.0-47.0); Hemoglobin 13.8 g/dl (12.0-16.0); Immature Granulocytes # (auto) 0.02 K/uL (0.01-0.20); Immature Granulocytes % (auto) 0.3 %; Lymphocytes # (auto) 2.53 K/uL (1.2-3.4); Mean Corpuscular Hemoglobin 27.2 pg (25.0-34.0); Mean Corpuscular Hgb Conc 33.3 g/dL (32.0-36.0); Mean Corpuscular Volume 81.7 fL (80.0-100.0); Mean Platelet Volume 10.3 fL (9.4-12.4); Monocytes # (auto) 0.51 K/uL (0.11-0.59); Monocytes % (auto) 8.1 %; Neutrophils # (auto) 3.14 K/uL (1.40-6.50); Neutrophils % (auto) 49.5 %; Platelet Count 98 K/uL (130-400); RDW Coefficient of Variation 14.1 % (11.5-14.5); RDW Standard Deviation 41.4 fL (36.4-46.3); Red Blood Count 5.08 M/uL (4.20-5.40); White Blood Count 6.33 K/ul (4.8-10.8)
[2022-08-07 08:51] LABS: Albumin Globulin Ratio 1.2 (0.9-2); Albumin Level 3.6 gm/dl (3.4-5.0); BUN Creatinine Ratio 32.7 (10-20); Bilirubin,Total 0.5 mg/dl (0.2-1.0); Calcium 9.6 mg/dl (8.5-10.1); Creatinine Clr Calc Pharmacy 69.6 ml/min; Est GFR (African American) 100.5 ml/min; Est GFR (Non-African American) 86.7 ml/min; Globulin 3.1 gm/dl (2.5-4.0); Potassium 4.2 mmol/L (3.5-5.1); Total Protein 6.7 gm/dl (6.0-8.3)
[2022-08-07 08:57] LABS: Troponin I High Sensitivity 33.9 pg/ml (0-14)
[2022-08-07 08:57] LABS: Appearance Urine Clear (Clear); Bilirubin Urine Negative (Negative); Blood Urine Negative (Negative); Color Urine Yellow; Glucose Urine UA Negative (Negative); Ketones Urine Negative (Negative); Leukocyte Esterase Urine Negative (Negative); Nitrite Urine Negative (Negative); Protein Urine Negative (Negative); Specific Gravity Urine 1.015 (1.000-1.030); Urobilinogen Urine Negative (Negative); pH Urine >= 9.0 (4.5-7.5)
[2022-08-07 09:06] LABS: Thyroid Stimulating Hormone 6.691 uIu/ml (0.300-4.500)
--- NOTE | 2022-08-07 09:25 | XRay Report ---
XR chest 1V not portable CLINICAL HISTORY: weakness TECHNIQUE: Single frontal radiograph of the chest was obtained. Comparison: Comparison is made to chest radiograph 01/11/2022 FINDINGS: No lines and tubes are seen. Cardiomegaly is noted. The aortic arch is calcified. Aortic valvular pro sthesis is noted. The lungs are clear. No evidence of pleural effusion or pneumothorax. Degenerative changes are seen in the bilateral shoulder joints and spine. IMPRESSION: No acute chest disease. Cardiomegaly is noted. ACT 112: Negative or not required by law. Electronically signed by: Amos Gomez M.D. 08/07/2022 9:24 AM
--- NOTE | 2022-08-07 09:31 | XRay Report ---
LUMBAR SPINE 5 VIEWS CLINICAL HISTORY: Recent fall. Low back pain. FINDINGS: 5 views of the lumbar spine are compared to study dated 07/16/[address] sc an of lumbar spine dated 07/08/2022. The skeletal structures are osteopenic. There is no radiographic evidence of acute fracture or malalignment. Again seen is a subacute superior endplate compression fr acture of L1 with a mild loss of height. Vertebral body height is otherwise maintained throughout the lumbar spine. There are bilateral pars defects at L5 with advanced disc space narrowing and 14 mm of anterolisthesis at L5-S1. There is only mild disc space narrowing at the remaining lumbar levels. Al ignment is otherwise preserved. Anterior and lateral marginal osteophytes are seen throughout. The tr ansverse and spinous processes appear intact. Advanced facet arthropathy is seen in the lower lumbar region. The visualized sacrum and bony pelvis appear intact. Degenerative sclerosis is noted in the s acroiliac joints. Cholecystectomy clips are seen in the right upper quadrant. There is no bowel obstr uction. There is advanced atherosclerotic calcification of the abdominal aorta. IMPRESSION: 1. No acute bony abnormality is identified. 2. Again seen is a subacute superior endplate compression fracture of L1. 3. Bilateral pars defects at L5 with grade 1 anterolisthesis at L5-S1. 4. Osteopenia and spondylotic change as above. Dictated: 08/07/2022 9:17 AM Transcribed: 08/07/2022 9:25 AM Didi [id number] [facility] Electronically signed by: Jatinder Masterson M.D. 08/07/2022 9:29 AM
[2022-08-07 09:41] LABS: T4 Free Thyroxine 1.04 ng/dl (0.61-1.60)
--- NOTE | 2022-08-07 10:25 | History & Physical Report ---
Date of Service August 07, 2022 Assessment & Plan (1) Back pain: Plan: Previously described as lower back pain since fall in June but today appears to be from her neck to tail bone. Although notably is moving her head easily without pain and pain comes on when she rotates her body, she does have a prior diagnosis of cervical spinal stenosis CT cervical and thoracic spine as these have not been imaged since her initial fall. Consider MRI given history of cervical spinal stenosis although symptoms not typical for this. Opiates really having minimal effect and would be ideal to wean these off as she has chronic pain and this is likely to lead to addiction/tolerance as she will always have pain that she would take opiates for. However acutely suspect unable to cope at home as she was getting oxycontin BID at [facility] but did not have her dose last night or this morning, therefore will restart this initially. Her L1 compression fracture is unlikely the cause of her ongoing pain as this occurred in June and she has no point tenderness here. Pain management: Acetaminophen 1000mg PO BID Celebrex 100mg PO daily for 5 days (reduced dose due to Child-Ware B cirrhosis) Oxycontin 10mg PO BID (try to wean off prior to discharge) Oxycodone 5mg PO q4h PRN Lidocaine patch Voltaren Gel Recently stopped antidepressants. See H&P. Will start on Cymbalta as discussed with her PCP. (2) Cirrhosis: Plan: Child-Wrae score 7. Will reduce NSAIDs by 50% and consider just a short course. Continue spironolactone 25mg PO q2d (3) Type 2 diabetes mellitus: Plan: HbA1C 6.4 in March. Will repeat with AM labs Continue metformin Insulin sliding scale for correction coverage only (4) Skin rash: Plan: Suspected to be due to laundry detergent from [facility] Continue steroid cream not on open areas BID Continue steroid taper: prednisone 10mg PO today and tomorrow then stop. (5) Constipation: Plan: Continue miraLAX 17g TID, docusate 100mg PO BID, Senna (6) Restless leg: Plan: Symptoms described by patient. Will check ferritin levels with AM labs and replete if < 75 prior to trial of any additional medications (7) Hypothyroidism: Plan: Continue levothyroxine 50mcg PO daily (8) Asthma: Plan: Continue her routine inhalers or hospital formulary equivalent (9) Depression: Plan: Starting duloxetine as above (10) Hypomagnesemia: Plan: Mg level 1.6. Mg sulfate 2g IV now and repeat level in AM. Continue her usual oral supplementation. Plan VTE Prophylaxis - lovenox 40mg SQ daily Diet - regular Disposition - observation status to med/surg Admission and Anticipated Discharge Date Admission Date: August 07, 2022 History of Present Illness Chief Complaint: Back pain Primary Care Provider: Vinh Ardon MD Mimi Ovalle is an 81 year old female who presents to the ER with generalized back pain. Severity 10/10. Worse on any movement. Ongoing since her fall on July 07. Difficult to get a complete history from the patient due to lack of hearing aids, generalized chronic confusion especially while on opiates and generally concentrates on her back pain rather than answering my questions. Son and daughter at bedside help with the history. Initial injury occurred July 07 when she slipped in the bathroom and hit her back. She was initially seen in the ER the following day with CT of lumbar spine showing acute to subacute compression fracture of L1. She was initially discharged home but then hospitalized from July 13 - July 17, 2022 due to the same symptoms and inability to cope at home. She was discharged to [facility] for ongoing rehabilitation and was recently discharged just 2 days ago. Discharge summary note she was started on Oxycontin during her time at [facility] although no prescription was recorded as picked up. Her daughter believes she had OxyContin yesterday morning but missed her dose last night. Today while trying to get back into bed from her walker she reported shortness of breath and intense back pain that she had to call her son to bring her back to the ER. Of note she also recently stopped taking her anti-depressants. She sent a message in May to her PCP saying she was stopping Zoloft cold turkey as she felt it was making her more depressed. She was started on Lexapro over the phone by Gretta Knight. She reports sleeping all the time on this but per PCP note it sounds like it more just disrupted her sleep/wake cycle as mirtazapine was considered to help her with sleep but ultimately decided to hold off starting any new medication at that time. From prior PCP notes and [facility] diagnosis it appears she has a prior diagnosis of cervical spinal stenosis however the patient or family cannot tell me anything about this or her prior appointments with neurosurgery. Allergies Allergy/AdvReac Type Severity Reaction Status Date / Time amoxicillin Allergy Mild YEAST Verified 07/13/22 09:06 INFECTION doxycycline Allergy Mild unknown Verified 07/13/22 09:06 meloxicam Allergy Mild unknown Verified 07/13/22 09:06 nitrofurantoin Allergy Mild unknown Verified 07/13/22 09:06 ofloxacin Allergy Mild unknown Verified 07/13/22 09:06 sulfamethoxazole Allergy Mild unknown Verified 07/13/22 09:06 trimethoprim Allergy Mild unknown Verified 07/13/22 09:06 atorvastatin [From Lipitor] Allergy Unknown ON MED LIST Verified 07/13/22 09:06 ezetimibe Allergy Unknown UNKNOWN Verified 07/13/22 09:06 gabapentin Allergy Unknown ON MED LIST Verified 07/13/22 09:06 pravastatin Allergy Unknown ON MED LIST Verified 07/13/22 09:06 rosuvastatin Allergy Unknown BODY PAINS Verified 07/13/22 09:06 oxycodone AdvReac Mild VOMITING Verified 07/13/22 09:06 Home Medications Medication Instructions Recorded Confirmed Type cholecalciferol (vitamin D3) 50 1,000 units PO QAM 04/12/19 08/07/22 History mcg (2,000 unit) capsule coenzyme Q10 10 mg capsule 10 mg PO QAM 03/06/20 08/07/22 History geriatric fknruhri-[id number]-[id number] 1 tab PO QAM 03/06/20 08/07/22 History fexofenadine 180 mg tablet 180 mg PO DAILY Allergic Symptoms 10/03/20 08/07/22 History garlic 1,000 mg capsule 1,000 mg PO QAM 10/03/20 08/07/22 History albuterol sulfate 90 mcg/actuation 2 puff inhalation Q4H PRN 12/18/20 08/07/22 Rx aerosol inhaler shortness of breath or wheezing #18 grams cyanocobalamin (vitamin B-12) 100 100 mcg PO QAM 04/24/21 08/07/22 History mcg tablet clobetasol 0.05 % topical ointment 1 applic topical TID PRN itching 05/29/21 08/07/22 Rx #15 grams levothyroxine 50 mcg tablet 50 mcg PO DAILY #90 tabs 10/17/21 08/07/22 Rx clopidogrel 75 mg tablet 75 mg PO QAM #90 tabs 12/20/21 08/07/22 Rx metformin 500 mg tablet 500 mg PO BID #180 tabs 02/06/22 08/07/22 Rx spironolactone 25 mg tablet 25 mg PO Q2D 04/01/22 08/07/22 History furosemide 40 mg tablet 40 mg PO DAILY PRN weight gain #90 04/25/22 08/07/22 Rx tabs benzonatate 100 mg capsule 200 mg PO TID PRN Cough #60 caps 05/28/22 08/07/22 Rx lancets (OneTouch UltraSoft #100 ea 06/17/22 08/07/22 Rx Lancets) diclofenac sodium 1 % topical gel 4 g topical QID #100 grams 07/08/22 08/07/22 Rx (Voltaren Arthritis Pain) magnesium oxide 400 mg (241.3 mg 400 mg PO BID #90 tabs 07/10/22 08/07/22 Rx magnesium) tablet fluticasone 250 mcg-salmeterol 50 1 inh inhalation BID 07/13/22 08/07/22 History mcg/dose blistr powdr for inhalation (Advair Diskus) acetaminophen 325 mg tablet 650 mg PO Q4H PRN pain #60 tabs 07/17/22 08/07/22 Rx bisacodyl 10 mg rectal suppository 10 mg UT DAILY PRN constipation 07/17/22 08/07/22 Rx #12 ea calcitonin (salmon) 200 1 spray NA DAILY 4 weeks #3.7 mL 07/17/22 08/07/22 Rx unit/actuation nasal spray docusate sodium 100 mg capsule 100 mg PO BID #60 caps 07/17/22 08/07/22 Rx oxycodone 5 mg tablet 5 mg PO Q4H PRN moderate-severe 07/17/22 08/07/22 Rx pain #15 tabs polyethylene glycol 3350 17 gram 17 g PO TID #90 ea 07/17/22 08/07/22 Rx oral powder packet (Miralax) sennosides 8.6 mg tablet (Senokot) 17.2 mg PO QAM #60 tabs 07/17/22 08/07/22 Rx oxycodone 10 mg tablet,crush 10 mg PO BID 08/07/22 08/07/22 History resistant,extended release 12 hr (OxyContin) 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 Sciatica Severe aortic stenosis Severe tricuspid regurgitation Stenosis, cervical spine TMJ (sprain of temporomandibular joint) Vertigo Vitamin D deficiency Surgical History History of cataract surgery History of laparoscopic cholecystectomy Family History Unknown Esophageal reflux Mother , age 73 of dementia Dementia Myocardial infarction Father , age 75 of a stroke Stroke Denies family history of Ovarian cancer Prostate cancer Coronary heart disease Breast cancer Colorectal cancer Social History Smoking Status: Former smoker Tobacco Type: Cigarettes Second Hand Exposure: No; Hx Alcohol Use: No Hx Substance Use: No Preferred Language: Kazakh Communication Ability: Effective Visual Impairment: No Limitations Hearing Ability: Use of Hearing Aid Refractory Technician Required: No Beliefs That Will Affect Care: None marital status: / Current Living Situation: Alone current occupational status: retired 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 Other Information That Helps Us Care for You: No Feels Safe at Home: Yes Safety Concerns: Feels Safe At This Time Childhood Exposure to Second-Hand Smoke: Yes caffeine: Yes during the past year weight has: remained stable Dental Care, Regularly: Yes Physical Activity Frequency: 1-2 Times per Week Seatbelt Use: always Sunscreen Use: Yes Assistive Devices: Bedside Commode, Scooter/Electric Scooter and Walker Review of Systems Review of Systems: All systems reviewed & are unremarkable except as noted in HPI & below Physical Exam Constitutional: well developed and + acute distress (back pain); + not well nourished Eyes: PERRL, conjunctivae normal, anicteric sclerae ENMT: Ears: + hearing impairment Neck: trachea midline, no thyromegaly Respiratory: normal respiratory effort, lungs clear to auscultation Cardiovascular: RRR, no murmur, no edema Gastrointestinal (Abdomen): normal bowel sounds, soft, nontender, no hepatosplenomegaly Musculoskeletal: Spine: + cervical muscular tenderness, thoracic spine normal to inspection, lumbar spine normal to inspection, + pain with thoraco-lumbar ROM, + thoracic spinal tenderness, + lumbar spinal tenderness, + paraspinal tenderness (from neck to coccyx) and + sacral tenderness; normal cervical ROM, no pain with cervical ROM, straight leg raise negative bilaterally and no sciatic notch tenderness Skin: bilateral lower extremity excoriation farley Stage 3 Medial ulcer on right ankle and 1st MT without surrounding cellulitis Neurologic: moves all extremities and awake; no focal motor deficits and not confused Speech / Cognition: normal speech Results & Data Results & Data Vital Signs (Past 12 Hours) Vital Signs Temp Pulse Pulse Resp BP BP Pulse Ox 08/07/22 09:45 71 18 119/77 100 08/07/22 08:00 75 12 148/76 H 98 08/07/22 07:21 77 14 131/105 H 100 08/07/22 08:08 74 08/07/22 06:46 37.2 C 87 20 139/118 H 100 O2 Del Method 08/07/22 09:45 Room Air 08/07/22 08:00 Room Air 08/07/22 07:21 Room Air 08/07/22 08:08 08/07/22 06:46 Room Air Laboratory Results Abnormal lab results 08/07/22 08/07/22 08/07/22 Range/Units 06:50 06:50 06:50 Plt Count 98 L (130-400) K/uL Creatinine 0.55 L (0.6-1.2) mg/dl BUN/Creatinine Ratio 32.7 H (10-20) Glucose 128 H (70-99(Fasting)) mg/dl Troponin I High Sens 33.9 H (0-14) pg/ml TSH 6.691 H (0.300-4.500) uIu/ml Urine pH (4.5-7.5) 08/07/22 Range/Units 08:44 Plt Count (130-400) K/uL Creatinine (0.6-1.2) mg/dl BUN/Creatinine Ratio (10-20) Glucose (70-99(Fasting)) mg/dl Troponin I High Sens (0-14) pg/ml TSH (0.300-4.500) uIu/ml Urine pH >= 9.0 H (4.5-7.5) Diagnostic Findings XR chest 1V not portable CLINICAL HISTORY: weakness TECHNIQUE: Single frontal radiograph of the chest was obtained. Comparison: Comparison is made to chest radiograph 01/11/2022 FINDINGS: No lines and tubes are seen. Cardiomegaly is noted. The aortic arch is calcified. Aortic valvular prosthesis is noted. The lungs are clear. No evidence of pleural effusion or pneumothorax. Degenerative changes are seen in the b ilateral shoulder joints and spine. IMPRESSION: No acute chest disease. Cardiomegaly is noted. LUMBAR SPINE 5 VIEWS CLINICAL HISTORY: Recent fall. Low back pain. FINDINGS: 5 views of the lumbar spine are compared to study dated 07/16/[address] scan of lumbar spine dated 07/08/2022. The skeletal structures are osteopenic. There is no radiographic evidence of acute fracture or malalignment. Again seen is a subacute superior endplate compression fracture of L1 with a mild loss of height. Vertebral body height is otherwise maintained throughout the lumbar spine. There are bilateral pars defects at L5 with advanced disc space narrowing and 14 mm of anterolisthesis at L5-S1. There is only mild disc space narrowing at the remaining lumbar levels. Alignment is otherwise preserved. Anterior and lateral marginal osteophytes are seen throughout. The transverse and spinous processes appear intact. Advanced facet arthropathy is seen in the lower lumbar region. The visualized sacrum and bony pelvis appear intact. Degenerative sclerosis is noted in the sacroiliac joints. Cholecystectomy clips are seen in the right upper quadrant. There is no bowel obstruction. There is advanced atherosclerotic calcification of the abdominal aorta. IMPRESSION: 1. No acute bony abnormality is identified. 2. Again seen is a subacute superior endplate compression fracture of L1. 3. Bilateral pars defects at L5 with grade 1 anterolisthesis at L5-S1. 4. Osteopenia and spondylotic change as above. Medications Administered ER Medications Given: Percocet 5/325 1 tab NSS 500ml bolus ECG Rate (beats per minute): 89 Rhythm: sinus with SA Findings: + nonspecific-ST abn Comparison ECG Date: from (Jun) Change: the following changes noted (Left anterior fascicular block is no longer present) Code Status & VTE Plan Code Status Full VTE Prophylaxis Plan VTE Prophylaxis will be ordered: Yes PG Care Time/CCT Total # of Minutes Spent Total Time Spent with Patient: Total time spent is greater than 50% in coordination of care (as documented) at patient's floor/unit and/or counseling patient: Coding Level of Care Code 69032 INT INP/OBS CARE 3/75MIN Diagnoses Back pain M54.9 Cirrhosis K74.60 Type 2 diabetes mellitus E11.9 Skin rash R21 Constipation K59.00 Restless leg G25.81 Hypothyroidism E03.9 Asthma J45.20 Asthma complication type: unspecified Asthma persistence: intermittent Asthma severity: unspecified severity Depression F32.9 Hypomagnesemia E83.42 (8) Asthma Asthma complication type: unspecified Asthma persistence: intermittent Asthma severity: unspecified severity Qualified Code(s): J45.20 - Mild intermittent asthma, uncomplicated
[2022-08-07 11:25] LABS: Magnesium 1.6 mg/dl (1.7-2.4)
[2022-08-07 11:32] LABS: Troponin I High Sensitivity 32.9 pg/ml (0-14)
[2022-08-07] MEDS ORDERED: oxyCODONE HCL 10 MG TABCR (OxyCONTIN) PO STA (11:36)
[2022-08-07 11:47] LABS: INR 1.1 (0.9-1.1); Prothrombin Time 11.9 Seconds (9.0-12.0)
--- NOTE | 2022-08-07 12:07 | Electrocardiogram Report ---
Test Reason : Blood Pressure : / mmHG Vent. Rate : 089 BPM Atrial Rate : 089 BPM P-R Int : 142 ms QRS Dur : 114 ms QT Int : 406 ms P-R-T Axes : 076 -09 096 degrees QTc Int : 493 ms Poor data quality, interpretation may be adversely affected Normal sinus rhythm with sinus arrhythmia Incomplete right bundle branch block Nonspecific ST and T wave abnormality Prolonged QT Abnormal ECG When compared with ECG of 08-JUL-2022 17:38, Left anterior fascicular block is no longer Present Confirmed by Vinh Mueller ([id number]) on 08/07/2022 12:06:47 PM Referred By: [facility] Confirmed By:Sai Mueller
[2022-08-07] MEDS ORDERED: ONDANSETRON INJ 2 MG/ML 2 ML VIAL IV PRN (12:27)
--- NOTE | 2022-08-07 12:38 | CT Scan Report ---
CT cervical spine wo con CLINICAL HISTORY: Fall # fracture TECHNIQUE: Multidetector row helical CT of the cervical spine was performed without administration of intravenous contrast. Coronal and sagittal reformations were obtained. Automated dose lowering techn iques and/or adjustment according to patient size were utilized for this exam. Comparison: None available at the time of this dictation. FINDINGS: No acute fractures or subluxations are identified. Degenerative changes are seen in the visualized sp ine. The alignment is normal. Biapical scarring is seen. IMPRESSION: Degenerative changes without evidence of acute bony injury. ACT 112: Negative or not required by law. Electronically signed by: Amos Gomez M.D. 08/07/2022 12:37 PM
[2022-08-07] MEDS ORDERED: DEXTROSE 50% 50 ML SYRINGE IV PRN (13:26)
[2022-08-07] MEDS ORDERED: CARBOHYDRATES FOR HYPOGLYCEMIA PO PRN (13:26)
[2022-08-07] MEDS ORDERED: GLUCOSE 40% GEL 15 GM TUBE PO PRN (13:26)
[2022-08-07] MEDS ORDERED: GLUCOSE 10 TAB/TUBE PO PRN (13:26)
[2022-08-07] MEDS ORDERED: GLUCAGON FOR INJ 1 MG VIAL SQ PRN (13:26)
--- NOTE | 2022-08-07 13:42 | CT Scan Report ---
CT OF THE THORACIC SPINE CLINICAL HISTORY: Back pain following fall. Evaluate for fracture. COMPARISON STUDY: Thoracic spine radiographs July 16, 2022. Chest CT August 30, 2021. CT of the a bdomen and pelvis July 13, 2022. TECHNIQUE: Helical axial images of the thoracic spine were obtained. Sagittal and coronal reconstru ctions were viewed. Automated exposure control was utilized for the study. A dose lowering techniqu e was utilized adhering to the principles of ALARA. FINDINGS: No acute thoracic spine fracture is noted. Mild loss of height with concavity of the superi or endplate of T11 is unchanged since CT of August 30, 2021. Moderate multilevel degenerative changes within the thoracic spine are present. There is mild S-shaped curvature of the thoracic spine. No acu te fractures are identified within visualized portions of the posterior ribs. Cardiomegaly is noted. Prosthetic aortic valve. Paravertebral soft tissues are unremarkable. Note is again made of a subacut e L1 fracture. This involves the superior and inferior endplates with 40% loss of vertebral body heig ht loss. This has increased since CT of July 13, 2012. There is 5 mm of retropulsion which has al so slightly increased. This results in moderate central canal stenosis. No extension into the posteri or elements is noted. IMPRESSION: 1. No acute thoracic spine fracture or subluxation. 2. Redemonstration of a subacute L1 vertebral body fracture with increase in vertebral body height lo ss and 5 mm of retropulsion which results in moderate central canal stenosis. This involves the super ior and inferior endplates and may reflect a burst type fracture. No extension into the posterior amina ments. 3. Moderate multilevel degenerative changes within the thoracic spine. ACT 112: Negative or not required by law. Electronically signed by: Wilbur Wynn M.D. 08/07/2022 1:40 PM
[2022-08-07] MEDS ORDERED: ACETAMINOPHEN 500 MG TAB PO SCH (14:00)
[2022-08-07] MEDS: oxyCODONE HCL IR 5 MG TAB (IMMEDIATE RELEASE) PO PRN (14:06)
[2022-08-07] MEDS: predniSONE 10 MG TABLET PO SCH (14:07)
[2022-08-07] MEDS: DULoxetine HCL 30 MG CAP PO SCH (14:07)
[2022-08-07] MEDS: LIDOCAINE 5% 1 PATCH TD SCH (14:07)
[2022-08-07] MEDS: POLYETHYLENE (MIRALAX) 17 GM PACK PO SCH ×2 (14:26→20:29)
[2022-08-07] MEDS: MAGNESIUM SULFATE / D5W 1 GM/100 ML BAG IV SCH ×2 (15:12→16:53)
[2022-08-07] MEDS: CELECOXIB 100 MG CAP PO SCH (15:31)
[2022-08-07] MEDS: INSULIN ASPART PER UNIT CHARGE SC SCH ×2 (17:25→20:41)
[2022-08-07] MEDS: DICLOFENAC SOD 1% GEL 100 GM TUBE EXT SCH ×2 (17:30→20:29)
[2022-08-07] MEDS: ACETAMINOPHEN 500 MG TAB PO SCH (20:28)
[2022-08-07] MEDS: oxyCODONE HCL 10 MG TABCR (OxyCONTIN) PO SCH (20:28)
[2022-08-07] MEDS: MAGNESIUM OXIDE 400 MG TAB PO SCH (20:29)
[2022-08-07] MEDS: DOCUSATE SODIUM 100 MG CAP PO SCH (20:29)
[2022-08-07] MEDS: metFORMIN HCL 500 MG TAB PO SCH (20:30)
[2022-08-08] MEDS: LEVOTHYROXINE SODIUM 50 MCG TABLET PO SCH (05:34)
[2022-08-08 08:47] LABS: Creatinine Clr Calc Pharmacy 74.5 ml/min; Est GFR (African American) 101.8 ml/min; Est GFR (Non-African American) 87.8 ml/min; Magnesium 1.9 mg/dl (1.7-2.4); Potassium 4.3 mmol/L (3.5-5.1)
[2022-08-08] MEDS: INSULIN ASPART PER UNIT CHARGE SC SCH ×4 (08:55→21:05)
[2022-08-08] MEDS ORDERED: NON-FORMULARY MEDICATION (Coenzyme Q10 10 mg Capsule) PO SCH (09:00)
[2022-08-08] MEDS ORDERED: CHOLECALCIFEROL 1,000 UNITS 25 MCG TAB PO SCH (09:00)
[2022-08-08 09:07] LABS: Ferritin 117.2 ng/ml (8-388)
--- NOTE | 2022-08-08 09:15 | Hospitalist Progress Note ---
Date of Service August 08, 2022 Assessment & Plan (1) Back pain: Plan: Previously described as lower back pain since fall in June but today appears to be from her neck to tail bone. Although notably is moving her head easily without pain and pain comes on when she rotates her body, she does have a prior diagnosis of cervical spinal stenosis CT cervical and thoracic spine as these have not been imaged since her initial fall. Consider MRI given history of cervical spinal stenosis although symptoms not typical for this. Opiates really having minimal effect and would be ideal to wean these off as she has chronic pain and this is likely to lead to addiction/tolerance as she will always have pain that she would take opiates for. However acutely suspect unable to cope at home as she was getting oxycontin BID at [facility] but did not have her dose last night or this morning, therefore will restart this initially. Her L1 compression fracture is unlikely the cause of her ongoing pain as this occurred in June and she has no point tenderness here. Pain management: Acetaminophen 1000mg PO BID Celebrex 100mg PO daily for 5 days (reduced dose due to Child-Ware B cirrhosis) Oxycontin 10mg PO BID (try to wean off prior to discharge) Oxycodone 5mg PO q4h PRN Lidocaine patch Voltaren Gel Recently stopped antidepressants. See H&P. Will start on Cymbalta as discussed with her PCP. 08/08 Continues on pain control w/ calcitonin nasal (to complete 3-4wks at d/c last admit), lidocaine patch, Oxycontin BID, oxycodone prn, lidocaine patch, voltaren gel Appears w/ opioid induced constipation likely, will check ammonia given reports of confusion (however at baseline confusion), hx cirrhosis. Check lyme given joint complaints as well/confusion Consultation placed for ortho-spine given burst fx on CT imaging, moderate central canal stenosis -- Dr Waller will see patient tomorrow Consider consult for pain management if not able to obtain adequate control however appears stable at present (2) Cirrhosis: Plan: Child-Ware score 7. Will reduce NSAIDs by 50% and consider just a short course. Continue spironolactone 25mg PO q2d On lasix 40mg PRN weight gain Ammonia 64 -- working on BMs, will order dose lactulose as well x1 and monitor (3) Type 2 diabetes mellitus: Plan: HbA1C 6.4 in March --> now 7.2 Continue metformin Insulin sliding scale for correction coverage only (4) Skin rash: Plan: Suspected to be due to laundry detergent from [facility] Continue steroid cream not on open areas BID Continue steroid taper: prednisone 10mg PO 08/07 and today then stop. (5) Constipation: Plan: Continue miraLAX 17g TID, docusate 100mg PO BID, Senna Lactulose 20mg x1 now, consider daily dosing given chronic pain/cirrhosis to prevent elevated ammonia/hepatic encephalopathy (6) Restless leg: Plan: Symptoms described by patient. Ferritin not deficient, B12 >1500 (7) Hypothyroidism: Plan: Continue levothyroxine 50mcg PO daily TSH elevated to 6.691, but Ft4 wnl 1.04 -- would rec repeating outpatient w/ PCP/adjustment if remains elevated given normal TSH (8) Asthma: Plan: Continue her routine inhalers or hospital formulary equivalent No SOB reported, lungs clear (9) Depression: Plan: Starting duloxetine as above had d/c her antidepressants earlier this year (10) Hypomagnesemia: Plan: Mg level 1.6. Mg sulfate 2g IV now Repeat mag 1.9 Continue her usual oral supplementation. Plan VTE Prophylaxis - lovenox 40mg SQ daily Ortho consulted for AM Check Lyme as well -- will need to inquire if patient ever treated for such in the past Admission and Anticipated Discharge Date Admission Date: August 07, 2022 Supervising Physician Co-Signing Physician Notes The patient was not seen by me. The chart was reviewed. Case discussed with JULIA Underwood. Agree with assessment and plan Subjective Eval this morning, sitting up in bed. Pain reported to spine but controlled with ordered medications. Had run out of the oxycontin at home, improved as back on it. Good appetite. No fever/chills, chest pain, shortness of breath. Had small BM this morning but states she thinks she should be on Miralax back to three times a day. Reviewed imaging w/ her and son on phone by proxy. Questions addressed. Dr Waller going to review imaging as well. Of note, patient wanting to AVOID surgery if possible. Questions/concerns addressed at this time. Physical Exam Constitutional: WD/WN, sitting up in bed, NAD but reporting low back pain, reproducible on palpation Eyes: PERRL, conjunctivae normal, anicteric sclerae ENMT: Ears: + hearing impairment Neck: trachea midline, no thyromegaly Respiratory: normal respiratory effort, lungs clear to auscultation Cardiovascular: RRR, no murmur, no edema Gastrointestinal (Abdomen): normal bowel sounds, soft, nontender, no hepatosplenomegaly Musculoskeletal: Spine: + cervical muscular tenderness, thoracic spine normal to inspection, lumbar spine normal to inspection, + pain with thoraco-lumbar ROM, + thoracic spinal tenderness, + lumbar spinal tenderness, + paraspinal tenderness (from neck to coccyx (decreased)) and + sacral tenderness; normal cervical ROM, no pain with cervical ROM, straight leg raise negative bilaterally and no sciatic notch tenderness Skin: bilateral lower extremity excoriation farley Stage 3 Medial ulcer on right ankle and 1st MT without surrounding cellulitis Neurologic: moves all extremities and awake; no focal motor deficits and not confused Speech / Cognition: normal speech Results & Data Results & Data Vital Signs (Past 12 Hours) Vital Signs Temp Pulse Resp BP Pulse Ox O2 Del Method 08/08/22 07:21 36.4 C L 89 17 112/70 97 Room Air 08/07/22 21:59 36.6 C 90 18 139/75 96 Room Air Laboratory Results 08/08/22 08/08/22 08/08/22 Range/Units 08:22 08:12 08:12 PT (9.0-12.0) Seconds INR (0.9-1.1) Sodium 139 (136-145) mmol/L Potassium 4.3 (3.5-5.1) mmol/L Chloride 106 (98-107) mmol/L Carbon Dioxide 28 (21-32) mmol/L Anion Gap 5 (3-11) BUN 18 (6-23) mg/dl Creatinine 0.53 L (0.6-1.2) mg/dl Est Cr Clr Drug Dosing 74.5 ml/min Est GFR ( Amer) 101.8 ml/min Est GFR (Non-Af Amer) 87.8 ml/min BUN/Creatinine Ratio 34.0 H (10-20) Glucose 123 H (70-99(Fasting)) mg/dl POC Glucose 110 H (70-99) mg/dl Estimat Average Glucose Hemoglobin A1c Lactate 1.0 (0.4-2.0) mmol/L Calcium 9.0 (8.6-10.3) mg/dl Magnesium 1.9 (1.7-2.4) mg/dl Iron 116 (35-150) mcg/dl TIBC 300 (250-450) mcg/dl Unsaturated IBC 184 (155-355) mcg/dl Transferrin % Sat 39 (15-50) % Ferritin 117.2 (8-388) ng/ml Troponin I High Sens (0-14) pg/ml 25-OH Vitamin D Total Free T4 (0.61-1.60) ng/dl 08/08/22 08/08/22 08/07/22 Range/Units 08:12 08:12 20:35 PT (9.0-12.0) Seconds INR (0.9-1.1) Sodium (136-145) mmol/L Potassium (3.5-5.1) mmol/L Chloride (98-107) mmol/L Carbon Dioxide (21-32) mmol/L Anion Gap (3-11) BUN (6-23) mg/dl Creatinine (0.6-1.2) mg/dl Est Cr Clr Drug Dosing ml/min Est GFR ( Amer) ml/min Est GFR (Non-Af Amer) ml/min BUN/Creatinine Ratio (10-20) Glucose (70-99(Fasting)) mg/dl POC Glucose 229 H (70-99) mg/dl Estimat Average Glucose Pending Hemoglobin A1c Pending Lactate (0.4-2.0) mmol/L Calcium (8.6-10.3) mg/dl Magnesium (1.7-2.4) mg/dl Iron (35-150) mcg/dl TIBC (250-450) mcg/dl Unsaturated IBC (155-355) mcg/dl Transferrin % Sat (15-50) % Ferritin (8-388) ng/ml Troponin I High Sens (0-14) pg/ml 25-OH Vitamin D Total Pending Free T4 (0.61-1.60) ng/dl 08/07/22 08/07/22 08/07/22 Range/Units 17:03 10:43 10:43 PT 11.9 (9.0-12.0) Seconds INR 1.1 (0.9-1.1) Sodium (136-145) mmol/L Potassium (3.5-5.1) mmol/L Chloride (98-107) mmol/L Carbon Dioxide (21-32) mmol/L Anion Gap (3-11) BUN (6-23) mg/dl Creatinine (0.6-1.2) mg/dl Est Cr Clr Drug Dosing ml/min Est GFR ( Amer) ml/min Est GFR (Non-Af Amer) ml/min BUN/Creatinine Ratio (10-20) Glucose (70-99(Fasting)) mg/dl POC Glucose 155 H (70-99) mg/dl Estimat Average Glucose Hemoglobin A1c Lactate (0.4-2.0) mmol/L Calcium (8.6-10.3) mg/dl Magnesium 1.6 L (1.7-2.4) mg/dl Iron (35-150) mcg/dl TIBC (250-450) mcg/dl Unsaturated IBC (155-355) mcg/dl Transferrin % Sat (15-50) % Ferritin (8-388) ng/ml Troponin I High Sens 32.9 H (0-14) pg/ml 25-OH Vitamin D Total Free T4 (0.61-1.60) ng/dl 08/07/22 Range/Units 06:50 PT (9.0-12.0) Seconds INR (0.9-1.1) Sodium (136-145) mmol/L Potassium (3.5-5.1) mmol/L Chloride (98-107) mmol/L Carbon Dioxide (21-32) mmol/L Anion Gap (3-11) BUN (6-23) mg/dl Creatinine (0.6-1.2) mg/dl Est Cr Clr Drug Dosing ml/min Est GFR ( Amer) ml/min Est GFR (Non-Af Amer) ml/min BUN/Creatinine Ratio (10-20) Glucose (70-99(Fasting)) mg/dl POC Glucose (70-99) mg/dl Estimat Average Glucose Hemoglobin A1c Lactate (0.4-2.0) mmol/L Calcium (8.6-10.3) mg/dl Magnesium (1.7-2.4) mg/dl Iron (35-150) mcg/dl TIBC (250-450) mcg/dl Unsaturated IBC (155-355) mcg/dl Transferrin % Sat (15-50) % Ferritin (8-388) ng/ml Troponin I High Sens (0-14) pg/ml 25-OH Vitamin D Total Free T4 1.04 (0.61-1.60) ng/dl Diagnostic Findings Lumbar Spine X-Ray 08/07/22 07:41 LUMBAR SPINE 5 VIEWS CLINICAL HISTORY: Recent fall. Low back pain. FINDINGS: 5 views of the lumbar spine are compared to study dated 07/16/[address] scan of lumbar spine dated 07/08/2022. The skeletal structures are osteopenic. There is no radiographic evidence of acute fracture or malalignment. Again seen is a subacute superior endplate compression fracture of L1 with a mild loss of height. Vertebral body height is otherwise maintained throughout the lumbar spine. There are bilateral pars defects at L5 with advanced disc space narrowing and 14 mm of anterolisthesis at L5-S1. There is only mild disc space narrowing at the remaining lumbar levels. Alignment is otherwise preserved. Anterior and lateral marginal osteophytes are seen throughout. The transverse and spinous processes appear intact. Advanced facet arthropathy is seen in the lower lumbar region. The visualized sacrum and bony pelvis appear intact. Degenerative sclerosis is noted in the sacroiliac joints. Cholecystectomy clips are seen in the right upper quadrant. There is no bowel obstruction. There is advanced atherosclerotic calcification of the abdominal aorta. IMPRESSION: 1. No acute bony abnormality is identified. 2. Again seen is a subacute superior endplate compression fracture of L1. 3. Bilateral pars defects at L5 with grade 1 anterolisthesis at L5-S1. 4. Osteopenia and spondylotic change as above. Dictated: 08/07/2022 9:17 AM Transcribed: 08/07/2022 9:25 AM Didi [id number] [email or web address]_Varinder Electronically signed by: Jatinder Masterson M.D. 08/07/2022 9:29 AM Chest X-Ray 08/07/22 07:42 XR chest 1V not portable CLINICAL HISTORY: weakness TECHNIQUE: Single frontal radiograph of the chest was obtained. Comparison: Comparison is made to chest radiograph 01/11/2022 FINDINGS: No lines and tubes are seen. Cardiomegaly is noted. The aortic arch is calcified. Aortic valvular prosthesis is noted. The lungs are clear. No evidence of pleural effusion or pneumothorax. Degenerative changes are seen in the bilateral shoulder joints and spine. IMPRESSION: No acute chest disease. Cardiomegaly is noted. ACT 112: Negative or not required by law. Electronically signed by: Amos Gomez M.D. 08/07/2022 9:[address] 08/07/22 11:30 CT cervical spine wo con CLINICAL HISTORY: Fall # fracture TECHNIQUE: Multidetector row helical CT of the cervical spine was performed without administration of intravenous contrast. Coronal and sagittal reformations were obtained. Automated dose lowering techniques and/or adjustment according to patient size were utilized for this exam. Comparison: None available at the time of this dictation. FINDINGS: No acute fractures or subluxations are identified. Degenerative changes are seen in the visualized spine. The alignment is normal. Biapical scarring is seen. IMPRESSION: Degenerative changes without evidence of acute bony injury. ACT 112: Negative or not required by law. Electronically signed by: Amos Gomez M.D. 08/07/2022 12:[address] 08/07/22 11:30 CT OF THE THORACIC SPINE CLINICAL HISTORY: Back pain following fall. Evaluate for fracture. COMPARISON STUDY: Thoracic spine radiographs July 16, 2022. Chest CT August 30, 2021. CT of the abdomen and pelvis July 13, 2022. TECHNIQUE: Helical axial images of the thoracic spine were obtained. Sagittal and coronal reconstructions were viewed. Automated exposure control was utilized for the study. A dose lowering technique was utilized adhering to the principles of ALARA. FINDINGS: No acute thoracic spine fracture is noted. Mild loss of height with concavity of the superior endplate of T11 is unchanged since CT of August 30, 2021. Moderate multilevel degenerative changes within the thoracic spine are present. There is mild S-shaped curvature of the thoracic spine. No acute fractures are identified within visualized portions of the posterior ribs. Cardiomegaly is noted. Prosthetic aortic valve. Paravertebral soft tissues are unremarkable. Note is again made of a subacute L1 fracture. This involves the superior and inferior endplates with 40% loss of vertebral body height loss. This has increased since CT of July 13, 2012. There is 5 mm of retropulsion which has also slightly increased. This results in moderate central canal stenosis. No extension into the posterior elements is noted. IMPRESSION: 1. No acute thoracic spine fracture or subluxation. 2. Redemonstration of a subacute L1 vertebral body fracture with increase in vertebral body height loss and 5 mm of retropulsion which results in moderate central canal stenosis. This involves the superior and inferior endplates and may reflect a burst type fracture. No extension into the posterior elements. 3. Moderate multilevel degenerative changes within the thoracic spine. ACT 112: Negative or not required by law. Electronically signed by: Wilbur Wynn M.D. 08/07/2022 1:40 PM PG Care Time/CCT Total # of Minutes Spent Total Time Spent with Patient: Total time spent is greater than 50% in coordination of care (as documented) at patient's floor/unit and/or counseling patient: Coding Level of Care Code 20356 SUB INP/OBS CARE 3/50MIN Diagnoses Back pain M54.9 Cirrhosis K74.60 Type 2 diabetes mellitus E11.9 Skin rash R21 Constipation K59.00 Restless leg G25.81 Hypothyroidism E03.9 Asthma J45.20 Asthma complication type: unspecified Asthma persistence: intermittent Asthma severity: unspecified severity Depression F32.9 Hypomagnesemia E83.42 (8) Asthma Asthma complication type: unspecified Asthma persistence: intermittent Asthma severity: unspecified severity Qualified Code(s): J45.20 - Mild intermittent asthma, uncomplicated
[2022-08-08 09:22] LABS: Estimated Average Glucose 160 mg/dl; Hemoglobin A1C 7.2 % (4.5-5.6)
[2022-08-08] MEDS: LIDOCAINE 5% 1 PATCH TD SCH (09:29)
[2022-08-08] MEDS: DICLOFENAC SOD 1% GEL 100 GM TUBE EXT SCH ×4 (09:29→21:04)
[2022-08-08] MEDS: POLYETHYLENE (MIRALAX) 17 GM PACK PO SCH ×3 (09:47→21:03)
[2022-08-08] MEDS: metFORMIN HCL 500 MG TAB PO SCH ×2 (09:48→21:05)
[2022-08-08] MEDS: MAGNESIUM OXIDE 400 MG TAB PO SCH ×2 (09:49→21:05)
[2022-08-08] MEDS: DOCUSATE SODIUM 100 MG CAP PO SCH ×2 (09:49→21:03)
[2022-08-08] MEDS: CYANOCOBALAMIN (B-12) 100 MCG TABLET PO SCH (09:50)
[2022-08-08] MEDS: DULoxetine HCL 30 MG CAP PO SCH (09:51)
[2022-08-08] MEDS: CLOPIDOGREL BISULFATE 75 MG TAB PO SCH (09:51)
[2022-08-08] MEDS: CELECOXIB 100 MG CAP PO SCH (09:51)
[2022-08-08] MEDS: SENNA 8.6 MG TAB PO SCH (09:52)
[2022-08-08] MEDS: FEXOFENADINE HCL 180 MG TAB PO SCH (09:52)
[2022-08-08] MEDS: predniSONE 10 MG TABLET PO SCH (09:52)
[2022-08-08] MEDS: CALCITONIN SALMON NA 200 IU/AC 3.7 ML BTL SCH (09:53)
[2022-08-08] MEDS: ACETAMINOPHEN 500 MG TAB PO SCH ×2 (09:56→21:04)
[2022-08-08] MEDS: FLUTICASONE/VILANTEROL 200/25MCG 14 PUFFS/INHALER INH SCH (09:58)
[2022-08-08] MEDS: oxyCODONE HCL 10 MG TABCR (OxyCONTIN) PO SCH ×2 (10:01→21:04)
[2022-08-08] MEDS: ENOXAPARIN INJ 40 MG/0.4 ML SYR SQ SCH (10:02)
[2022-08-08] MEDS: SPIRONOLACTONE 25 MG TAB PO SCH (10:51)
[2022-08-08 11:07] LABS: Lyme Ab IgG w/WB Rflx Negative (Negative)
[2022-08-08 11:34] LABS: Lyme Ab IgM w/WB Rflx Positive (Negative)
[2022-08-08] MEDS ORDERED: LACTULOSE SYRUP 20 GM/30 ML UDC PO ONE (14:23)
[2022-08-08] MEDS: cefTRIAXone SODIUM 2,000 MG in DEXTROSE 5% 50 ML IV SCH (18:39)
[2022-08-09] MEDS: LEVOTHYROXINE SODIUM 50 MCG TABLET PO SCH (05:54)
[2022-08-09 07:35] LABS: Hematocrit (blood only) 37.3 % (37.0-47.0); Hemoglobin 12.4 g/dl (12.0-16.0); Mean Corpuscular Hemoglobin 27.1 pg (25.0-34.0); Mean Corpuscular Hgb Conc 33.2 g/dL (32.0-36.0); Mean Corpuscular Volume 81.4 fL (80.0-100.0); Platelet Count 81 K/uL (130-400); RDW Coefficient of Variation 14.1 % (11.5-14.5); RDW Standard Deviation 41.2 fL (36.4-46.3); Red Blood Count 4.58 M/uL (4.20-5.40); White Blood Count 4.08 K/ul (4.8-10.8)
[2022-08-09 08:02] LABS: BUN Creatinine Ratio 29.6 (10-20); Calcium 8.7 mg/dl (8.6-10.3); Creatinine Clr Calc Pharmacy 72.9 ml/min; Est GFR (African American) 101.1 ml/min; Est GFR (Non-African American) 87.3 ml/min; Magnesium 1.8 mg/dl (1.7-2.4); Potassium 4.2 mmol/L (3.5-5.1)
--- NOTE | 2022-08-09 08:20 | Hospitalist Progress Note ---
Date of Service August 09, 2022 Assessment & Plan (1) Back pain: Plan: Previously described as lower back pain since fall in June but today appears to be from her neck to tail bone. Although notably is moving her head easily without pain and pain comes on when she rotates her body, she does have a prior diagnosis of cervical spinal stenosis CT cervical and thoracic spine as these have not been imaged since her initial fall. Consider MRI given history of cervical spinal stenosis although symptoms not typical for this. Opiates really having minimal effect and would be ideal to wean these off as she has chronic pain and this is likely to lead to addiction/tolerance as she will always have pain that she would take opiates for. However acutely suspect unable to cope at home as she was getting oxycontin BID at [facility] but did not have her dose last night or this morning, therefore will restart this initially. Her L1 compression fracture is unlikely the cause of her ongoing pain as this occurred in June and she has no point tenderness here. Pain management: Acetaminophen 1000mg PO BID, Celebrex 100mg PO daily for 5 days (reduced dose due to Child-Ware B cirrhosis -- placed on HOLD, would avoid), Oxycontin 10mg PO BID (try to wean off prior to discharge), Oxycodone 5mg PO q4h PRN Lidocaine patch. Voltaren Gel Recently stopped antidepressants. See H&P. Will start on Cymbalta as discussed with her PCP. Vit D >70, stopped replacement 08/09 Continues on pain control w/ calcitonin nasal (to complete 3-4wks at d/c last admit), lidocaine patch, Oxycontin BID, oxycodone prn, lidocaine patch, voltaren gel Of note, did get prednisone 10mg x 2 days as well -- ?medrol dose pack at d/c Pain much improved, large BM w/ lactulose and will schedule this daily jarrod given her cirrhosis (ammonia ~64) OF note, called [facility] as rx for Oxycontin BID written, however confirmed w/ CM, prior - auth required. Re-sent Rx and CM to asssit w/ obtaining Would rec keeping inpatient until auth received/therapy evals given high l ikelihood of bouncing back as re-admit w/ uncontrolled pain Ortho spine eval today given burst fx -- no intervention, brace ordered and to continue PT/OT -- consults pending Never tx for Lyme, Ceftriaxone IV initiated yesterday, WB pending (initial screening IgM +, IgG negative) and monitor Doxy on allergy list, per CM discussion w son no known anaphylaxis w/ abx or rashes, most allergies likey GI side effects -- can consider course PO doxy at d/c (2) Cirrhosis: Plan: Child-Ware score 7. Will reduce NSAIDs by 50% and consider just a short course. Continue spironolactone 25mg PO q2d On lasix 40mg PRN weight gain Ammonia 64 -- working on BMs, will order dose lactulose as well x1 and monitor --> reported additional BM last evening ?slowing down on miralax TID and rather utilize lactulose to ensure moving bowels regularly if able to tolerate 08/09-- Added lactulose 20mg on 08/08, 2large BM - scheduled 20mg daily and will monitor and can titrate as needed. will hold further miralax/senna (3) Type 2 diabetes mellitus: Plan: HbA1C 6.4 in March --> now 7.2 Continue metformin Insulin sliding scale for correction coverage only Monitor BSGs, did have increased dose steroids x 2 days, will monitor after last dose (4) Skin rash: Plan: Suspected to be due to laundry detergent from [facility] Continue steroid cream not on open areas BID Continue steroid taper: prednisone 10mg PO 08/07 x 3 days, now off (5) Constipation: Plan: Continue miraLAX 17g TID, docusate 100mg PO BID, Senna --> switched to lactulose as above given cirrhosis/borderline ammonia and wanting to prevent hepatic encephalopathy given opiate use Titrate lactulose to keep bowels moving regularly (6) Restless leg: Plan: Symptoms described by patient. Ferritin not deficient, B12 >1500 (7) Hypothyroidism: Plan: Continue levothyroxine 50mcg PO daily TSH elevated to 6.691, but Ft4 wnl 1.04 -- would rec repeating outpatient w/ PCP/adjustment if remains elevated given normal TSH -- alternatively can consider increasing to 75mcg daily and repeat TFT in 4-6wks w/ PCP (8) Asthma: Plan: Continue her routine inhalers or hospital formulary equivalent No SOB reported, lungs clear (9) Depression: Plan: Started duloxetine as above (monitor given her cirrhosis) had d/c her antidepressants earlier this year (10) Hypomagnesemia: Plan: Mg level 1.6. 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 The chart was reviewed. Case discussed with JULIA Underwood. Agree with assessment and plan Subjective Eval this morning, doing well. pain controlled. inquired about fill for oxycontin and confirmed w/ [facility] this was sent this morning. She reports feeeling well, good BMs w/ lactulose and would rather use that to keep graciela moving discussed possible lyme, she is unsure reaction to Doxy Will call son to confirm history/pain meds/lyme and allergy. questions/concerns addresed. Results & Data Results & Data Vital Signs (Past 12 Hours) Vital Signs Temp Pulse Pulse Resp BP Pulse Ox O2 Del Method 08/09/22 07:43 36.6 C 66 13 110/74 97 Room Air 08/08/22 22:35 67 16 106/57 L 96 Room Air 08/08/22 21:04 36.8 C 75 16 100/65 93 Room Air Laboratory Results 08/09/22 08/09/22 08/09/22 Range/Units 08:11 07:13 07:13 WBC 4.08 L (4.8-10.8) K/ul RBC 4.58 (4.20-5.40) M/uL Hgb 12.4 (12.0-16.0) g/dl Hct 37.3 (37.0-47.0) % MCV 81.4 (80.0-100.0) fL MCH 27.1 (25.0-34.0) pg MCHC 33.2 (32.0-36.0) g/dL RDW Std Deviation 41.2 (36.4-46.3) fL RDW Coeff of Marty 14.1 (11.5-14.5) % Plt Count 81 L (130-400) K/uL MPV 11.0 (9.4-12.4) fL Sodium 138 (136-145) mmol/L Potassium 4.2 (3.5-5.1) mmol/L Chloride 106 (98-107) mmol/L Carbon Dioxide 28 (21-32) mmol/L Anion Gap 4 (3-11) BUN 16 (6-23) mg/dl Creatinine 0.54 L (0.6-1.2) mg/dl Est Cr Clr Drug Dosing 72.9 ml/min Est GFR ( Amer) 101.1 ml/min Est GFR (Non-Af Amer) 87.3 ml/min BUN/Creatinine Ratio 29.6 H (10-20) Glucose 121 H (70-99(Fasting)) mg/dl POC Glucose 125 H (70-99) mg/dl Estimat Average Glucose mg/dl Hemoglobin A1c (4.5-5.6) % Lactate (0.4-2.0) mmol/L Calcium 8.7 (8.6-10.3) mg/dl Magnesium 1.8 (1.7-2.4) mg/dl Iron (35-150) mcg/dl TIBC (250-450) mcg/dl Unsaturated IBC (155-355) mcg/dl Transferrin % Sat (15-50) % Ferritin (8-388) ng/ml Ammonia (18-72) umol/L Vitamin B12 (180-914) pg/ml 25-OH Vitamin D Total (30-100) ng/ml Lyme Disease IgG Ab (Negative) Lyme IgG (Western Blot) Lyme IgG 18 kDa Band Lyme IgG 23 kDa Band Lyme IgG 28 kDa Band Lyme IgG 30 kDa Band Lyme IgG 39 kDa Band Lyme IgG 41 kDa Band Lyme IgG 45 kDa Band Lyme IgG 58 kDa Band Lyme IgG 66 kDa Band Lyme IgG 93 kDa Band Lyme IgM Ab (WB) Lyme Disease IgM Ab (Negative) Lyme IgM 23 kDa Band Lyme IgM 39 kDa Band Lyme IgM 41 kDa Band 08/08/22 08/08/22 08/08/22 Range/Units 20:46 17:01 12:35 WBC (4.8-10.8) K/ul RBC (4.20-5.40) M/uL Hgb (12.0-16.0) g/dl Hct (37.0-47.0) % MCV (80.0-100.0) fL MCH (25.0-34.0) pg MCHC (32.0-36.0) g/dL RDW Std Deviation (36.4-46.3) fL RDW Coeff of Marty (11.5-14.5) % Plt Count (130-400) K/uL MPV (9.4-12.4) fL Sodium (136-145) mmol/L Potassium (3.5-5.1) mmol/L Chloride (98-107) mmol/L Carbon Dioxide (21-32) mmol/L Anion Gap (3-11) BUN (6-23) mg/dl Creatinine (0.6-1.2) mg/dl Est Cr Clr Drug Dosing ml/min Est GFR ( Amer) ml/min Est GFR (Non-Af Amer) ml/min BUN/Creatinine Ratio (10-20) Glucose (70-99(Fasting)) mg/dl POC Glucose 235 H 235 H 220 H (70-99) mg/dl Estimat Average Glucose mg/dl Hemoglobin A1c (4.5-5.6) % Lactate (0.4-2.0) mmol/L Calcium (8.6-10.3) mg/dl Magnesium (1.7-2.4) mg/dl Iron (35-150) mcg/dl TIBC (250-450) mcg/dl Unsaturated IBC (155-355) mcg/dl Transferrin % Sat (15-50) % Ferritin (8-388) ng/ml Ammonia (18-72) umol/L Vitamin B12 (180-914) pg/ml 25-OH Vitamin D Total (30-100) ng/ml Lyme Disease IgG Ab (Negative) Lyme IgG (Western Blot) Lyme IgG 18 kDa Band Lyme IgG 23 kDa Band Lyme IgG 28 kDa Band Lyme IgG 30 kDa Band Lyme IgG 39 kDa Band Lyme IgG 41 kDa Band Lyme IgG 45 kDa Band Lyme IgG 58 kDa Band Lyme IgG 66 kDa Band Lyme IgG 93 kDa Band Lyme IgM Ab (WB) Lyme Disease IgM Ab (Negative) Lyme IgM 23 kDa Band Lyme IgM 39 kDa Band Lyme IgM 41 kDa Band 08/08/22 08/08/22 08/08/22 Range/Units 09:48 09:48 09:48 WBC (4.8-10.8) K/ul RBC (4.20-5.40) M/uL Hgb (12.0-16.0) g/dl Hct (37.0-47.0) % MCV (80.0-100.0) fL MCH (25.0-34.0) pg MCHC (32.0-36.0) g/dL RDW Std Deviation (36.4-46.3) fL RDW Coeff of Marty (11.5-14.5) % Plt Count (130-400) K/uL MPV (9.4-12.4) fL Sodium (136-145) mmol/L Potassium (3.5-5.1) mmol/L Chloride (98-107) mmol/L Carbon Dioxide (21-32) mmol/L Anion Gap (3-11) BUN (6-23) mg/dl Creatinine (0.6-1.2) mg/dl Est Cr Clr Drug Dosing ml/min Est GFR ( Amer) ml/min Est GFR (Non-Af Amer) ml/min BUN/Creatinine Ratio (10-20) Glucose (70-99(Fasting)) mg/dl POC Glucose (70-99) mg/dl Estimat Average Glucose mg/dl Hemoglobin A1c (4.5-5.6) % Lactate (0.4-2.0) mmol/L Calcium (8.6-10.3) mg/dl Magnesium (1.7-2.4) mg/dl Iron (35-150) mcg/dl TIBC (250-450) mcg/dl Unsaturated IBC (155-355) mcg/dl Transferrin % Sat (15-50) % Ferritin (8-388) ng/ml Ammonia (18-72) umol/L Vitamin B12 > 1500 H (180-914) pg/ml 25-OH Vitamin D Total (30-100) ng/ml Lyme Disease IgG Ab Negative (Negative) Lyme IgG (Western Blot) Pending Lyme IgG 18 kDa Band Pending Lyme IgG 23 kDa Band Pending Lyme IgG 28 kDa Band Pending Lyme IgG 30 kDa Band Pending Lyme IgG 39 kDa Band Pending Lyme IgG 41 kDa Band Pending Lyme IgG 45 kDa Band Pending Lyme IgG 58 kDa Band Pending Lyme IgG 66 kDa Band Pending Lyme IgG 93 kDa Band Pending Lyme IgM Ab (WB) Pending Lyme Disease IgM Ab Positive A (Negative) Lyme IgM 23 kDa Band Pending Lyme IgM 39 kDa Band Pending Lyme IgM 41 kDa Band Pending 08/08/22 08/08/22 08/08/22 Range/Units 09:48 08:22 08:12 WBC (4.8-10.8) K/ul RBC (4.20-5.40) M/uL Hgb (12.0-16.0) g/dl Hct (37.0-47.0) % MCV (80.0-100.0) fL MCH (25.0-34.0) pg MCHC (32.0-36.0) g/dL RDW Std Deviation (36.4-46.3) fL RDW Coeff of Marty (11.5-14.5) % Plt Count (130-400) K/uL MPV (9.4-12.4) fL Sodium (136-145) mmol/L Potassium (3.5-5.1) mmol/L Chloride (98-107) mmol/L Carbon Dioxide (21-32) mmol/L Anion Gap (3-11) BUN (6-23) mg/dl Creatinine (0.6-1.2) mg/dl Est Cr Clr Drug Dosing ml/min Est GFR ( Amer) ml/min Est GFR (Non-Af Amer) ml/min BUN/Creatinine Ratio (10-20) Glucose (70-99(Fasting)) mg/dl POC Glucose 110 H (70-99) mg/dl Estimat Average Glucose mg/dl Hemoglobin A1c (4.5-5.6) % Lactate 1.0 (0.4-2.0) mmol/L Calcium (8.6-10.3) mg/dl Magnesium (1.7-2.4) mg/dl Iron (35-150) mcg/dl TIBC (250-450) mcg/dl Unsaturated IBC (155-355) mcg/dl Transferrin % Sat (15-50) % Ferritin (8-388) ng/ml Ammonia 64.0 (18-72) umol/L Vitamin B12 (180-914) pg/ml 25-OH Vitamin D Total (30-100) ng/ml Lyme Disease IgG Ab (Negative) Lyme IgG (Western Blot) Lyme IgG 18 kDa Band Lyme IgG 23 kDa Band Lyme IgG 28 kDa Band Lyme IgG 30 kDa Band Lyme IgG 39 kDa Band Lyme IgG 41 kDa Band Lyme IgG 45 kDa Band Lyme IgG 58 kDa Band Lyme IgG 66 kDa Band Lyme IgG 93 kDa Band Lyme IgM Ab (WB) Lyme Disease IgM Ab (Negative) Lyme IgM 23 kDa Band Lyme IgM 39 kDa Band Lyme IgM 41 kDa Band 08/08/22 08/08/22 08/08/22 Range/Units 08:12 08:12 08:12 WBC (4.8-10.8) K/ul RBC (4.20-5.40) M/uL Hgb (12.0-16.0) g/dl Hct (37.0-47.0) % MCV (80.0-100.0) fL MCH (25.0-34.0) pg MCHC (32.0-36.0) g/dL RDW Std Deviation (36.4-46.3) fL RDW Coeff of Marty (11.5-14.5) % Plt Count (130-400) K/uL MPV (9.4-12.4) fL Sodium 139 (136-145) mmol/L Potassium 4.3 (3.5-5.1) mmol/L Chloride 106 (98-107) mmol/L Carbon Dioxide 28 (21-32) mmol/L Anion Gap 5 (3-11) BUN 18 (6-23) mg/dl Creatinine 0.53 L (0.6-1.2) mg/dl Est Cr Clr Drug Dosing 74.5 ml/min Est GFR ( Amer) 101.8 ml/min Est GFR (Non-Af Amer) 87.8 ml/min BUN/Creatinine Ratio 34.0 H (10-20) Glucose 123 H (70-99(Fasting)) mg/dl POC Glucose (70-99) mg/dl Estimat Average Glucose 160 mg/dl Hemoglobin A1c 7.2 H (4.5-5.6) % Lactate (0.4-2.0) mmol/L Calcium 9.0 (8.6-10.3) mg/dl Magnesium 1.9 (1.7-2.4) mg/dl Iron 116 (35-150) mcg/dl TIBC 300 (250-450) mcg/dl Unsaturated IBC 184 (155-355) mcg/dl Transferrin % Sat 39 (15-50) % Ferritin 117.2 (8-388) ng/ml Ammonia (18-72) umol/L Vitamin B12 (180-914) pg/ml 25-OH Vitamin D Total 73.2 (30-100) ng/ml Lyme Disease IgG Ab (Negative) Lyme IgG (Western Blot) Lyme IgG 18 kDa Band Lyme IgG 23 kDa Band Lyme IgG 28 kDa Band Lyme IgG 30 kDa Band Lyme IgG 39 kDa Band Lyme IgG 41 kDa Band Lyme IgG 45 kDa Band Lyme IgG 58 kDa Band Lyme IgG 66 kDa Band Lyme IgG 93 kDa Band Lyme IgM Ab (WB) Lyme Disease IgM Ab (Negative) Lyme IgM 23 kDa Band Lyme IgM 39 kDa Band Lyme IgM 41 kDa Band PG Care Time/CCT Total # of Minutes Spent Total Time Spent with Patient: Total time spent is greater than 50% in coordination of care (as documented) at patient's floor/unit and/or counseling patient: Coding Level of Care Code 12968 SUB INP/OBS CARE 3/50MIN Diagnoses Back pain M54.9 Cirrhosis K74.60 Type 2 diabetes mellitus E11.9 Skin rash R21 Constipation K59.00 Restless leg G25.81 Hypothyroidism E03.9 Asthma J45.20 Asthma complication type: unspecified Asthma persistence: intermittent Asthma severity: unspecified severity Depression F32.9 Hypomagnesemia E83.42 Lyme arthritis A69.23 (8) Asthma Asthma complication type: unspecified Asthma persistence: intermittent Asthma severity: unspecified severity Qualified Code(s): J45.20 - Mild intermittent asthma, uncomplicated
[2022-08-09] MEDS: POLYETHYLENE (MIRALAX) 17 GM PACK PO SCH (08:26)
[2022-08-09] MEDS: CALCITONIN SALMON NA 200 IU/AC 3.7 ML BTL SCH (08:27)
[2022-08-09] MEDS: ENOXAPARIN INJ 40 MG/0.4 ML SYR SQ SCH (08:28)
[2022-08-09] MEDS: FLUTICASONE/VILANTEROL 200/25MCG 14 PUFFS/INHALER INH SCH (08:28)
[2022-08-09] MEDS: metFORMIN HCL 500 MG TAB PO SCH ×2 (08:29→20:54)
[2022-08-09] MEDS: CYANOCOBALAMIN (B-12) 100 MCG TABLET PO SCH (08:29)
[2022-08-09] MEDS: DULoxetine HCL 30 MG CAP PO SCH (08:30)
[2022-08-09] MEDS: predniSONE 10 MG TABLET PO SCH (08:30)
[2022-08-09] MEDS: CLOPIDOGREL BISULFATE 75 MG TAB PO SCH (08:30)
[2022-08-09] MEDS: SENNA 8.6 MG TAB PO SCH (08:31)
[2022-08-09] MEDS: MAGNESIUM OXIDE 400 MG TAB PO SCH ×2 (08:31→20:54)
[2022-08-09] MEDS: ACETAMINOPHEN 500 MG TAB PO SCH ×2 (08:32→20:54)
[2022-08-09] MEDS: DOCUSATE SODIUM 100 MG CAP PO SCH ×2 (08:32→20:54)
[2022-08-09] MEDS: FEXOFENADINE HCL 180 MG TAB PO SCH (08:32)
[2022-08-09] MEDS: INSULIN ASPART PER UNIT CHARGE SC SCH ×4 (08:33→20:51)
[2022-08-09] MEDS: DICLOFENAC SOD 1% GEL 100 GM TUBE EXT SCH ×4 (08:33→20:56)
[2022-08-09] MEDS: LIDOCAINE 5% 1 PATCH TD SCH (08:33)
[2022-08-09] MEDS ORDERED: oxyCODONE HCL 10 MG TABCR (OxyCONTIN) PO SCH (09:00)
[2022-08-09] MEDS: oxyCODONE HCL 10 MG TABCR (OxyCONTIN) PO SCH ×2 (09:36→20:52)
[2022-08-09] MEDS ORDERED: LACTULOSE SYRUP 20 GM/30 ML UDC PO SCH (10:30)
--- NOTE | 2022-08-09 12:53 | Orthopedic Consultation ---
Date of Consultation August 09, 2022 Assessment & Plan (1) Compression fracture of L1 lumbar vertebra: L1 burst fracture. Plan at this time her fracture appears to be healing appropriately. I did order a brace that she can trial to see if this provides some additional comfort when she is up and ambulating. I can ask her to consider an outpatient consultation with interventional pain management for SI joint injections or back injections. At this time I did not see any indication for surgical invention. History of Present Illness Reason for Consultation: L1 burst fracture Attending Physician: Jose Alberto Ordonez MD History of Present Illness This is an 81-year-old female who presents with chronic persistent back pain. She was diagnosed with an L1 burst fracture. Today she states that she has very little thoracolumbar back pain she does have sacral pain along the right. She denies any numbness or tingling to lower extremities. She is able to walk with a walker in the bathroom without difficulty. Allergies Allergy/AdvReac Type Severity Reaction Status Date / Time amoxicillin Allergy Mild YEAST Verified 07/13/22 09:06 INFECTION doxycycline Allergy Mild unknown Verified 07/13/22 09:06 meloxicam Allergy Mild unknown Verified 07/13/22 09:06 nitrofurantoin Allergy Mild unknown Verified 07/13/22 09:06 ofloxacin Allergy Mild unknown Verified 07/13/22 09:06 sulfamethoxazole Allergy Mild unknown Verified 07/13/22 09:06 trimethoprim Allergy Mild unknown Verified 07/13/22 09:06 atorvastatin [From Lipitor] Allergy Unknown ON MED LIST Verified 07/13/22 09:06 ezetimibe Allergy Unknown UNKNOWN Verified 07/13/22 09:06 gabapentin Allergy Unknown ON MED LIST Verified 07/13/22 09:06 pravastatin Allergy Unknown ON MED LIST Verified 07/13/22 09:06 rosuvastatin Allergy Unknown BODY PAINS Verified 07/13/22 09:06 oxycodone AdvReac Mild VOMITING Verified 07/13/22 09:06 Home Medications Medication Instructions Recorded Confirmed Type cholecalciferol (vitamin D3) 50 1,000 units PO QAM 04/12/19 08/07/22 History mcg (2,000 unit) capsule coenzyme Q10 10 mg capsule 10 mg PO QAM 03/06/20 08/07/22 History geriatric [id number] 1 tab PO QAM 03/06/20 08/07/22 History fexofenadine 180 mg tablet 180 mg PO DAILY Allergic Symptoms 10/03/20 08/07/22 History garlic 1,000 mg capsule 1,000 mg PO QAM 10/03/20 08/07/22 History albuterol sulfate 90 mcg/actuation 2 puff inhalation Q4H PRN 12/18/20 08/07/22 Rx aerosol inhaler shortness of breath or wheezing #18 grams cyanocobalamin (vitamin B-12) 100 100 mcg PO QAM 04/24/21 08/07/22 History mcg tablet clobetasol 0.05 % topical ointment 1 applic topical TID PRN itching 05/29/21 08/07/22 Rx #15 grams levothyroxine 50 mcg tablet 50 mcg PO DAILY #90 tabs 10/17/21 08/07/22 Rx clopidogrel 75 mg tablet 75 mg PO QAM #90 tabs 12/20/21 08/07/22 Rx metformin 500 mg tablet 500 mg PO BID #180 tabs 02/06/22 08/07/22 Rx spironolactone 25 mg tablet 25 mg PO Q2D 04/01/22 08/07/22 History furosemide 40 mg tablet 40 mg PO DAILY PRN weight gain #90 04/25/22 08/07/22 Rx tabs benzonatate 100 mg capsule 200 mg PO TID PRN Cough #60 caps 05/28/22 08/07/22 Rx lancets (OneTouch UltraSoft #100 ea 06/17/22 08/07/22 Rx Lancets) diclofenac sodium 1 % topical gel 4 g topical QID #100 grams 07/08/22 08/07/22 Rx (Voltaren Arthritis Pain) magnesium oxide 400 mg (241.3 mg 400 mg PO BID #90 tabs 07/10/22 08/07/22 Rx magnesium) tablet fluticasone 250 mcg-salmeterol 50 1 inh inhalation BID 07/13/22 08/07/22 History mcg/dose blistr powdr for inhalation (Advair Diskus) acetaminophen 325 mg tablet 650 mg PO Q4H PRN pain #60 tabs 07/17/22 08/07/22 Rx bisacodyl 10 mg rectal suppository 10 mg AK DAILY PRN constipation 07/17/22 08/07/22 Rx #12 ea calcitonin (salmon) 200 1 spray NA DAILY 4 weeks #3.7 mL 07/17/22 08/07/22 Rx unit/actuation nasal spray docusate sodium 100 mg capsule 100 mg PO BID #60 caps 07/17/22 08/07/22 Rx oxycodone 5 mg tablet 5 mg PO Q4H PRN moderate-severe 07/17/22 08/07/22 Rx pain #15 tabs polyethylene glycol 3350 17 gram 17 g PO TID #90 ea 07/17/22 08/07/22 Rx oral powder packet (Miralax) sennosides 8.6 mg tablet (Senokot) 17.2 mg PO QAM #60 tabs 07/17/22 08/07/22 Rx oxycodone 10 mg tablet,crush 10 mg PO BID 08/07/22 08/07/22 History resistant,extended release 12 hr (OxyContin) Patient History Medical History Allergic rhinitis Anemia Anxiety Aortic arch aneurysm Aortic stenosis Ascites Asthma Carotid artery stenosis Cirrhosis CVA (cerebral vascular accident) (02/2020) Dementia Depression Diabetes Elevated troponin Gastroesophageal reflux disease Hearing loss HTN (hypertension) Hyperlipidemia Hypomagnesemia Hypothyroidism Moderate mitral regurgitation Osteoarthritis Received tissue plasminogen activator (tPA) less than 24 hours prior to arrival 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 Sciatica Severe aortic stenosis Severe tricuspid regurgitation Stenosis, cervical spine TMJ (sprain of temporomandibular joint) Vertigo Vitamin D deficiency Surgical History History of cataract surgery History of laparoscopic cholecystectomy Family History Unknown Esophageal reflux Mother , age 73 of dementia Dementia Myocardial infarction Father , age 75 of a stroke Stroke Denies family history of Ovarian cancer Prostate cancer Coronary heart disease Breast cancer Colorectal cancer Social History Smoking Status: Former smoker Tobacco Type: Cigarettes Second Hand Exposure: No; Hx Alcohol Use: No Hx Substance Use: No Preferred Language: Moroccan Communication Ability: Effective Visual Impairment: No Limitations Hearing Ability: Use of Hearing Aid Director Of Online Education Required: No Beliefs That Will Affect Care: None marital status: / Current Living Situation: Alone current occupational status: retired 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 She had good strength testing lower extremities. She no pain to palpation or percussion over the thoracolumbar region. Did have pain over the right SI joint. She had good strength testing lower extremities and sensory intact. Results & Data Vital Signs (Past 12 Hours) Vital Signs Temp Pulse Resp BP Pulse Ox O2 Del Method 08/09/22 07:43 36.6 C 66 13 110/74 97 Room Air
[2022-08-09] MEDS: cefTRIAXone SODIUM 2,000 MG in DEXTROSE 5% 50 ML IV SCH (17:28)
[2022-08-09] MEDS ORDERED: MAGNESIUM SULFATE / D5W 1 GM/100 ML BAG IV ONE (17:30)
[2022-08-10] MEDS: LEVOTHYROXINE SODIUM 50 MCG TABLET PO SCH (05:36)
--- NOTE | 2022-08-10 08:53 | Hospitalist Progress Note ---
Date of Service August 10, 2022 Assessment & Plan (1) Back pain: Plan: Previously described as lower back pain since fall in June but today appears to be from her neck to tail bone. Although notably is moving her head easily without pain and pain comes on when she rotates her body, she does have a prior diagnosis of cervical spinal stenosis CT cervical and thoracic spine as these have not been imaged since her initial fall. Consider MRI given history of cervical spinal stenosis although symptoms not typical for this. Opiates really having minimal effect and would be ideal to wean these off as she has chronic pain and this is likely to lead to addiction/tolerance as she will always have pain that she would take opiates for. However acutely suspect unable to cope at home as she was getting oxycontin BID at [facility] but did not have her dose last night or this morning, therefore will restart this initially. Her L1 compression fracture is unlikely the cause of her ongoing pain as this occurred in June and she has no point tenderness here. Pain management: Acetaminophen 1000mg PO BID, Celebrex 100mg PO daily for 5 days (reduced dose due to Child-Ware B cirrhosis -- placed on HOLD, would avoid), Oxycontin 10mg PO BID (try to wean off prior to discharge), Oxycodone 5mg PO q4h PRN Lidocaine patch. Voltaren Gel Recently stopped antidepressants. See H&P. Will start on Cymbalta as discussed with her PCP. Vit D >70, stopped replacement 08/10 Continues on pain control w/ calcitonin nasal (to complete 3-4wks at d/c last admit), lidocaine patch, Oxycontin BID, oxycodone prn, lidocaine patch, voltaren gel Of note, did get prednisone 10mg x 2 days as well -- ?medrol dose pack at d/c if needed but hold off for now Pain much improved, large BM w/ lactulose and will schedule this daily jarrod given her cirrhosis (ammonia prior ~64) OF note, called [facility] as rx for Oxycontin BID written, however confirmed w/ CM, prior - auth required. Re-sent Rx and CM to asssit w/ obtaining (appealing denial, wanting to avoid fentanyl path/methadone in pt w/ cirrhosis and adequate control on current regimen) Lactulose increased to BID and monitor/increase if needed to help keep bowels moving Ortho spine seen 08/09 -- continue PT/OT/pain control, brace ordered but patient declined PT/OT rec return home w/ support -- lives alone, CM following and her children wanting [facility] -- hopefully bed next week Never tx for Lyme, Ceftriaxone IV initiated 08/08 and continue -Initial screening IgM +, IgG negative) -Doxy on allergy list, per CM discussion w son no known anaphylaxis w/ abx or rashes, most allergies likey GI side effects -- can consider course PO doxy at d/c while awaiting WB testing (? lesion to leg started as tick bite?, no bullseye rash) (2) Cirrhosis: Plan: Child-Ware score 7. Will reduce NSAIDs by 50% and consider just a short course. Continue spironolactone 25mg PO q2d On lasix 40mg PRN weight gain - monitor weights --> per note Dr Nicole w/ patient not having to use lasix weight ~139lb at that time, currently 148lb. Check BNP/lasix in AM> Ammonia 64 -- ordered dose lactulose, 2 large BM reported Passing gas, no BM today -- increased lactulose to BID and will monitor/titrate as needed (3) Lyme arthritis: Plan: ?possible, ?leg/skin rash from this possible but had been scrating? Initial screening IgM +, IgG negative Ceftriaxone started 08/08 and continued -- would trial doxy prior to dc to ensure able to tolerate given on allergy list but per son likely just GI upset Monitor WB (4) S/P TAVR (transcatheter aortic valve replacement): Plan: hx TAVR in Summer 2021 Follows locally w/ Dr Nicole-- per notes, had not had to utilize prn lasix for weight gain at visit Jan (weight at that time 149lb -- currently 158lb) on plavix for hx CVA on ASA (intolerant to statins) (5) Type 2 diabetes mellitus: Plan: HbA1C 6.4 in March --> now 7.2 Continue metformin Insulin sliding scale for correction coverage only Monitor BSGs, did have increased dose steroids x 2 days, improved and stable after last dose (6) Skin rash: Plan: Suspected on admission to be due to laundry detergent from [facility] Continue steroid cream not on open areas BID Continue steroid taper: prednisone 10mg PO 08/07 x 3 days, now off (7) Hypothyroidism: Plan: Continue levothyroxine 50mcg PO daily TSH elevated to 6.691, but Ft4 wnl 1.04 -- would rec repeating outpatient w/ PCP/adjustment if remains elevated given normal TSH -- alternatively can consider increasing to 75mcg daily and repeat TFT in 4-6wks w/ PCP will check free t3 w/ am labs given baseline cognitive issues (does have hx CVA of now, on plavix) (8) Asthma: Plan: Continue her routine inhalers or hospital formulary equivalent No SOB reported, lungs clear (9) Depression: Plan: Started duloxetine as above (monitor given her cirrhosis) had d/c her antidepressants earlier this year (10) Hypomagnesemia: Plan: Mg level 1.6. Mg sulfate 2g IV now Repeat mag 1.8 and remains on PO supplementation but will repeat level in AM (11) Restless leg: Plan: Symptoms described by patient. Ferritin not deficient, B12 >1500 (12) Constipation: Plan: Continue miraLAX 17g TID, docusate 100mg PO BID, Senna --> switched to lactulose as above given cirrhosis/borderline ammonia and wanting to prevent hepatic encephalopathy given opiate use Titrate lactulose to keep bowels moving regularly (13) CVA (cerebral vascular accident): Plan: hx CVA on aspirin in 2019 and received TPA w/ near complete resolution in symptoms LUE weakness/R sided gaze problems, but does continue w/ word finding difficulty at baseline Remains on Plavix Plan VTE Prophylaxis - lovenox 40mg SQ daily while inpatient PT/OT consults pending CM assisting w/ prior Auth for OxyContin Check BNP in am/monitor weights/labs and consider dose of lasix given appears weight up from her "baseline" Admission and Anticipated Discharge Date Admission Date: August 09, 2022 Supervising Physician Co-Signing Physician Notes The patient was not seen by me. The chart was reviewed. Case discussed with JULIA Underwood. Agree with assessment and plan Subjective eval this morning, doing well, pain controlled moved bowels yesterday, passing gas no abdominal pain at present awaiting [facility], appealing oxycontin rx as providing good control no fever/chills, chest pain, shortness of breath or other issues. baseline cognitive deficits/whiftiness at times but pleasant, cooperative and alert/oriented to person, placed (knows in hospital and why, that her children don't feel safe with her going home at present) Physical Exam Constitutional: WD/WN, sitting up in bed, moving around easier, NAD Eyes: PERRL, conjunctivae normal, anicteric sclerae ENMT: Ears: + hearing impairment Neck: trachea midline, no thyromegaly Respiratory: normal respiratory effort, lungs clear to auscultation Cardiovascular: regular rate/rhythm, +systolic murmur, no pitting edema Gastrointestinal (Abdomen): normal bowel sounds, soft, nontender, no hepatosplenomegaly Musculoskeletal: Spine: + cervical muscular tenderness, thoracic spine normal to inspection, lumbar spine normal to inspection, + pain with thoraco-lumbar ROM, + thoracic spinal tenderness, + lumbar spinal tenderness, + paraspinal tenderness (from neck to coccyx (decreased)) and + sacral tenderness; normal cervical ROM, no pain with cervical ROM, straight leg raise negative bilaterally and no sciatic notch tenderness Skin: bilateral lower extremity excoriation farley Stage 3 Medial ulcer on right ankle and 1st MT without surrounding cellulitis Neurologic: moves all extremities and awake; no focal motor deficits and not confused Speech / Cognition: normal speech Psychiatric: alert to person, place , events leading up to admission intermittent forgetfulness but pleasant/cooperative with care Results & Data Results & Data Vital Signs (Past 12 Hours) Vital Signs Temp Pulse Resp BP Pulse Ox O2 Del Method 08/10/22 07:13 36.6 C 66 16 121/67 96 Room Air Laboratory Results 08/10/22 08/10/22 08/09/22 Range/Units 12:01 08:15 20:28 POC Glucose 149 H 122 H 182 H (70-99) mg/dl 08/09/22 Range/Units 17:12 POC Glucose 156 H (70-99) mg/dl PG Care Time/CCT Total # of Minutes Spent Total Time Spent with Patient: Total time spent is greater than 50% in coordination of care (as documented) at patient's floor/unit and/or counseling patient: Coding Level of Care Code 62969 SUB INP/OBS CARE 3/50MIN Diagnoses Back pain M54.9 Cirrhosis K74.60 Lyme arthritis A69.23 S/P TAVR (transcatheter aortic valve replacement) Z95.2 Type 2 diabetes mellitus E11.9 Skin rash R21 Hypothyroidism E03.9 Asthma J45.20 Asthma complication type: unspecified Asthma persistence: intermittent Asthma severity: unspecified severity Depression F32.9 Hypomagnesemia E83.42 Restless leg G25.81 Constipation K59.00 CVA (cerebral vascular accident) I63.9 CVA mechanism: unspecified (8) Asthma Asthma complication type: unspecified Asthma persistence: intermittent Asthma severity: unspecified severity Qualified Code(s): J45.20 - Mild intermittent asthma, uncomplicated (13) CVA (cerebral vascular accident) CVA mechanism: unspecified Qualified Code(s): I63.9 - Cerebral infarction, unspecified
[2022-08-10] MEDS ORDERED: LACTULOSE SYRUP 20 GM/30 ML UDC PO SCH (09:00)
[2022-08-10] MEDS: INSULIN ASPART PER UNIT CHARGE SC SCH ×4 (09:30→20:50)
[2022-08-10] MEDS: CLOPIDOGREL BISULFATE 75 MG TAB PO SCH (09:31)
[2022-08-10] MEDS: ACETAMINOPHEN 500 MG TAB PO SCH ×2 (09:32→20:44)
[2022-08-10] MEDS: DOCUSATE SODIUM 100 MG CAP PO SCH ×2 (09:33→20:44)
[2022-08-10] MEDS: MAGNESIUM OXIDE 400 MG TAB PO SCH ×2 (09:33→20:44)
[2022-08-10] MEDS: CALCITONIN SALMON NA 200 IU/AC 3.7 ML BTL SCH (09:33)
[2022-08-10] MEDS: CYANOCOBALAMIN (B-12) 100 MCG TABLET PO SCH (09:33)
[2022-08-10] MEDS: ENOXAPARIN INJ 40 MG/0.4 ML SYR SQ SCH (09:34)
[2022-08-10] MEDS: SPIRONOLACTONE 25 MG TAB PO SCH (09:34)
[2022-08-10] MEDS: FEXOFENADINE HCL 180 MG TAB PO SCH (09:34)
[2022-08-10] MEDS: DULoxetine HCL 30 MG CAP PO SCH (09:34)
[2022-08-10] MEDS: LIDOCAINE 5% 1 PATCH TD SCH (09:35)
[2022-08-10] MEDS: FLUTICASONE/VILANTEROL 200/25MCG 14 PUFFS/INHALER INH SCH (09:35)
[2022-08-10] MEDS: DICLOFENAC SOD 1% GEL 100 GM TUBE EXT SCH ×4 (09:35→20:44)
[2022-08-10] MEDS: metFORMIN HCL 500 MG TAB PO SCH ×2 (09:36→20:43)
[2022-08-10] MEDS: oxyCODONE HCL 10 MG TABCR (OxyCONTIN) PO SCH ×2 (09:52→20:43)
[2022-08-10] MEDS ORDERED: FUROSEMIDE 40 MG TAB PO ONE (14:57)
[2022-08-10] MEDS: cefTRIAXone SODIUM 2,000 MG in DEXTROSE 5% 50 ML IV SCH (16:41)
[2022-08-10] MEDS: LACTULOSE SYRUP 20 GM/30 ML UDC PO SCH (20:43)
[2022-08-11] MEDS: LEVOTHYROXINE SODIUM 50 MCG TABLET PO SCH (05:31)
[2022-08-11 05:48] LABS: Hematocrit (blood only) 37.5 % (37.0-47.0); Hemoglobin 11.9 g/dl (12.0-16.0); Mean Corpuscular Hemoglobin 26.7 pg (25.0-34.0); Mean Corpuscular Hgb Conc 31.7 g/dL (32.0-36.0); Mean Corpuscular Volume 84.1 fL (80.0-100.0); Platelet Count 83 K/uL (130-400); RDW Coefficient of Variation 14.1 % (11.5-14.5); RDW Standard Deviation 43.4 fL (36.4-46.3); Red Blood Count 4.46 M/uL (4.20-5.40); White Blood Count 3.57 K/ul (4.8-10.8)
[2022-08-11 05:52] LABS: Albumin Globulin Ratio 1.2 (0.9-2); BUN Creatinine Ratio 32.8 (10-20); Bilirubin,Total 0.3 mg/dl (0.2-1.0); Calcium 8.7 mg/dl (8.6-10.3); Creatinine Clr Calc Pharmacy 68.7 ml/min; Est GFR (African American) 98.8 ml/min; Est GFR (Non-African American) 85.2 ml/min; Globulin 2.6 gm/dl (2.5-4.0); Magnesium 1.7 mg/dl (1.7-2.4); Potassium 4.6 mmol/L (3.5-5.1); Total Protein 5.6 gm/dl (6.0-8.3)
--- NOTE | 2022-08-11 08:02 | Hospitalist Progress Note ---
Date of Service August 11, 2022 Assessment & Plan (1) Back pain: Plan: Previously described as lower back pain since fall in June but today appears to be from her neck to tail bone. Although notably is moving her head easily without pain and pain comes on when she rotates her body, she does have a prior diagnosis of cervical spinal stenosis CT cervical and thoracic spine as these have not been imaged since her initial fall. Consider MRI given history of cervical spinal stenosis although symptoms not typical for this. Opiates really having minimal effect and would be ideal to wean these off as she has chronic pain and this is likely to lead to addiction/tolerance as she will always have pain that she would take opiates for. However acutely suspect unable to cope at home as she was getting oxycontin BID at [facility] but did not have her dose last night or this morning, therefore will restart this initially. Her L1 compression fracture is unlikely the cause of her ongoing pain as this occurred in June and she has no point tenderness here. Pain management: Acetaminophen 1000mg PO BID, Celebrex 100mg PO daily for 5 days (reduced dose due to Child-Ware B cirrhosis -- placed on HOLD, would avoid), Oxycontin 10mg PO BID (try to wean off prior to discharge), Oxycodone 5mg PO q4h PRN Lidocaine patch. Voltaren Gel Recently stopped antidepressants. See H&P. Will start on Cymbalta as discussed with her PCP. Vit D >70, stopped replacement 08/11 Continues on pain control w/ calcitonin nasal (to complete 3-4wks at d/c last admit), lidocaine patch, Oxycontin BID, oxycodone prn, lidocaine patch, voltaren gel Of note, did get prednisone 10mg x 2 days as well -- ?medrol dose pack at d/c if needed but hold off for now Pain much improved, large BM w/ lactulose and will schedule this daily jarrod given her cirrhosis (ammonia prior ~64) I called [facility] as rx for Oxycontin BID written, however confirmed w/ CM, prior - auth required. Re-sent Rx and CM to asssit w/ obtaining (appealing denial, wanting to avoid fentanyl path/methadone in pt w/ cirrhosis and adequate control on current regimen) Lactulose increased to TID and tolerating and moving bowels. Will continue Ortho spine seen 08/09 -- continue PT/OT/pain control, brace ordered but patient declined PT/OT rec return home w/ support -- lives alone, CM following and her children wanting [facility] -- hopefully bed next week Never tx for Lyme, Ceftriaxone IV initiated 08/08 and continue -Initial screening IgM +, IgG negative) -Doxy on allergy list, per CM discussion w son no known anaphylaxis w/ abx or rashes, most allergies likey GI side effects -- can consider course PO doxy at d/c while awaiting WB testing (? lesion to leg started as tick bite?, no bullseye rash) (2) Cirrhosis: Plan: Child-Ware score 7. Will reduce NSAIDs by 50% and consider just a short course. Continue spironolactone 25mg PO q2d On lasix 40mg PRN weight gain - monitor weights --> per note Dr Nicole w/ patient not having to use lasix weight ~139lb at that time, currently 148lb. Check BNP/lasix in AM> Ammonia 64 -- ordered dose lactulose, 2 large BM reported day prior Ammonia decreased and moving bowels on lactulose TID and would continue BNP mild elevation, but will hold off lasix for today but can consider dose if needed (3) Lyme arthritis: Plan: ?possible, ?leg/skin rash from this possible but had been scrating? Initial screening IgM +, IgG negative Ceftriaxone started 08/08 and continued -- would trial doxy prior to dc to ensure able to tolerate given on allergy list but per son likely just GI upset Monitor WB (4) S/P TAVR (transcatheter aortic valve replacement): Plan: hx TAVR in Summer 2021 Follows locally w/ Dr Nicole-- per notes, had not had to utilize prn lasix for weight gain at visit Sept (weight at that time 149lb -- currently 158lb) on plavix for hx CVA on ASA (intolerant to statins) (5) Type 2 diabetes mellitus: Plan: HbA1C 6.4 in March --> now 7.2 Continue metformin Insulin sliding scale for correction coverage only Monitor BSGs, did have increased dose steroids x 2 days, improved and stable after last dose (did have 2 cookies 08/10 reported) CHANGED TO DM/AHA diet from regular Monitor BSGs (6) Skin rash: Plan: Suspected on admission to be due to laundry detergent from [facility] Continue steroid cream not on open areas BID Continue steroid taper: prednisone 10mg PO 08/07 x 3 days, now off (7) Hypothyroidism: Plan: Continue levothyroxine 50mcg PO daily TSH elevated to 6.691, but Ft4 wnl 1.04 -- would rec repeating outpatient w/ PCP/adjustment if remains elevated given normal TSH -- alternatively can consider increasing to 75mcg daily and repeat TFT in 4-6wks w/ PCP T3 wnl, continue current dose synthroid (8) Asthma: Plan: Continue her routine inhalers or hospital formulary equivalent No SOB reported, lungs clear (9) Depression: Plan: Started duloxetine as above (monitor given her cirrhosis) had d/c her antidepressants earlier this year (10) Hypomagnesemia: Plan: Mg level 1.6. Mg sulfate 2g IV now Repeat mag 1.7, changed mag to SLOW MAG BID Monitor in AM (11) Restless leg: Plan: Symptoms described by patient. Ferritin not deficient, B12 >1500 (12) Constipation: Plan: Continue miraLAX 17g TID, docusate 100mg PO BID, Senna --> switched to lactulose as above given cirrhosis/borderline ammonia and wanting to prevent hepatic encephalopathy given opiate use Titrate lactulose to keep bowels moving regularly (13) CVA (cerebral vascular accident): Plan: hx CVA on aspirin in 2019 and received TPA w/ near complete resolution in symptoms LUE weakness/R sided gaze problems, but does continue w/ word finding difficulty at baseline Remains on Plavix Plan VTE Prophylaxis - lovenox 40mg SQ daily while inpatient CM assisting w/ prior Auth for OxyContin Awaiting placement [facility] Admission and Anticipated Discharge Date Admission Date: August 09, 2022 Supervising Physician Co-Signing Physician Notes The patient was not seen by me. The chart was reviewed. Case discussed with JULIA Underwood. Agree with assessment and plan Subjective eval this morning, doing well, pain controlled movng bowels with lactulose and will continue good appetitie, 2 cookies yesterday. Diet changed to DM Awaiting placement at [facility] Questions/concerns addressed at this time. Physical Exam Physical Exam: General: WD/WN female sitting up in bed, NAD Resp: CTAB, no w/c/r, on room air CV: RRR, + systolic murmur, trace LE edema, calves nontender GI: +BS, soft/NT : no nelson MSK/Neuro: follows commands, no slurred speech, strength equal bilaterally Psych: AOx3, pleasant and cooperative Results & Data Results & Data Vital Signs (Past 12 Hours) Vital Signs Temp Pulse Resp BP Pulse Ox O2 Del Method 08/10/22 20:41 36.7 C 80 16 103/51 L 96 Room Air Laboratory Results 08/11/22 08/11/22 08/11/22 Range/Units 08:25 05:19 05:19 WBC (4.8-10.8) K/ul RBC (4.20-5.40) M/uL Hgb (12.0-16.0) g/dl Hct (37.0-47.0) % MCV (80.0-100.0) fL MCH (25.0-34.0) pg MCHC (32.0-36.0) g/dL RDW Std Deviation (36.4-46.3) fL RDW Coeff of Marty (11.5-14.5) % Plt Count (130-400) K/uL MPV (9.4-12.4) fL Sodium (136-145) mmol/L Potassium (3.5-5.1) mmol/L Chloride (98-107) mmol/L Carbon Dioxide (21-32) mmol/L Anion Gap (3-11) BUN (6-23) mg/dl Creatinine (0.6-1.2) mg/dl Est Cr Clr Drug Dosing ml/min Est GFR ( Amer) ml/min Est GFR (Non-Af Amer) ml/min BUN/Creatinine Ratio (10-20) Glucose (70-99(Fasting)) mg/dl POC Glucose 151 H (70-99) mg/dl Calcium (8.6-10.3) mg/dl Magnesium (1.7-2.4) mg/dl Total Bilirubin (0.2-1.0) mg/dl AST (13-39) U/L ALT (7-52) U/L Alkaline Phosphatase (34-104) U/L Ammonia (18-72) umol/L B-Natriuretic Peptide 225 H (0-100) pg/ml Total Protein (6.0-8.3) gm/dl Albumin (3.4-5.0) gm/dl Globulin (2.5-4.0) gm/dl Albumin/Globulin Ratio (0.9-2) Free T3 2.95 (2.3-4.2) pg/ml 08/11/22 08/11/22 08/11/22 Range/Units 05:19 05:19 05:19 WBC 3.57 L (4.8-10.8) K/ul RBC 4.46 (4.20-5.40) M/uL Hgb 11.9 L (12.0-16.0) g/dl Hct 37.5 (37.0-47.0) % MCV 84.1 (80.0-100.0) fL MCH 26.7 (25.0-34.0) pg MCHC 31.7 L (32.0-36.0) g/dL RDW Std Deviation 43.4 (36.4-46.3) fL RDW Coeff of Marty 14.1 (11.5-14.5) % Plt Count 83 L (130-400) K/uL MPV 11.0 (9.4-12.4) fL Sodium 139 (136-145) mmol/L Potassium 4.6 (3.5-5.1) mmol/L Chloride 107 (98-107) mmol/L Carbon Dioxide 26 (21-32) mmol/L Anion Gap 6 (3-11) BUN 19 (6-23) mg/dl Creatinine 0.58 L (0.6-1.2) mg/dl Est Cr Clr Drug Dosing 68.7 ml/min Est GFR ( Amer) 98.8 ml/min Est GFR (Non-Af Amer) 85.2 ml/min BUN/Creatinine Ratio 32.8 H (10-20) Glucose 136 H (70-99(Fasting)) mg/dl POC Glucose (70-99) mg/dl Calcium 8.7 (8.6-10.3) mg/dl Magnesium 1.7 (1.7-2.4) mg/dl Total Bilirubin 0.3 (0.2-1.0) mg/dl AST 23 (13-39) U/L ALT 17 (7-52) U/L Alkaline Phosphatase 71 (34-104) U/L Ammonia 48.0 (18-72) umol/L B-Natriuretic Peptide (0-100) pg/ml Total Protein 5.6 L (6.0-8.3) gm/dl Albumin 3.0 L (3.4-5.0) gm/dl Globulin 2.6 (2.5-4.0) gm/dl Albumin/Globulin Ratio 1.2 (0.9-2) Free T3 (2.3-4.2) pg/ml 08/10/22 08/10/22 08/10/22 Range/Units 20:39 17:17 12:01 WBC (4.8-10.8) K/ul RBC (4.20-5.40) M/uL Hgb (12.0-16.0) g/dl Hct (37.0-47.0) % MCV (80.0-100.0) fL MCH (25.0-34.0) pg MCHC (32.0-36.0) g/dL RDW Std Deviation (36.4-46.3) fL RDW Coeff of Marty (11.5-14.5) % Plt Count (130-400) K/uL MPV (9.4-12.4) fL Sodium (136-145) mmol/L Potassium (3.5-5.1) mmol/L Chloride (98-107) mmol/L Carbon Dioxide (21-32) mmol/L Anion Gap (3-11) BUN (6-23) mg/dl Creatinine (0.6-1.2) mg/dl Est Cr Clr Drug Dosing ml/min Est GFR ( Amer) ml/min Est GFR (Non-Af Amer) ml/min BUN/Creatinine Ratio (10-20) Glucose (70-99(Fasting)) mg/dl POC Glucose 212 H 157 H 149 H (70-99) mg/dl Calcium (8.6-10.3) mg/dl Magnesium (1.7-2.4) mg/dl Total Bilirubin (0.2-1.0) mg/dl AST (13-39) U/L ALT (7-52) U/L Alkaline Phosphatase (34-104) U/L Ammonia (18-72) umol/L B-Natriuretic Peptide (0-100) pg/ml Total Protein (6.0-8.3) gm/dl Albumin (3.4-5.0) gm/dl Globulin (2.5-4.0) gm/dl Albumin/Globulin Ratio (0.9-2) Free T3 (2.3-4.2) pg/ml PG Care Time/CCT Total # of Minutes Spent Total Time Spent with Patient: Total time spent is greater than 50% in coordination of care (as documented) at patient's floor/unit and/or counseling patient: Coding Level of Care Code 93909 SUB INP/OBS CARE 2/35MIN Diagnoses Back pain M54.9 Cirrhosis K74.60 Lyme arthritis A69.23 S/P TAVR (transcatheter aortic valve replacement) Z95.2 Type 2 diabetes mellitus E11.9 Skin rash R21 Hypothyroidism E03.9 Asthma J45.20 Asthma complication type: unspecified Asthma persistence: intermittent Asthma severity: unspecified severity Depression F32.9 Hypomagnesemia E83.42 Restless leg G25.81 Constipation K59.00 CVA (cerebral vascular accident) I63.9 CVA mechanism: unspecified (8) Asthma Asthma complication type: unspecified Asthma persistence: intermittent Asthma severity: unspecified severity Qualified Code(s): J45.20 - Mild intermittent asthma, uncomplicated (13) CVA (cerebral vascular accident) CVA mechanism: unspecified Qualified Code(s): I63.9 - Cerebral infarction, unspecified
[2022-08-11] MEDS: LACTULOSE SYRUP 20 GM/30 ML UDC PO SCH ×3 (08:08→20:25)
[2022-08-11] MEDS: ENOXAPARIN INJ 40 MG/0.4 ML SYR SQ SCH (08:09)
[2022-08-11] MEDS: DICLOFENAC SOD 1% GEL 100 GM TUBE EXT SCH ×4 (08:09→20:23)
[2022-08-11] MEDS: CYANOCOBALAMIN (B-12) 100 MCG TABLET PO SCH (08:12)
[2022-08-11] MEDS: CLOPIDOGREL BISULFATE 75 MG TAB PO SCH (08:12)
[2022-08-11] MEDS: FLUTICASONE/VILANTEROL 200/25MCG 14 PUFFS/INHALER INH SCH (08:12)
[2022-08-11] MEDS: DULoxetine HCL 30 MG CAP PO SCH (08:12)
[2022-08-11] MEDS: FEXOFENADINE HCL 180 MG TAB PO SCH (08:12)
[2022-08-11] MEDS: CALCITONIN SALMON NA 200 IU/AC 3.7 ML BTL SCH (08:13)
[2022-08-11] MEDS: ACETAMINOPHEN 500 MG TAB PO SCH ×2 (08:14→20:22)
[2022-08-11] MEDS: DOCUSATE SODIUM 100 MG CAP PO SCH ×2 (08:14→20:15)
[2022-08-11] MEDS: metFORMIN HCL 500 MG TAB PO SCH ×2 (08:15→20:23)
[2022-08-11] MEDS: oxyCODONE HCL 10 MG TABCR (OxyCONTIN) PO SCH ×2 (08:22→20:23)
[2022-08-11] MEDS: LIDOCAINE 5% 1 PATCH TD SCH (09:52)
[2022-08-11] MEDS: INSULIN ASPART PER UNIT CHARGE SC SCH ×4 (09:52→20:53)
[2022-08-11] MEDS: MAGNESIUM CHLORIDE W/CALCIUM 64MG DELAYED REL TAB PO SCH ×2 (09:53→20:23)
[2022-08-11] MEDS: cefTRIAXone SODIUM 2,000 MG in DEXTROSE 5% 50 ML IV SCH (17:54)
[2022-08-12] MEDS: LEVOTHYROXINE SODIUM 50 MCG TABLET PO SCH (05:26)
[2022-08-12] MEDS: oxyCODONE HCL IR 5 MG TAB (IMMEDIATE RELEASE) PO PRN ×2 (05:40→11:39)
[2022-08-12] MEDS: oxyCODONE HCL 10 MG TABCR (OxyCONTIN) PO SCH (08:00)
[2022-08-12] MEDS: LIDOCAINE 5% 1 PATCH TD SCH (08:01)
[2022-08-12] MEDS: DICLOFENAC SOD 1% GEL 100 GM TUBE EXT SCH ×2 (08:12→13:09)
[2022-08-12] MEDS: LACTULOSE SYRUP 20 GM/30 ML UDC PO SCH ×2 (08:14→13:08)
[2022-08-12] MEDS: ACETAMINOPHEN 500 MG TAB PO SCH (08:16)
[2022-08-12] MEDS: CLOPIDOGREL BISULFATE 75 MG TAB PO SCH (08:17)
[2022-08-12] MEDS: CYANOCOBALAMIN (B-12) 100 MCG TABLET PO SCH (08:17)
[2022-08-12] MEDS: CALCITONIN SALMON NA 200 IU/AC 3.7 ML BTL SCH (08:17)
[2022-08-12] MEDS: DOCUSATE SODIUM 100 MG CAP PO SCH (08:18)
[2022-08-12] MEDS: DULoxetine HCL 30 MG CAP PO SCH (08:18)
[2022-08-12] MEDS: MAGNESIUM CHLORIDE W/CALCIUM 64MG DELAYED REL TAB PO SCH (08:19)
[2022-08-12] MEDS: metFORMIN HCL 500 MG TAB PO SCH (08:19)
[2022-08-12] MEDS: FEXOFENADINE HCL 180 MG TAB PO SCH (08:19)
[2022-08-12] MEDS: SPIRONOLACTONE 25 MG TAB PO SCH (08:19)
[2022-08-12] MEDS: FLUTICASONE/VILANTEROL 200/25MCG 14 PUFFS/INHALER INH SCH (08:20)
[2022-08-12] MEDS: ENOXAPARIN INJ 40 MG/0.4 ML SYR SQ SCH (08:24)
[2022-08-12] MEDS: INSULIN ASPART PER UNIT CHARGE SC SCH (08:32)
[2022-08-12 09:26] LABS: Hematocrit (blood only) 40.8 % (37.0-47.0); Hemoglobin 13.1 g/dl (12.0-16.0); Mean Corpuscular Hgb Conc 32.1 g/dL (32.0-36.0); Mean Corpuscular Volume 84.1 fL (80.0-100.0); Mean Platelet Volume 9.9 fL (9.4-12.4); Platelet Count 87 K/uL (130-400); RDW Coefficient of Variation 14.2 % (11.5-14.5); RDW Standard Deviation 43.7 fL (36.4-46.3); Red Blood Count 4.85 M/uL (4.20-5.40); White Blood Count 4.92 K/ul (4.8-10.8)
[2022-08-12 10:01] LABS: BUN Creatinine Ratio 22.2 (10-20); Calcium 9.3 mg/dl (8.6-10.3); Creatinine Clr Calc Pharmacy 73.6 ml/min; Est GFR (African American) 101.1 ml/min; Est GFR (Non-African American) 87.3 ml/min; Magnesium 1.5 mg/dl (1.7-2.4)
[2022-08-12] MEDS ORDERED: INSULIN ASPART PER UNIT CHARGE SC SCH (11:30)
--- NOTE | 2022-08-12 12:37 | Discharge Summary ---
Date of Service August 12, 2022 Admission HPI Per Admitting Provider Mimi Ovalle is an 81 year old female who presents to the ER with generalized back pain. Severity 10/10. Worse on any movement. Ongoing since her fall on July 07. Difficult to get a complete history from the patient due to lack of hearing aids, generalized chronic confusion especially while on opiates and generally concentrates on her back pain rather than answering my questions. Son and daughter at bedside help with the history. Initial injury occurred July 07 when she slipped in the bathroom and hit her back. She was initially seen in the ER the following day with CT of lumbar spine showing acute to subacute compression fracture of L1. She was initially discharged home but then hospitalized from July 13 - July 17, 2022 due to the same symptoms and inability to cope at home. She was discharged to [facility] for ongoing rehabilitation and was recently discharged just 2 days ago. Discharge summary note she was started on Oxycontin during her time at [facility] although no prescription was recorded as picked up. Her daughter believes she had OxyContin yesterday morning but missed her dose last night. Today while trying to get back into bed from her walker she reported shortness of breath and intense back pain that she had to call her son to bring her back to the ER. Of note she also recently stopped taking her anti-depressants. She sent a message in May to her PCP saying she was stopping Zoloft cold turkey as she felt it was making her more depressed. She was started on Lexapro over the phone by Gretta Knight. She reports sleeping all the time on this but per PCP note it sounds like it more just disrupted her sleep/wake cycle as mirtazapine was considered to help her with sleep but ultimately decided to hold off starting any new medication at that time. From prior PCP notes and [facility] diagnosis it appears she has a prior diagnosis of cervical spinal stenosis however the patient or family cannot tell me anything about this or her prior appointments with neurosurgery. Admission Exam Per Admitting Provider Constitutional: well developed and + acute distress (back pain); + not well nourished Eyes: PERRL, conjunctivae normal, anicteric sclerae ENMT: Ears: + hearing impairment Neck: trachea midline, no thyromegaly Respiratory: normal respiratory effort, lungs clear to auscultation Cardiovascular: RRR, no murmur, no edema Gastrointestinal (Abdomen): normal bowel sounds, soft, nontender, no hepatosplenomegaly Musculoskeletal: Spine: + cervical muscular tenderness, thoracic spine normal to inspection, lumbar spine normal to inspection, + pain with thoraco-lumbar ROM, + thoracic spinal tenderness, + lumbar spinal tenderness, + paraspinal tenderness (from neck to coccyx) and + sacral tenderness; normal cervical ROM, no pain with cervical ROM, straight leg raise negative bilaterally and no sciatic notch tenderness Skin: bilateral lower extremity excoriation farley Stage 3 Medial ulcer on right ankle and 1st MT without surrounding cellulitis Neurologic: moves all extremities and awake; no focal motor deficits and not confused Speech / Cognition: normal speech Principal Diagnosis Back Pain Discharge Exam Constitutional WD/WN, vitals as above Neck trachea midline, no thyromegaly Respiratory normal respiratory effort, lungs clear to auscultation Cardiovascular Rate/Rhythm: regular rate and regular rhythm Heart Sounds: normal S1, normal S2 and + murmur Gastrointestinal (Abdomen) normal bowel sounds, soft, nontender, no hepatosplenomegaly Discharge Data Allergies Allergy/AdvReac Type Severity Reaction Status Date / Time amoxicillin Allergy Mild YEAST Verified 08/14/22 14:33 INFECTION doxycycline Allergy Mild unknown Verified 08/14/22 14:33 meloxicam Allergy Mild unknown Verified 08/14/22 14:33 nitrofurantoin Allergy Mild unknown Verified 08/14/22 14:33 ofloxacin Allergy Mild unknown Verified 08/14/22 14:33 sulfamethoxazole Allergy Mild unknown Verified 08/14/22 14:33 trimethoprim Allergy Mild unknown Verified 08/14/22 14:33 atorvastatin [From Lipitor] Allergy Unknown ON MED LIST Verified 08/14/22 14:33 ezetimibe Allergy Unknown UNKNOWN Verified 08/14/22 14:33 gabapentin Allergy Unknown ON MED LIST Verified 08/14/22 14:33 pravastatin Allergy Unknown ON MED LIST Verified 08/14/22 14:33 rosuvastatin Allergy Unknown BODY PAINS Verified 08/14/22 14:33 oxycodone AdvReac Mild VOMITING Verified 08/14/22 14:33 Consultations 08/07/22 10:27 ED Decision to Admit Stat 08/08/22 09:06 Consult Orthopedic Surgery Routine Ordered Studies 08/07/22 11:30cervical spine wo c Stat CT thoracicCT OF THE THORACIC SPINE CLINICAL HISTORY: Back pain following fall. Evaluate for fracture. COMPARISON STUDY: Thoracic spine radiographs July 16, 2022. Chest CT August 30, 2021. CT of the abdomen and pelvis July 13, 2022. TECHNIQUE: Helical axial images of the thoracic spine were obtained. Sagittal and coronal reconstructions were viewed. Automated exposure control was utilized for the study. A dose lowering technique was utilized adhering to the principles of ALARA. FINDINGS: No acute thoracic spine fracture is noted. Mild loss of height with concavity of the superior endplate of T11 is unchanged since CT of August 30, 2021. Moderate multilevel degenerative changes within the thoracic spine are present. There is mild S-shaped curvature of the thoracic spine. No acute fractures are identified within visualized portions of the posterior ribs. Cardiomegaly is noted. Prosthetic aortic valve. Paravertebral soft tissues are unremarkable. Note is again made of a subacute L1 fracture. This involves the superior and inferior endplates with 40% loss of vertebral body height loss. This has increased since CT of July 13, 2012. There is 5 mm of retropulsion which has also slightly increased. This results in moderate central canal stenosis. No extension into the posterior elements is noted. IMPRESSION: 1. No acute thoracic spine fracture or subluxation. 2. Redemonstration of a subacute L1 vertebral body fracture with increase in vertebral body height loss and 5 mm of retropulsion which results in moderate central canal stenosis. This involves the superior and inferior endplates and may reflect a burst type fracture. No extension into the posterior elements. 3. Moderate multilevel degenerative changes within the thoracic spine. spine wo con Stat Hospital Course (1) Back pain: Previously described as lower back pain since fall in June but today appears to be from her neck to tail bone. Although notably is moving her head easily without pain and pain comes on when she rotates her body, she does have a prior diagnosis of cervical spinal stenosis CT cervical and thoracic spine as these have not been imaged since her initial fall. Consider MRI given history of cervical spinal stenosis although symptoms not typical for this. Opiates really having minimal effect and would be ideal to wean these off as she has chronic pain and this is likely to lead to addiction/tolerance as she will always have pain that she would take opiates for. However acutely suspect unable to cope at home as she was getting oxycontin BID at [facility] but did not have her dose last night or this morning, therefore will restart this initially. Her L1 compression fracture is unlikely the cause of her ongoing pain as this occurred in June and she has no point tenderness here. Pain management: Acetaminophen 1000mg PO BID, Celebrex 100mg PO daily for 5 days (reduced dose due to Child-Ware B cirrhosis -- placed on HOLD, would avoid), Oxycontin 10mg PO BID (try to wean off prior to discharge), Oxycodone 5mg PO q4h PRN Lidocaine patch. Voltaren Gel Recently stopped antidepressants. See H&P. Will start on Cymbalta as discussed with her PCP. Vit D >70, stopped replacement Continues on pain control w/ calcitonin nasal (to complete 3-4wks at d/c last admit), lidocaine patch, Oxycontin BID, oxycodone prn, lidocaine patch, voltaren gel Of note, did get prednisone 10mg x 2 days as well -- ?medrol dose pack at d/c if needed but hold off for now Pain much improved, large BM w/ lactulose and will schedule this daily jarrod given her cirrhosis (ammonia prior ~64) I called [facility] as rx for Oxycontin BID written, however confirmed w/ CM, prior - auth required. Re-sent Rx and CM to asssit w/ obtaining (appealing denial, wanting to avoid fentanyl path/methadone in pt w/ cirrhosis and adequate control on current regimen) Lactulose increased to TID and tolerating and moving bowels. Will continue Ortho spine seen 08/09 -- continue PT/OT/pain control, brace ordered but patient declined PT/OT rec return home w/ support -- lives alone, CM following and her children wanting H -- hopefully bed next week Never tx for Lyme, Ceftriaxone IV initiated 08/08 and continue -Initial screening IgM +, IgG negative) -Doxy on allergy list, per CM discussion w son no known anaphylaxis w/ abx or rashes, most allergies likey GI side effects (2) Cirrhosis: Child-Ware score 7. Will reduce NSAIDs by 50% and consider just a short course. Continue spironolactone 25mg PO q2d On lasix 40mg PRN weight gain - monitor weights --> per note Dr Nicole w/ patient not having to use lasix weight ~139lb at that time, currently 148lb. 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 Initial screening IgM +, IgG negative Ceftriaxone started 08/08 and continued -- would trial doxy prior to dc to ensure able to tolerate given on allergy list but per son likely just GI upset Will rx doxy as outpatient for 14 days treatment Monitor WB (4) S/P TAVR (transcatheter aortic valve replacement): hx TAVR in Summer 2021 Follows locally w/ Dr Nicole-- per notes, had not had to utilize prn lasix for weight gain at visit Jan (weight at that time 149lb -- currently 158lb) on plavix for hx CVA on ASA (intolerant to statins) (5) Type 2 diabetes mellitus: HbA1C 6.4 in March --> now 7.2 Continue metformin Insulin sliding scale for correction coverage only Monitor BSGs, did have increased dose steroids x 2 days, improved and stable after last dose (did have 2 cookies 08/10 reported) CHANGED TO DM/AHA diet from regular Monitor BSGs (6) Skin rash: Suspected on admission to be due to laundry detergent from [facility] Continue steroid cream not on open areas BID Continue steroid taper: prednisone 10mg PO 08/07 x 3 days, now off (7) Hypothyroidism: Continue levothyroxine 50mcg PO daily TSH elevated to 6.691, but Ft4 wnl 1.04 -- would rec repeating outpatient w/ PCP/adjustment if remains elevated given normal TSH -- alternatively can consider increasing to 75mcg daily and repeat TFT in 4-6wks w/ PCP T3 wnl, continue current dose synthroid (8) Asthma: Continue her routine inhalers or hospital formulary equivalent No SOB reported, lungs clear (9) Depression: Started duloxetine as above (monitor given her cirrhosis) had d/c her antidepressants earlier this year (10) Hypomagnesemia: Mg level 1.6. Mg sulfate 2g IV now Repeat mag 1.7, changed mag to SLOW MAG BID Monitor in AM (11) Restless leg: Symptoms described by patient. Ferritin not deficient, B12 >1500 (12) Constipation: Continue miraLAX 17g TID, docusate 100mg PO BID, Senna --> switched to lactulose as above given cirrhosis/borderline ammonia and wanting to prevent hepatic encephalopathy given opiate use Titrate lactulose to keep bowels moving regularly (13) CVA (cerebral vascular accident): hx CVA on aspirin in 2019 and received TPA w/ near complete resolution in symptoms LUE weakness/R sided gaze problems, but does continue w/ word finding difficulty at baseline Remains on Plavix Plan VTE Prophylaxis - lovenox 40mg SQ daily while inpatient CM assisting w/ prior Auth for OxyContin Total Time Total Time Spent Total Time Spent (In Minutes): 45 Discharge Plan Discharge Items Patient Disposition: Personal Retirement Reason For Visit: LOW BACK PAIN Discharge Diagnosis: back pain Lyme disease Condition on Discharge: Fair Activity: Resume your previous activity Weightbearing: Full weightbearing Non-emergency contact: Primary Care Provider Call non-emergency contact if: you have any medication questions, your pain is not controlled and your pain is worsening Follow-up/Referrals: Vinh Ardon MD [Primary Care Provider] - 08/16/22 4:00 pm Diet: Carb Consistent or DM2, Heart Healthy and Low Sodium (2gm) Addtl Attending Provider Instructions: You were admitted with back pain and had CT of neck and upper back. Also you have a history of liver cirrhosis and had constipation and were started on Lactulose and this seems to be helping with the bowel movements and we will continue this. Also you had PT and OT and t was decide that the safest option would be for you to be discharged to a personal nursing home. You had a + lyme test and the further testing is stil pending. You were treated with antibiotics while in the hospital and will be continued on Doxycycline upon discharge to [facility]. Pending Studies at Discharge: Yes Studies:: Lyme Western Blot Stand-Alone Forms: My [facility] Skilled Items Patient informed of condition?: Yes DNR: No Discharge Level of Care: Skilled Communicable Disease: No Discharge Prognosis: Stable Lines: None Urinary Catheter: No Medications and DC Order Prescriptions: New fexofenadine [Allergy Relief (fexofenadine)] 180 mg Tablet 180 mg PO DAILY Qty: 30 0RF clopidogrel 75 mg Tablet 75 mg PO QAM Qty: 30 0RF spironolactone 25 mg Tablet 25 mg PO Q2D@0900 Qty: 14 0RF diclofenac sodium [Voltaren Arthritis Pain] 1 % Gel 4 g EXT QID Qty: 100 0RF oxycodone 5 mg Tablet 5 mg PO Q4H PRN (Reason: pain) Qty: 10 0RF duloxetine 30 mg Capsule,Delayed Release(Dr/Ec) 30 mg PO QAM Qty: 30 0RF oxycodone [OxyContin] 10 mg Tablet,Oral Only,Ext.Rel.12 Hr 10 mg PO BID Qty: 20 0RF lactulose 20 gram/30 mL Solution 20 g PO TID Qty: 3000 0RF Mag 64 64 mg Tablet,Delayed Release (Dr/Ec) 64 mg PO BID Qty: 60 0RF calcitonin (salmon) 200 unit/actuation [place],Non-Aerosol 1 spray NA DAILY Qty: 3.7 0RF levothyroxine [Synthroid] 50 mcg Tablet 50 mcg PO DAILYBB Qty: 30 0RF metformin 500 mg Tablet 500 mg PO BID Qty: 60 0RF lidocaine 5 % Adhesive Patch,Medicated 1 patch transdermal QAM Qty: 30 0RF cyanocobalamin (vitamin B-12) [Vitamin B-12] 100 mcg Tablet 100 mcg PO QAM Qty: 30 0RF doxycycline hyclate 100 mg capsule 100 mg PO BID 14 Days Qty: 28 0RF acetaminophen [Tylenol Extra Strength] 500 mg Tablet 1,000 mg PO BID Qty: 60 0RF Continued albuterol sulfate 90 mcg/actuation HFA aerosol inhaler 2 puff inhalation Q4H PRN (Reason: shortness of breath or wheezing) Qty: 18 11RF (DME) lancets [OneTouch UltraSoft Lancets] Misc See Rx Instructions .Route Qty: 100 3RF Rx Instructions: testing once daily and as needed oxycodone [OxyContin] 10 mg Tablet,Oral Only,Ext.Rel.12 Hr 10 mg PO BID Qty: 20 0RF fluticasone propion-salmeterol [Advair Diskus] 250-50 mcg/dose blister with device 1 inh inhalation BID Qty: 1 0RF Discontinued cholecalciferol (vitamin D3) 50 mcg (2,000 unit) capsule 1,000 units PO QAM fexofenadine 180 mg tablet 180 mg PO DAILY cyanocobalamin (vitamin B-12) 100 mcg tablet 100 mcg PO QAM clobetasol 0.05 % ointment 1 applic TOP TID PRN (Reason: itching) Qty: 15 1RF levothyroxine 50 mcg tablet 50 mcg PO DAILY Qty: 90 3RF Rx Instructions: Take before breakfast clopidogrel 75 mg tablet 75 mg PO QAM Qty: 90 3RF furosemide 40 mg tablet 40 mg PO DAILY PRN (Reason: weight gain) Qty: 90 1RF Rx Instructions: For sudden weight gain of more than 5 lbs. benzonatate 100 mg capsule 200 mg PO TID PRN (Reason: Cough) Qty: 60 0RF spironolactone 25 mg tablet 25 mg PO Q2D metformin 500 mg tablet 500 mg PO BID Qty: 180 3RF coenzyme Q10 10 mg Capsule 10 mg PO QAM geriatric [id number] Tablet 1 tab PO QAM garlic 1,000 mg capsule 1,000 mg PO QAM diclofenac sodium [Voltaren Arthritis Pain] 1 % gel 4 g topical QID Qty: 100 0RF Rx Instructions: apply to low back. acetaminophen 325 mg Tablet 650 mg PO Q4H PRN (Reason: pain) Qty: 60 0RF oxycodone 5 mg Tablet 5 mg PO Q4H PRN (Reason: moderate-severe pain) Qty: 15 0RF sennosides [Senokot] 8.6 mg Tablet 17.2 mg PO QAM Qty: 60 0RF polyethylene glycol 3350 [Miralax] 17 gram Powder In Packet 17 g PO TID Qty: 90 0RF calcitonin (salmon) 200 unit/actuation [place],Non-Aerosol 1 spray NA DAILY 28 Days Qty: 3.7 0RF docusate sodium 100 mg Capsule 100 mg PO BID Qty: 60 0RF bisacodyl 10 mg suppository 10 mg PA DAILY PRN (Reason: constipation) Qty: 12 0RF Discharge Orders: Discharge Order (Routine); Ordered 08/12/22 Ordered By: Mallika Longo/Other Patient Handouts: Managing Type 2 Diabetes Admission Data Admit Date/Time: 08/09/22 13:51 Attending Provider: Donnie Cuevas Admit Provider: Maciel Bustillo Primary Care Provider: Vinh Ardon Other Providers: Maciel Bustillo ; Mando Waller ; [place] Other Interventions: Discharge Summary Assessment (RN) Last Done: 08/12/22 15:42 Supervising Physician Co-Signing Physician Notes During face to face encounter, I obtained a brief physical examination, discussed hospital stay with patient and discharge instructions with patient. I discussed discharge plan of care with DRE Barnett. I reviewed above note and agree with it except for the following: Patient was treated for back pain, patient also have possible lyme disease. Given IgM is positive, will empirically treat with Doxycycline for 14 days. May need to extend, and will defer this to PCP Coding Level of Care Code 17692 INP/OBS DISCH >30 MIN Diagnoses Back pain M54.9 Cirrhosis K74.60 Lyme arthritis A69.23 S/P TAVR (transcatheter aortic valve replacement) Z95.2 Type 2 diabetes mellitus E11.9 Skin rash R21 Hypothyroidism E03.9 Asthma J45.20 Asthma complication type: unspecified Asthma persistence: intermittent Asthma severity: unspecified severity Depression F32.9 Hypomagnesemia E83.42 Restless leg G25.81 Constipation K59.00 CVA (cerebral vascular accident) I63.9 CVA mechanism: unspecified Time Spent (min) 45
[2022-08-12 15:21] LABS: 18KDIGG Band NON-REACTIVE; 23KDIGG Band NON-REACTIVE; 23KDIGM Band REACTIVE; 28KDIGG Band NON-REACTIVE; 30KDIGG Band NON-REACTIVE; 39KDIGG Band NON-REACTIVE; 39KDIGM Band NON-REACTIVE; 41KDIGG Band REACTIVE; 41KDIGM Band NON-REACTIVE; 45KDIGG Band NON-REACTIVE; 58KDIGG Band REACTIVE; 66KDIGG Band NON-REACTIVE; 93KDIGG Band NON-REACTIVE; Lyme Antibodies, WB IgG NEGATIVE (NEGATIVE); Lyme Antibodies, WB IgM NEGATIVE (NEGATIVE)
[2022-08-12] MEDS ORDERED: INSULIN ASPART PER UNIT CHARGE SC ONE (16:15)
== END 2022-08-12 16:16 | disposition home or self-care (01) | DRG 560 ==
LOC: 3W 06:31 → ED 06:31 → SUATTDRO 10:30 → 3W 11:47 → SUATTDRO 08-09 13:51
DX: Z88.1 Allergy status to other antibiotic agents; Z95.2 Presence of prosthetic heart valve; Y92.89 Other specified places as the place of occurrence of the external cause; K59.00 Constipation, unspecified; M48.02 Spinal stenosis, cervical region; E11.9 Type 2 diabetes mellitus without complications; F32.A Depression, unspecified; A69.23 Arthritis due to Lyme disease; Z87.891 Personal history of nicotine dependence; W01.0XXD Fall on same level from slipping, tripping and stumbling without subsequent striking against object, subsequent encounter; G25.81 Restless legs syndrome; K74.60 Unspecified cirrhosis of liver; E03.9 Hypothyroidism, unspecified; S32.011D Stable burst fracture of first lumbar vertebra, subsequent encounter for fracture with routine healing; J45.909 Unspecified asthma, uncomplicated; Z79.890 Hormone replacement therapy; I10 Essential (primary) hypertension; I69.328 Other speech and language deficits following cerebral infarction; E83.42 Hypomagnesemia; L23.89 Allergic contact dermatitis due to other agents

== ENCOUNTER 2023-04-09 13:51 | Inpatient (IN) ==
[2023-04-09] MEDS ORDERED: OCTREOTIDE ACETATE 50 MCG in SYRINGE 9.5 ML IV STA ×2 (14:04→14:06)
[2023-04-09] MEDS ORDERED: PANTOPRAZOLE BOLUS/DRIP IV STA (14:04)
[2023-04-09] MEDS ORDERED: PANTOprazole 80 MG in DEXTROSE 5% 100 ML IV ONE (14:04)
[2023-04-09] MEDS ORDERED: STAT IV/IM STA ×3 (14:04→18:22)
--- NOTE | 2023-04-09 14:10 | Emergency Department Note ---
Impression & Plan Acute upper gastrointestinal bleeding, Symptomatic anemia ED Provider Note NAME: NATI BARKER AGE: 82 SEX: F : 1940 ARRIVES VIA: Ambulance INFORMANT: Patient ED PROVIDER(S): Stephan Walker DO CHIEF COMPLAINT: GI bleed HPI: Patient is an 82-year-old female who presents to the ER for vomiting blood and bright red blood per rectum. This started 2 days ago. She does have a history of Owen with esophageal varices. Denies any headache or change in vision. No chest pain or shortness of breath. No belly pain. No dysuria, urgency, or frequency. No other exacerbating or remitting factors. She is a DNR/DNI. ADDITIONAL HISTORY OBTAINED: Per HPI Chronic Medical/Social Conditions Affecting Care: Per HPI PAST MEDICAL HISTORY:See Below PAST SURGICAL HISTORY:See Below FAMILY HISTORY:See Below SOCIAL HISTORY:See Below HOME MEDICATIONS:See Below ALLERGIES:See Below VITALS:See Below PHYSICAL EXAMINATION: GENERAL: Sitting up in bed, alert, well appearing, well nourished, no distress, non-toxic EYE EXAM: normal conjunctiva. OROPHARYNX: mucous membranes are moist NECK: supple, no nuchal rigidity, no adenopathy, non-tender LUNGS: Clear to auscultation. Normal chest wall mechanics HEART: no murmurs, S1 normal and S2 normal ABDOMEN: abdomen soft, non-tender, normo-active bowel sounds, no masses, no rebound or guarding. BACK: Back is symmetrical on inspection and there is no deformity, no midline tenderness, no CVA tenderness. SKIN: no rashes and no bruising UPPER EXTREMITIES: upper extremities are grossly normal. LOWER EXTREMITIES: No pitting edema. NEURO EXAM: Normal sensorium, cranial nerves II-XII grossly intact, normal speech, no gross weakness of arms, no gross weakness of legs. MEDICAL DECISION MAKING: Patient is an 82-year-old female who presents ER for vomiting blood and bright red blood per rectum with a past medical history of Owen and esophageal varices. She was found to be hypotensive with systolic pressures in the 80s. IV was established 2 large-bore IVs were obtained. She was placed on octreotide given a bolus and a drip. She was placed on Protonix drip and bolus. Labs show leukocytosis of 15,000. Anemia at 7. INR unremarkable. BMP along with LFTs bilirubin was unremarkable. As she was hypotensive with blood per rectum and vomiting blood with noted varices she was given 2 units of uncrossed blood. Did discuss case with Dr. Olvera from gastroenterology. Discussed case with the hospitalist for further evaluation management treatment. Patient remained relatively stable while under my care in the ER. External Records Reviewed: Recent admission within the past month for hip fracture following which she had acute blood loss anemia secondary to the hip fracture of 6 units were transfused here at [facility] Consults/Care Managements Discussions: Per MDM Triage Nursing notes reviewed. Limited review of prior medical records performed Vital Signs: reviewed and remarkable for no significant abnormalities Differential diagnosis: Differential diagnoses includes but is not limited to gastritis, peptic ulcer disease, GERD, gallbladder disease, pancreatitis, small bowel obstruction, appendicitis, diverticulitis, hernia, urinary tract infection, torsion, perforation, trauma, infectious. ER treatment provided: See below Diagnostics interpreted by me include EKG and cardiac monitoring as listed below: -Cardiac Monitoring: An order was placed for continuous cardiac monitoring. The monitor shows a rate of 80 with sinus rhythm. -ECG: Sinus rhythm 82nd Left axis No PVCs Poor baseline in the septal leads with ST depressions in V2 ST depressions in the high lateral leads -Laboratory studies:Interpreted by me as stated above in MDM and shown below. Imaging studies: Xrays: As interpreted by me:none CTs show: CT abdomen pelvis per my read showed no obvious bowel obstruction per my interpretation CT and pelvis per radiology showed no acute pathology Procedures:none Critical Care: I have personally spent 55 minutes of critical care time in the direct management of this patient. This includes bedside care, interpretation of diagnostic studies, and testing, discussion with consultants, patient, and family members, and other required patient management activities. This 55 minutes is in excess of all separately billable procedures. 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 Severe aortic stenosis Received tissue plasminogen activator (tPA) less than 24 hours prior to arrival Aortic arch aneurysm CVA (cerebral vascular accident) (02/2020) Vitamin D deficiency Vertigo TMJ (sprain of temporomandibular joint) Stenosis, cervical spine Sciatica Osteoarthritis Hypothyroidism Hearing loss Gastroesophageal reflux disease Depression Carotid artery stenosis Asthma Aortic stenosis Anxiety Allergic rhinitis Hyperlipidemia Diabetes HTN (hypertension) Surgical History (Updated 03/23/23 @ 00:10 by Temi Maya) S/p TAVR (transcatheter aortic valve replacement), bioprosthetic (09/2021) History of laparoscopic cholecystectomy History of cataract surgery Family History Unknown Esophageal reflux Mother , age 73 of dementia Dementia Myocardial infarction Father , age 75 of a stroke Stroke Denies family history of Ovarian cancer Prostate cancer Coronary heart disease Breast cancer Colorectal cancer Social History Smoking Status: Former smoker Tobacco Type: Cigarettes Second Hand Exposure: No; Do You Dip or Chew Tobacco: No; Hx Alcohol Use: No Hx Substance Use: No Preferred Language: Czech Communication Ability: Effective Visual Impairment: No Limitations Hearing Ability: Use of Hearing Aid Braider Operator Required: No Beliefs That Will Affect Care: None marital status: / Current Living Situation: Prison Current Living Situation Comment: [facility] current occupational status: retired 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 Feels Safe at Home: Yes Childhood Exposure to Second-Hand Smoke: Yes Diet: regular caffeine: Yes during the past year weight has: remained stable Dental Care, Regularly: Yes Physical Activity Frequency: 1-2 Times per Week Seatbelt Use: always Sunscreen Use: Yes Assistive Devices: Wheelchair Allergies Allergies Allergy/AdvReac Type Severity Reaction Status Date / Time atorvastatin [From Lipitor] Allergy Unknown ON CENTRE Verified 04/09/23 15:47 CARE MED LIST doxycycline Allergy Unknown ON CENTRE Verified 04/09/23 15:47 CARE MED LIST ezetimibe Allergy Unknown ON CENTRE Verified 04/09/23 15:47 CARE MED LIST gabapentin Allergy Unknown ON CENTRE Verified 04/09/23 15:47 CARE MED LIST meloxicam Allergy Unknown ON CENTRE Verified 04/09/23 15:47 CARE MED LIST nitrofurantoin Allergy Unknown ON CENTRE Verified 04/09/23 15:47 CARE MED LIST ofloxacin Allergy Unknown ON CENTRE Verified 04/09/23 15:47 CARE MED LIST pravastatin Allergy Unknown ON CENTRE Verified 04/09/23 15:47 CARE MED LIST sulfamethoxazole Allergy Unknown ON CENTRE Verified 04/09/23 15:47 CARE MED LIST trimethoprim Allergy Unknown ON CENTRE Verified 04/09/23 15:47 CARE MED LIST amoxicillin AdvReac Intermediate YEAST Verified 04/09/23 15:47 INFECTION oxycodone AdvReac Intermediate VOMITING Verified 04/09/23 15:47 rosuvastatin AdvReac Intermediate BODY PAINS Verified 04/09/23 15:47 Home Meds Home Medications Medication Instructions Recorded Confirmed lactulose 10 gram/15 mL oral 30 ml PO BIDM constipation 03/07/23 04/09/23 solution acetaminophen 325 mg tablet 650 mg PO Q6H PRN FEVER >100/MILD 04/09/23 04/09/23 (Tylenol) PAIN benzonatate 100 mg capsule 200 mg PO PC 04/09/23 04/09/23 buspirone 5 mg tablet 2.5 mg PO BIDM 04/09/23 04/09/23 clindamycin HCl 300 mg capsule 600 mg PO DIRECTED PRN 1 HR 04/09/23 04/09/23 PRIOR TO DENTAL PROCEDURES dextromethorphan-guaifenesin 10 10 ml PO QID 04/09/23 04/09/23 mg-100 mg/5 mL oral syrup (Tussin DM) duloxetine 30 mg capsule,delayed 30 mg PO QAM 04/09/23 04/09/23 release magnesium chloride 64 mg 128 mg PO BIDM 04/09/23 04/09/23 (magnesium chloride) tablet,delayed release (Mag 64) nystatin 100,000 unit/gram topical 1 applic topical BID 04/09/23 04/09/23 powder pramipexole 0.125 mg tablet 0.125 mg PO HS 04/09/23 04/09/23 spironolactone 25 mg tablet 25 mg PO Q OTHER DAY 04/09/23 04/09/23 Previous Rx's Medication Instructions Recorded albuterol sulfate 90 mcg/actuation 2 puff inhalation Q4H PRN 09/09/22 aerosol inhaler shortness of breath or wheezing #18 grams blood sugar diagnostic #100 ea 09/09/22 lancets (OneTouch UltraSoft #100 ea 09/09/22 Lancets) diclofenac sodium 1 % topical gel 4 g EXT QID #100 grams 10/07/22 (Voltaren Arthritis Pain) cyanocobalamin (vitamin B-12) 100 100 mcg PO QAM #30 tabs 10/09/22 mcg tablet (Vitamin B-12) fexofenadine 180 mg tablet 180 mg PO DAILY #30 tabs 10/09/22 fluticasone 250 mcg-salmeterol 50 1 inh inhalation BID #1 ea 11/25/22 mcg/dose blistr powdr for inhalation (Advair Diskus) levothyroxine 50 mcg tablet 50 mcg PO DAILYBB #30 tabs 11/27/22 (Synthroid) duloxetine 60 mg capsule,delayed 60 mg PO DAILY #90 caps 01/05/23 release lidocaine 5 % topical patch 1 patch topical DAILY #30 ea 02/24/23 acetaminophen 500 mg tablet 500 mg PO BID #60 tabs 03/13/23 (Tylenol Extra Strength) clopidogrel 75 mg tablet 75 mg PO QAM #30 tabs 03/13/23 hydrocodone 5 mg-acetaminophen 325 1 tab PO Q8H PRN pain #20 tabs 03/13/23 mg tablet melatonin 3 mg tablet 3 mg PO HS #30 tabs 03/13/23 quetiapine 25 mg tablet (Seroquel) 25 mg PO HS #1 tab 03/13/23 Results & Data (ED) Vital Signs Vital Signs - 24 hr 04/09/23 14:16 04/09/23 14:16 04/09/23 14:16 Temperature 36.5 C 36.5 C Temperature Source Oral Oral Pulse Rate 91 H 96 H Pulse Rate [Apical] 93 H Pulse Rate from SpO2 Sensor Pulse Rhythm Regular Respiratory Rate 24 22 24 Respiratory Effort / Characteristics Respiratory Depth Normal Normal Blood Pressure 88/52 L Blood Pressure [Right Arm] 88/52 L Blood Pressure Mean 64 Blood Pressure Mean [Right Arm] 64 Blood Pressure Position Lying Blood Pressure Position [Right Arm] Pulse Oximetry 94 94 94 Oxygen Delivery Method Room Air Room Air Room Air Sepsis Recent Fever Within 48 Hours No Sepsis New/Unexplained Change in Mental Status N/A Sepsis Action Taken by Nursing Physician Notified 04/09/23 14:18 04/09/23 14:51 04/09/23 15:02 Temperature 36.5 C 37.0 C Temperature Source Oral Oral Pulse Rate 87 82 81 Pulse Rate [Apical] Pulse Rate from SpO2 Sensor Pulse Rhythm Respiratory Rate 20 20 Respiratory Effort / Characteristics Respiratory Depth Blood Pressure 87/67 L 87/40 L Blood Pressure [Right Arm] Blood Pressure Mean 73 55 Blood Pressure Mean [Right Arm] Blood Pressure Position Lying Lying Blood Pressure Position [Right Arm] Pulse Oximetry 95 Oxygen Delivery Method Sepsis Recent Fever Within 48 Hours Sepsis New/Unexplained Change in Mental Status Sepsis Action Taken by Nursing 04/09/23 15:21 04/09/23 15:41 04/09/23 15:45 Temperature 36.5 C 36.6 C Temperature Source Oral Oral Pulse Rate Pulse Rate [Apical] 80 84 84 Pulse Rate from SpO2 Sensor Pulse Rhythm Respiratory Rate 25 H 24 24 Respiratory Effort / Characteristics Non-Labored Non-Labored Respiratory Depth Normal Normal Normal Blood Pressure Blood Pressure [Right Arm] 101/58 L 98/46 L 109/59 L Blood Pressure Mean Blood Pressure Mean [Right Arm] 72 63 75 Blood Pressure Position Blood Pressure Position [Right Arm] Lying Lying Lying Pulse Oximetry 95 99 Oxygen Delivery Method Room Air Room Air Sepsis Recent Fever Within 48 Hours Sepsis New/Unexplained Change in Mental Status Sepsis Action Taken by Nursing 04/09/23 15:45 04/09/23 15:50 04/09/23 15:50 Temperature Temperature Source Pulse Rate 86 Pulse Rate [Apical] Pulse Rate from SpO2 Sensor 84 Pulse Rhythm Respiratory Rate 17 Respiratory Effort / Characteristics Respiratory Depth Blood Pressure 109/59 L Blood Pressure [Right Arm] Blood Pressure Mean 68 Blood Pressure Mean [Right Arm] Blood Pressure Position Blood Pressure Position [Right Arm] Pulse Oximetry 100 100 Oxygen Delivery Method Room Air Sepsis Recent Fever Within 48 Hours Sepsis New/Unexplained Change in Mental Status Sepsis Action Taken by Nursing 04/09/23 16:00 04/09/23 16:01 04/09/23 16:10 Temperature Temperature Source Pulse Rate 85 86 86 Pulse Rate [Apical] Pulse Rate from SpO2 Sensor 85 86 86 Pulse Rhythm Respiratory Rate 19 17 15 Respiratory Effort / Characteristics Respiratory Depth Blood Pressure Blood Pressure [Right Arm] Blood Pressure Mean Blood Pressure Mean [Right Arm] Blood Pressure Position Blood Pressure Position [Right Arm] Pulse Oximetry 93 96 98 Oxygen Delivery Method Sepsis Recent Fever Within 48 Hours Sepsis New/Unexplained Change in Mental Status Sepsis Action Taken by Nursing 04/09/23 16:15 04/09/23 16:15 Temperature Temperature Source Pulse Rate 87 Pulse Rate [Apical] Pulse Rate from SpO2 Sensor 87 Pulse Rhythm Respiratory Rate 16 Respiratory Effort / Characteristics Respiratory Depth Blood Pressure 103/79 Blood Pressure [Right Arm] Blood Pressure Mean 84 Blood Pressure Mean [Right Arm] Blood Pressure Position Blood Pressure Position [Right Arm] Pulse Oximetry 95 Oxygen Delivery Method Sepsis Recent Fever Within 48 Hours Sepsis New/Unexplained Change in Mental Status Sepsis Action Taken by Nursing Laboratory Data 04/09/23 17:13 04/09/23 14:09 Lab Results 04/09/23 04/09/23 04/09/23 Range/Units 14:09 14:13 14:16 WBC 15.66 H (4.8-10.8) K/ul RBC 2.71 L (4.20-5.40) M/uL Hgb 7.7 L (12.0-16.0) g/dl POC Hgb 7.5 L (12.0-16.0) g/dl Hct 23.9 L (37.0-47.0) % POC Hct 22 L (37-47) % MCV 88.2 (80.0-100.0) fL MCH 28.4 (25.0-34.0) pg MCHC 32.2 (32.0-36.0) g/dL RDW Std Deviation 45.4 (36.4-46.3) fL RDW Coeff of Marty 14.3 (11.5-14.5) % Plt Count 207 (130-400) K/uL MPV 11.1 (9.4-12.4) fL Immature Gran % (Auto) 2.2 % Neut % (Auto) 68.5 % Lymph % (Auto) 20.2 % Blount % (Auto) 6.4 % Eos % (Auto) 2.3 % Baso % (Auto) 0.4 % Neut # (Auto) 10.73 H (1.40-6.50) K/uL Lymph # (Auto) 3.17 (1.20-3.40) K/uL Blount # (Auto) 1.00 H (0.11-0.59) K/uL Eos # (Auto) 0.36 (0.00-0.50) K/uL Baso # (Auto) 0.06 (0.00-0.20) K/uL Immature Gran # (Auto) 0.34 H (0.01-0.20) K/uL Polychromasia 1+ PT 12.1 H (9.0-12.0) Seconds INR 1.1 (0.9-1.1) APTT 23.9 (21.0-31.0) Seconds PTT Ratio 0.8 POC Sodium 137 (135-144) mmol/L Sodium 136 (136-145) mmol/L POC Potassium 5.0 (3.3-5.0) mmol/L Potassium 5.0 (3.5-5.1) mmol/L POC Chloride 104 (101-112) mmol/L Chloride 105 (98-107) mmol/L Carbon Dioxide 24 (21-32) mmol/L POC Total CO2 20 L (24-31) mmol/L Anion Gap 7 (3-11) POC Anion Gap 19.0 (16-25) mmol/L POC BUN 35 H (7-18) mg/dl BUN 42 H (6-23) mg/dl Creatinine 0.59 L (0.6-1.2) mg/dl POC Creatinine 0.6 (0.6-1.3) mg/dl Est Cr Clr Drug Dosing 67.1 ml/min Est GFR ( Amer) 97.5 ml/min Est GFR (Non-Af Amer) 84.2 ml/min BUN/Creatinine Ratio 71.2 H (10-20) Glucose 203 H (70-99(Fasting)) mg/dl POC Glucose (other) 201 H (70-99) mg/dl Calcium 8.9 (8.6-10.3) mg/dl POC Ioniz Calcium Kamaljit 1.20 (1.12-1.32) mmol/l Total Bilirubin 0.5 (0.2-1.0) mg/dl AST 15 (13-39) U/L ALT 9 (7-52) U/L Alkaline Phosphatase 66 (34-104) U/L Total Protein 6.0 (6.0-8.3) gm/dl Albumin 3.1 L (3.4-5.0) gm/dl Globulin 2.9 (2.5-4.0) gm/dl Albumin/Globulin Ratio 1.1 (0.9-2) POC Stool Occult Blood Positive A (Negative) Blood Type A Positive Antibody Screen NEGATIVE Crossmatch See Detail Administered Medications Pantoprazole Sodium 40 mg/ (Dextrose) 100 mls @ 20 mls/hr IV Q5H NEETA Stop: 04/10/23 05:29 Last Admin: 04/09/23 20:20 Dose: 8 mg/hr, 20 mls/hr Documented By: Infusion: 04/09/23 19:50 Dose: Infused Documented By: Admin: 04/09/23 14:43 Dose: 8 mg/hr, 20 mls/hr Documented By: JM Octreotide Acetate 500 mcg/ (Sodium Chloride) 100.5 mls @ 10.05 mls/hr IV .Q10H NEETA Stop: 05/09/23 14:29 Last Admin: 04/09/23 15:17 Dose: 50 mcg/hr, 10.1 mls/hr Documented By: JM Discontinued Medications Sodium Chloride (Nss) 1,000 mls @ 999 mls/hr IV .Q1H1M NEETA Stop: 04/09/23 15:15 Last Infusion: 04/09/23 16:36 Dose: Infused Documented By: Admin: 04/09/23 14:46 Dose: 999 mls/hr Documented By: JM Pantoprazole Sodium 80 mg/ (Dextrose) 120 mls @ 400 mls/hr IV NOW ONE Stop: 04/09/23 14:21 Last Infusion: 04/09/23 15:18 Dose: Infused Documented By: Admin: 04/09/23 14:36 Dose: 400 mls/hr Documented By: JM Octreotide Acetate 50 mcg/ (Syringe) 10 mls @ 3 mls/min IV ONE STA Stop: 04/09/23 14:07 Last Admin: 04/09/23 14:35 Dose: 3 mls/min Documented By: JM Calcium Gluconate 1,000 mg/ (Sodium Chloride) 60 mls @ 240 mls/hr IV NOW ONE Stop: 04/09/23 18:36 Last Infusion: 04/09/23 19:31 Dose: Infused Documented By: Admin: 04/09/23 18:50 Dose: 240 mls/hr Documented By: JM Ioversol (Optiray 320 500ml) 82 ml IV ONCE ONE Stop: 04/09/23 15:32 Last Admin: 04/09/23 15:31 Dose: 82 ml Documented By: TEODORA Miscellaneous (Stat Iv/Im) 1 each N/A NOW STA Stop: 04/09/23 14:05 Last Admin: 04/09/23 15:18 Dose: 1 each Documented By: JM Miscellaneous (Stat Iv/Im) 1 each N/A NOW STA Stop: 04/09/23 14:07 Last Admin: 04/09/23 15:18 Dose: 1 each Documented By: JM Pantoprazole Sodium (Pantoprazole Bolus/Drip) 1 each IV NOW STA Stop: 04/09/23 14:05 Last Admin: 04/09/23 15:18 Dose: 1 each Documented By: JM Imaging Data Radiologist's Impression: Abdomen/Pelvis CT 04/09/23 14:04 CT SCAN OF THE ABDOMEN AND PELVIS WITH IV CONTRAST CLINICAL HISTORY: GI bleeding. COMPARISON STUDY: Abdominal CT dated 03/07/2023. TECHNIQUE: Following the IV administration of 82 cc of Optiray 320, CT scan of the abdomen and pelvis is performed from the lung bases to the proximal femora. Images are reviewed in the axial, sagittal, and coronal planes. IV contrast was administered without complication. A dose lowering technique was utilized adhering to the principles of ALARA. The examination is degraded by motion artifact, as well as by streak artifact from the arms which could not be elevated above the abdomen. CT DOSE: 1217.67 mGy.cm FINDINGS: Lung bases: There is evidence of previous aortic valve surgery. The heart is enlarged and without pericardial effusion. The mitral annulus is densely calcified. The lung bases are clear noting bibasilar scarring/atelectasis. There is a small hiatal hernia. Liver: The contrast-enhanced liver is normal in size, contour, and attenuation. There is no intrahepatic biliary ductal dilatation. The hepatic veins and portal veins are patent. Gallbladder: Surgically absent noting clips in the gallbladder fossa. Spleen: Normal in size and attenuation. Pancreas: The pancreas is moderately atrophic and grossly unremarkable. Adrenal glands: Unremarkable. Kidneys: The contrast enhanced kidneys demonstrate mild cortical atrophy and are without hydronephrosis. The kidneys enhance symmetrically. A 1.8 cm cyst is noted on the left. Abdominal vasculature: The abdominal aorta is normal in course and caliber noting advanced atherosclerotic calcification. Bowel: There is no bowel obstruction. The bowel is not well assessed due to the degree of motion artifact. The appendix is well-visualized and normal. Peritoneum: There is no intraperitoneal free air or abdominal ascites. There is a small fat-containing umbilical hernia. Lymphadenopathy: None. Pelvic viscera: The bladder is decompressed from a Koroma catheter and cannot be evaluated. The uterus and adnexa are normal as visualized. Skeletal structures: The skeletal structures are osteopenic. An inferior endplate compression deformity of T12 and a burst type compression fracture of L1 with moderate loss of height and retropulsed fragments are grossly similar to previous. No lytic or blastic lesions are seen. There are bilateral pars defects at L5 with advanced disc space narrowing and 12 mm of anterolisthesis of L5-S1. Moderate lumbosacral spondylosis is observed. IMPRESSION: 1. Severely streak and motion compromised examination. 2. No acute infectious or inflammatory findings are clearly identified in the abdomen or pelvis. 3. Subacute appearing compression deformities are likely unchanged from 03/07/2023. 4. Cardiomegaly. 5. There is no bowel obstruction. 6. Additional findings as above. ACT 112: Negative or not required by law. Electronically signed by: Jatinder Masterson M.D. 04/09/2023 4:12 PM Discharge Plan Visit Data Chief Complaint: GI Bleed ED Provider: Stephan Walker Discharge Problem: Acute upper gastrointestinal bleeding, Symptomatic anemia Discharge Instructions Interventions: ED Discharge Assessment Last Done: 04/09/23 20:25
[2023-04-09] MEDS ORDERED: SODIUM CHLORIDE 0.9% 1,000 ML IV SCH (14:15)
[2023-04-09] MEDS ORDERED: SODIUM CHLORIDE 0.9% 250 ML IV PRN ×2 (14:17→18:22)
[2023-04-09 14:24] LABS: Basophils # (auto) 0.06 K/uL (0.00-0.20); Basophils % (auto) 0.4 %; Eosinophils # (auto) 0.36 K/uL (0.00-0.50); Eosinophils % (auto) 2.3 %; Hematocrit (blood only) 23.9 % (37.0-47.0); Hemoglobin 7.7 g/dl (12.0-16.0); Immature Granulocytes # (auto) 0.34 K/uL (0.01-0.20); Immature Granulocytes % (auto) 2.2 %; Lymphocytes # (auto) 3.17 K/uL (1.20-3.40); Lymphocytes % (auto) 20.2 %; Mean Corpuscular Hemoglobin 28.4 pg (25.0-34.0); Mean Corpuscular Hgb Conc 32.2 g/dL (32.0-36.0); Mean Corpuscular Volume 88.2 fL (80.0-100.0); Mean Platelet Volume 11.1 fL (9.4-12.4); Monocytes % (auto) 6.4 %; Neutrophils # (auto) 10.73 K/uL (1.40-6.50); Neutrophils % (auto) 68.5 %; Platelet Count 207 K/uL (130-400); RDW Coefficient of Variation 14.3 % (11.5-14.5); RDW Standard Deviation 45.4 fL (36.4-46.3); Red Blood Count 2.71 M/uL (4.20-5.40); White Blood Count 15.66 K/ul (4.8-10.8)
[2023-04-09 14:26] LABS: iSTAT Creatinine 0.6 mg/dl (0.6-1.3); iSTAT Hemoglobin 7.5 g/dl (12.0-16.0); iSTAT Ionized Calcium 1.2 mmol/l (1.12-1.32)
[2023-04-09 14:40] LABS: Albumin Globulin Ratio 1.1 (0.9-2); Albumin Level 3.1 gm/dl (3.4-5.0); BUN Creatinine Ratio 71.2 (10-20); Bilirubin,Total 0.5 mg/dl (0.2-1.0); Calcium 8.9 mg/dl (8.6-10.3); Creatinine Clr Calc Pharmacy 67.1 ml/min; Est GFR (African American) 97.5 ml/min; Est GFR (Non-African American) 84.2 ml/min; Globulin 2.9 gm/dl (2.5-4.0)
[2023-04-09 14:42] LABS: Polychromasia 1+
[2023-04-09] MEDS: PANTOprazole 40 MG in DEXTROSE 5% MINI-B 100 ML IV SCH ×2 (14:43→20:20)
[2023-04-09 14:55] LABS: INR 1.1 (0.9-1.1); Partial Thromboplastin Ratio 0.8; Partial Thromboplastin Time 23.9 Seconds (21.0-31.0); Prothrombin Time 12.1 Seconds (9.0-12.0)
[2023-04-09] MEDS: OCTREOTIDE ACETATE 500mcg / NSS 100mL IV SCH (15:17)
--- NOTE | 2023-04-09 15:27 | History & Physical Report ---
Date of Service April 09, 2023 Assessment & Plan (1) GI bleed: Plan: Blood in rectum x2 days, vomiting blood in the morning of 04/09 Hx of COWART with esophageal varices BUN/Cr ratio elevated at 71.2; more indicative of an upper GI bleed Abdomen/pelvic CT revealed no bowel obstruction; bowel was not well assessed due to motion artifact Leukocytosis 15.66 with neutrophil predominance Hgb 7.7 and Hct 7.5 on arrival Patient received 2 units of PRBCs in the ED; holding 1 additional unit POC stool occult blood positive LFTs WNL Discussed endoscopy with GI; continue medical management for now; keep n.p.o. at midnight Appreciate GI consult Trend H&H q4h Continue pantoprazole 40 mg IV BID Continue octreotide 50 mcg/hr x 2-5 days A.m. CBC, BMP, PT/INR (2) Hypotension: Plan: 103/76 at time of admission IV fluid resuscitation with LR Keep MAP >65 (3) Dementia: Plan: Significant dementia with behavioral disturbances Hold duloxetine, Seroquel, pramipexole (4) Type 2 diabetes mellitus: Plan: Glucose 203 on arrival Last A1c was 7.1% on 02/24/2023 Not currently on any diabetic medications BSG checks q6h while NPO Pharmacy glycemic consult (5) Hypothyroidism: Plan: Hold levothyroxine Plan Disposition: Admit to PCU telemetry DNR/DNI Keep n.p.o. for now; npo at midnight; advance to clear liquid diet as tolerated after seen by GI VTE PPx: SCDs (hold chemical DVT PPx in the setting of acute GI bleed) History of Present Illness Chief Complaint: GI bleed Primary Care Provider: Vinh Ardon MD Mimi is an 82-year-old female with PMH of COWART with esophageal varices, dementia, HTN, anxiety, depression, GERD, hypothyroidism, OA, asthma, AI, hyperlipidemia, CVA in 2019, T2DM. She presented via EMS from [facility] for vomiting blood this morning on 04/09 and bright red blood per rectum x2 days. Hypotensive in transit at 73/49. Patient is a poor historian due to underlying dementia, however she is A&O x3. Patient is daughter (Mimi) and son (john) are present at the bedside and provide additional history. Patient reports that she took her morning medications; including Plavix at 0800 on 04/09. She does not endorse abdominal pain at time of admission. Her main concern is her restless leg syndrome, and pain in her legs B/L patient remains hypotensive at 87/40 at time of admission. ED course: Pantoprazole 120 mg IV Octreotide 550 mcg IV IVF ROS: Patient endorses restless leg syndrome, pain in legs. Patient denies fever, chills, sweating, CP, SOB, abdominal pain, burning with urination, or urinary s/s. PMHx Hx of open femur fx in February requiring 6u pRBCs Allergies Allergy/AdvReac Type Severity Reaction Status Date / Time atorvastatin [From Lipitor] Allergy Unknown ON CENTRE Verified 04/09/23 15:47 CARE MED LIST doxycycline Allergy Unknown ON CENTRE Verified 04/09/23 15:47 CARE MED LIST ezetimibe Allergy Unknown ON CENTRE Verified 04/09/23 15:47 CARE MED LIST gabapentin Allergy Unknown ON CENTRE Verified 04/09/23 15:47 CARE MED LIST meloxicam Allergy Unknown ON CENTRE Verified 04/09/23 15:47 CARE MED LIST nitrofurantoin Allergy Unknown ON CENTRE Verified 04/09/23 15:47 CARE MED LIST ofloxacin Allergy Unknown ON CENTRE Verified 04/09/23 15:47 CARE MED LIST pravastatin Allergy Unknown ON CENTRE Verified 04/09/23 15:47 CARE MED LIST sulfamethoxazole Allergy Unknown ON CENTRE Verified 04/09/23 15:47 CARE MED LIST trimethoprim Allergy Unknown ON CENTRE Verified 04/09/23 15:47 CARE MED LIST amoxicillin AdvReac Intermediate YEAST Verified 04/09/23 15:47 INFECTION oxycodone AdvReac Intermediate VOMITING Verified 04/09/23 15:47 rosuvastatin AdvReac Intermediate BODY PAINS Verified 04/09/23 15:47 Home Medications Medication Instructions Recorded Confirmed Type albuterol sulfate 90 mcg/actuation 2 puff inhalation Q4H PRN 09/09/22 04/09/23 Rx aerosol inhaler shortness of breath or wheezing #18 grams blood sugar diagnostic #100 ea 09/09/22 02/24/23 Rx lancets (OneTouch UltraSoft #100 ea 09/09/22 02/24/23 Rx Lancets) diclofenac sodium 1 % topical gel 4 g EXT QID #100 grams 10/07/22 04/09/23 Rx (Voltaren Arthritis Pain) cyanocobalamin (vitamin B-12) 100 100 mcg PO QAM #30 tabs 10/09/22 04/09/23 Rx mcg tablet (Vitamin B-12) fexofenadine 180 mg tablet 180 mg PO DAILY #30 tabs 10/09/22 04/09/23 Rx fluticasone 250 mcg-salmeterol 50 1 inh inhalation BID #1 ea 11/25/22 04/09/23 Rx mcg/dose blistr powdr for inhalation (Advair Diskus) levothyroxine 50 mcg tablet 50 mcg PO DAILYBB #30 tabs 11/27/22 04/09/23 Rx (Synthroid) duloxetine 60 mg capsule,delayed 60 mg PO DAILY #90 caps 01/05/23 04/09/23 Rx release lidocaine 5 % topical patch 1 patch topical DAILY #30 ea 02/24/23 04/09/23 Rx lactulose 10 gram/15 mL oral 30 ml PO BIDM constipation 03/07/23 04/09/23 History solution acetaminophen 500 mg tablet 500 mg PO BID #60 tabs 03/13/23 04/09/23 Rx (Tylenol Extra Strength) clopidogrel 75 mg tablet 75 mg PO QAM #30 tabs 03/13/23 04/09/23 Rx hydrocodone 5 mg-acetaminophen 325 1 tab PO Q8H PRN pain #20 tabs 03/13/23 04/09/23 Rx mg tablet melatonin 3 mg tablet 3 mg PO HS #30 tabs 03/13/23 04/09/23 Rx quetiapine 25 mg tablet (Seroquel) 25 mg PO HS #1 tab 03/13/23 04/09/23 Rx acetaminophen 325 mg tablet 650 mg PO Q6H PRN FEVER >100/MILD 04/09/23 04/09/23 History (Tylenol) PAIN benzonatate 100 mg capsule 200 mg PO PC 04/09/23 04/09/23 History buspirone 5 mg tablet 2.5 mg PO BIDM 04/09/23 04/09/23 History clindamycin HCl 300 mg capsule 600 mg PO DIRECTED PRN 1 HR 04/09/23 04/09/23 History PRIOR TO DENTAL PROCEDURES dextromethorphan-guaifenesin 10 10 ml PO QID 04/09/23 04/09/23 History mg-100 mg/5 mL oral syrup (Tussin DM) duloxetine 30 mg capsule,delayed 30 mg PO QAM 04/09/23 04/09/23 History release magnesium chloride 64 mg 128 mg PO BIDM 04/09/23 04/09/23 History (magnesium chloride) tablet,delayed release (Mag 64) nystatin 100,000 unit/gram topical 1 applic topical BID 04/09/23 04/09/23 History powder pramipexole 0.125 mg tablet 0.125 mg PO HS 04/09/23 04/09/23 History spironolactone 25 mg tablet 25 mg PO Q OTHER DAY 04/09/23 04/09/23 History Past Med/Surg History Medical History (Updated 04/09/23 @ 15:29 by Tres Oviedo PA-C) Severe back pain Acute blood loss anemia Pars defect with spondylolisthesis grade 2, L5 on S1 Lumbosacral spondylosis Lumbosacral radiculopathy due to degenerative joint disease of spine Constipation Compression fracture of L1 lumbar vertebra (07/08/22) Cirrhosis Severe tricuspid regurgitation Moderate mitral regurgitation Dementia Ascites Elevated troponin Anemia Hypomagnesemia 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 Severe aortic stenosis Received tissue plasminogen activator (tPA) less than 24 hours prior to arrival Aortic arch aneurysm CVA (cerebral vascular accident) (02/2020) Vitamin D deficiency Vertigo TMJ (sprain of temporomandibular joint) Stenosis, cervical spine Sciatica Osteoarthritis Hypothyroidism Hearing loss Gastroesophageal reflux disease Depression Carotid artery stenosis Asthma Aortic stenosis Anxiety Allergic rhinitis Hyperlipidemia Diabetes HTN (hypertension) Surgical History (Updated 03/23/23 @ 00:10 by Temi Maya) S/p TAVR (transcatheter aortic valve replacement), bioprosthetic (09/2021) History of laparoscopic cholecystectomy History of cataract surgery Family History Unknown Esophageal reflux Mother , age 73 of dementia Dementia Myocardial infarction Father , age 75 of a stroke Stroke Denies family history of Ovarian cancer Prostate cancer Coronary heart disease Breast cancer Colorectal cancer Social History Smoking Status: Former smoker Tobacco Type: Cigarettes Second Hand Exposure: No; Do You Dip or Chew Tobacco: No; Hx Alcohol Use: No Hx Substance Use: No Preferred Language: Romanian Communication Ability: Effective Visual Impairment: No Limitations Hearing Ability: Use of Hearing Aid Anthropologist Physical Required: No Beliefs That Will Affect Care: None marital status: / Current Living Situation: Shelter Current Living Situation Comment: 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 Feels Safe at Home: Yes Childhood Exposure to Second-Hand Smoke: Yes Diet: regular caffeine: Yes during the past year weight has: remained stable Dental Care, Regularly: Yes Physical Activity Frequency: 1-2 Times per Week Seatbelt Use: always Sunscreen Use: Yes Assistive Devices: Wheelchair Review of Systems Review of Systems: See HPI above Physical Exam Physical Exam: General: no acute distress; non-toxic appearing; well-nourished; cooperative; 97% SpO2 on RA HEENT: normocephalic, atraumatic; no scleral icterus; PERRLA w/ EOMs intact; moist mucus membrane; vision intact; hearing aids B/L Neck: supple; no JVD; no lymphadenopathy; trachea midline Skin: warm, dry without signs of tenting; no cyanosis; no rashes, bruising, lesions, or erythema noted CV: chest wall NTP; RRR; S1/S2 normal; no murmurs/rubs/gallops; pulses intact and symmetric at radial, DP, and PT Lungs: no acute respiratory distress; symmetrical chest wall expansion; clear breath sounds across all lung cabral w/o adventitious sounds; no wheezing ABD: hyperactive bowel sounds present in all 4 quadrants; Soft, NTP; liver/spleen NTP; no rebound/guarding; no ascites; abdomen grossly distended; tympany to percussion; no signs of bruising or active bleeding noted in the abdomen or flanks MSK: no tics or fasciculations; no edema noted in the LEs b/l; constant movement of LEs Neuro: A&Ox3; patient exhibits mild confusion; pleasant mood and affect; fluent speech; no focal deficits; sensation grossly intact in the LEs B/ Results & Data Results & Data Vital Signs (Past 12 Hours) Vital Signs Temp Pulse Pulse Resp BP BP Pulse Ox 04/09/23 15:21 36.5 C 80 25 H 101/58 L 95 04/09/23 15:02 37.0 C 81 20 87/40 L 04/09/23 14:51 36.5 C 82 20 87/67 L 95 04/09/23 14:18 87 04/09/23 14:16 96 H 24 94 04/09/23 14:16 36.5 C 93 H 22 88/52 L 94 04/09/23 14:16 36.5 C 91 H 24 88/52 L 94 O2 Del Method 04/09/23 15:21 Room Air 04/09/23 15:02 04/09/23 14:51 04/09/23 14:18 04/09/23 14:16 Room Air 04/09/23 14:16 Room Air 04/09/23 14:16 Room Air Laboratory Results Abnormal lab results 04/09/23 04/09/23 04/09/23 Range/Units 14:09 14:13 14:16 WBC 15.66 H (4.8-10.8) K/ul RBC 2.71 L (4.20-5.40) M/uL Hgb 7.7 L (12.0-16.0) g/dl POC Hgb 7.5 L (12.0-16.0) g/dl Hct 23.9 L (37.0-47.0) % POC Hct 22 L (37-47) % Neut # (Auto) 10.73 H (1.40-6.50) K/uL Mcduffie # (Auto) 1.00 H (0.11-0.59) K/uL Immature Gran # (Auto) 0.34 H (0.01-0.20) K/uL PT 12.1 H (9.0-12.0) Seconds POC Total CO2 20 L (24-31) mmol/L POC BUN 35 H (7-18) mg/dl BUN 42 H (6-23) mg/dl Creatinine 0.59 L (0.6-1.2) mg/dl BUN/Creatinine Ratio 71.2 H (10-20) Glucose 203 H (70-99(Fasting)) mg/dl POC Glucose (other) 201 H (70-99) mg/dl Albumin 3.1 L (3.4-5.0) gm/dl POC Stool Occult Blood Positive A (Negative) Crossmatch See Detail Diagnostic Findings Abdomen/Pelvis CT 11/22/23 14:04 CT SCAN OF THE ABDOMEN AND PELVIS WITH IV CONTRAST CLINICAL HISTORY: GI bleeding. COMPARISON STUDY: Abdominal CT dated 03/07/2023. TECHNIQUE: Following the IV administration of 82 cc of Optiray 320, CT scan of the abdomen and pelvis is performed from the lung bases to the proximal femora. Images are reviewed in the axial, sagittal, and coronal planes. IV contrast was administered without complication. A dose lowering technique was utilized adhering to the principles of ALARA. The examination is degraded by motion artifact, as well as by streak artifact from the arms which could not be elevated above the abdomen. CT DOSE: 1217.67 mGy.cm FINDINGS: Lung bases: There is evidence of previous aortic valve surgery. The heart is enlarged and without pericardial effusion. The mitral annulus is densely calcified. The lung bases are clear noting bibasilar scarring/atelectasis. There is a small hiatal hernia. Liver: The contrast-enhanced liver is normal in size, contour, and attenuation. There is no intrahepatic biliary ductal dilatation. The hepatic veins and portal veins are patent. Gallbladder: Surgically absent noting clips in the gallbladder fossa. Spleen: Normal in size and attenuation. Pancreas: The pancreas is moderately atrophic and grossly unremarkable. Adrenal glands: Unremarkable. Kidneys: The contrast enhanced kidneys demonstrate mild cortical atrophy and are without hydronephrosis. The kidneys enhance symmetrically. A 1.8 cm cyst is noted on the left. Abdominal vasculature: The abdominal aorta is normal in course and caliber noting advanced atherosclerotic calcification. Bowel: There is no bowel obstruction. The bowel is not well assessed due to the degree of motion artifact. The appendix is well-visualized and normal. Peritoneum: There is no intraperitoneal free air or abdominal ascites. There is a small fat-containing umbilical hernia. Lymphadenopathy: None. Pelvic viscera: The bladder is decompressed from a Koroma catheter and cannot be evaluated. The uterus and adnexa are normal as visualized. Skeletal structures: The skeletal structures are osteopenic. An inferior endplate compression deformity of T12 and a burst type compression fracture of L1 with moderate loss of height and retropulsed fragments are grossly similar to previous. No lytic or blastic lesions are seen. There are bilateral pars defects at L5 with advanced disc space narrowing and 12 mm of anterolisthesis of L5-S1. Moderate lumbosacral spondylosis is observed. IMPRESSION: 1. Severely streak and motion compromised examination. 2. No acute infectious or inflammatory findings are clearly identified in the abdomen or pelvis. 3. Subacute appearing compression deformities are likely unchanged from 03/07/2023. 4. Cardiomegaly. 5. There is no bowel obstruction. 6. Additional findings as above. ACT 112: Negative or not required by law. Electronically signed by: Jatinder Masterson M.D. 04/09/2023 4:12 PM Code Status & VTE Plan Code Status DNR/DNI VTE Prophylaxis Plan VTE Prophylaxis will be ordered: Yes Supervising Physician Co-Signing Physician Notes Patient seen and examined, chart reviewed, case discussed with JULIA Fallon and I agree with the assessment and plan as above except as otherwise noted Labs and images reviewed Mimi is an 82-year-old female with a history of TAVR, COWART with varices noted on 2021 EGD, recent open left femoral fracture with ORIF 03/07/2023 complicated by shock and blood loss anemia requiring transfusion, CVA on Plavix, type II DM who presents with hypotension and hematochezia. She has red blood on rectal exam, has an acutely elevated BUN, was hypotensive on admission, and has a hemoglobin of 7.7 from last 11.1. She does not have epigastric tenderness. Due to history of COWART with varices she was started concurrently on PPI drip and octreotide. She has no epigastric tenderness. Clinically improved with a blood pressure of low 100s at bedside immediately posttransfusion, is in Trendelenburg position may continue Protonix drip until completion and then transition to PPI twice daily dosing. Continue octreotide. GI consulted. Keep n.p.o. at this time, they will continue to follow and assess for the need for EGD. At time of admission medical management is recommended, case was discussed with Dr. Olvera and patient was signed out to Dr. King who is on overnight. Plavix is held, patient denies history of cardiac stents. Antihypertensives held for hypotension. Due to severe bleeding with hypotension and symptoms of anemia patient was emergently transfused 2 uncrossed matched units, 1 additional unit was matched and held. Her hemoglobin is above 7 but an acute decrease from 11, will transfuse based on clinical parameters and symptoms, will trend hemoglobin for stability. Post 2 unit transfusion H&H is pending, then trend every 4 hours. Agree with assessment and management above. At 1800hrs on reassessment patient with blood pressure 90s/40s, additional 1 unit ordered for transfusion for hypotension and hemoglobin with suboptimal rise posttransfusion. 1 unit on hold. GI updated, recommended to continue H&H trend medical management and transfusion at this time. EGD not recommended by GI at this time, cCase signed out to overnight providers. Protonix gtt and octreotide are continued. PG Care Time/CCT Total # of Minutes Spent Total Time Spent with Patient: Total time spent is greater than 50% in coordination of care (as documented) at patient's floor/unit and/or counseling patient: Coding [place] [address] INT INP/OBS CARE 3/75MIN Patient Type Established Medical Decision Making High Complexity Diagnoses GI bleed K92.2 Hypotension I95.9 Dementia F03.90 Type 2 diabetes mellitus E11.9 Hypothyroidism E03.9
[2023-04-09] MEDS ORDERED: OPTIRAY 320 500ml IV ONE (15:31)
[2023-04-09] MEDS ORDERED: LORazepam 1 MG TAB SL STA (15:43)
--- NOTE | 2023-04-09 16:13 | CT Scan Report ---
CT SCAN OF THE ABDOMEN AND PELVIS WITH IV CONTRAST CLINICAL HISTORY: GI bleeding. COMPARISON STUDY: Abdominal CT dated 03/07/2023. TECHNIQUE: Following the IV administration of 82 cc of Optiray 320, CT scan of the abdomen and pelvi s is performed from the lung bases to the proximal femora. Images are reviewed in the axial, sagittal , and coronal planes. IV contrast was administered without complication. A dose lowering technique wa s utilized adhering to the principles of ALARA. The examination is degraded by motion artifact, as we ll as by streak artifact from the arms which could not be elevated above the abdomen. CT DOSE: 1217.67 mGy.cm FINDINGS: Lung bases: There is evidence of previous aortic valve surgery. The heart is enlarged and without per icardial effusion. The mitral annulus is densely calcified. The lung bases are clear noting bibasilar scarring/atelectasis. There is a small hiatal hernia. Liver: The contrast-enhanced liver is normal in size, contour, and attenuation. There is no intrahepa tic biliary ductal dilatation. The hepatic veins and portal veins are patent. Gallbladder: Surgically absent noting clips in the gallbladder fossa. Spleen: Normal in size and attenuation. Pancreas: The pancreas is moderately atrophic and grossly unremarkable. Adrenal glands: Unremarkable. Kidneys: The contrast enhanced kidneys demonstrate mild cortical atrophy and are without hydronephros is. The kidneys enhance symmetrically. A 1.8 cm cyst is noted on the left. Abdominal vasculature: The abdominal aorta is normal in course and caliber noting advanced atheroscle rotic calcification. Bowel: There is no bowel obstruction. The bowel is not well assessed due to the degree of motion fred fact. The appendix is well-visualized and normal. Peritoneum: There is no intraperitoneal free air or abdominal ascites. There is a small fat-containin g umbilical hernia. Lymphadenopathy: None. Pelvic viscera: The bladder is decompressed from a Koroma catheter and cannot be evaluated. The uterus and adnexa are normal as visualized. Skeletal structures: The skeletal structures are osteopenic. An inferior endplate compression deformi ty of T12 and a burst type compression fracture of L1 with moderate loss of height and retropulsed fr agments are grossly similar to previous. No lytic or blastic lesions are seen. There are bilateral pa rs defects at L5 with advanced disc space narrowing and 12 mm of anterolisthesis of L5-S1. Moderate l umbosacral spondylosis is observed. IMPRESSION: 1. Severely streak and motion compromised examination. 2. No acute infectious or inflammatory findings are clearly identified in the abdomen or pelvis. 3. Subacute appearing compression deformities are likely unchanged from 03/07/2023. 4. Cardiomegaly. 5. There is no bowel obstruction. 6. Additional findings as above. ACT 112: Negative or not required by law. Electronically signed by: Jatinder Masterson M.D. 04/09/2023 4:12 PM
[2023-04-09 17:34] LABS: Hematocrit (blood only) 24.2 % (37.0-47.0); Hemoglobin 8.2 g/dl (12.0-16.0)
[2023-04-09] MEDS ORDERED: CALCIUM GLUCONATE 10% 1,000 MG in SODIUM CHLOR 0.9% MINI-B 50 ML IV ONE (18:22)
[2023-04-09] MEDS ORDERED: ONDANSETRON INJ 2 MG/ML 2 ML VIAL IV PRN (20:24)
[2023-04-09] MEDS ORDERED: GLUCOSE 40% GEL 15 GM TUBE PO PRN (20:24)
[2023-04-09] MEDS ORDERED: DEXTROSE 50% 50 ML SYRINGE IV PRN (20:24)
[2023-04-09] MEDS ORDERED: ALBUTEROL HFA 8 GM INHALER INH PRN (20:24)
[2023-04-09] MEDS ORDERED: GLUCAGON FOR INJ 1 MG VIAL SQ PRN (20:24)
[2023-04-09] MEDS ORDERED: ACETAMINOPHEN 1,000 MG/100 ML VIAL IV PRN (20:24)
[2023-04-09] MEDS ORDERED: GLUCOSE 10 TAB/TUBE PO PRN (20:24)
[2023-04-09] MEDS ORDERED: PHARMACY GLYCEMIC MGMT CONSULT PRN (20:24)
[2023-04-09] MEDS ORDERED: CARBOHYDRATES FOR HYPOGLYCEMIA PO PRN (20:24)
[2023-04-09] MEDS ORDERED: LANTUS PER UNIT CHARGE SC ONE ×2 (21:00→23:45)
[2023-04-09] MEDS ORDERED: INSULIN ASPART PER UNIT CHARGE SC SCH (21:00)
[2023-04-09 22:59] LABS: Hematocrit (blood only) 28.5 % (37.0-47.0); Hemoglobin 9.5 g/dl (12.0-16.0)
[2023-04-09] MEDS ORDERED: BENZONATATE 100 MG CAPSULE PO ONE (23:38)
[2023-04-09] MEDS: INSULIN ASPART PER UNIT CHARGE SC SCH (23:46)
[2023-04-09] MEDS ORDERED: FUROSEMIDE INJ 20 MG/2 ML VIAL IV ONE (23:51)
[2023-04-09] MEDS: DICLOFENAC SOD 1% GEL 100 GM TUBE EXT SCH ×2 (23:57→23:59)
[2023-04-10 00:24] LABS: Appearance Urine Cloudy (Clear); Bacteria Urine Automated 2+ (Negative); Bilirubin Urine Negative (Negative); Blood Urine Negative (Negative); Color Urine Yellow; Epithelial Cell Urine Auto >30 /lpf (0-5); Glucose Urine UA Negative (Negative); Ketones Urine Negative (Negative); Leukocyte Esterase Urine 1+ (Negative); Nitrite Urine Positive (Negative); Protein Urine Negative (Negative); RBC Urine Automated 0-4 /hpf (0-4); Specific Gravity Urine 1.025 (1.000-1.030); Urobilinogen Urine Negative (Negative); pH Urine 5.5 (4.5-7.5)
[2023-04-10] MEDS: PANTOprazole 40 MG in DEXTROSE 5% MINI-B 100 ML IV SCH (01:00)
[2023-04-10] MEDS: OCTREOTIDE ACETATE 500mcg / NSS 100mL IV SCH ×3 (01:06→19:54)
[2023-04-10] MEDS ORDERED: rOPINIRole HCL 0.25 MG TABLET PO STA (01:15)
[2023-04-10 01:39] LABS: BUN Creatinine Ratio 61.3 (10-20); Calcium 8.6 mg/dl (8.6-10.3); Creatinine Clr Calc Pharmacy 63.9 ml/min; Est GFR (Non-African American) 82.8 ml/min; Magnesium 1.8 mg/dl (1.7-2.4); Potassium 4.5 mmol/L (3.5-5.1)
[2023-04-10 01:40] LABS: Hematocrit (blood only) 26.1 % (37.0-47.0)
[2023-04-10 01:41] LABS: Basophils # (auto) 0.05 K/uL (0.00-0.20); Basophils % (auto) 0.5 %; Eosinophils # (auto) 0.38 K/uL (0.00-0.50); Eosinophils % (auto) 3.8 %; Hematocrit (blood only) 26.2 % (37.0-47.0); Hemoglobin 8.7 g/dl (12.0-16.0); Immature Granulocytes # (auto) 0.13 K/uL (0.01-0.20); Immature Granulocytes % (auto) 1.3 %; Lymphocytes # (auto) 2.52 K/uL (1.20-3.40); Lymphocytes % (auto) 25.2 %; Mean Corpuscular Hemoglobin 28.8 pg (25.0-34.0); Mean Corpuscular Hgb Conc 33.2 g/dL (32.0-36.0); Mean Corpuscular Volume 86.8 fL (80.0-100.0); Mean Platelet Volume 10.9 fL (9.4-12.4); Monocytes # (auto) 0.79 K/uL (0.11-0.59); Monocytes % (auto) 7.9 %; Neutrophils # (auto) 6.14 K/uL (1.40-6.50); Neutrophils % (auto) 61.3 %; Platelet Count 111 K/uL (130-400); RDW Coefficient of Variation 13.7 % (11.5-14.5); RDW Standard Deviation 42.6 fL (36.4-46.3); Red Blood Count 3.02 M/uL (4.20-5.40); White Blood Count 10.01 K/ul (4.8-10.8)
[2023-04-10 01:50] LABS: INR 1.1 (0.9-1.1); Prothrombin Time 12.4 Seconds (9.0-12.0)
[2023-04-10] MEDS ORDERED: SODIUM CHLORIDE 0.9% 250 ML IV PRN ×2 (02:57→03:15)
[2023-04-10] MEDS ORDERED: MoRPHine SULFATE 2 MG/ML CARP IV STA ×2 (04:48→21:44)
[2023-04-10] MEDS ORDERED: LACTATED RINGER'S 500 ML IV SCH (06:00)
[2023-04-10] MEDS: INSULIN ASPART PER UNIT CHARGE SC SCH ×4 (06:23→19:48)
[2023-04-10] MEDS: PANTOprazole 40 MG in SYRINGE 0 ML IV SCH ×3 (06:59→19:54)
[2023-04-10 07:45] LABS: Hematocrit (blood only) 28.6 % (37.0-47.0); Hemoglobin 9.8 g/dl (12.0-16.0)
[2023-04-10] MEDS: FLUTICASONE/VILANTEROL 200/25MCG 14 PUFFS/INHALER INH SCH (08:04)
[2023-04-10] MEDS: DICLOFENAC SOD 1% GEL 100 GM TUBE EXT SCH ×5 (08:04→19:55)
--- NOTE | 2023-04-10 10:18 | Gastrointestinal Consultation ---
Date of Consultation April 10, 2023 Assessment & Plan (1) Acute upper gastrointestinal bleeding: Pleasant demented lady with history of liver disease with hematemesis and melena. Last EGD revealed small varices and portal hypertensive gastropathy. Under these circumstances the likely cause of bleeding is PHG since her varices were small. At any rate she seems to have stabilized with octreotide which would be the only effective treatment for PHG. Since she seems to have stopped bleeding I would prefer to observe for now. If she starts bleeding again will do urgent/emergent endoscopy but for now she seems to be doing quite well. Will follow with you. History of Present Illness Reason for Consultation: hematemesis Attending Physician: Adolph Estrada MD History of Present Illness 82 year old female with history of cirrhosis admitted with hematemesis and melena. Her last EGD revealed "small varices and portal hypertensive gastropathy". Patient unable to give much history and family member only knows what she was told by [facility] which is she vomited blood after eating yesterday. She has no more hematemesis since admission. Family member does not report a lot of melena. Patient is also on plavix but family member not sure why she is on that. Hgb 7.7 on admit. 9.8 now after four units. She is cur rently on octreotide. Allergies Allergy/AdvReac Type Severity Reaction Status Date / Time atorvastatin [From Lipitor] Allergy Unknown ON CENTRE Verified 04/09/23 15:47 CARE MED LIST doxycycline Allergy Unknown ON CENTRE Verified 04/09/23 15:47 CARE MED LIST ezetimibe Allergy Unknown ON CENTRE Verified 04/09/23 15:47 CARE MED LIST gabapentin Allergy Unknown ON CENTRE Verified 04/09/23 15:47 CARE MED LIST meloxicam Allergy Unknown ON CENTRE Verified 04/09/23 15:47 CARE MED LIST nitrofurantoin Allergy Unknown ON CENTRE Verified 04/09/23 15:47 CARE MED LIST ofloxacin Allergy Unknown ON CENTRE Verified 04/09/23 15:47 CARE MED LIST pravastatin Allergy Unknown ON CENTRE Verified 04/09/23 15:47 CARE MED LIST sulfamethoxazole Allergy Unknown ON CENTRE Verified 04/09/23 15:47 CARE MED LIST trimethoprim Allergy Unknown ON CENTRE Verified 04/09/23 15:47 CARE MED LIST amoxicillin AdvReac Intermediate YEAST Verified 04/09/23 15:47 INFECTION oxycodone AdvReac Intermediate VOMITING Verified 04/09/23 15:47 rosuvastatin AdvReac Intermediate BODY PAINS Verified 04/09/23 15:47 Home Medications Medication Instructions Recorded Confirmed Type albuterol sulfate 90 mcg/actuation 2 puff inhalation Q4H PRN 09/09/22 04/09/23 Rx aerosol inhaler shortness of breath or wheezing #18 grams blood sugar diagnostic #100 ea 09/09/22 02/24/23 Rx lancets (OneTouch UltraSoft #100 ea 09/09/22 02/24/23 Rx Lancets) diclofenac sodium 1 % topical gel 4 g EXT QID #100 grams 10/07/22 04/09/23 Rx (Voltaren Arthritis Pain) cyanocobalamin (vitamin B-12) 100 100 mcg PO QAM #30 tabs 10/09/22 04/09/23 Rx mcg tablet (Vitamin B-12) fexofenadine 180 mg tablet 180 mg PO DAILY #30 tabs 10/09/22 04/09/23 Rx fluticasone 250 mcg-salmeterol 50 1 inh inhalation BID #1 ea 11/25/22 04/09/23 Rx mcg/dose blistr powdr for inhalation (Advair Diskus) levothyroxine 50 mcg tablet 50 mcg PO DAILYBB #30 tabs 11/27/22 04/09/23 Rx (Synthroid) duloxetine 60 mg capsule,delayed 60 mg PO DAILY #90 caps 01/05/23 04/09/23 Rx release lidocaine 5 % topical patch 1 patch topical DAILY #30 ea 02/24/23 04/09/23 Rx lactulose 10 gram/15 mL oral 30 ml PO BIDM constipation 03/07/23 04/09/23 History solution acetaminophen 500 mg tablet 500 mg PO BID #60 tabs 03/13/23 04/09/23 Rx (Tylenol Extra Strength) clopidogrel 75 mg tablet 75 mg PO QAM #30 tabs 03/13/23 04/09/23 Rx hydrocodone 5 mg-acetaminophen 325 1 tab PO Q8H PRN pain #20 tabs 03/13/23 04/09/23 Rx mg tablet melatonin 3 mg tablet 3 mg PO HS #30 tabs 03/13/23 04/09/23 Rx quetiapine 25 mg tablet (Seroquel) 25 mg PO HS #1 tab 03/13/23 04/09/23 Rx acetaminophen 325 mg tablet 650 mg PO Q6H PRN FEVER >100/MILD 04/09/23 04/09/23 History (Tylenol) PAIN benzonatate 100 mg capsule 200 mg PO PC 04/09/23 04/09/23 History buspirone 5 mg tablet 2.5 mg PO BIDM 04/09/23 04/09/23 History clindamycin HCl 300 mg capsule 600 mg PO DIRECTED PRN 1 HR 04/09/23 04/09/23 History PRIOR TO DENTAL PROCEDURES dextromethorphan-guaifenesin 10 10 ml PO QID 04/09/23 04/09/23 History mg-100 mg/5 mL oral syrup (Tussin DM) duloxetine 30 mg capsule,delayed 30 mg PO QAM 04/09/23 04/09/23 History release magnesium chloride 64 mg 128 mg PO BIDM 04/09/23 04/09/23 History (magnesium chloride) tablet,delayed release (Mag 64) nystatin 100,000 unit/gram topical 1 applic topical BID 04/09/23 04/09/23 History powder pramipexole 0.125 mg tablet 0.125 mg PO HS 04/09/23 04/09/23 History spironolactone 25 mg tablet 25 mg PO Q OTHER DAY 04/09/23 04/09/23 History Patient History Medical History Severe back pain Acute blood loss anemia Pars defect with spondylolisthesis grade 2, L5 on S1 Lumbosacral spondylosis Lumbosacral radiculopathy due to degenerative joint disease of spine Constipation Compression fracture of L1 lumbar vertebra (07/08/22) Cirrhosis Severe tricuspid regurgitation Moderate mitral regurgitation Dementia Ascites Elevated troponin Anemia Hypomagnesemia 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 Severe aortic stenosis Received tissue plasminogen activator (tPA) less than 24 hours prior to arrival Aortic arch aneurysm CVA (cerebral vascular accident) (02/2020) Vitamin D deficiency Vertigo TMJ (sprain of temporomandibular joint) Stenosis, cervical spine Sciatica Osteoarthritis Hypothyroidism Hearing loss Gastroesophageal reflux disease Depression Carotid artery stenosis Asthma Aortic stenosis Anxiety Allergic rhinitis Hyperlipidemia Diabetes HTN (hypertension) Surgical History S/p TAVR (transcatheter aortic valve replacement), bioprosthetic (09/2021) History of laparoscopic cholecystectomy History of cataract surgery Family History Unknown Esophageal reflux Mother , age 73 of dementia Dementia Myocardial infarction Father , age 75 of a stroke Stroke Denies family history of Ovarian cancer Prostate cancer Coronary heart disease Breast cancer Colorectal cancer Social History Smoking Status: Former smoker Tobacco Type: Cigarettes Smoking End Date: Pt smoked in 1979.; Second Hand Exposure: No; Do You Dip or Chew Tobacco: No; Tobacco Cessation Education Requested by Patient: No Hx Alcohol Use: No Hx Substance Use: No Preferred Language: Citizen Of [place] Communication Ability: Effective Visual Impairment: No Limitations Hearing Ability: Use of Hearing Aid General Internal Medicine Physician Required: No Beliefs That Will Affect Care: None marital status: / Current Living Situation: Half-Way [facility] current occupational status: retired 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 Review of Systems Review of Systems: Unobtainable due to cognitive status Physical Exam Constitutional: WD/WN, vitals as above Neck: trachea midline, no thyromegaly Respiratory: normal respiratory effort, lungs clear to auscultation Cardiovascular: RRR, no murmur, no edema Gastrointestinal (Abdomen): normal bowel sounds, soft, nontender, no hepatosplenomegaly Results & Data Vital Signs (Past 12 Hours) Vital Signs Temp Pulse Pulse Resp BP BP BP 04/10/23 08:00 04/10/23 07:30 36.8 C 76 20 146/83 H 04/10/23 06:25 80 145/82 H 04/10/23 06:02 80 04/10/23 05:58 36.8 C 78 18 138/70 04/10/23 05:28 36.6 C 80 19 154/74 H 04/10/23 05:05 36.8 C 79 18 142/74 H 04/10/23 04:28 36.6 C 78 18 104/39 L 04/10/23 03:58 36.7 C 78 19 92/54 L 04/10/23 03:43 36.6 C 79 19 128/77 04/10/23 03:26 36.6 C 75 17 125/81 04/10/23 03:15 66 18 93/60 L 04/10/23 01:48 36.8 C 77 18 146/71 H 04/10/23 01:01 36.7 C 77 18 104/60 04/09/23 23:50 36.8 C 81 19 115/68 04/09/23 22:24 79 Pulse Ox O2 Del Method 04/10/23 08:00 Room Air 04/10/23 07:30 97 Room Air 04/10/23 06:25 04/10/23 06:02 04/10/23 05:58 97 04/10/23 05:28 96 04/10/23 05:05 98 Room Air 04/10/23 04:28 98 04/10/23 03:58 94 04/10/23 03:43 95 04/10/23 03:26 96 04/10/23 03:15 95 Room Air 04/10/23 01:48 97 Room Air 04/10/23 01:01 95 Room Air 04/09/23 23:50 97 Room Air 04/09/23 22:24 Laboratory Results 04/10/23 04/10/23 04/10/23 Range/Units Unknown 07:25 06:10 WBC (4.8-10.8) K/ul RBC (4.20-5.40) M/uL Hgb 9.8 L (12.0-16.0) g/dl POC Hgb (12.0-16.0) g/dl Hct 28.6 L (37.0-47.0) % POC Hct (37-47) % MCV (80.0-100.0) fL MCH (25.0-34.0) pg MCHC (32.0-36.0) g/dL RDW Std Deviation (36.4-46.3) fL RDW Coeff of Marty (11.5-14.5) % Plt Count (130-400) K/uL MPV (9.4-12.4) fL Immature Gran % (Auto) % Neut % (Auto) % Lymph % (Auto) % [place] % (Auto) % Eos % (Auto) % Baso % (Auto) % Neut # (Auto) (1.40-6.50) K/uL Lymph # (Auto) (1.20-3.40) K/uL [place] # (Auto) (0.11-0.59) K/uL Eos # (Auto) (0.00-0.50) K/uL Baso # (Auto) (0.00-0.20) K/uL Immature Gran # (Auto) (0.01-0.20) K/uL Polychromasia PT (9.0-12.0) Seconds INR (0.9-1.1) APTT (21.0-31.0) Seconds PTT Ratio POC Sodium (135-144) mmol/L Sodium (136-145) mmol/L POC Potassium (3.3-5.0) mmol/L Potassium (3.5-5.1) mmol/L POC Chloride (101-112) mmol/L Chloride (98-107) mmol/L Carbon Dioxide (21-32) mmol/L POC Total CO2 (24-31) mmol/L Anion Gap (3-11) POC Anion Gap (16-25) mmol/L POC BUN (7-18) mg/dl BUN (6-23) mg/dl Creatinine (0.6-1.2) mg/dl POC Creatinine (0.6-1.3) mg/dl Est Cr Clr Drug Dosing ml/min Est GFR ( Amer) ml/min Est GFR (Non-Af Amer) ml/min BUN/Creatinine Ratio (10-20) Glucose (70-99(Fasting)) mg/dl POC Glucose 182 H (70-99) mg/dl POC Glucose (other) (70-99) mg/dl Calcium (8.6-10.3) mg/dl POC Ioniz Calcium Kamaljit (1.12-1.32) mmol/l Magnesium (1.7-2.4) mg/dl Total Bilirubin (0.2-1.0) mg/dl AST (13-39) U/L ALT (7-52) U/L Alkaline Phosphatase (34-104) U/L Total Protein (6.0-8.3) gm/dl Albumin (3.4-5.0) gm/dl Globulin (2.5-4.0) gm/dl Albumin/Globulin Ratio (0.9-2) Urine Color Urine Appearance (Clear) Urine pH (4.5-7.5) Ur Specific [place] (1.000-1.030) Urine Protein (Negative) Urine Glucose (UA) (Negative) Urine Ketones (Negative) Urine Blood (Negative) Urine Nitrite (Negative) Urine Bilirubin (Negative) Urine Urobilinogen (Negative) Ur Leukocyte Esterase (Negative) Urine WBC (Auto) (0-5) /hpf Urine RBC (Auto) (0-4) /hpf U Hyaline Cast (Auto) (0-5) /lpf U Epithel Cells (Auto) (0-5) /lpf Urine Bacteria (Auto) (Negative) Nasal Screen MRSA (PCR) Negative (Negative) POC Stool Occult Blood (Negative) Blood Type Antibody Screen Crossmatch 04/10/23 04/10/23 04/10/23 Range/Units 01:09 01:09 01:09 WBC 10.01 (4.8-10.8) K/ul RBC 3.02 L (4.20-5.40) M/uL Hgb 9.0 L 8.7 L (12.0-16.0) g/dl POC Hgb (12.0-16.0) g/dl Hct 26.1 L 26.2 L (37.0-47.0) % POC Hct (37-47) % MCV 86.8 (80.0-100.0) fL MCH 28.8 (25.0-34.0) pg MCHC 33.2 (32.0-36.0) g/dL RDW Std Deviation 42.6 (36.4-46.3) fL RDW Coeff of Marty 13.7 (11.5-14.5) % Plt Count 111 L (130-400) K/uL MPV 10.9 (9.4-12.4) fL Immature Gran % (Auto) 1.3 % Neut % (Auto) 61.3 % Lymph % (Auto) 25.2 % [place] % (Auto) 7.9 % Eos % (Auto) 3.8 % Baso % (Auto) 0.5 % Neut # (Auto) 6.14 (1.40-6.50) K/uL Lymph # (Auto) 2.52 (1.20-3.40) K/uL [place] # (Auto) 0.79 H (0.11-0.59) K/uL Eos # (Auto) 0.38 (0.00-0.50) K/uL Baso # (Auto) 0.05 (0.00-0.20) K/uL Immature Gran # (Auto) 0.13 (0.01-0.20) K/uL Polychromasia PT 12.4 H (9.0-12.0) Seconds INR 1.1 (0.9-1.1) APTT (21.0-31.0) Seconds PTT Ratio POC Sodium (135-144) mmol/L Sodium 137 (136-145) mmol/L POC Potassium (3.3-5.0) mmol/L Potassium 4.5 (3.5-5.1) mmol/L POC Chloride (101-112) mmol/L Chloride 109 H (98-107) mmol/L Carbon Dioxide 23 (21-32) mmol/L POC Total CO2 (24-31) mmol/L Anion Gap 5 (3-11) POC Anion Gap (16-25) mmol/L POC BUN (7-18) mg/dl BUN 38 H (6-23) mg/dl Creatinine 0.62 (0.6-1.2) mg/dl POC Creatinine (0.6-1.3) mg/dl Est Cr Clr Drug Dosing 63.9 ml/min Est GFR ( Amer) 96.0 ml/min Est GFR (Non-Af Amer) 82.8 ml/min BUN/Creatinine Ratio 61.3 H (10-20) Glucose 158 H (70-99(Fasting)) mg/dl POC Glucose (70-99) mg/dl POC Glucose (other) (70-99) mg/dl Calcium 8.6 (8.6-10.3) mg/dl POC Ioniz Calcium Kamaljit (1.12-1.32) mmol/l Magnesium 1.8 (1.7-2.4) mg/dl Total Bilirubin (0.2-1.0) mg/dl AST (13-39) U/L ALT (7-52) U/L Alkaline Phosphatase (34-104) U/L Total Protein (6.0-8.3) gm/dl Albumin (3.4-5.0) gm/dl Globulin (2.5-4.0) gm/dl Albumin/Globulin Ratio (0.9-2) Urine Color Urine Appearance (Clear) Urine pH (4.5-7.5) Ur Specific [place] (1.000-1.030) Urine Protein (Negative) Urine Glucose (UA) (Negative) Urine Ketones (Negative) Urine Blood (Negative) Urine Nitrite (Negative) Urine Bilirubin (Negative) Urine Urobilinogen (Negative) Ur Leukocyte Esterase (Negative) Urine WBC (Auto) (0-5) /hpf Urine RBC (Auto) (0-4) /hpf U Hyaline Cast (Auto) (0-5) /lpf U Epithel Cells (Auto) (0-5) /lpf Urine Bacteria (Auto) (Negative) Nasal Screen MRSA (PCR) (Negative) POC Stool Occult Blood (Negative) Blood Type Antibody Screen Crossmatch 04/09/23 04/09/23 04/09/23 Range/Units Unknown 23:27 22:49 WBC (4.8-10.8) K/ul RBC (4.20-5.40) M/uL Hgb 9.5 L (12.0-16.0) g/dl POC Hgb (12.0-16.0) g/dl Hct 28.5 L (37.0-47.0) % POC Hct (37-47) % MCV (80.0-100.0) fL MCH (25.0-34.0) pg MCHC (32.0-36.0) g/dL RDW Std Deviation (36.4-46.3) fL RDW Coeff of Marty (11.5-14.5) % Plt Count (130-400) K/uL MPV (9.4-12.4) fL Immature Gran % (Auto) % Neut % (Auto) % Lymph % (Auto) % [place] % (Auto) % Eos % (Auto) % Baso % (Auto) % Neut # (Auto) (1.40-6.50) K/uL Lymph # (Auto) (1.20-3.40) K/uL [place] # (Auto) (0.11-0.59) K/uL Eos # (Auto) (0.00-0.50) K/uL Baso # (Auto) (0.00-0.20) K/uL Immature Gran # (Auto) (0.01-0.20) K/uL Polychromasia PT (9.0-12.0) Seconds INR (0.9-1.1) APTT (21.0-31.0) Seconds PTT Ratio POC Sodium (135-144) mmol/L Sodium (136-145) mmol/L POC Potassium (3.3-5.0) mmol/L Potassium (3.5-5.1) mmol/L POC Chloride (101-112) mmol/L Chloride (98-107) mmol/L Carbon Dioxide (21-32) mmol/L POC Total CO2 (24-31) mmol/L Anion Gap (3-11) POC Anion Gap (16-25) mmol/L POC BUN (7-18) mg/dl BUN (6-23) mg/dl Creatinine (0.6-1.2) mg/dl POC Creatinine (0.6-1.3) mg/dl Est Cr Clr Drug Dosing ml/min Est GFR ( Amer) ml/min Est GFR (Non-Af Amer) ml/min BUN/Creatinine Ratio (10-20) Glucose (70-99(Fasting)) mg/dl POC Glucose 199 H (70-99) mg/dl POC Glucose (other) (70-99) mg/dl Calcium (8.6-10.3) mg/dl POC Ioniz Calcium Kamaljit (1.12-1.32) mmol/l Magnesium (1.7-2.4) mg/dl Total Bilirubin (0.2-1.0) mg/dl AST (13-39) U/L ALT (7-52) U/L Alkaline Phosphatase (34-104) U/L Total Protein (6.0-8.3) gm/dl Albumin (3.4-5.0) gm/dl Globulin (2.5-4.0) gm/dl Albumin/Globulin Ratio (0.9-2) Urine Color Yellow Urine Appearance Cloudy A (Clear) Urine pH 5.5 (4.5-7.5) Ur Specific [place] 1.025 (1.000-1.030) Urine Protein Negative (Negative) Urine Glucose (UA) Negative (Negative) Urine Ketones Negative (Negative) Urine Blood Negative (Negative) Urine Nitrite Positive A (Negative) Urine Bilirubin Negative (Negative) Urine Urobilinogen Negative (Negative) Ur Leukocyte Esterase 1+ H (Negative) Urine WBC (Auto) 10-30 H (0-5) /hpf Urine RBC (Auto) 0-4 (0-4) /hpf U Hyaline Cast (Auto) 1-5 (0-5) /lpf U Epithel Cells (Auto) >30 H (0-5) /lpf Urine Bacteria (Auto) 2+ H (Negative) Nasal Screen MRSA (PCR) (Negative) POC Stool Occult Blood (Negative) Blood Type Antibody Screen Crossmatch 04/09/23 04/09/23 04/09/23 Range/Units 22:38 17:13 14:16 WBC (4.8-10.8) K/ul RBC (4.20-5.40) M/uL Hgb 8.2 L (12.0-16.0) g/dl POC Hgb (12.0-16.0) g/dl Hct 24.2 L (37.0-47.0) % POC Hct (37-47) % MCV (80.0-100.0) fL MCH (25.0-34.0) pg MCHC (32.0-36.0) g/dL RDW Std Deviation (36.4-46.3) fL RDW Coeff of Marty (11.5-14.5) % Plt Count (130-400) K/uL MPV (9.4-12.4) fL Immature Gran % (Auto) % Neut % (Auto) % Lymph % (Auto) % [place] % (Auto) % Eos % (Auto) % Baso % (Auto) % Neut # (Auto) (1.40-6.50) K/uL Lymph # (Auto) (1.20-3.40) K/uL [place] # (Auto) (0.11-0.59) K/uL Eos # (Auto) (0.00-0.50) K/uL Baso # (Auto) (0.00-0.20) K/uL Immature Gran # (Auto) (0.01-0.20) K/uL Polychromasia PT (9.0-12.0) Seconds INR (0.9-1.1) APTT (21.0-31.0) Seconds PTT Ratio POC Sodium (135-144) mmol/L Sodium (136-145) mmol/L POC Potassium (3.3-5.0) mmol/L Potassium (3.5-5.1) mmol/L POC Chloride (101-112) mmol/L Chloride (98-107) mmol/L Carbon Dioxide (21-32) mmol/L POC Total CO2 (24-31) mmol/L Anion Gap (3-11) POC Anion Gap (16-25) mmol/L POC BUN (7-18) mg/dl BUN (6-23) mg/dl Creatinine (0.6-1.2) mg/dl POC Creatinine (0.6-1.3) mg/dl Est Cr Clr Drug Dosing ml/min Est GFR ( Amer) ml/min Est GFR (Non-Af Amer) ml/min BUN/Creatinine Ratio (10-20) Glucose (70-99(Fasting)) mg/dl POC Glucose 199 H (70-99) mg/dl POC Glucose (other) (70-99) mg/dl Calcium (8.6-10.3) mg/dl POC Ioniz Calcium Kamaljit (1.12-1.32) mmol/l Magnesium (1.7-2.4) mg/dl Total Bilirubin (0.2-1.0) mg/dl AST (13-39) U/L ALT (7-52) U/L Alkaline Phosphatase (34-104) U/L Total Protein (6.0-8.3) gm/dl Albumin (3.4-5.0) gm/dl Globulin (2.5-4.0) gm/dl Albumin/Globulin Ratio (0.9-2) Urine Color Urine Appearance (Clear) Urine pH (4.5-7.5) Ur Specific [place] (1.000-1.030) Urine Protein (Negative) Urine Glucose (UA) (Negative) Urine Ketones (Negative) Urine Blood (Negative) Urine Nitrite (Negative) Urine Bilirubin (Negative) Urine Urobilinogen (Negative) Ur Leukocyte Esterase (Negative) Urine WBC (Auto) (0-5) /hpf Urine RBC (Auto) (0-4) /hpf U Hyaline Cast (Auto) (0-5) /lpf U Epithel Cells (Auto) (0-5) /lpf Urine Bacteria (Auto) (Negative) Nasal Screen MRSA (PCR) (Negative) POC Stool Occult Blood Positive A (Negative) Blood Type Antibody Screen Crossmatch 04/09/23 04/09/23 Range/Units 14:13 14:09 WBC 15.66 H (4.8-10.8) K/ul RBC 2.71 L (4.20-5.40) M/uL Hgb 7.7 L (12.0-16.0) g/dl POC Hgb 7.5 L (12.0-16.0) g/dl Hct 23.9 L (37.0-47.0) % POC Hct 22 L (37-47) % MCV 88.2 (80.0-100.0) fL MCH 28.4 (25.0-34.0) pg MCHC 32.2 (32.0-36.0) g/dL RDW Std Deviation 45.4 (36.4-46.3) fL RDW Coeff of Marty 14.3 (11.5-14.5) % Plt Count 207 (130-400) K/uL MPV 11.1 (9.4-12.4) fL Immature Gran % (Auto) 2.2 % Neut % (Auto) 68.5 % Lymph % (Auto) 20.2 % [place] % (Auto) 6.4 % Eos % (Auto) 2.3 % Baso % (Auto) 0.4 % Neut # (Auto) 10.73 H (1.40-6.50) K/uL Lymph # (Auto) 3.17 (1.20-3.40) K/uL [place] # (Auto) 1.00 H (0.11-0.59) K/uL Eos # (Auto) 0.36 (0.00-0.50) K/uL Baso # (Auto) 0.06 (0.00-0.20) K/uL Immature Gran # (Auto) 0.34 H (0.01-0.20) K/uL Polychromasia 1+ PT 12.1 H (9.0-12.0) Seconds INR 1.1 (0.9-1.1) APTT 23.9 (21.0-31.0) Seconds PTT Ratio 0.8 POC Sodium 137 (135-144) mmol/L Sodium 136 (136-145) mmol/L POC Potassium 5.0 (3.3-5.0) mmol/L Potassium 5.0 (3.5-5.1) mmol/L POC Chloride 104 (101-112) mmol/L Chloride 105 (98-107) mmol/L Carbon Dioxide 24 (21-32) mmol/L POC Total CO2 20 L (24-31) mmol/L Anion Gap 7 (3-11) POC Anion Gap 19.0 (16-25) mmol/L POC BUN 35 H (7-18) mg/dl BUN 42 H (6-23) mg/dl Creatinine 0.59 L (0.6-1.2) mg/dl POC Creatinine 0.6 (0.6-1.3) mg/dl Est Cr Clr Drug Dosing 67.1 ml/min Est GFR ( Amer) 97.5 ml/min Est GFR (Non-Af Amer) 84.2 ml/min BUN/Creatinine Ratio 71.2 H (10-20) Glucose 203 H (70-99(Fasting)) mg/dl POC Glucose (70-99) mg/dl POC Glucose (other) 201 H (70-99) mg/dl Calcium 8.9 (8.6-10.3) mg/dl POC Ioniz Calcium Kamaljit 1.20 (1.12-1.32) mmol/l Magnesium (1.7-2.4) mg/dl Total Bilirubin 0.5 (0.2-1.0) mg/dl AST 15 (13-39) U/L ALT 9 (7-52) U/L Alkaline Phosphatase 66 (34-104) U/L Total Protein 6.0 (6.0-8.3) gm/dl Albumin 3.1 L (3.4-5.0) gm/dl Globulin 2.9 (2.5-4.0) gm/dl Albumin/Globulin Ratio 1.1 (0.9-2) Urine Color Urine Appearance (Clear) Urine pH (4.5-7.5) Ur Specific [place] (1.000-1.030) Urine Protein (Negative) Urine Glucose (UA) (Negative) Urine Ketones (Negative) Urine Blood (Negative) Urine Nitrite (Negative) Urine Bilirubin (Negative) Urine Urobilinogen (Negative) Ur Leukocyte Esterase (Negative) Urine WBC (Auto) (0-5) /hpf Urine RBC (Auto) (0-4) /hpf U Hyaline Cast (Auto) (0-5) /lpf U Epithel Cells (Auto) (0-5) /lpf Urine Bacteria (Auto) (Negative) Nasal Screen MRSA (PCR) (Negative) POC Stool Occult Blood (Negative) Blood Type A Positive Antibody Screen NEGATIVE Crossmatch See Detail
--- NOTE | 2023-04-10 11:44 | Ultrasound Report ---
US venous doppler LE LT CLINICAL HISTORY: Concern for DVT, swelling TECHNIQUE: Left lower extremity real-time compression venous ultrasound with Color Doppler imaging. U tilizing real-time ultrasonic imaging multiple real time high-resolution ultrasonic images with compr ession and noncompression maneuvers of the deep venous system in addition to color doppler imaging we re performed from the common femoral vein through the proximal calf veins. COMPARISON: None available at the time of this dictation. FINDINGS/IMPRESSION: Currently there is normal compressibility of the deep venous system from the common femoral vein thro ugh the proximal calf veins. No superficial venous thrombosis is identified. ACT 112: Negative or not required by law. Electronically signed by: Amos Gomez M.D. 04/10/2023 11:43 AM
--- NOTE | 2023-04-10 13:39 | Pharmacy Report ---
Pharmacy Glycemic Short Note 2 - Date of Service April 10, 2023 - Glycemic Short BSG Results (Last 24 hours): 04/09/23 04/09/23 04/09/23 14:09 14:13 22:38 Glucose 203 H POC Glucose 199 H POC Glucose (other) 201 H 04/09/23 04/10/23 04/10/23 23:27 01:09 06:10 Glucose 158 H POC Glucose 199 H 182 H POC Glucose (other) 04/10/23 11:59 Glucose POC Glucose 144 H POC Glucose (other) OUTPATIENT ANTIDIABETIC REGIMEN: * N/A * HbA1C = 7.1% (02/24/23) ASSESSMENT: * Ms Ovalle is an 82 y/o F with a PMH of T2DM who presents with an acute GI bleed. BSG on admission was 199 mg/dL. Patient NPO. * Patient received 10 units of Lantus + 2 units of Novolog on day of admission (admitted for 2100 check). * BSGs today are 188-144 mg/dL. * Continue Lantus 10 units daily. Since patient NPO, hold if BSG < 180 mg/dL. * Novolog weight-based stress of 2. PLAN FOR INPATIENT GLYCEMIC CONTROL: * Basal insulin * Lantus 10 units SQ HS (hold if BSG <180 mg/dL due to NPO status) * Bolus insulin * NovoLog per scale ACHS or Q6hrs while NPO * Goal Range: Low 110 mg/dL - High 140 mg/dL * Correction Factor: 30 mg/dL/unit * Nutritional / Prandial insulin per carb ratio of 1 unit per 10 grams CHO consumed
[2023-04-10 15:07] LABS: Hematocrit (blood only) 28.4 % (37.0-47.0); Hemoglobin 9.5 g/dl (12.0-16.0)
[2023-04-10] MEDS: LANTUS PER UNIT CHARGE SC SCH (19:49)
--- NOTE | 2023-04-10 19:58 | Hospitalist Progress Note ---
Date of Service April 10, 2023 Assessment & Plan (1) Acute upper gastrointestinal bleeding: Plan: 2nd to esophageal varices or portal gastropathy vs PUD vs esophagitis/gastritis vs other upper GI source. H/H have leveled off. s/p 4 units PRBCs since admission. appreciate GI consult. no EGD today if she remains stable. cont NPO status. holding plavix. cont IV PPI twice daily. cont octreotide drip. (2) Hemorrhagic shock: Plan: present on admission 2nd #1 resolved BPs now normal s/p 4 units PRBCs (3) Acute blood loss anemia: Plan: 2nd #1. trend H/H's. BPs now normal. (4) Open left femoral fracture: Plan: 02/2023 - s/p extensive surgery by Dr Gagnon at that time. fully healed. had been rehabbing at [facility]. (5) HTN (hypertension): Plan: hold aldactone She was hypotensive upon ER arrival - now normotensive (6) Hyperlipidemia: Plan: not on meds for such (7) Asthma: Plan: no exacerbation at this time (8) Depression: Plan: chronic meds on hold resume tomorrow if stable from GI standpoint (9) Gastroesophageal reflux disease: Plan: PPI twice daily IV (10) Hypothyroidism: Plan: TSH 1.4 in October 2022 Synthroid (11) History of CVA (cerebrovascular accident): Plan: plavix on hold due to GI Bleeding (12) Dementia: Plan: has dementia at baseline pleasant confusion only; no agitation (13) Cirrhosis: Plan: known diagnosis COWART? no decompensation on exam today no evidence of hepatic encephalopathy should be on rocephin prophylaxis in light of #1 (14) Type 2 diabetes mellitus: Plan: a1c 7.1% in 02/2023 loose novolog SSI (15) Compression fracture of L1 lumbar vertebra: Plan: no complaints of pain today (16) S/P TAVR (transcatheter aortic valve replacement): Plan: no issues Plan son updated at bedside u/a mildly suggestive of UTI rocephin to be added will need PT/OT when able Admission and Anticipated Discharge Date Admission Date: April 09, 2023 Subjective patient resting comfortably in bed son at bedside there has been no overt bleeding since arrival to her room no coffee-ground emesis, hematemesis, melena or BRBPR she denies abd pain, nausea or emesis denies dyspnea or chest pain she was pleasantly confused during the visit did have bad restless legs symptoms last evening tele stable overnight Review of Systems Review of Systems: cv - no orthopnea pulm - no cough GI - denies any pain - nelson in place Physical Exam Physical Exam: gen - mild pallor, NAD, pleasant confusion, nontoxic mouth - lips mildly dry, oral mucosa mildly dry neck - no JVD heart - RRR, s1 s2, no murmur; extra beats lungs - CTA b/l abd - soft NT ND BS+ ext - no edema, pulses 2+ b/l skin - generalized pallor; left distal thigh with healed incision psych - oriented to person Results & Data Results & Data Vital Signs (Past 12 Hours) Vital Signs Temp Pulse Pulse Resp BP BP Pulse Ox 04/10/23 15:35 36.6 C 72 129/73 93 04/10/23 14:26 72 04/10/23 12:02 36.7 C 72 18 121/74 97 04/10/23 08:00 O2 Del Method 04/10/23 15:35 Room Air 04/10/23 14:26 04/10/23 12:02 Room Air 04/10/23 08:00 Room Air Laboratory Results Laboratory Results - last 24 hr 04/09/23 04/09/23 04/09/23 14:09 22:38 22:49 WBC RBC Hgb 9.5 L Hct 28.5 L MCV MCH MCHC RDW Std Deviation RDW Coeff of Marty Plt Count MPV Immature Gran % (Auto) Neut % (Auto) Lymph % (Auto) [place] % (Auto) Eos % (Auto) Baso % (Auto) Neut # (Auto) Lymph # (Auto) [place] # (Auto) Eos # (Auto) Baso # (Auto) Immature Gran # (Auto) PT INR Sodium Potassium Chloride Carbon Dioxide Anion Gap BUN Creatinine Est Cr Clr Drug Dosing Est GFR ( Amer) Est GFR (Non-Af Amer) BUN/Creatinine Ratio Glucose POC Glucose 199 H Calcium Magnesium Urine Color Urine Appearance Urine pH Ur Specific [place] Urine Protein Urine Glucose (UA) Urine Ketones Urine Blood Urine Nitrite Urine Bilirubin Urine Urobilinogen Ur Leukocyte Esterase Urine WBC (Auto) Urine RBC (Auto) U Hyaline Cast (Auto) U Epithel Cells (Auto) Urine Bacteria (Auto) Nasal Screen MRSA (PCR) Blood Type A Positive Antibody Screen NEGATIVE Crossmatch See Detail 04/09/23 04/09/23 04/10/23 23:27 Unknown 01:09 WBC 10.01 RBC 3.02 L Hgb 8.7 L Hct MCV MCH MCHC RDW Std Deviation RDW Coeff of Marty Plt Count MPV Immature Gran % (Auto) Neut % (Auto) Lymph % (Auto) [place] % (Auto) Eos % (Auto) Baso % (Auto) Neut # (Auto) Lymph # (Auto) [place] # (Auto) Eos # (Auto) Baso # (Auto) Immature Gran # (Auto) PT INR Sodium Potassium Chloride Carbon Dioxide Anion Gap BUN Creatinine Est Cr Clr Drug Dosing Est GFR ( Amer) Est GFR (Non-Af Amer) BUN/Creatinine Ratio Glucose POC Glucose 199 H Calcium Magnesium Urine Color Yellow Urine Appearance Cloudy A Urine pH 5.5 Ur Specific [place] 1.025 Urine Protein Negative Urine Glucose (UA) Negative Urine Ketones Negative Urine Blood Negative Urine Nitrite Positive A Urine Bilirubin Negative Urine Urobilinogen Negative Ur Leukocyte Esterase 1+ H Urine WBC (Auto) 10-30 H Urine RBC (Auto) 0-4 U Hyaline Cast (Auto) 1-5 U Epithel Cells (Auto) >30 H Urine Bacteria (Auto) 2+ H Nasal Screen MRSA (PCR) Blood Type Antibody Screen Crossmatch 04/10/23 04/10/23 04/10/23 01:09 01:09 06:10 WBC RBC Hgb 9.0 L Hct 26.2 L 26.1 L MCV 86.8 MCH 28.8 MCHC 33.2 RDW Std Deviation 42.6 RDW Coeff of Marty 13.7 Plt Count 111 L MPV 10.9 Immature Gran % (Auto) 1.3 Neut % (Auto) 61.3 Lymph % (Auto) 25.2 [place] % (Auto) 7.9 Eos % (Auto) 3.8 Baso % (Auto) 0.5 Neut # (Auto) 6.14 Lymph # (Auto) 2.52 [place] # (Auto) 0.79 H Eos # (Auto) 0.38 Baso # (Auto) 0.05 Immature Gran # (Auto) 0.13 PT 12.4 H INR 1.1 Sodium 137 Potassium 4.5 Chloride 109 H Carbon Dioxide 23 Anion Gap 5 BUN 38 H Creatinine 0.62 Est Cr Clr Drug Dosing 63.9 Est GFR ( Amer) 96.0 Est GFR (Non-Af Amer) 82.8 BUN/Creatinine Ratio 61.3 H Glucose 158 H POC Glucose 182 H Calcium 8.6 Magnesium 1.8 Urine Color Urine Appearance Urine pH Ur Specific [place] Urine Protein Urine Glucose (UA) Urine Ketones Urine Blood Urine Nitrite Urine Bilirubin Urine Urobilinogen Ur Leukocyte Esterase Urine WBC (Auto) Urine RBC (Auto) U Hyaline Cast (Auto) U Epithel Cells (Auto) Urine Bacteria (Auto) Nasal Screen MRSA (PCR) Blood Type Antibody Screen Crossmatch 04/10/23 04/10/23 04/10/23 07:25 11:59 14:55 WBC RBC Hgb 9.8 L 9.5 L Hct 28.6 L 28.4 L MCV MCH MCHC RDW Std Deviation RDW Coeff of Marty Plt Count MPV Immature Gran % (Auto) Neut % (Auto) Lymph % (Auto) [place] % (Auto) Eos % (Auto) Baso % (Auto) Neut # (Auto) Lymph # (Auto) [place] # (Auto) Eos # (Auto) Baso # (Auto) Immature Gran # (Auto) PT INR Sodium Potassium Chloride Carbon Dioxide Anion Gap BUN Creatinine Est Cr Clr Drug Dosing Est GFR ( Amer) Est GFR (Non-Af Amer) BUN/Creatinine Ratio Glucose POC Glucose 144 H Calcium Magnesium Urine Color Urine Appearance Urine pH Ur Specific [place] Urine Protein Urine Glucose (UA) Urine Ketones Urine Blood Urine Nitrite Urine Bilirubin Urine Urobilinogen Ur Leukocyte Esterase Urine WBC (Auto) Urine RBC (Auto) U Hyaline Cast (Auto) U Epithel Cells (Auto) Urine Bacteria (Auto) Nasal Screen MRSA (PCR) Blood Type Antibody Screen Crossmatch 04/10/23 04/10/23 04/10/23 16:15 19:27 Unknown WBC RBC Hgb Hct MCV MCH MCHC RDW Std Deviation RDW Coeff of Marty Plt Count MPV Immature Gran % (Auto) Neut % (Auto) Lymph % (Auto) [place] % (Auto) Eos % (Auto) Baso % (Auto) Neut # (Auto) Lymph # (Auto) [place] # (Auto) Eos # (Auto) Baso # (Auto) Immature Gran # (Auto) PT INR Sodium Potassium Chloride Carbon Dioxide Anion Gap BUN Creatinine Est Cr Clr Drug Dosing Est GFR ( Amer) Est GFR (Non-Af Amer) BUN/Creatinine Ratio Glucose POC Glucose 110 H 116 H Calcium Magnesium Urine Color Urine Appearance Urine pH Ur Specific [place] Urine Protein Urine Glucose (UA) Urine Ketones Urine Blood Urine Nitrite Urine Bilirubin Urine Urobilinogen Ur Leukocyte Esterase Urine WBC (Auto) Urine RBC (Auto) U Hyaline Cast (Auto) U Epithel Cells (Auto) Urine Bacteria (Auto) Nasal Screen MRSA (PCR) Negative Blood Type Antibody Screen Crossmatch PG Care Time/CCT Total # of Minutes Spent Total Time Spent with Patient: Total time spent is greater than 50% in coordination of care (as documented) at patient's floor/unit and/or counseling patient: Coding Level of Care Code 75723 SUB INP/OBS CARE 3/50MIN Diagnoses Acute upper gastrointestinal bleeding K92.2 Hemorrhagic shock R57.8 Acute blood loss anemia D62 Open left femoral fracture S72.92XB HTN (hypertension) I10 Hyperlipidemia E78.5 Asthma J45.20 Asthma complication type: unspecified Asthma persistence: intermittent Asthma severity: unspecified severity Depression F32.9 Gastroesophageal reflux disease K21.9 Hypothyroidism E03.9 History of CVA (cerebrovascular accident) Z86.73 Dementia F03.90 Cirrhosis K74.60 Type 2 diabetes mellitus E11.9 Compression fracture of L1 lumbar vertebra S32.010A S/P TAVR (transcatheter aortic valve replacement) Z95.2 (7) Asthma Asthma complication type: unspecified Asthma persistence: intermittent Asthma severity: unspecified severity Qualified Code(s): J45.20 - Mild intermittent asthma, uncomplicated
[2023-04-10] MEDS ORDERED: diphenhydrAMINE 50 MG/ML VIAL IV STA (20:39)
[2023-04-10] MEDS: MoRPHine SULFATE 2 MG/ML CARP IV PRN (21:19)
[2023-04-10] MEDS ORDERED: CETIRIZINE HCL 10 MG TABLET PO ONE (21:45)
[2023-04-10 21:54] LABS: Hematocrit (blood only) 29.7 % (37.0-47.0); Hemoglobin 9.9 g/dl (12.0-16.0)
[2023-04-11] MEDS: INSULIN ASPART PER UNIT CHARGE SC SCH ×6 (00:17→19:52)
[2023-04-11] MEDS: OCTREOTIDE ACETATE 500mcg / NSS 100mL IV SCH ×2 (05:01→16:45)
[2023-04-11 06:32] LABS: Basophils # (auto) 0.02 K/uL (0.00-0.20); Basophils % (auto) 0.4 %; Eosinophils # (auto) 0.24 K/uL (0.00-0.50); Hematocrit (blood only) 29.6 % (37.0-47.0); Hemoglobin 9.7 g/dl (12.0-16.0); Immature Granulocytes # (auto) 0.06 K/uL (0.01-0.20); Immature Granulocytes % (auto) 1.3 %; Lymphocytes # (auto) 1.24 K/uL (1.20-3.40); Lymphocytes % (auto) 25.9 %; Mean Corpuscular Hemoglobin 29.5 pg (25.0-34.0); Mean Corpuscular Hgb Conc 32.8 g/dL (32.0-36.0); Mean Platelet Volume 10.6 fL (9.4-12.4); Monocytes # (auto) 0.34 K/uL (0.11-0.59); Monocytes % (auto) 7.1 %; Neutrophils # (auto) 2.89 K/uL (1.40-6.50); Neutrophils % (auto) 60.3 %; Platelet Count 93 K/uL (130-400); RDW Coefficient of Variation 13.8 % (11.5-14.5); RDW Standard Deviation 44.6 fL (36.4-46.3); Red Blood Count 3.29 M/uL (4.20-5.40); White Blood Count 4.79 K/ul (4.8-10.8)
[2023-04-11 06:40] LABS: BUN Creatinine Ratio 38.5 (10-20); Calcium 8.6 mg/dl (8.6-10.3); Creatinine Clr Calc Pharmacy 76.4 ml/min; Est GFR (African American) 101.7 ml/min; Est GFR (Non-African American) 87.7 ml/min; Potassium 3.9 mmol/L (3.5-5.1)
[2023-04-11 06:49] LABS: INR 1.1 (0.9-1.1); Prothrombin Time 11.9 Seconds (9.0-12.0)
[2023-04-11] MEDS: cefTRIAXone SODIUM 2,000 MG in DEXTROSE 5 % MINI-B 50 ML IV SCH (07:33)
[2023-04-11] MEDS: PANTOprazole 40 MG in SYRINGE 0 ML IV SCH ×2 (09:58→19:56)
[2023-04-11] MEDS: FLUTICASONE/VILANTEROL 200/25MCG 14 PUFFS/INHALER INH SCH (09:58)
[2023-04-11] MEDS: DICLOFENAC SOD 1% GEL 100 GM TUBE EXT SCH ×4 (09:59→19:55)
--- NOTE | 2023-04-11 11:01 | Gastroenterology Progress Note ---
Date of Service April 11, 2023 Assessment & Plan (1) Acute upper gastrointestinal bleeding: Plan: Seems as if bleeding has stopped. Needs one more day of octreotide. Would keep NPO until tomorrow and if no bleeding start diet then. Admission and Anticipated Discharge Date Admission Date: April 09, 2023 Subjective very pleasant. Says she feels well. H/H are stable. Physical Exam Physical Exam: She looks well Results & Data Vital Signs (Past 12 Hours) Vital Signs Temp Pulse Pulse Resp BP BP Pulse Ox 04/11/23 08:06 66 04/11/23 07:26 36.3 C L 72 18 139/80 94 04/11/23 00:31 36.7 C 76 18 138/58 L 92 O2 Del Method 04/11/23 08:06 04/11/23 07:26 Room Air 04/11/23 00:31 Room Air
--- NOTE | 2023-04-11 13:42 | Pharmacy Report ---
Pharmacy Glycemic Short Note 2 - Date of Service April 11, 2023 - Glycemic Short BSG Results (Last 24 hours): 04/10/23 04/10/23 04/11/23 16:15 19:27 00:13 Glucose POC Glucose 110 H 116 H 114 H 04/11/23 04/11/23 04/11/23 05:02 05:39 07:14 Glucose 109 H POC Glucose 100 H 123 H 04/11/23 11:03 Glucose POC Glucose 137 H OUTPATIENT ANTIDIABETIC REGIMEN: * N/A * HbA1C = 7.1% (02/24/23) ASSESSMENT: 04/11/23 * BSGs yesterday were [phone] and overnight were 114-100 mg/dL. Patient received only 3 units of Novolog. * BSGs today are 123-137 mg/dL. Patient remains NPO with plan for diet tomorrow if no additional bleeding. * Lantus will be available tonight (5 units) if BSG climbs significantly. * Otherwise, BSGs in range with no diet planned today. Continue Novolog. BACKGROUND * Ms Ovalle is an 82 y/o F with a PMH of T2DM who presents with an acute GI bleed. BSG on admission was 199 mg/dL. Patient NPO. * Patient received 10 units of Lantus + 2 units of Novolog on day of admission (admitted for 2100 check). * BSGs today are 188-144 mg/dL. * Continue Lantus 10 units daily. Since patient NPO, hold if BSG < 180 mg/dL. * Novolog weight-based stress of 2. PLAN FOR INPATIENT GLYCEMIC CONTROL: * Basal insulin * Lantus 5 units SQ HS (hold if BSG <180 mg/dL due to NPO status) * Bolus insulin * NovoLog per scale ACHS or Q6hrs while NPO * Goal Range: Low 110 mg/dL - High 140 mg/dL * Correction Factor: 30 mg/dL/unit * Nutritional / Prandial insulin per carb ratio of 1 unit per 10 grams CHO consumed
--- NOTE | 2023-04-11 17:02 | Hospitalist Progress Note ---
Date of Service April 11, 2023 Assessment & Plan (1) Acute upper gastrointestinal bleeding: Plan: 2nd to esophageal varices or portal gastropathy vs PUD vs esophagitis/gastritis vs other upper GI source. H/H are stable. s/p 4 units PRBCs since admission. appreciate GI consult. again no EGD today if she continues to remain stable. cont NPO status 1 more day, then possibly clears tomorrow per GI. holding plavix. cont IV PPI twice daily. cont octreotide drip. cont rocephin 2gm IV daily prophylaxis. (2) Hemorrhagic shock: Plan: present on admission 2nd #1 resolved BPs normal s/p 4 units PRBCs she does look intravascularly dry today due to NPO status - add LR 50cc/hr (3) Acute blood loss anemia: Plan: 2nd #1. trend H/H's. (4) Open left femoral fracture: Plan: 02/2023 - s/p extensive surgery by Dr Gagnon at that time. fully healed. had been rehabbing at [facility]. was TTWB to LLE at time of d/c from 02/2023 admission. will call SNF to see what current WB status is. (5) HTN (hypertension): Plan: hold aldactone She was hypotensive upon ER arrival - now normotensive (6) Hyperlipidemia: Plan: not on meds for such (7) Asthma: Plan: no exacerbation at this time (8) Depression: Plan: resume usual meds (9) Gastroesophageal reflux disease: Plan: PPI twice daily IV (10) Hypothyroidism: Plan: TSH 1.4 in October 2022 resume Synthroid (11) History of CVA (cerebrovascular accident): Plan: plavix on hold due to GI Bleeding (12) Dementia: Plan: has dementia at baseline pleasant confusion only; no agitation (13) Cirrhosis: Plan: known diagnosis COWART? no decompensation on exam today no evidence of hepatic encephalopathy should be on rocephin prophylaxis in light of #1 (14) Type 2 diabetes mellitus: Plan: a1c 7.1% in 02/2023 loose novolog SSI (15) Compression fracture of L1 lumbar vertebra: Plan: again no complaints of pain today (16) S/P TAVR (transcatheter aortic valve replacement): Plan: no issues (17) Restless leg: Plan: resume pramipexole GI bleeding with subsequent iron loss likely making her RLS worse she would benefit from IV venofer while here consider such tomorrow (18) Catheter-associated urinary tract infection: Plan: cont rocephin urine cx growing GNR f/u on culture tomorrow will need nelson exchanged before discharge due to UTI Plan son updated by phone this evening will need PT/OT when able Admission and Anticipated Discharge Date Admission Date: April 09, 2023 Subjective last pm apparently had severe restless legs symptoms, confusion, a little restlessness - required multiple doses of various meds for such today - has been restless per staff during rounds - very tearful, very confused -- but able to tell me no abd pain or N/V staff report no coffee-ground emesis, no hematemesis, no melena stools (in fact no stool since admission) Review of Systems Review of Systems: cv - denies pain pulm - denies dyspnea HENT - c/o dry mouth Physical Exam Physical Exam: gen - mild pallor, NAD, pleasant confusion, crying/tearful today mouth - oral mucosa severely dry today neck - no JVD heart - RRR, s1 s2, no murmur lungs - CTA b/l abd - soft NT ND BS+ ext - no edema, pulses 2+ b/l skin - generalized pallor psych - oriented to person only, tearful Results & Data Results & Data Vital Signs (Past 12 Hours) Vital Signs Temp Pulse Pulse Resp BP BP Pulse Ox 04/11/23 16:03 79 04/11/23 14:52 36.5 C 75 18 104/58 L 93 04/11/23 11:20 36.4 C L 76 18 110/72 94 04/11/23 08:06 66 04/11/23 07:26 36.3 C L 72 18 139/80 94 O2 Del Method 04/11/23 16:03 04/11/23 14:52 Room Air 04/11/23 11:20 Room Air 04/11/23 08:06 04/11/23 07:26 Room Air Laboratory Results Laboratory Results 04/10/23 04/10/23 04/10/23 11:59 14:55 16:15 WBC RBC Hgb 9.5 L Hct 28.4 L MCV MCH MCHC RDW Std Deviation RDW Coeff of Marty Plt Count MPV Immature Gran % (Auto) Neut % (Auto) Lymph % (Auto) [place] % (Auto) Eos % (Auto) Baso % (Auto) Neut # (Auto) Lymph # (Auto) [place] # (Auto) Eos # (Auto) Baso # (Auto) Immature Gran # (Auto) PT INR Sodium Potassium Chloride Carbon Dioxide Anion Gap BUN Creatinine Est Cr Clr Drug Dosing Est GFR ( Amer) Est GFR (Non-Af Amer) BUN/Creatinine Ratio Glucose POC Glucose 144 H 110 H Calcium 04/10/23 04/10/23 04/11/23 19:27 21:33 00:13 WBC RBC Hgb 9.9 L Hct 29.7 L MCV MCH MCHC RDW Std Deviation RDW Coeff of Marty Plt Count MPV Immature Gran % (Auto) Neut % (Auto) Lymph % (Auto) [place] % (Auto) Eos % (Auto) Baso % (Auto) Neut # (Auto) Lymph # (Auto) [place] # (Auto) Eos # (Auto) Baso # (Auto) Immature Gran # (Auto) PT INR Sodium Potassium Chloride Carbon Dioxide Anion Gap BUN Creatinine Est Cr Clr Drug Dosing Est GFR ( Amer) Est GFR (Non-Af Amer) BUN/Creatinine Ratio Glucose POC Glucose 116 H 114 H Calcium 04/11/23 04/11/23 04/11/23 05:02 05:39 07:14 WBC 4.79 L RBC 3.29 L Hgb 9.7 L Hct 29.6 L MCV 90.0 MCH 29.5 MCHC 32.8 RDW Std Deviation 44.6 RDW Coeff of Marty 13.8 Plt Count 93 L MPV 10.6 Immature Gran % (Auto) 1.3 Neut % (Auto) 60.3 Lymph % (Auto) 25.9 [place] % (Auto) 7.1 Eos % (Auto) 5.0 Baso % (Auto) 0.4 Neut # (Auto) 2.89 Lymph # (Auto) 1.24 [place] # (Auto) 0.34 Eos # (Auto) 0.24 Baso # (Auto) 0.02 Immature Gran # (Auto) 0.06 PT 11.9 INR 1.1 Sodium 140 Potassium 3.9 Chloride 108 H Carbon Dioxide 28 Anion Gap 4 BUN 20 Creatinine 0.52 L Est Cr Clr Drug Dosing 76.4 Est GFR ( Amer) 101.7 Est GFR (Non-Af Amer) 87.7 BUN/Creatinine Ratio 38.5 H Glucose 109 H POC Glucose 100 H 123 H Calcium 8.6 04/11/23 04/11/23 04/11/23 11:03 16:21 19:41 WBC RBC Hgb 9.3 L Hct 28.3 L MCV MCH MCHC RDW Std Deviation RDW Coeff of Marty Plt Count MPV Immature Gran % (Auto) Neut % (Auto) Lymph % (Auto) [place] % (Auto) Eos % (Auto) Baso % (Auto) Neut # (Auto) Lymph # (Auto) [place] # (Auto) Eos # (Auto) Baso # (Auto) Immature Gran # (Auto) PT INR Sodium Potassium Chloride Carbon Dioxide Anion Gap BUN Creatinine Est Cr Clr Drug Dosing Est GFR ( Amer) Est GFR (Non-Af Amer) BUN/Creatinine Ratio Glucose POC Glucose 137 H 132 H Calcium PG Care Time/CCT Total # of Minutes Spent Total Time Spent with Patient: Total time spent is greater than 50% in coordination of care (as documented) at patient's floor/unit and/or counseling patient: Coding Level of Care Code 03562 SUB INP/OBS CARE 3/50MIN Diagnoses Acute upper gastrointestinal bleeding K92.2 Hemorrhagic shock R57.8 Acute blood loss anemia D62 Open left femoral fracture S72.92XB HTN (hypertension) I10 Hyperlipidemia E78.5 Asthma J45.20 Asthma complication type: unspecified Asthma persistence: intermittent Asthma severity: unspecified severity Depression F32.9 Gastroesophageal reflux disease K21.9 Hypothyroidism E03.9 History of CVA (cerebrovascular accident) Z86.73 Dementia F03.90 Cirrhosis K74.60 Type 2 diabetes mellitus E11.9 Compression fracture of L1 lumbar vertebra S32.010A S/P TAVR (transcatheter aortic valve replacement) Z95.2 Restless leg G25.81 Catheter-associated urinary tract infection T83.511A; N39.0 (7) Asthma Asthma complication type: unspecified Asthma persistence: intermittent Asthma severity: unspecified severity Qualified Code(s): J45.20 - Mild intermittent asthma, uncomplicated
[2023-04-11] MEDS: LACTATED RINGER'S 1,000 ML IV SCH (19:46)
[2023-04-11] MEDS: ACETAMINOPHEN 500 MG TAB PO SCH (19:53)
[2023-04-11] MEDS: busPIRone 5 MG TAB PO SCH (19:54)
[2023-04-11] MEDS: LANTUS PER UNIT CHARGE SC SCH (19:55)
[2023-04-11 19:56] LABS: Hematocrit (blood only) 28.3 % (37.0-47.0); Hemoglobin 9.3 g/dl (12.0-16.0)
[2023-04-11] MEDS: QUEtiapine FUMARATE 25 MG TABLET PO SCH (19:56)
[2023-04-11] MEDS: MELATONIN 3 MG TAB PO SCH (19:56)
[2023-04-11] MEDS: PRAMIPEXOLE DIHYDROCHLO 0.25 MG TAB PO SCH (19:57)
[2023-04-12] MEDS: INSULIN ASPART PER UNIT CHARGE SC SCH ×6 (01:30→20:50)
[2023-04-12] MEDS: OCTREOTIDE ACETATE 500mcg / NSS 100mL IV SCH ×3 (02:50→22:09)
[2023-04-12] MEDS: LEVOTHYROXINE SODIUM 50 MCG TABLET PO SCH (05:56)
[2023-04-12 06:04] LABS: Basophils # (auto) 0.02 K/uL (0.00-0.20); Basophils % (auto) 0.4 %; Eosinophils # (auto) 0.22 K/uL (0.00-0.50); Eosinophils % (auto) 4.3 %; Hematocrit (blood only) 27.4 % (37.0-47.0); Hemoglobin 8.9 g/dl (12.0-16.0); Immature Granulocytes # (auto) 0.05 K/uL (0.01-0.20); Lymphocytes # (auto) 1.04 K/uL (1.20-3.40); Lymphocytes % (auto) 20.4 %; Mean Corpuscular Hemoglobin 29.2 pg (25.0-34.0); Mean Corpuscular Hgb Conc 32.5 g/dL (32.0-36.0); Mean Corpuscular Volume 89.8 fL (80.0-100.0); Mean Platelet Volume 10.8 fL (9.4-12.4); Monocytes # (auto) 0.34 K/uL (0.11-0.59); Monocytes % (auto) 6.7 %; Neutrophils # (auto) 3.43 K/uL (1.40-6.50); Neutrophils % (auto) 67.2 %; Platelet Count 97 K/uL (130-400); RDW Coefficient of Variation 13.9 % (11.5-14.5); RDW Standard Deviation 44.9 fL (36.4-46.3); Red Blood Count 3.05 M/uL (4.20-5.40)
[2023-04-12 06:21] LABS: BUN Creatinine Ratio 35.8 (10-20); Calcium 8.5 mg/dl (8.6-10.3); Creatinine Clr Calc Pharmacy 72.8 ml/min; Est GFR (African American) 101.1 ml/min; Est GFR (Non-African American) 87.2 ml/min
[2023-04-12] MEDS: cefTRIAXone SODIUM 2,000 MG in DEXTROSE 5 % MINI-B 50 ML IV SCH (07:31)
[2023-04-12] MEDS: ACETAMINOPHEN 500 MG TAB PO SCH ×2 (07:43→20:55)
[2023-04-12] MEDS: FLUTICASONE/VILANTEROL 200/25MCG 14 PUFFS/INHALER INH SCH (07:44)
[2023-04-12] MEDS: DULoxetine HCL 60 MG CAP PO SCH (07:44)
[2023-04-12] MEDS: DICLOFENAC SOD 1% GEL 100 GM TUBE EXT SCH ×4 (07:44→20:55)
[2023-04-12] MEDS: busPIRone 5 MG TAB PO SCH ×2 (07:44→21:19)
[2023-04-12] MEDS: PANTOprazole 40 MG in SYRINGE 0 ML IV SCH (07:45)
[2023-04-12] MEDS: DULoxetine HCL 30 MG CAP PO SCH (07:49)
--- NOTE | 2023-04-12 08:27 | Electrocardiogram Report ---
Test Reason : Blood Pressure : / mmHG Vent. Rate : 087 BPM Atrial Rate : 087 BPM P-R Int : 152 ms QRS Dur : 094 ms QT Int : 394 ms P-R-T Axes : 075 -57 095 degrees QTc Int : 474 ms Normal sinus rhythm Left anterior fascicular block Left ventricular hypertrophy with repolarization abnormality Prolonged QT Abnormal ECG When compared with ECG of 12-MAR-2023 21:46, Premature ventricular complexes are no longer Present Confirmed by Ran Nicole [id number] on 04/12/2023 8:27:19 AM Referred By: [facility] Confirmed By:Ran Nicole
--- NOTE | 2023-04-12 11:25 | Gastroenterology Progress Note ---
Date of Service April 12, 2023 Assessment & Plan (1) Acute upper gastrointestinal bleeding: Plan: Seems to be doing well. Okay to stop octreotide after 72 hour course. Okay to advance diet. Will follow Admission and Anticipated Discharge Date Admission Date: April 09, 2023 Subjective H/H drifted down a little but no over GI bleeding. Tolerating sips of clear liquids Physical Exam Physical Exam: She looks well Results & Data Vital Signs (Past 12 Hours) Vital Signs Temp Pulse Pulse Resp BP Pulse Ox O2 Del Method 04/12/23 09:25 75 04/12/23 07:53 36.5 C 105 H 18 118/71 97 Room Air 04/12/23 02:44 36.6 C 76 20 156/80 H 97 Room Air
[2023-04-12] MEDS: PRAMIPEXOLE DIHYDROCHLO 0.25 MG TAB PO SCH ×2 (11:59→21:18)
[2023-04-12 14:02] LABS: Hematocrit (blood only) 25.3 % (37.0-47.0); Hemoglobin 8.5 g/dl (12.0-16.0)
[2023-04-12 14:39] LABS: Ferritin 160.7 ng/ml (8-388)
[2023-04-12] MEDS: LACTATED RINGER'S 1,000 ML IV SCH (15:04)
--- NOTE | 2023-04-12 18:08 | Hospitalist Progress Note ---
Date of Service April 12, 2023 Assessment & Plan (1) Acute upper gastrointestinal bleeding: Plan: 2nd to esophageal varices or portal gastropathy vs PUD vs esophagitis/gastritis vs other upper GI source. H/H had been stable in the low 9's, now slowly drifting down. Uncertain if melena stool today is OLD blood vs a sign of recurrent bleeding. Some of the H/H drop could be dilutional as well as she has been receiving IV fluids overnight. Cont to trend H/H. T/C 2 units PRBCs on hold, if needed. I corresponded with Dr King from [facility] - he is aware of H/H trend and is ok with ongoing clear liquid diet. s/p 4 units PRBCs since admission. appreciate GI consult. holding plavix. cont IV PPI -- change bolus to drip form. cont octreotide drip. at least [address] King depending on clinical status. cont rocephin 2gm IV daily prophylaxis. (2) Hemorrhagic shock: Plan: present on admission 2nd #1 resolved BPs normal s/p 4 units PRBCs she continues to look intravascularly dry today - increase LR to 75cc/hr (3) Acute blood loss anemia: Plan: 2nd #1. cont to trend H/H's. see above. (4) Open left femoral fracture: Plan: 02/2023 - s/p extensive surgery by Dr Gagnon at that time. fully healed. had been rehabbing at [facility]. was TTWB to LLE at time of d/c from 02/2023 admission. I spoke with [facility] last pm - by report was "advanced" to flat foot weight- bearing? I corresponded with on-call orthopedics - this likely means partial WB. Ordered partial WB for her. (5) HTN (hypertension): Plan: hold aldactone She was hypotensive upon ER arrival - now normotensive (6) Hyperlipidemia: Plan: not on meds for such (7) Asthma: Plan: no exacerbation at this time (8) Depression: Plan: cont usual meds (9) Gastroesophageal reflux disease: Plan: PPI drip (10) Hypothyroidism: Plan: TSH 1.4 in October 2022 cont Synthroid (11) History of CVA (cerebrovascular accident): Plan: plavix on hold due to GI Bleeding (12) Dementia: Plan: has dementia at baseline pleasant confusion only; no agitation (13) Cirrhosis: Plan: known diagnosis COWART? no decompensation on exam today no evidence of hepatic encephalopathy should be on rocephin prophylaxis in light of #1 cont rocephin (14) Type 2 diabetes mellitus: Plan: a1c 7.1% in 02/2023 loose novolog SSI BSGs acceptable (15) Compression fracture of L1 lumbar vertebra: Plan: again no complaints of pain today (16) S/P TAVR (transcatheter aortic valve replacement): Plan: no issues (17) Restless leg: Plan: SEVERE cont HS pramipexole add AM dose of pramipexole as well - 0.125mg GI bleeding with subsequent iron loss likely making her RLS worse although FE studies today are "normal" it may not reflect the current state as recent PRBCs could be skewing the results still may benefit from IV venofer while here hold off for now (18) Catheter-associated urinary tract infection: Plan: cont rocephin urine cx e.coli, pansens will need nelson exchanged before discharge due to UTI as nelson is chronic since her L femur Fx Plan son updated at bedside today PT/OT when able discussed care via [place] communication with Dr King, [facility] Admission and Anticipated Discharge Date Admission Date: April 09, 2023 Subjective pt tolerated sips of clears this am at lunch we offered clear liquid diet/tray promptly after eating she had a large melena stool she subsequently had another melena stool later in the afternoon the clears do not cause abd pain/nausea/emesis no coffee-ground emesis per staff no BRBPR during the visit the pt's brother & son were present she was pleasantly confused the entire visit tele overnight wnl slept better by report has had severe restless legs symptoms overnight despite the pramipexole at HS last night Review of Systems Review of Systems: HENT- mouth is very dry CV- no chest pain pulm- no dyspnea GI- no abd pain Physical Exam Physical Exam: gen - moderate pallor, NAD, pleasant confusion mouth - oral mucosa severely dry again neck - no JVD heart - RRR, s1 s2, no murmur lungs - CTA b/l abd - soft NT ND BS+ ext - no edema, pulses 2+ b/l skin - generalized pallor psych - oriented to person only, very confused, rambling, jumps from 1 topic to the next Results & Data Results & Data Vital Signs (Past 12 Hours) Vital Signs Temp Pulse Pulse Resp BP BP Pulse Ox 04/12/23 16:20 36.7 C 75 18 98/55 L 96 04/12/23 15:55 66 04/12/23 11:16 36.3 C L 71 18 107/73 92 04/12/23 09:25 75 04/12/23 07:53 36.5 C 105 H 18 118/71 97 O2 Del Method 04/12/23 16:20 Room Air 04/12/23 15:55 04/12/23 11:16 Room Air 04/12/23 09:25 04/12/23 07:53 Room Air Laboratory Results Laboratory Results - last 24 hr 04/09/23 04/11/23 04/11/23 14:09 19:41 20:12 WBC RBC Hgb 9.3 L Hct 28.3 L MCV MCH MCHC RDW Std Deviation RDW Coeff of Marty Plt Count MPV Immature Gran % (Auto) Neut % (Auto) Lymph % (Auto) [place] % (Auto) Eos % (Auto) Baso % (Auto) Neut # (Auto) Lymph # (Auto) [place] # (Auto) Eos # (Auto) Baso # (Auto) Immature Gran # (Auto) Sodium Potassium Chloride Carbon Dioxide Anion Gap BUN Creatinine Est Cr Clr Drug Dosing Est GFR ( Amer) Est GFR (Non-Af Amer) BUN/Creatinine Ratio Glucose POC Glucose 116 H Calcium Iron TIBC Unsaturated IBC Transferrin % Sat Ferritin Folate Crossmatch See Detail 04/12/23 04/12/23 04/12/23 02:22 05:20 07:22 WBC 5.10 RBC 3.05 L Hgb 8.9 L Hct 27.4 L MCV 89.8 MCH 29.2 MCHC 32.5 RDW Std Deviation 44.9 RDW Coeff of Marty 13.9 Plt Count 97 L MPV 10.8 Immature Gran % (Auto) 1.0 Neut % (Auto) 67.2 Lymph % (Auto) 20.4 [place] % (Auto) 6.7 Eos % (Auto) 4.3 Baso % (Auto) 0.4 Neut # (Auto) 3.43 Lymph # (Auto) 1.04 L [place] # (Auto) 0.34 Eos # (Auto) 0.22 Baso # (Auto) 0.02 Immature Gran # (Auto) 0.05 Sodium 139 Potassium 4.0 Chloride 107 Carbon Dioxide 28 Anion Gap 4 BUN 19 Creatinine 0.53 L Est Cr Clr Drug Dosing 72.8 Est GFR ( Amer) 101.1 Est GFR (Non-Af Amer) 87.2 BUN/Creatinine Ratio 35.8 H Glucose 138 H POC Glucose 114 H 141 H Calcium 8.5 L Iron TIBC Unsaturated IBC Transferrin % Sat Ferritin Folate Crossmatch 04/12/23 04/12/23 04/12/23 11:17 13:50 16:26 WBC RBC Hgb 8.5 L Hct 25.3 L MCV MCH MCHC RDW Std Deviation RDW Coeff of Marty Plt Count MPV Immature Gran % (Auto) Neut % (Auto) Lymph % (Auto) [place] % (Auto) Eos % (Auto) Baso % (Auto) Neut # (Auto) Lymph # (Auto) [place] # (Auto) Eos # (Auto) Baso # (Auto) Immature Gran # (Auto) Sodium Potassium Chloride Carbon Dioxide Anion Gap BUN Creatinine Est Cr Clr Drug Dosing Est GFR ( Amer) Est GFR (Non-Af Amer) BUN/Creatinine Ratio Glucose POC Glucose 127 H 101 H Calcium Iron 40 TIBC 205 L Unsaturated IBC 165 Transferrin % Sat 20 Ferritin 160.7 Folate 7.73 Crossmatch PG Care Time/CCT Total # of Minutes Spent Total Time Spent with Patient: Total time spent is greater than 50% in coordination of care (as documented) at patient's floor/unit and/or counseling patient: Coding Level of Care Code 50735 SUB INP/OBS CARE 3/50MIN Diagnoses Acute upper gastrointestinal bleeding K92.2 Hemorrhagic shock R57.8 Acute blood loss anemia D62 Open left femoral fracture S72.92XB HTN (hypertension) I10 Hyperlipidemia E78.5 Asthma J45.20 Asthma complication type: unspecified Asthma persistence: intermittent Asthma severity: unspecified severity Depression F32.9 Gastroesophageal reflux disease K21.9 Hypothyroidism E03.9 History of CVA (cerebrovascular accident) Z86.73 Dementia F03.90 Cirrhosis K74.60 Type 2 diabetes mellitus E11.9 Compression fracture of L1 lumbar vertebra S32.010A S/P TAVR (transcatheter aortic valve replacement) Z95.2 Restless leg G25.81 Catheter-associated urinary tract infection T83.511A; N39.0 (7) Asthma Asthma complication type: unspecified Asthma persistence: intermittent Asthma severity: unspecified severity Qualified Code(s): J45.20 - Mild intermittent asthma, uncomplicated
[2023-04-12] MEDS: PANTOprazole 40 MG in DEXTROSE 5% MINI-B 100 ML IV SCH ×3 (18:47→23:40)
[2023-04-12] MEDS ORDERED: SODIUM CHLORIDE 0.9% 250 ML IV PRN (19:28)
[2023-04-12 20:05] LABS: Hematocrit (blood only) 25.7 % (37.0-47.0); Hemoglobin 8.2 g/dl (12.0-16.0)
[2023-04-12] MEDS: LANTUS PER UNIT CHARGE SC SCH (20:51)
[2023-04-12] MEDS: QUEtiapine FUMARATE 25 MG TABLET PO SCH (21:18)
[2023-04-12] MEDS: MELATONIN 3 MG TAB PO SCH (21:18)
[2023-04-13] MEDS: LACTATED RINGER'S 1,000 ML IV SCH ×3 (03:44→22:18)
[2023-04-13] MEDS: PANTOprazole 40 MG in DEXTROSE 5% MINI-B 100 ML IV SCH ×4 (04:49→18:16)
[2023-04-13] MEDS: LEVOTHYROXINE SODIUM 50 MCG TABLET PO SCH (06:22)
[2023-04-13] MEDS: cefTRIAXone SODIUM 2,000 MG in DEXTROSE 5 % MINI-B 50 ML IV SCH (07:25)
[2023-04-13] MEDS: OCTREOTIDE ACETATE 500mcg / NSS 100mL IV SCH ×2 (07:26→17:15)
[2023-04-13] MEDS: DULoxetine HCL 60 MG CAP PO SCH (07:32)
[2023-04-13] MEDS: PRAMIPEXOLE DIHYDROCHLO 0.25 MG TAB PO SCH (07:32)
[2023-04-13] MEDS: DULoxetine HCL 30 MG CAP PO SCH (07:32)
[2023-04-13] MEDS: FLUTICASONE/VILANTEROL 200/25MCG 14 PUFFS/INHALER INH SCH (07:33)
[2023-04-13] MEDS: ACETAMINOPHEN 500 MG TAB PO SCH (07:33)
[2023-04-13] MEDS: DICLOFENAC SOD 1% GEL 100 GM TUBE EXT SCH ×3 (07:33→17:16)
[2023-04-13 08:07] LABS: Hematocrit (blood only) 22.9 % (37.0-47.0); Hemoglobin 7.5 g/dl (12.0-16.0); Mean Corpuscular Hemoglobin 29.5 pg (25.0-34.0); Mean Corpuscular Hgb Conc 32.8 g/dL (32.0-36.0); Mean Corpuscular Volume 90.2 fL (80.0-100.0); Mean Platelet Volume 11.1 fL (9.4-12.4); Platelet Count 133 K/uL (130-400); RDW Coefficient of Variation 14.3 % (11.5-14.5); Red Blood Count 2.54 M/uL (4.20-5.40); White Blood Count 9.58 K/ul (4.8-10.8)
[2023-04-13] MEDS ORDERED: SODIUM CHLORIDE 0.9% 250 ML IV PRN ×4 (08:21→18:31)
[2023-04-13 08:22] LABS: Calcium 8.2 mg/dl (8.6-10.3); Creatinine Clr Calc Pharmacy 75.4 ml/min; Est GFR (African American) 101.7 ml/min; Est GFR (Non-African American) 87.7 ml/min; Potassium 3.7 mmol/L (3.5-5.1)
[2023-04-13] MEDS: INSULIN ASPART PER UNIT CHARGE SC SCH ×4 (08:32→21:41)
[2023-04-13] MEDS: busPIRone 5 MG TAB PO SCH (09:05)
--- NOTE | 2023-04-13 09:22 | History & Physical Report ---
Date of Service April 13, 2023 Assessment & Plan (1) Acute upper gastrointestinal bleeding: Plan: 82 year old female with history of cirrhosis who has started bleeding again. She has dementia so phone consent was obtained from son Chris Wolf and witnessed by nurse. Admission and Anticipated Discharge Date Admission Date: April 09, 2023 History of Present Illness Chief Complaint: bleeding Primary Care Provider: Vinh Ardon MD 82 year old with cirrhosis who started bleeding again last night despite being on octreotide. Needs emergent endoscopy Allergies Allergy/AdvReac Type Severity Reaction Status Date / Time atorvastatin [From Lipitor] Allergy Unknown ON CENTRE Verified 04/09/23 15:47 CARE MED LIST doxycycline Allergy Unknown ON CENTRE Verified 04/09/23 15:47 CARE MED LIST ezetimibe Allergy Unknown ON CENTRE Verified 04/09/23 15:47 CARE MED LIST gabapentin Allergy Unknown ON CENTRE Verified 04/09/23 15:47 CARE MED LIST meloxicam Allergy Unknown ON CENTRE Verified 04/09/23 15:47 CARE MED LIST nitrofurantoin Allergy Unknown ON CENTRE Verified 04/09/23 15:47 CARE MED LIST ofloxacin Allergy Unknown ON CENTRE Verified 04/09/23 15:47 CARE MED LIST pravastatin Allergy Unknown ON CENTRE Verified 04/09/23 15:47 CARE MED LIST sulfamethoxazole Allergy Unknown ON CENTRE Verified 04/09/23 15:47 CARE MED LIST trimethoprim Allergy Unknown ON CENTRE Verified 04/09/23 15:47 CARE MED LIST amoxicillin AdvReac Intermediate YEAST Verified 04/09/23 15:47 INFECTION oxycodone AdvReac Intermediate VOMITING Verified 04/09/23 15:47 rosuvastatin AdvReac Intermediate BODY PAINS Verified 04/09/23 15:47 Home Medications Medication Instructions Recorded Confirmed Type albuterol sulfate 90 mcg/actuation 2 puff inhalation Q4H PRN 09/09/22 04/09/23 Rx aerosol inhaler shortness of breath or wheezing #18 grams blood sugar diagnostic #100 ea 09/09/22 02/24/23 Rx lancets (OneTouch UltraSoft #100 ea 09/09/22 02/24/23 Rx Lancets) diclofenac sodium 1 % topical gel 4 g EXT QID #100 grams 10/07/22 04/09/23 Rx (Voltaren Arthritis Pain) cyanocobalamin (vitamin B-12) 100 100 mcg PO QAM #30 tabs 10/09/22 04/09/23 Rx mcg tablet (Vitamin B-12) fexofenadine 180 mg tablet 180 mg PO DAILY #30 tabs 10/09/22 04/09/23 Rx fluticasone 250 mcg-salmeterol 50 1 inh inhalation BID #1 ea 11/25/22 04/09/23 Rx mcg/dose blistr powdr for inhalation (Advair Diskus) levothyroxine 50 mcg tablet 50 mcg PO DAILYBB #30 tabs 11/27/22 04/09/23 Rx (Synthroid) duloxetine 60 mg capsule,delayed 60 mg PO DAILY #90 caps 01/05/23 04/09/23 Rx release lidocaine 5 % topical patch 1 patch topical DAILY #30 ea 02/24/23 04/09/23 Rx lactulose 10 gram/15 mL oral 30 ml PO BIDM constipation 03/07/23 04/09/23 History solution acetaminophen 500 mg tablet 500 mg PO BID #60 tabs 03/13/23 04/09/23 Rx (Tylenol Extra Strength) clopidogrel 75 mg tablet 75 mg PO QAM #30 tabs 03/13/23 04/09/23 Rx hydrocodone 5 mg-acetaminophen 325 1 tab PO Q8H PRN pain #20 tabs 03/13/23 04/09/23 Rx mg tablet melatonin 3 mg tablet 3 mg PO HS #30 tabs 03/13/23 04/09/23 Rx quetiapine 25 mg tablet (Seroquel) 25 mg PO HS #1 tab 03/13/23 04/09/23 Rx acetaminophen 325 mg tablet 650 mg PO Q6H PRN FEVER >100/MILD 04/09/23 04/09/23 History (Tylenol) PAIN benzonatate 100 mg capsule 200 mg PO PC 04/09/23 04/09/23 History buspirone 5 mg tablet 2.5 mg PO BIDM 04/09/23 04/09/23 History clindamycin HCl 300 mg capsule 600 mg PO DIRECTED PRN 1 HR 04/09/23 04/09/23 History PRIOR TO DENTAL PROCEDURES dextromethorphan-guaifenesin 10 10 ml PO QID 04/09/23 04/09/23 History mg-100 mg/5 mL oral syrup (Tussin DM) duloxetine 30 mg capsule,delayed 30 mg PO QAM 04/09/23 04/09/23 History release magnesium chloride 64 mg 128 mg PO BIDM 04/09/23 04/09/23 History (magnesium chloride) tablet,delayed release (Mag 64) nystatin 100,000 unit/gram topical 1 applic topical BID 04/09/23 04/09/23 History powder pramipexole 0.125 mg tablet 0.125 mg PO HS 04/09/23 04/09/23 History spironolactone 25 mg tablet 25 mg PO Q OTHER DAY 04/09/23 04/09/23 History Past Med/Surg History Medical History Severe back pain Acute blood loss anemia Pars defect with spondylolisthesis grade 2, 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 Lumbosacral spondylosis Lumbosacral radiculopathy due to degenerative joint disease of spine Constipation Compression fracture of L1 lumbar vertebra (07/08/22) Cirrhosis Severe tricuspid regurgitation Moderate mitral regurgitation Dementia Ascites Elevated troponin Anemia Hypomagnesemia 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 Severe aortic stenosis Received tissue plasminogen activator (tPA) less than 24 hours prior to arrival Aortic arch aneurysm CVA (cerebral vascular accident) (02/2020) Vitamin D deficiency Vertigo TMJ (sprain of temporomandibular joint) Stenosis, cervical spine Sciatica Osteoarthritis Hypothyroidism Hearing loss Gastroesophageal reflux disease Depression Carotid artery stenosis Asthma Aortic stenosis Anxiety Allergic rhinitis Hyperlipidemia Diabetes HTN (hypertension) Surgical History S/p TAVR (transcatheter aortic valve replacement), bioprosthetic (09/2021) History of laparoscopic cholecystectomy History of cataract surgery Family History Unknown Esophageal reflux Mother , age 73 of dementia Dementia Myocardial infarction Father , age 75 of a stroke Stroke Denies family history of Ovarian cancer Prostate cancer Coronary heart disease Breast cancer Colorectal cancer Social History Smoking Status: Former smoker Tobacco Type: Cigarettes Smoking End Date: Pt smoked in 1979.; Second Hand Exposure: No; Do You Dip or Chew Tobacco: No; Tobacco Cessation Education Requested by Patient: No Hx Alcohol Use: No Hx Substance Use: No Preferred Language: Scottish Communication Ability: Effective Visual Impairment: No Limitations Hearing Ability: Use of Hearing Aid Compounding Technician Required: No Beliefs That Will Affect Care: None marital status: / Current Living Situation: Detention Current Living Situation Comment: [facility] current occupational status: retired 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 Review of Systems Unobtainable due to cognitive status Physical Exam Constitutional: + ill appearing Respiratory: normal respiratory effort, lungs clear to auscultation Cardiovascular: RRR, no murmur, no edema Gastrointestinal (Abdomen): normal bowel sounds, soft, nontender, no hepatosplenomegaly ASA Classification ASA [id number] Results & Data Vital Signs (Past 12 Hours) Vital Signs Temp Pulse Pulse Resp BP BP Pulse Ox 04/13/23 08:59 04/13/23 08:54 36.4 C L 79 16 92/53 L 100 04/13/23 07:29 36.8 C 85 18 107/67 97 04/13/23 03:32 36.5 C 65 16 109/66 95 04/12/23 23:45 36.6 C 75 17 94/57 L 96 O2 Del Method 04/13/23 08:59 Room Air 04/13/23 08:54 04/13/23 07:29 Room Air 04/13/23 03:32 Room Air 04/12/23 23:45 Room Air Code Status & VTE Plan VTE Prophylaxis Plan VTE Prophylaxis will be ordered: Yes
--- NOTE | 2023-04-13 09:39 | Anesthesiology Consultation ---
Date of Service April 13, 2023 Assessment & Plan Chart Review Chart Review: Acceptable Risk for Surgery and Patient NOT seen in Pre Admission Testing Consults Requested none ASA [id number] Proposed Anesthesia Anesthesia Type: General History Surgery Operation Date: 04/13/23 10:30 Proposed Procedures p EGD Biopsy Cytology - Arnel King Jr, MD Height/Weight Height: 5 ft 1 in Weight: 76.66 kg Allergies Allergy/AdvReac Type Severity Reaction Status Date / Time atorvastatin [From Lipitor] Allergy Unknown ON CENTRE Verified 04/09/23 15:47 CARE MED LIST doxycycline Allergy Unknown ON CENTRE Verified 04/09/23 15:47 CARE MED LIST ezetimibe Allergy Unknown ON CENTRE Verified 04/09/23 15:47 CARE MED LIST gabapentin Allergy Unknown ON CENTRE Verified 04/09/23 15:47 CARE MED LIST meloxicam Allergy Unknown ON CENTRE Verified 04/09/23 15:47 CARE MED LIST nitrofurantoin Allergy Unknown ON CENTRE Verified 04/09/23 15:47 CARE MED LIST ofloxacin Allergy Unknown ON CENTRE Verified 04/09/23 15:47 CARE MED LIST pravastatin Allergy Unknown ON CENTRE Verified 04/09/23 15:47 CARE MED LIST sulfamethoxazole Allergy Unknown ON CENTRE Verified 04/09/23 15:47 CARE MED LIST trimethoprim Allergy Unknown ON CENTRE Verified 04/09/23 15:47 CARE MED LIST amoxicillin AdvReac Intermediate YEAST Verified 04/09/23 15:47 INFECTION oxycodone AdvReac Intermediate VOMITING Verified 04/09/23 15:47 rosuvastatin AdvReac Intermediate BODY PAINS Verified 04/09/23 15:47 Medications Home Medications Medication Instructions Recorded Confirmed Last Taken albuterol sulfate 90 mcg/actuation 2 puff inhalation Q4H PRN 09/09/22 04/09/23 Unknown aerosol inhaler shortness of breath or wheezing #18 grams blood sugar diagnostic #100 ea 09/09/22 02/24/23 Unknown lancets (OneTouch UltraSoft #100 ea 09/09/22 02/24/23 Unknown Lancets) diclofenac sodium 1 % topical gel 4 g EXT QID #100 grams 10/07/22 04/09/23 04/09/23 12:30 (Voltaren Arthritis Pain) cyanocobalamin (vitamin B-12) 100 100 mcg PO QAM #30 tabs 10/09/22 04/09/23 04/09/23 mcg tablet (Vitamin B-12) fexofenadine 180 mg tablet 180 mg PO DAILY #30 tabs 10/09/22 04/09/23 04/09/23 fluticasone 250 mcg-salmeterol 50 1 inh inhalation BID #1 ea 11/25/22 04/09/23 04/09/23 08:30 mcg/dose blistr powdr for inhalation (Advair Diskus) levothyroxine 50 mcg tablet 50 mcg PO DAILYBB #30 tabs 11/27/22 04/09/23 04/09/23 (Synthroid) duloxetine 60 mg capsule,delayed 60 mg PO DAILY #90 caps 01/05/23 04/09/23 04/09/23 release lidocaine 5 % topical patch 1 patch topical DAILY #30 ea 02/24/23 04/09/23 04/09/23 lactulose 10 gram/15 mL oral 30 ml PO BIDM constipation 03/07/23 04/09/23 04/09/23 08:30 solution acetaminophen 500 mg tablet 500 mg PO BID #60 tabs 03/13/23 04/09/23 04/09/23 08:30 (Tylenol Extra Strength) clopidogrel 75 mg tablet 75 mg PO QAM #30 tabs 03/13/23 04/09/23 04/09/23 hydrocodone 5 mg-acetaminophen 325 1 tab PO Q8H PRN pain #20 tabs 03/13/23 04/09/23 03/26/23 mg tablet melatonin 3 mg tablet 3 mg PO HS #30 tabs 03/13/23 04/09/23 04/08/23 quetiapine 25 mg tablet (Seroquel) 25 mg PO HS #1 tab 03/13/23 04/09/23 04/08/23 acetaminophen 325 mg tablet 650 mg PO Q6H PRN FEVER >100/MILD 04/09/23 04/09/23 04/08/23 (Tylenol) PAIN benzonatate 100 mg capsule 200 mg PO PC 04/09/23 04/09/23 04/09/23 12:30 buspirone 5 mg tablet 2.5 mg PO BIDM 04/09/23 04/09/23 04/09/23 08:30 clindamycin HCl 300 mg capsule 600 mg PO DIRECTED PRN 1 HR 04/09/23 04/09/23 Unknown PRIOR TO DENTAL PROCEDURES dextromethorphan-guaifenesin 10 10 ml PO QID 04/09/23 04/09/23 04/09/23 12:30 mg-100 mg/5 mL oral syrup (Saurav DM) duloxetine 30 mg capsule,delayed 30 mg PO QAM 04/09/23 04/09/23 04/09/23 release magnesium chloride 64 mg 128 mg PO BIDM 04/09/23 04/09/23 04/09/23 08:30 (magnesium chloride) tablet,delayed release (Mag 64) nystatin 100,000 unit/gram topical 1 applic topical BID 04/09/23 04/09/23 04/09/23 08:30 powder pramipexole 0.125 mg tablet 0.125 mg PO HS 04/09/23 04/09/23 04/08/23 spironolactone 25 mg tablet 25 mg PO Q OTHER DAY 04/09/23 04/09/23 04/09/23 Active Medications Generic Name Dose Route Start Last Admin Trade Name Naz PRN Reason Stop Dose Admin Acetaminophen 500 mg 04/11/23 21:00 04/13/23 07:33 Acetaminophen 500 Mg Tab PO 05/11/23 20:59 500 mg BID NEETA Administration Buspirone HCl 2.5 mg 04/11/23 21:00 04/13/23 09:05 Buspirone 5 Mg Tab PO 05/11/23 20:59 2.5 mg BID NEETA Administration Diclofenac Sodium 4 gm 04/09/23 20:24 04/13/23 07:33 Diclofenac Sod 1% Gel 100 Gm Tube EXT 05/09/23 20:23 4 gm QID NEETA Administration Protocol Duloxetine HCl 30 mg 04/12/23 09:00 04/13/23 07:32 Duloxetine Hcl 30 Mg Cap PO 05/12/23 08:59 30 mg QAM NEETA Administration Duloxetine HCl 60 mg 04/12/23 09:00 04/13/23 07:32 Duloxetine Hcl 60 Mg Cap PO 05/12/23 08:59 60 mg DAILY NEETA Administration Fluticasone/Vilanterol 1 puffs 04/10/23 09:00 04/13/23 07:33 Fluticasone/Vilanterol 200/25mcg 14 Puffs/Inhaler INH 05/10/23 08:59 1 puffs DAILY NEETA Administration Octreotide Acetate 500 mcg/ 100.5 mls @ 10.05 mls/hr 04/09/23 14:30 04/13/23 07:26 Sodium Chloride IV 05/09/23 14:29 52.24 mcg/hr .Q10H NEETA 10.5 mls/hr Administration 50 MCG/HR Ceftriaxone Sodium 2,000 mg/ 50 mls @ 100 mls/hr 04/11/23 07:00 04/13/23 08:07 Dextrose IV 04/16/23 06:59 Infused Q24H NEETA Infusion Protocol Lactated Ringer's 1,000 mls @ 75 mls/hr 04/11/23 17:15 04/13/23 03:44 Lr IV 05/11/23 17:14 75 mls/hr .[id number] NEETA Administration Pantoprazole Sodium 40 mg/ 100 mls @ 20 mls/hr 04/12/23 18:15 04/13/23 08:37 Dextrose IV 05/12/23 18:14 8 mg/hr Q5H NEETA 20 mls/hr Administration 8 MG/HR Insulin Aspart 0 units 04/12/23 16:30 04/13/23 08:32 Insulin Aspart Per Unit Charge SC 2 units ACHS NEETA Administration Protocol Insulin Glargine 0 units 04/10/23 21:00 04/12/23 20:51 Lantus Per Unit Charge SC 05/10/23 20:59 Not Given HS NEETA Protocol Levothyroxine Sodium 50 mcg 04/12/23 06:30 04/13/23 06:22 Levothyroxine Sodium 50 Mcg Tablet PO 05/12/23 06:29 50 mcg DAILYBB NEETA Administration Melatonin 3 mg 04/11/23 21:00 04/12/23 21:18 Melatonin 3 Mg Tab PO 05/11/23 20:59 3 mg HS NEETA Administration Morphine Sulfate 1 mg 04/10/23 06:33 04/10/23 21:19 Morphine Sulfate 2 Mg/Ml Carp IV 04/24/23 06:32 1 mg Q6H PRN Administration Severe Pain (Scale 7, 8, 9,10) Pramipexole Dihydrochloride 0.125 mg 04/11/23 21:00 04/12/23 21:18 Pramipexole Dihydrochlo 0.25 Mg Tab PO 05/11/23 20:59 0.125 mg HS NEETA Administration Pramipexole Dihydrochloride 0.125 mg 04/12/23 10:35 04/13/23 07:32 Pramipexole Dihydrochlo 0.25 Mg Tab PO 05/12/23 10:34 0.125 mg QAM NEETA Administration Quetiapine Fumarate 25 mg 04/11/23 21:00 04/12/23 21:18 Quetiapine Fumarate 25 Mg Tablet PO 05/11/23 20:59 25 mg HS NEETA Administration Past Medical History Medical History Severe back pain Acute blood loss anemia Pars defect with spondylolisthesis grade 2, 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 Lumbosacral spondylosis Lumbosacral radiculopathy due to degenerative joint disease of spine Constipation Compression fracture of L1 lumbar vertebra (07/08/22) Cirrhosis Severe tricuspid regurgitation Moderate mitral regurgitation Dementia Ascites Elevated troponin Anemia Hypomagnesemia 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 Severe aortic stenosis Received tissue plasminogen activator (tPA) less than 24 hours prior to arrival Aortic arch aneurysm CVA (cerebral vascular accident) (02/2020) Vitamin D deficiency Vertigo TMJ (sprain of temporomandibular joint) Stenosis, cervical spine Sciatica Osteoarthritis Hypothyroidism Hearing loss Gastroesophageal reflux disease Depression Carotid artery stenosis Asthma Aortic stenosis Anxiety Allergic rhinitis Hyperlipidemia Diabetes HTN (hypertension) Exercise / Class Metabolic Activity IV < 2 Limit ADL/Bedbound Past Family History Family History Unknown Esophageal reflux Mother , age 73 of dementia Dementia Myocardial infarction Father , age 75 of a stroke Stroke Denies family history of Ovarian cancer Prostate cancer Coronary heart disease Breast cancer Colorectal cancer Past Surgical History Surgical History S/p TAVR (transcatheter aortic valve replacement), bioprosthetic (09/2021) History of laparoscopic cholecystectomy History of cataract surgery Past Anesthesia History No Hx of Anesthesia Complications and No Family Hx of Anesthesia Complications History of PONV No Hx of PONV and No Hx of Motion Sickness Social History Smoking Status: Former smoker tobacco type: cigarettes Do You Dip or Chew Tobacco: No Smoking End Date: Pt smoked in 1979. Hx Alcohol Use: No alcohol intake frequency: 0-2 drinks per day Hx Substance Use: No substance use type: prescription drug Physical Exam Vital Signs Last Vital Signs Temp 36.7 C 04/13/23 09:26 Pulse 75 04/13/23 09:26 Resp 18 04/13/23 09:26 BP 97/55 L 04/13/23 09:26 Pulse Ox 95 04/13/23 09:26 O2 Del Method Room Air 04/13/23 08:59 Testing Laboratory Results 04/13/23 07:31 04/13/23 07:31 PT 11.9 Seconds (9.0-12.0) 04/11/23 05:39 INR 1.1 (0.9-1.1) 04/11/23 05:39 APTT 23.9 Seconds (21.0-31.0) 04/09/23 14:09 Urine Color Yellow 04/09/23 Unknown Urine Appearance Cloudy (Clear) A 04/09/23 Unknown Urine pH 5.5 (4.5-7.5) 04/09/23 Unknown Ur Specific [place] 1.025 (1.000-1.030) 04/09/23 Unknown Urine Protein Negative (Negative) 04/09/23 Unknown Urine Glucose (UA) Negative (Negative) 04/09/23 Unknown Urine Ketones Negative (Negative) 04/09/23 Unknown Urine Nitrite Positive (Negative) A 04/09/23 Unknown Ur Leukocyte Esterase 1+ (Negative) H 04/09/23 Unknown Urine WBC (Auto) 10-30 /hpf (0-5) H 04/09/23 Unknown Urine RBC (Auto) 0-4 /hpf (0-4) 04/09/23 Unknown U Hyaline Cast (Auto) 1-5 /lpf (0-5) 04/09/23 Unknown U Epithel Cells (Auto) >30 /lpf (0-5) H 04/09/23 Unknown Urine Bacteria (Auto) 2+ (Negative) H 04/09/23 Unknown Blood Type A Positive 04/12/23 19:38 Antibody Screen NEGATIVE 04/12/23 19:38 04/09/23 Unknown Urine Culture - Final Urine,Straight Cath Escherichia coli 04/13/23 07:18 POC Glucose 183 H Electrocardiogram Date: 04/09/23 Findings: + NSR @ (@ 87;prolonged QT) and + LVH Echocardiogram Date: 10/04/21 EF: 45% LV Function: dysfunctional RWMA: + hypokinetic (mild diffuse HK) Other Findings: + atrial enlargement (LA -severely dilated) and + LVH (mild) Valvular Disease: + MR (moderate) RV-dilated Bioprosthetic AV-s/p TAVR,NL Fxn
[2023-04-13] MEDS ORDERED: ATROPINE SULFATE 0.1 MG/ML 10ML SYR IV PRN (10:18)
[2023-04-13] MEDS ORDERED: ePHEDrine sulfate 50 MG/ML AMP IV PRN (10:18)
[2023-04-13] MEDS ORDERED: fentaNYL citrate PF 100 MCG/2 ML VIAL ONE (10:21)
[2023-04-13] MEDS ORDERED: LIDOCAINE 2% 2 ML VIAL/AMP(20MG/ML) INFIL ONE (10:22)
--- NOTE | 2023-04-13 10:57 | GI REPORT ---
Patient Name: Mimi Ovalle Procedure Date: 04/13/2023 9:47 AM Date of : 1940 Admit Type: Inpatient Age: 82 Gender: Female Attending MD: Arnel King MD, Procedure: Upper GI endoscopy Providers: Arnel King MD Referring MD: Azul Marquez Indications: Melena Medicines: General Anesthesia Complications: No immediate complications. Estimated Blood Loss: Estimated blood loss: none. Procedure: Pre-Anesthesia Assessment: - Prior to the procedure, a History and Physical was performed, and patient medications and allergies were reviewed. The patient's tolerance of previous anesthesia was also reviewed. The risks and benefits of the procedure and the sedation options and risks were discussed with the patient. All questions were answered, and informed consent was obtained. Prior Anticoagulants: The patient has taken no anticoagulant or antiplatelet agents. ASA Grade Assessment: IV - A patient with severe systemic disease that is a constant threat to life. After reviewing the risks and benefits, the patient was deemed in satisfactory condition to undergo the procedure. After obtaining informed consent, the endoscope was passed under direct vision. Throughout the procedure, the patient's blood pressure, pulse, and oxygen saturations were monitored continuously. The Endoscope was introduced through the mouth, and advanced to the second part of duodenum. The upper GI endoscopy was accomplished without difficulty. The patient tolerated the procedure well. Findings: Grade I varices were found in the lower third of the esophagus. No stigmata present. No blood in esophagus Moderate portal hypertensive gastropathy was found in the entire examined stomach. No blood in stomach. No active bleeding. Scant old blood The examined duodenum was normal. Impression: - Grade I esophageal varices. - Portal hypertensive gastropathy. - Normal examined duodenum. - No specimens collected. Recommendation: - [facility]. Arnel King MD 04/13/2023 10:56:50 AM Note Initiated On: 04/13/2023 9:47 AM Number of Addenda: 0 I attest to the content of the Intraoperative Record and orders documented therein, exceptions below {[id number]}
[2023-04-13] MEDS ORDERED: ETOMIDATE 2 MG/ML 20 ML VIAL IV ONE (11:18)
[2023-04-13] MEDS ORDERED: ONDANSETRON INJ 2 MG/ML 2 ML VIAL ONE (11:18)
[2023-04-13] MEDS ORDERED: ePHEDrine sulfate 50 MG/5 ML SYR ONE (11:18)
[2023-04-13] MEDS ORDERED: PROPOFOL IV EMULSION 10 MG/ML 20 ML VIAL IV ONE (11:18)
[2023-04-13] MEDS ORDERED: SUCCINYLCHOLINE CHLORIDE 20 MG/ML 10 ML VIAL IV ONE (11:18)
[2023-04-13] MEDS ORDERED: PHENYLEPHRINE 100MCG/ML 10ML SYR IV ONE (11:19)
--- NOTE | 2023-04-13 11:39 | Pharmacy Report ---
Pharmacy Glycemic Short Note 2 - Date of Service April 13, 2023 - Glycemic Short BSG Results (Last 24 hours): 04/12/23 04/12/23 04/13/23 16:26 20:34 07:18 Glucose POC Glucose 101 H 72 183 H 04/13/23 04/13/23 07:31 11:12 Glucose 178 H POC Glucose 179 H OUTPATIENT ANTIDIABETIC REGIMEN: * N/A * HbA1C = 7.1% (02/24/23) ASSESSMENT: 04/13: * Mimi received 16 units of insulin yesterday, all bolus. BSGs were: 334-021-188-72 mg/dL. * Fasting elevated at 183 mg/dL this AM. Will continue with HS basal scale but change to get basal if BSG 141 mg/dL or greater. * Loosened Novolog this AM given trend down in BSGs yesterday. Of note, patient is NPO this AM for EGD but should have a diet resumed afterwards. However, PO intake has been poor. 04/11: * BSGs yesterday were [phone] and overnight were 114-100 mg/dL. Patient received only 3 units of Novolog. * BSGs today are 123-137 mg/dL. Patient remains NPO with plan for diet tomorrow if no additional bleeding. * Lantus will be available tonight (5 units) if BSG climbs significantly. * Otherwise, BSGs in range with no diet planned today. Continue Novolog. 04/10: * Ms Ovalle is an 82 y/o F with a PMH of T2DM who presents with an acute GI bleed. BSG on admission was 199 mg/dL. Patient NPO. * Patient received 10 units of Lantus + 2 units of Novolog on day of admission (admitted for 2100 check). * BSGs today are 188-144 mg/dL. * Continue Lantus 10 units daily. Since patient NPO, hold if BSG < 180 mg/dL. * Novolog weight-based stress of 2. PLAN FOR INPATIENT GLYCEMIC CONTROL: * Basal insulin * Lantus 5 units SC HS (hold if BSG 140 mg/dL or less) * Bolus insulin * NovoLog per scale ACHS or Q6hrs while NPO * Goal Range: Low 110 mg/dL - High 140 mg/dL * Correction Factor: 35 mg/dL/unit * Nutritional / Prandial insulin per carb ratio of 1 unit per 12 grams CHO consumed
--- NOTE | 2023-04-13 11:53 | Anesthesiology Progress Note ---
Date of Service April 13, 2023 Anesthesia Post Procedure Vital Signs Vital Signs: Temp Pulse Pulse Resp BP BP BP 04/13/23 11:35 74 20 95/45 L 04/13/23 11:25 75 22 90/55 L 04/13/23 11:15 76 22 99/53 L 04/13/23 11:08 36.1 C L 72 16 108/60 04/13/23 09:36 65 04/13/23 09:26 36.7 C 75 18 97/55 L 04/13/23 09:11 36.7 C 75 18 124/73 04/13/23 08:59 04/13/23 08:54 36.4 C L 79 16 92/53 L 04/13/23 07:29 36.8 C 85 18 107/67 04/13/23 03:32 36.5 C 65 16 109/66 04/12/23 23:45 36.6 C 75 17 94/57 L 04/12/23 19:19 36.7 C 75 20 95/60 L 04/12/23 16:20 36.7 C 75 18 98/55 L 04/12/23 15:55 66 Pulse Ox O2 Del Method O2 Flow Rate 04/13/23 11:35 100 Oxymask 9 04/13/23 11:25 100 Oxymask 9 04/13/23 11:15 100 Oxymask 9 04/13/23 11:08 100 Oxymask 9 04/13/23 09:36 04/13/23 09:26 95 04/13/23 09:11 96 04/13/23 08:59 Room Air 04/13/23 08:54 100 04/13/23 07:29 97 Room Air 04/13/23 03:32 95 Room Air 04/12/23 23:45 96 Room Air 04/12/23 19:19 100 Room Air 04/12/23 16:20 96 Room Air 04/12/23 15:55 Transfer of Care Handoff Completed per policy Notes Mental Status: see notes below (patient has dementia) Patient Amnestic to Procedure: Yes Nausea / Vomiting: adequately controlled Pain: adequately controlled Airway Patency, RR, SpO2: stable & adequate BP & HR: stable & adequate Hydration State: stable & adequate Anesthetic Complications: no major complications apparent
[2023-04-13 16:21] LABS: Hematocrit (blood only) 25.7 % (37.0-47.0); Hemoglobin 8.3 g/dl (12.0-16.0)
[2023-04-13 17:29] LABS: Creatinine Clr Calc Pharmacy 45.1 ml/min; Est GFR (African American) 70.9 ml/min; Est GFR (Non-African American) 61.2 ml/min
[2023-04-13 17:38] LABS: Fibrinogen 197 mg/dl (184-400); INR 1.2 (0.9-1.1); Partial Thromboplastin Ratio 0.8; Partial Thromboplastin Time 23.6 Seconds (21.0-31.0); Prothrombin Time 12.6 Seconds (9.0-12.0)
[2023-04-13] MEDS ORDERED: STAT IV Infusion **Titration per Protocol STA (18:31)
[2023-04-13] MEDS: NOREPINEPHRINE/D5W 4 MG/250 ML PLCT IV SCH (18:52)
[2023-04-13] MEDS ORDERED: OCTREOTIDE ACETATE 500 MCG in 0.9 % SODIUM CHLORIDE 100 ML IV SCH (19:18)
[2023-04-13] MEDS ORDERED: STAT IV/IM STA (19:18)
--- NOTE | 2023-04-13 19:54 | Hospitalist Progress Note ---
Date of Service April 13, 2023 Assessment & Plan (1) Hemorrhagic shock: Plan: present on admission 2nd #2 had resolved on hospital day #1 s/p 4 units PRBCs overnight and this am exhibited recurrent upper GI bleeding with subsequent hypotension then profound shock s/p 3 units of PRBCs today, multiple fluid boluses shock has been refractory to the above Tx to ICU for pressors and ongoing supportive care/transfusional support prognosis is very poor appreciate ICU team assistance procal negative making a septic component unlikely (has UTI) (2) Acute upper gastrointestinal bleeding: Plan: likely 2nd to portal gastropathy as seen on EGD no active bleeding during the EGD but old blood seen in the stomach small esophageal varices (non-bleeding) also seen no PUD duodenum clean despite several days of PPI drip, octreotide drip, NPO status, supportive care, transfusional support, etc she has continued with active bleeding she is now s/p 7 units of PRBCs this admission (3 today) unfortunately she is not a candidate for IR interventions at a tertiary care center see #1 above transfer to ICU for pressors and ongoing transfusional support again family understands she is critical and may not survive this event (3) Acute blood loss anemia: Plan: 2nd #2. see above. (4) Open left femoral fracture: Plan: 02/2023 - s/p extensive surgery by Dr Gagnon at that time. fully healed. had been rehabbing at [facility]. was TTWB to E at time of d/c from 02/2023 admission. she had been on plavix for DVT proph and prior h/o CVA. this was stopped at time of admission on 04/09. (5) HTN (hypertension): Plan: now with shock aldactone is on hold (6) Hyperlipidemia: Plan: not on meds for such (7) Asthma: Plan: no exacerbation at this time sats 100% in RA (8) Depression: Plan: hold chronic meds (9) Gastroesophageal reflux disease: Plan: PPI drip (10) Hypothyroidism: Plan: TSH 1.4 in October 2022 hold Synthroid (11) History of CVA (cerebrovascular accident): Plan: plavix on hold (12) Dementia: Plan: severe dementia at baseline has no insight into any events that have happened in the last few days very confused but fortunately no agitation (13) Cirrhosis: Plan: known diagnosis 2nd to COWART? no decompensation has had no evidence of hepatic encephalopathy see #1, #2 (14) Type 2 diabetes mellitus: Plan: a1c 7.1% in 02/2023 BSGs acceptable (15) Compression fracture of L1 lumbar vertebra: Plan: has had no c/o pain this admission (16) S/P TAVR (transcatheter aortic valve replacement): Plan: no issues (17) Restless leg: Plan: resume pramipexole in the future if able to overcome her critical illness (18) Catheter-associated urinary tract infection: Plan: cont rocephin urine cx e.coli, pansens will need nelson exchanged before discharge due to UTI as nelson is chronic since her L femur Fx Plan NUMEROUS visits to pt's bedside today she was critical much of the afternoon multiple updates given to pt's family by phone & in person multiple conversations/correspondence with [facility] and our ICU/GI attendings Tx to ICU DNR/DNI total critical care time - 150 minutes over the course of today Admission and Anticipated Discharge Date Admission Date: April 09, 2023 Subjective notified by staff this am that patient's hemoglobin was 7.5 ordered PRBCs x 1 unit BP was low or low-normal this am had had melena stools x 2 overnight order for strict NPO status given notified Dr King from GI about the ongoing melena stools and ongoing drop in he moglobin Dr King a short time later came to bedside and obtained consent for EGD pt went to endo suite and EGD showed small non-bleeding varices, mod-severe portal gastropathy, and no active bleeding but old blood in stomach Dr King felt she has been bleeding from the stomach/portal gastropathy this afternoon pt had a large melena bowel movement SBPs were in the 60s and 70s fluid bolus given, additional PRBCs ordered labs showed lactic acidosis, normal procal, normal fibrinogen, normal PT/INR/PTT I called & spoke with her son Chris went over the events of the day and the critical nature of her status he was planning to reach out to all family members/kids to discuss what to do I emphasized to Chris we would need to make a decision soon about how aggressive to be with her care she continued to remain in hemorrhagic shock despite ongoing supportive care her 3rd unit of PRBCs for the day was ordered and avani Panda was in constant communication with Dr King throughout the afternoon Only other option besides octreotide drip, PPI drip, transfusional support, etc would be an emergent TIPS or some form of IR embolization procedure At this point her entire family was present at bedside Mrs Ovalle remained hypotensive with systolics in the 80s Discussed options for care - aggressive measures (Tx to ICU, transfusional support, pressors, etc) vs transition to comfort I left the room and family was to discuss which direction to go with her care I later learned that family wanted to give Mrs Ovalle 1-2 days of supportive care rather than transitioning to comfort I then corresponded with Dr Flores from the ICU Dr Flores - like Dr King - suggested attempting transfer to a tertiary care center for consideration of TIPS procedure, etc I subsequently called [facility] and spoke with the ICU attending senior director of [employer], Dr Pardo (spelling?) Explained Mrs Ovalle's situation and specifically asked if Mrs Ovalle would be a candidate for any procedure (TIPS, etc) Dr Pardo stated she was not a candidate for any intervention to stop her bleeding I let Dr King & Dr Flores know that transfer would not occur Simultaneously I was placing transfer orders for the ICU including initiation of pressors for refractory hypotension I informed Mrs Ovalle's family that I had called [facility] and that she was felt to not be a candidate for any interventional procedure to stop the bleeding Family is aware of her critical condition status and that the bleeding may continue despite our best efforts If bleeding persists we would have to shift to comfort care Review of Systems Review of Systems: gen - fatigue, weak cv - no chest pain, no orthopnea GI - no emesis, no hematemesis, no coffee-ground emesis, no abd pain; ongoing LARGE melena stools pulm - cough but no dyspnea Physical Exam Physical Exam: gen - severe pallor, coughing, very confused - doesn't recall any events of the day, complaining of feeling cold mouth - oral mucosa dry neck - no JVD heart - RRR, s1 s2, no murmur lungs - CTA b/l abd - soft NT ND BS+ ext - no edema, pulses 1-2+ b/l but skin is cool skin - generalized pallor psych - oriented to person only, ongoing confusion, tearful at times stating she is scared Results & Data Results & Data Vital Signs (Past 12 Hours) Vital Signs Temp Pulse Pulse Resp BP BP BP 04/13/23 18:54 36.9 C 68 16 102/57 L 04/13/23 17:43 36.7 C 76 18 87/56 L 04/13/23 17:13 36.4 C L 73 20 62/40 L 04/13/23 16:58 36.7 C 74 18 72/54 L 04/13/23 16:49 36.5 C 71 20 82/59 L 04/13/23 16:35 36.9 C 90 22 85/52 L 04/13/23 15:58 36.5 C 74 16 89/54 L 69/53 L 04/13/23 15:53 82 04/13/23 12:42 69 18 91/53 L 04/13/23 11:45 36.4 C L 72 21 91/50 L 04/13/23 11:35 74 20 95/45 L 04/13/23 11:25 75 22 90/55 L 04/13/23 11:15 76 22 99/53 L 04/13/23 11:08 36.1 C L 72 16 108/60 04/13/23 09:36 65 04/13/23 09:26 36.7 C 75 18 97/55 L 04/13/23 09:11 36.7 C 75 18 124/73 04/13/23 08:59 04/13/23 08:54 36.4 C L 79 16 92/53 L Pulse Ox O2 Del Method O2 Flow Rate 04/13/23 18:54 97 04/13/23 17:43 100 04/13/23 17:13 100 04/13/23 16:58 100 04/13/23 16:49 100 04/13/23 16:35 97 04/13/23 15:58 95 Room Air 04/13/23 15:53 04/13/23 12:42 100 Nasal Cannula 2 04/13/23 11:45 100 Nasal Cannula 2 04/13/23 11:35 100 Oxymask 9 04/13/23 11:25 100 Oxymask 9 04/13/23 11:15 100 Oxymask 9 04/13/23 11:08 100 Oxymask 9 04/13/23 09:36 04/13/23 09:26 95 04/13/23 09:11 96 04/13/23 08:59 Room Air 04/13/23 08:54 100 Laboratory Results Laboratory Results - last 24 hr 04/12/23 04/12/23 04/13/23 19:38 20:34 07:18 WBC RBC Hgb 8.2 L Hct 25.7 L MCV MCH MCHC RDW Std Deviation RDW Coeff of Marty Plt Count MPV PT INR APTT PTT Ratio Fibrinogen Sodium Potassium Chloride Carbon Dioxide Anion Gap BUN Creatinine Est Cr Clr Drug Dosing Est GFR ( Amer) Est GFR (Non-Af Amer) BUN/Creatinine Ratio Glucose POC Glucose 72 183 H Lactate Calcium Procalcitonin Random Cortisol Blood Type A Positive Antibody Screen NEGATIVE Crossmatch See Detail 04/13/23 04/13/23 04/13/23 07:31 11:12 16:14 WBC 9.58 RBC 2.54 L Hgb 7.5 L 8.3 L Hct 22.9 L 25.7 L MCV 90.2 MCH 29.5 MCHC 32.8 RDW Std Deviation 45.0 RDW Coeff of Marty 14.3 Plt Count 133 MPV 11.1 PT INR APTT PTT Ratio Fibrinogen Sodium 136 Potassium 3.7 Chloride 106 Carbon Dioxide 27 Anion Gap 3 BUN 26 H Creatinine 0.52 L Est Cr Clr Drug Dosing 75.4 Est GFR ( Amer) 101.7 Est GFR (Non-Af Amer) 87.7 BUN/Creatinine Ratio 50.0 H Glucose 178 H POC Glucose 179 H Lactate Calcium 8.2 L Procalcitonin Random Cortisol Blood Type Antibody Screen Crossmatch 04/13/23 04/13/23 04/13/23 16:25 16:58 16:59 WBC RBC Hgb Hct MCV MCH MCHC RDW Std Deviation RDW Coeff of Marty Plt Count MPV PT 12.6 H INR 1.2 H APTT 23.6 PTT Ratio 0.8 Fibrinogen 197 Sodium Potassium Chloride Carbon Dioxide Anion Gap BUN Creatinine 0.87 D Est Cr Clr Drug Dosing 45.1 Est GFR ( Amer) 70.9 Est GFR (Non-Af Amer) 61.2 BUN/Creatinine Ratio Glucose POC Glucose 149 H Lactate 2.7 H* Calcium Procalcitonin < 0.05 Random Cortisol 8.54 Blood Type Antibody Screen Crossmatch PG Care Time/CCT Total # of Minutes Spent Total Time Spent with Patient: Total time spent is greater than 50% in coordination of care (as documented) at patient's floor/unit and/or counseling patient: Critical Care Time: Yes Total Critical Care Time: 150 Coding Level of Care Code None Diagnoses Hemorrhagic shock R57.8 Acute upper gastrointestinal bleeding K92.2 Acute blood loss anemia D62 Open left femoral fracture S72.92XB HTN (hypertension) I10 Hyperlipidemia E78.5 Asthma J45.20 Asthma complication type: unspecified Asthma persistence: intermittent Asthma severity: unspecified severity Depression F32.9 Gastroesophageal reflux disease K21.9 Hypothyroidism E03.9 History of CVA (cerebrovascular accident) Z86.73 Dementia F03.90 Cirrhosis K74.60 Type 2 diabetes mellitus E11.9 Compression fracture of L1 lumbar vertebra S32.010A S/P TAVR (transcatheter aortic valve replacement) Z95.2 Restless leg G25.81 Catheter-associated urinary tract infection T83.511A; N39.0 Additional Codes Critical Care Time - Critical Care Time: Yes ([id number]) (7) Asthma Asthma complication type: unspecified Asthma persistence: intermittent Asthma severity: unspecified severity Qualified Code(s): J45.20 - Mild intermittent asthma, uncomplicated
--- NOTE | 2023-04-13 20:06 | Critical Care Consultation ---
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 Neuro - Chronic back pain, Restless leg, Depression CAM ICU: Negative - Continue pain control - tylenol narcotic if needed - For her depression, appears her chronic BuSpar, Cymbalta, and Seroquel were placed on hold - for her restless legs,appears as pramipexole was being trialed Cardiac - Hemorrhagic shock - Secondary to UGIB from portal gastropathy- not a candidate for interventional therapy and/or invasive procedure or TIPS - Support with vasopressor therapy - hold further blood transfusions as discussed with family as this will not reverse her pathology- her HGB level is improved from ealier in the day and has just finished 1u PRBC - No escalation of support for hemodynamics Respiratory - No acute needs - DNR/DNI - Comfort measures if she progresses GI - COWART cirrhosis, Grade I Varices, Portal Gastropathy As above - Continue PPI, Octreotide, Rocephin RENAL/LYTES - No acute needs - ICU electrolyte protocol - see ID ENDO - DMII - Continue with Insulin HEME - Acute blood loss anemia - Hold on further transfusions - Fibrinogen 197 and INR 1.2- as we do not have TEG here to eval clotting factors, INR is our only guide, adding therapy to reverse her INR is unlikely beneficial ID - Catheter associated UTI - Continue Rocephin for UTI and GI bleed LINES/IV ACCESS - PIV. Koroma catheter Continue use of these lines DVT PROPHYLAXIS - SCDS DISPO: ICU while on vasopressor support I have personally spent 45 minutes of critical care time in the direct management of this patient. This is a life/limb threatening event. This includes time spent evaluating patient, direct bedside care, chart review, placing orders, interpretation of diagnostic studies, discussion with consultants, patient, and family members, as well as other required patient management activities. This time is exclusive of all separately billable procedures, and teaching time and separate from and in addition to any other critical care service time. Thank you for allowing us to participate in the care of this patient. Please refer to my attending physician's documentation for any further recommendations. History of Present Illness Reason for Consultation: Hypotensive requiring vasopressor support Attending Physician: Maciel Snowden MD History of Present Illness 82 YOF who was originally admitted on for acute GI bleed in the setting of varices as well as portal gastropathy secondary to COWART, today she underwent EGD with grade I Variceas without bleeding and moderate portal hypertensive gastropathy of the entire stomach without active bleeding however with old blood noted. It was recommended that tertiary care center evaluate her for possible TIPS procedure. Dr. Rogel of Primary Hospital[facility] reported that he discussed the case with [facility] and was deemed not a candidate for TIPS or other interventions for bleeding control. She was receiving PRBC transfusion on arrival to the ICU and was initiated on vasopressor therapy prior to arrival to the ICU. I have spent time talking with the family and the patient. The patient understands that she is dying and that this is unfortunately an irreversible/terminal condition at this time. We discussed that she will likely continue to bleed and transfusion of blood will provide her temporary volume but likely won't stop the bleeding. We discussed that I am currently keeping her blood pressure up artificially and this will eventually lead to other organ failure, and she will likely progress to encephalopathy, agitation or having pain. She wants to spend time with her family at this time and when she starts to become uncomfortable or worsening of organ function would transition to palliative care at that time. Mimi knows that this is all temporizing support for now. For now will continue with Levophed support. Provide clear di et for comfort. CODE: DNR/DNI Allergies Allergy/AdvReac Type Severity Reaction Status Date / Time atorvastatin [From Lipitor] Allergy Unknown ON CENTRE Verified 04/09/23 15:47 CARE MED LIST doxycycline Allergy Unknown ON CENTRE Verified 04/09/23 15:47 CARE MED LIST ezetimibe Allergy Unknown ON CENTRE Verified 04/09/23 15:47 CARE MED LIST gabapentin Allergy Unknown ON CENTRE Verified 04/09/23 15:47 CARE MED LIST meloxicam Allergy Unknown ON CENTRE Verified 04/09/23 15:47 CARE MED LIST nitrofurantoin Allergy Unknown ON CENTRE Verified 04/09/23 15:47 CARE MED LIST ofloxacin Allergy Unknown ON CENTRE Verified 04/09/23 15:47 CARE MED LIST pravastatin Allergy Unknown ON CENTRE Verified 04/09/23 15:47 CARE MED LIST sulfamethoxazole Allergy Unknown ON CENTRE Verified 04/09/23 15:47 CARE MED LIST trimethoprim Allergy Unknown ON CENTRE Verified 04/09/23 15:47 CARE MED LIST amoxicillin AdvReac Intermediate YEAST Verified 04/09/23 15:47 INFECTION oxycodone AdvReac Intermediate VOMITING Verified 04/09/23 15:47 rosuvastatin AdvReac Intermediate BODY PAINS Verified 04/09/23 15:47 Home Medications Medication Instructions Recorded Confirmed Type albuterol sulfate 90 mcg/actuation 2 puff inhalation Q4H PRN 09/09/22 04/09/23 Rx aerosol inhaler shortness of breath or wheezing #18 grams blood sugar diagnostic #100 ea 09/09/22 02/24/23 Rx lancets (OneTouch UltraSoft #100 ea 09/09/22 02/24/23 Rx Lancets) diclofenac sodium 1 % topical gel 4 g EXT QID #100 grams 10/07/22 04/09/23 Rx (Voltaren Arthritis Pain) cyanocobalamin (vitamin B-12) 100 100 mcg PO QAM #30 tabs 10/09/22 04/09/23 Rx mcg tablet (Vitamin B-12) fexofenadine 180 mg tablet 180 mg PO DAILY #30 tabs 10/09/22 04/09/23 Rx fluticasone 250 mcg-salmeterol 50 1 inh inhalation BID #1 ea 11/25/22 04/09/23 Rx mcg/dose blistr powdr for inhalation (Advair Diskus) levothyroxine 50 mcg tablet 50 mcg PO DAILYBB #30 tabs 11/27/22 04/09/23 Rx (Synthroid) duloxetine 60 mg capsule,delayed 60 mg PO DAILY #90 caps 01/05/23 04/09/23 Rx release lidocaine 5 % topical patch 1 patch topical DAILY #30 ea 02/24/23 04/09/23 Rx lactulose 10 gram/15 mL oral 30 ml PO BIDM constipation 03/07/23 04/09/23 History solution acetaminophen 500 mg tablet 500 mg PO BID #60 tabs 03/13/23 04/09/23 Rx (Tylenol Extra Strength) clopidogrel 75 mg tablet 75 mg PO QAM #30 tabs 03/13/23 04/09/23 Rx hydrocodone 5 mg-acetaminophen 325 1 tab PO Q8H PRN pain #20 tabs 03/13/23 04/09/23 Rx mg tablet melatonin 3 mg tablet 3 mg PO HS #30 tabs 03/13/23 04/09/23 Rx quetiapine 25 mg tablet (Seroquel) 25 mg PO HS #1 tab 03/13/23 04/09/23 Rx acetaminophen 325 mg tablet 650 mg PO Q6H PRN FEVER >100/MILD 04/09/23 04/09/23 History (Tylenol) PAIN benzonatate 100 mg capsule 200 mg PO PC 04/09/23 04/09/23 History buspirone 5 mg tablet 2.5 mg PO BIDM 04/09/23 04/09/23 History clindamycin HCl 300 mg capsule 600 mg PO DIRECTED PRN 1 HR 04/09/23 04/09/23 History PRIOR TO DENTAL PROCEDURES dextromethorphan-guaifenesin 10 10 ml PO QID 04/09/23 04/09/23 History mg-100 mg/5 mL oral syrup (Tussin DM) duloxetine 30 mg capsule,delayed 30 mg PO QAM 04/09/23 04/09/23 History release magnesium chloride 64 mg 128 mg PO BIDM 04/09/23 04/09/23 History (magnesium chloride) tablet,delayed release (Mag 64) nystatin 100,000 unit/gram topical 1 applic topical BID 04/09/23 04/09/23 History powder pramipexole 0.125 mg tablet 0.125 mg PO HS 04/09/23 04/09/23 History spironolactone 25 mg tablet 25 mg PO Q OTHER DAY 04/09/23 04/09/23 History Patient History Medical History Severe back pain Acute blood loss anemia Pars defect with spondylolisthesis grade 2, 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 Lumbosacral spondylosis Lumbosacral radiculopathy due to degenerative joint disease of spine Constipation Compression fracture of L1 lumbar vertebra (07/08/22) Cirrhosis Severe tricuspid regurgitation Moderate mitral regurgitation Dementia Ascites Elevated troponin Anemia Hypomagnesemia 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 Severe aortic stenosis Received tissue plasminogen activator (tPA) less than 24 hours prior to arrival Aortic arch aneurysm CVA (cerebral vascular accident) (02/2020) Vitamin D deficiency Vertigo TMJ (sprain of temporomandibular joint) Stenosis, cervical spine Sciatica Osteoarthritis Hypothyroidism Hearing loss Gastroesophageal reflux disease Depression Carotid artery stenosis Asthma Aortic stenosis Anxiety Allergic rhinitis Hyperlipidemia Diabetes HTN (hypertension) Surgical History S/p TAVR (transcatheter aortic valve replacement), bioprosthetic (09/2021) History of laparoscopic cholecystectomy History of cataract surgery Family History Unknown Esophageal reflux Mother , age 73 of dementia Dementia Myocardial infarction Father , age 75 of a stroke Stroke Denies family history of Ovarian cancer Prostate cancer Coronary heart disease Breast cancer Colorectal cancer Social History Smoking Status: Former smoker Tobacco Type: Cigarettes Second Hand Exposure: No; Do You Dip or Chew Tobacco: No; Hx Alcohol Use: No Hx Substance Use: No Preferred Language: Slovak Communication Ability: Effective Visual Impairment: No Limitations Hearing Ability: Use of Hearing Aid Rn Neonatal Required: No Beliefs That Will Affect Care: None marital status: / Current Living Situation: Prison Current Living Situation Comment: [facility] current occupational status: retired 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 Feels Safe at Home: Yes Childhood Exposure to Second-Hand Smoke: Yes Diet: regular caffeine: Yes during the past year weight has: remained stable Dental Care, Regularly: Yes Physical Activity Frequency: 1-2 Times per Week Seatbelt Use: always Sunscreen Use: Yes Assistive Devices: Denture - Upper, Hearing Aid - Bilateral and Hospital Bed Review of Systems Review of Systems: REVIEW OF SYSTEMS: Constitutional: No fever, sweats or chills Eyes: No diplopia, no worsening or blurred vision ENT:(+) difficulty hearing, no trouble swallowing Respiratory: No cough, sputum, dyspnea at rest or on exertion Cardiovascular: No chest pain, tightness or palpitations Abdomen: (+) bloody bowel movements, Musculoskeletal: (+) chronic back pain with Psychiatric: No anxiety or depression Skin: No rash or itch Physical Exam Physical Exam: PHYSICAL EXAM: General: awake, alert, tearful but appropriate Head: Normocephalic, atraumatic ENT: PERRLA, EOMI, no pharyngeal exudate, mucous membranes dry Neuro: AAO x 3, speech clear and appropriate, strength intact bilaterally 5/5, sensation intact and equal Chest: equal rise and fall of the chest, no accessory muscle use, no heaves or thrills, Clear to auscultation, 2LNC Cardiac: Regular rate and rhythm, telemetry reviewed, skin warm dry, cap refill <3 seconds, peripheral pulses +2 no JVD, no murmur, GI: NABS x 4 quadrants, soft, nontender to palpation, no rebound, guarding or tenderness, melena appreciated Psych: Normal mood and affect Skin: no rash or erythema Results & Data Results & Data Vital Signs (Past 12 Hours) Vital Signs Temp Pulse Pulse Resp BP BP BP 04/13/23 18:54 36.9 C 68 16 102/57 L 04/13/23 17:43 36.7 C 76 18 87/56 L 04/13/23 17:13 36.4 C L 73 20 62/40 L 04/13/23 16:58 36.7 C 74 18 72/54 L 04/13/23 16:49 36.5 C 71 20 82/59 L 04/13/23 16:35 36.9 C 90 22 85/52 L 04/13/23 15:58 36.5 C 74 16 89/54 L 69/53 L 04/13/23 15:53 82 04/13/23 12:42 69 18 91/53 L 04/13/23 11:45 36.4 C L 72 21 91/50 L 04/13/23 11:35 74 20 95/45 L 04/13/23 11:25 75 22 90/55 L 04/13/23 11:15 76 22 99/53 L 04/13/23 11:08 36.1 C L 72 16 108/60 04/13/23 09:36 65 04/13/23 09:26 36.7 C 75 18 97/55 L 04/13/23 09:11 36.7 C 75 18 124/73 04/13/23 08:59 04/13/23 08:54 36.4 C L 79 16 92/53 L Pulse Ox O2 Del Method O2 Flow Rate 04/13/23 18:54 97 04/13/23 17:43 100 04/13/23 17:13 100 04/13/23 16:58 100 04/13/23 16:49 100 04/13/23 16:35 97 04/13/23 15:58 95 Room Air 04/13/23 15:53 04/13/23 12:42 100 Nasal Cannula 2 04/13/23 11:45 100 Nasal Cannula 2 04/13/23 11:35 100 Oxymask 9 04/13/23 11:25 100 Oxymask 9 04/13/23 11:15 100 Oxymask 9 04/13/23 11:08 100 Oxymask 9 04/13/23 09:36 04/13/23 09:26 95 04/13/23 09:11 96 04/13/23 08:59 Room Air 04/13/23 08:54 100 Laboratory Results Abnormal lab results 04/12/23 04/13/23 04/13/23 Range/Units 19:38 07:18 07:31 RBC 2.54 L (4.20-5.40) M/uL Hgb 7.5 L (12.0-16.0) g/dl Hct 22.9 L (37.0-47.0) % PT (9.0-12.0) Seconds INR (0.9-1.1) BUN 26 H (6-23) mg/dl Creatinine 0.52 L (0.6-1.2) mg/dl BUN/Creatinine Ratio 50.0 H (10-20) Glucose 178 H (70-99(Fasting)) mg/dl POC Glucose 183 H (70-99) mg/dl Lactate (0.4-2.0) mmol/L Calcium 8.2 L (8.6-10.3) mg/dl Crossmatch See Detail 04/13/23 04/13/23 04/13/23 Range/Units 11:12 16:14 16:25 RBC (4.20-5.40) M/uL Hgb 8.3 L (12.0-16.0) g/dl Hct 25.7 L (37.0-47.0) % PT (9.0-12.0) Seconds INR (0.9-1.1) BUN (6-23) mg/dl Creatinine (0.6-1.2) mg/dl BUN/Creatinine Ratio (10-20) Glucose (70-99(Fasting)) mg/dl POC Glucose 179 H 149 H (70-99) mg/dl Lactate (0.4-2.0) mmol/L Calcium (8.6-10.3) mg/dl Crossmatch 04/13/23 04/13/23 04/13/23 Range/Units 16:58 16:59 21:29 RBC (4.20-5.40) M/uL Hgb (12.0-16.0) g/dl Hct (37.0-47.0) % PT 12.6 H (9.0-12.0) Seconds INR 1.2 H (0.9-1.1) BUN (6-23) mg/dl Creatinine (0.6-1.2) mg/dl BUN/Creatinine Ratio (10-20) Glucose (70-99(Fasting)) mg/dl POC Glucose 144 H (70-99) mg/dl Lactate 2.7 H* (0.4-2.0) mmol/L Calcium (8.6-10.3) mg/dl Crossmatch Coding Level of Care Code 19723 CRITICAL CARE 1ST 30-74M Diagnoses Acute upper gastrointestinal bleeding K92.2 Portal hypertensive gastropathy K76.6; K31.89 Hemorrhagic shock R57.8 Severe back pain M54.9
[2023-04-13] MEDS: LANTUS PER UNIT CHARGE SC SCH (21:42)
[2023-04-14] MEDS: MoRPHine SULFATE 2 MG/ML CARP IV PRN ×7 (00:42→20:50)
[2023-04-14] MEDS: PANTOprazole 40 MG in DEXTROSE 5% MINI-B 100 ML IV SCH ×4 (01:09→16:17)
[2023-04-14] MEDS: OCTREOTIDE ACETATE 500mcg / NSS 100mL IV SCH ×2 (03:23→11:37)
[2023-04-14] MEDS: INSULIN ASPART PER UNIT CHARGE SC SCH ×3 (07:42→14:24)
[2023-04-14] MEDS: cefTRIAXone SODIUM 2,000 MG in DEXTROSE 5 % MINI-B 50 ML IV SCH (07:43)
[2023-04-14] MEDS: NOREPINEPHRINE/D5W 4 MG/250 ML PLCT IV SCH ×3 (07:43→16:17)
[2023-04-14] MEDS: FLUTICASONE/VILANTEROL 200/25MCG 14 PUFFS/INHALER INH SCH (07:44)
--- NOTE | 2023-04-14 08:25 | Critical Care Progress Note ---
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 Neuro - Chronic back pain, Restless leg, Depression CAM ICU: Negative - Continue pain control - tylenol narcotic if needed - For her depression, appears her chronic BuSpar, Cymbalta, and Seroquel were placed on hold - for her restless legs,appears as pramipexole was being trialed Cardiac - Hemorrhagic shock - Secondary to UGIB from portal gastropathy- not a candidate for interventional therapy and/or invasive procedure or TIPS - Support with vasopressor therapy - hold further blood transfusions as discussed with family as this will not reverse her pathology - No escalation of support for hemodynamics Respiratory - No acute needs - DNR/DNI - Comfort measures if she progresses GI - COWART cirrhosis, Grade I Varices, Portal Gastropathy As above - Continue PPI, Octreotide, Rocephin RENAL/LYTES - No acute needs - ICU electrolyte protocol - see ID ENDO - DMII - Continue with Insulin --Hypothyroidism TSH 5.3 with free T4.59 HEME - Acute blood loss anemia - Hold on further transfusions - Fibrinogen 197 and INR 1. ID - Catheter associated UTI -Pansensitive E. coli - Continue Rocephin for UTI and GI bleed --Prophylaxis VTE: IPC GI: Protonix drip Lines: Peripheral Diet: N.p.o. Plan: In/out: +1.5 L, urine output 1376, +2.7 L since coming to the hospital Patient's hemoglobin today is 5.8. She did have melanotic bowel movement early in the morning as well. She seems to be actively bleeding. I had a discussion with patient's son patient's daughter as well as patient herself regarding the goals of care. They would not like to have any escalation of care. They do not want any further blood transfusions. They are waiting for talk with another sibling and after that they would like to make the decision regarding comfort measures/hospice. All questions inquiries of the patient's as well as patient's family were answered in depth I have personally spent 40 minutes of critical care time in the direct management of this patient. This is a life/limb threatening event. This includes time spent evaluating patient, direct bedside care, chart review, placing orders, interpretation of diagnostic studies, discussion with consultants, patient, and family members, as well as other required patient management activities. This time is exclusive of all separately billable procedures, and teaching time and separate from and in addition to any other critical care service time. Please note the above document was generated using voice recognition software. It may contain grammatical, syntax or spelling errors. Admission and Anticipated Discharge Date Admission Date: April 09, 2023 Subjective Patient seen and examined at bedside. No acute distress, no adverse events overnight. Patient's daughter was in the room at the time of examination Patient was on Levophed 0.1. Denied any headache, no nausea or vomiting No abdominal pain No shortness of breath Did have melanotic bowel movement earlier in the morning. Review of Systems 2 Review of Systems: All systems reviewed & are unremarkable except as noted in Subjective Physical Exam 2 Physical Exam: Constitutional: No acute distress HEENT: EOMI, PERRLA Respiratory system: Good air entry bilaterally, no wheeze, no rhonchi, no crackles CVS: S1-S2 positive, no murmurs or gallops Abdomen: Soft, nontender, nondistended, positive bowel sounds x4 Extremities: +2 pulses bilaterally radialis/ dorsalis pedis, no cyanosis, no edema Neuro: Awake alert oriented self and place Psych: Normal mood and affect G/U: Positive Koroma Skin: no rashes, warm and dry Lymphatic: no cervical or axillary lymphadenopathy Results & Data Results & Data Vital Signs (Past 12 Hours) Vital Signs Temp Pulse Resp BP Pulse Ox 04/14/23 06:20 81 13 60/52 L 04/14/23 06:15 82 15 04/14/23 06:11 82 16 95/40 L 04/14/23 06:01 79 22 75/47 L 04/14/23 06:00 79 16 04/14/23 05:49 87 21 93/76 L 99 04/14/23 05:48 82 23 66/54 L 100 04/14/23 05:45 86 12 98 04/14/23 05:30 82 18 84 L 04/14/23 05:16 82 17 92 04/14/23 05:16 119/88 04/14/23 05:15 80 19 93 04/14/23 05:00 78 20 97 04/14/23 04:46 81 18 82/59 L 92 04/14/23 04:45 81 18 93 04/14/23 04:31 81 15 124/100 99 04/14/23 04:30 81 17 94 04/14/23 04:17 83 17 132/82 94 04/14/23 04:15 81 23 97 04/14/23 04:01 81 25 H 82/60 L 100 04/14/23 04:00 81 16 100 04/14/23 03:55 83 26 H 80/64 L 100 04/14/23 03:45 84 19 100 04/14/23 03:44 85 16 162/140 H 04/14/23 03:30 85 15 96 04/14/23 03:16 82 18 84/69 L 96 04/14/23 03:15 79 20 98 04/14/23 03:01 82 19 123/101 H 100 04/14/23 03:00 80 20 95 04/14/23 02:52 81 18 98 04/14/23 02:52 105/67 04/14/23 02:46 81 19 04/14/23 02:45 81 18 04/14/23 02:31 78 22 81/53 L 96 04/14/23 02:30 77 15 99 04/14/23 02:29 37.4 C 04/14/23 02:15 78 18 97 04/14/23 02:01 77 22 111/62 96 04/14/23 02:00 79 17 96 04/14/23 01:45 77 20 95 04/14/23 01:30 78 23 136/91 98 04/14/23 01:17 79 04/14/23 01:15 77 20 90 04/14/23 01:00 77 22 78 L 04/14/23 00:45 78 18 83 L 04/14/23 00:30 81 16 79 L 04/14/23 00:21 79 29 H 99/79 L 77 L 04/14/23 00:16 81 18 79/56 L 04/14/23 00:15 79 23 04/14/23 00:00 75 21 04/13/23 23:46 79 23 98/57 L 84 L 04/13/23 23:45 75 23 87 L 04/13/23 23:30 74 21 95 04/13/23 23:29 78 20 98/58 L 99 04/13/23 23:15 75 19 90/57 L 91 04/13/23 23:01 79 23 107/51 L 95 04/13/23 23:00 74 13 93 04/13/23 22:45 73 17 04/13/23 22:39 76 14 109/58 L 04/13/23 22:31 76 22 86/49 L 04/13/23 22:30 74 13 04/13/23 22:16 77 17 84/57 L 04/13/23 22:15 76 21 04/13/23 22:09 80 15 122/91 71 L 04/13/23 22:00 79 17 04/13/23 21:45 77 20 97 04/13/23 21:41 37.1 C 04/13/23 21:32 80 28 H 98 04/13/23 21:32 83/51 L 04/13/23 21:30 79 16 87 L 04/13/23 21:15 78 14 100 04/13/23 21:00 77 12 96 04/13/23 20:45 81 22 95 04/13/23 20:31 73/54 L 04/13/23 20:31 80 27 H 93 04/13/23 20:30 76 15 93 Laboratory Results 04/13/23 16:14 04/13/23 16:59 Coding Level of Care Code 53642 CRITICAL CARE 1ST 30-74M Diagnoses Portal hypertensive gastropathy K76.6; K31.89 Catheter-associated urinary tract infection T83.511A; N39.0 UTI (urinary tract infection) N39.0 Acute upper gastrointestinal bleeding K92.2 Hemorrhagic shock R57.8 Acute metabolic encephalopathy G93.41 Hypotension I95.9 Anxiety F41.9 Hypothyroidism E03.9 Anemia D64.9 Anemia type: unspecified type Dementia F03.90 (10) Anemia Anemia type: unspecified type Qualified Code(s): D64.9 - Anemia, unspecified
[2023-04-14 09:08] LABS: Hematocrit (blood only) 17.9 % (37.0-47.0); Hemoglobin 5.8 g/dl (12.0-16.0); Mean Corpuscular Hemoglobin 28.7 pg (25.0-34.0); Mean Corpuscular Hgb Conc 32.4 g/dL (32.0-36.0); Mean Corpuscular Volume 88.6 fL (80.0-100.0); Mean Platelet Volume 10.8 fL (9.4-12.4); Nucleated RBC % (auto) 1.2 %; Platelet Count 168 K/uL (130-400); RDW Coefficient of Variation 17.1 % (11.5-14.5); RDW Standard Deviation 52.7 fL (36.4-46.3); Red Blood Count 2.02 M/uL (4.20-5.40); White Blood Count 24.72 K/ul (4.8-10.8)
[2023-04-14 09:22] LABS: Albumin Globulin Ratio 1.2 (0.9-2); Albumin Level 2.3 gm/dl (3.4-5.0); BUN Creatinine Ratio 58.8 (10-20); Bilirubin,Total 0.4 mg/dl (0.2-1.0); Calcium 7.6 mg/dl (8.6-10.3); Creatinine Clr Calc Pharmacy 57.7 ml/min; Est GFR (African American) 93.1 ml/min; Est GFR (Non-African American) 80.3 ml/min; Globulin 1.9 gm/dl (2.5-4.0); Potassium 4.1 mmol/L (3.5-5.1); Total Protein 4.2 gm/dl (6.0-8.3)
[2023-04-14 09:34] LABS: Basophils # (auto) 0.11 K/uL (0.00-0.20); Basophils % (auto) 0.4 %; Eosinophils # (auto) 0.69 K/uL (0.00-0.50); Eosinophils % (auto) 2.8 %; Hypochromasia Present; Immature Granulocytes % (auto) 5.3 %; Lymphocytes # (auto) 5.86 K/uL (1.20-3.40); Lymphocytes % (auto) 23.7 %; Monocytes # (auto) 1.45 K/uL (0.11-0.59); Monocytes % (auto) 5.9 %; Neutrophils # (auto) 15.31 K/uL (1.40-6.50); Neutrophils % (auto) 61.9 %; Polychromasia 1+
[2023-04-14 09:37] LABS: Thyroid Stimulating Hormone 5.313 uIu/ml (0.300-4.500)
[2023-04-14 10:12] LABS: T4 Free Thyroxine 0.59 ng/dl (0.61-1.60)
--- NOTE | 2023-04-14 13:46 | Pharmacy Report ---
Pharmacy Glycemic Short Note 2 - Date of Service April 14, 2023 - Glycemic Short BSG Results (Last 24 hours): 04/13/23 04/13/23 04/14/23 16:25 21:29 07:33 Glucose POC Glucose 149 H 144 H 195 H 04/14/23 04/14/23 08:49 11: Glucose 245 H POC Glucose 190 H OUTPATIENT ANTIDIABETIC REGIMEN: * N/A * HbA1C = 7.1% (02/24/23) ASSESSMENT: 04/14: * Received 3 units of insulin yesterday, bolus. BSGs [phone] mg/dL * Patient transferred to the ICU, hgb 5.8 this morning. 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 04/13 * Mimi received 16 units of insulin yesterday, all bolus. BSGs were: [phone] mg/dL. * Fasting elevated at 183 mg/dL this AM. Will continue with HS basal scale but change to get basal if BSG 141 mg/dL or greater. * Loosened Novolog this AM given trend down in BSGs yesterday. Of note, patient is NPO this AM for EGD but should have a diet resumed afterwards. However, PO intake has been poor. 04/11: * BSGs yesterday were [phone] and overnight were 114-100 mg/dL. Patient received only 3 units of Novolog. * BSGs today are 123-137 mg/dL. Patient remains NPO with plan for diet tomorrow if no additional bleeding. * Lantus will be available tonight (5 units) if BSG climbs significantly. * Otherwise, BSGs in range with no diet planned today. Continue Novolog. 04/10: * Ms Ovalle is an 82 y/o F with a PMH of T2DM who presents with an acute GI bleed. BSG on admission was 199 mg/dL. Patient NPO. * Patient received 10 units of Lantus + 2 units of Novolog on day of admission (admitted for 2100 check). * BSGs today are 188-144 mg/dL. * Continue Lantus 10 units daily. Since patient NPO, hold if BSG < 180 mg/dL. * Novolog weight-based stress of 2. PLAN FOR INPATIENT GLYCEMIC CONTROL: * Basal insulin * Lantus 5 units SC HS (hold if BSG 140 mg/dL or less) * Bolus insulin * NovoLog per scale ACHS or Q6hrs while NPO * Goal Range: Low 110 mg/dL - High 140 mg/dL * Correction Factor: 35 mg/dL/unit * Nutritional / Prandial insulin per carb ratio of 1 unit per 12 grams CHO consumed
[2023-04-14] MEDS: LACTATED RINGER'S 1,000 ML IV SCH (13:49)
[2023-04-14] MEDS ORDERED: ICU ELECTROLYTE REPLACEMENT PROTOCOL SCH (18:00)
[2023-04-14] MEDS ORDERED: GLYCOPYRROLATE 0.2 MG/ML VIAL IV PRN (18:18)
[2023-04-14] MEDS ORDERED: ATROPINE SULFATE 1% OP SOLN 5 ML BTL SL PRN (18:18)
[2023-04-14] MEDS ORDERED: HALOPERIDOL LACTATE 5 MG/ML 1 ML VIAL IV PRN (19:25)
--- NOTE | 2023-04-14 19:29 | Hospitalist Progress Note ---
Date of Service April 14, 2023 Assessment & Plan (1) Comfort measures only status: Plan: transitioned to comfort care measures only status this afternoon pressors, octreotide drip, PPI drip, transfusional support, etc - all stopped morphine 2mg IV q2h prn, ativan prn, atropine/robinul prn typically on chronic antipsychotics at HS -- will give zyprex ODT 5mg this evening suspect she will need a morphine infusion as the night goes on for optimal comfort support given to family (2) Palliative care patient: Plan: as above in #1 (3) Hemorrhagic shock: Plan: present on admission 2nd upper GI bleeding from portal hypertensive gastropathy s/p 6 units of blood in total since hospital admission despite transfusional support, octreotide drip, PPI drip, EGD to exclude other causes of bleeding, pressors, fluids, and other supportive care she continued with bleeding and refractory shock called tertiary care 04/13 - [facility] - not a candidate for IR intervention (embolization procedure, emergency TIPS, etc) patient now transitioned to SCHEDULING ANALYST this afternoon see above (4) Portal hypertensive gastropathy: Plan: with resulting severe upper GI bleeding + hemorrhagic shock (5) Acute upper gastrointestinal bleeding: Plan: likely 2nd to portal hypertensive gastropathy as seen on EGD small esophageal varices (non-bleeding) seen on EGD - not the source of bleeding no PUD duodenum clean despite several days of PPI drip, octreotide drip, NPO status, supportive care, transfusional support, pressors for BP support, etc she has continued with active bleeding now comfort care (6) Acute blood loss anemia: Plan: 2nd upper GI bleeding (7) Open left femoral fracture: Plan: 02/2023 - s/p extensive surgery by Dr Gagnon at that time. fully healed. had been rehabbing at [facility] prior to this admission. (8) HTN (hypertension): Plan: history of (9) Hyperlipidemia: Plan: history of (10) Asthma: Plan: no exacerbation while here (11) Depression: Plan: stop meds - transition to SCHEDULING ANALYST (12) Gastroesophageal reflux disease: (13) Hypothyroidism: (14) History of CVA (cerebrovascular accident): (15) Dementia: Plan: severe dementia at baseline (16) Cirrhosis: Plan: known diagnosis likely 2nd to COWART with portal hypertensive gastropathy with massive bleeding (17) Type 2 diabetes mellitus: (18) Compression fracture of L1 lumbar vertebra: Plan: h/o such - 02/2023 (19) S/P TAVR (transcatheter aortic valve replacement): Plan: history of (20) Restless leg: (21) Catheter-associated urinary tract infection: Plan: 2nd e.coli stop IV abx Plan transfer to med/surg for SCHEDULING ANALYST support given to family appreciate critical care team assistance Admission and Anticipated Discharge Date Admission Date: April 09, 2023 Subjective events of overnight noted she was on levophed all night but later stopped today after family made patient comfort care even despite levophed her shock continued multiple bloody/melena bowel movements had continued thru the night and today prior to transfer from ICU to the floor for comfort care measures I saw the patient at bedside she was having terminal agitation; just had very large melena bowel movement; very confused, shifting in bed, "why why" she was saying comfort orders in place discussed care with the pt's nurse after my visit I met with her family in the waiting area gave my support told them that her passing was imminent - likely tonight or by tomorrow am discussed the agitation and meds we would use to help w/ such Review of Systems Review of Systems: Unobtainable due to cognitive status Physical Exam Physical Exam: gen - restless, agitated; severe pallor/cyanosis mouth - MM very dry heart - tachy, s1 s2 lungs - CTA b/l abd - soft NT ext - cold to touch (Feet); pulses 1+ b/l at best psych - did not follow commands, very confused and restless Results & Data Results & Data Vital Signs (Past 12 Hours) Vital Signs Pulse Resp BP Pulse Ox O2 Del Method 04/14/23 18:00 85 24 04/14/23 17:00 81 16 04/14/23 16:00 79 20 04/14/23 15:00 81 13 04/14/23 14:00 83 18 04/14/23 13:00 84 14 04/14/23 12:00 85 21 04/14/23 11:02 79 23 04/14/23 11:00 78 12 04/14/23 10:00 78 20 04/14/23 09:00 80 18 04/14/23 08:15 85 16 04/14/23 08:15 96/49 L 04/14/23 08:01 95/75 L 04/14/23 08:00 Room Air 04/14/23 08:00 86 16 92 PG Care Time/CCT Total # of Minutes Spent Total Time Spent with Patient: Total time spent is greater than 50% in coordination of care (as documented) at patient's floor/unit and/or counseling patient: Coding Level of Care Code 23412 SUB INP/OBS CARE /25MIN Diagnoses Comfort measures only status Z51.5 Palliative care patient Z51.5 Hemorrhagic shock R57.8 Portal hypertensive gastropathy K76.6; K31.89 Acute upper gastrointestinal bleeding K92.2 Acute blood loss anemia D62 Open left femoral fracture S72.92XB HTN (hypertension) I10 Hyperlipidemia E78.5 Asthma J45.20 Asthma complication type: unspecified Asthma persistence: intermittent Asthma severity: unspecified severity Depression F32.9 Gastroesophageal reflux disease K21.9 Hypothyroidism E03.9 History of CVA (cerebrovascular accident) Z86.73 Dementia F03.90 Cirrhosis K74.60 Type 2 diabetes mellitus E11.9 Compression fracture of L1 lumbar vertebra S32.010A S/P TAVR (transcatheter aortic valve replacement) Z95.2 Restless leg G25.81 Catheter-associated urinary tract infection T83.511A; N39.0 (10) Asthma Asthma complication type: unspecified Asthma persistence: intermittent Asthma severity: unspecified severity Qualified Code(s): J45.20 - Mild intermittent asthma, uncomplicated
[2023-04-14] MEDS: LORazepam 0.5 MG in SYRINGE 0.25 ML IV PRN (19:45)
[2023-04-14] MEDS ORDERED: OLANZapine ZYDIS 5 MG ORALLY DIS. TAB PO SCH (21:00)
[2023-04-14] MEDS ORDERED: MoRPHine BOLUS from BAG IV PRN (21:06)
[2023-04-14] MEDS ORDERED: STAT IV Infusion **Titration per Protocol STA (21:06)
[2023-04-14] MEDS ORDERED: MoRPHine SULF/NSS 100 MG/100 ML BAG IV SCH (21:15)
[2023-04-15] MEDS: LORazepam 0.5 MG in SYRINGE 0.25 ML IV PRN (00:17)
--- NOTE | 2023-04-15 08:45 | Communication Note ---
Date of Service: April 15, 2023 Presented with ongoing gastrointestinal hemorrhage, comfort measures only status. Family has gathered in her room. On exam she is unresponsive with prol onged absence of respirations or heart sounds. Time of 831.
--- NOTE | 2023-04-15 20:02 | Discharge Summary ---
Date of Service April 15, 2023 Admission HPI Per Admitting Provider 82 year old with cirrhosis who was admitted with acute upper gastrointestinal bleeding. Principal Diagnosis Hemorrhagic shock due to acute upper gastrointestinal bleeding from portal hypertensive gastropathy Discharge Exam not applicable, see progress note today with time of Discharge Data Allergies Allergy/AdvReac Type Severity Reaction Status Date / Time atorvastatin [From Lipitor] Allergy Unknown ON CENTRE Verified 04/09/23 15:47 CARE MED LIST doxycycline Allergy Unknown ON CENTRE Verified 04/09/23 15:47 CARE MED LIST ezetimibe Allergy Unknown ON CENTRE Verified 04/09/23 15:47 CARE MED LIST gabapentin Allergy Unknown ON CENTRE Verified 04/09/23 15:47 CARE MED LIST meloxicam Allergy Unknown ON CENTRE Verified 04/09/23 15:47 CARE MED LIST nitrofurantoin Allergy Unknown ON CENTRE Verified 04/09/23 15:47 CARE MED LIST ofloxacin Allergy Unknown ON CENTRE Verified 04/09/23 15:47 CARE MED LIST pravastatin Allergy Unknown ON CENTRE Verified 04/09/23 15:47 CARE MED LIST sulfamethoxazole Allergy Unknown ON CENTRE Verified 04/09/23 15:47 CARE MED LIST trimethoprim Allergy Unknown ON CENTRE Verified 04/09/23 15:47 CARE MED LIST amoxicillin AdvReac Intermediate YEAST Verified 04/09/23 15:47 INFECTION oxycodone AdvReac Intermediate VOMITING Verified 04/09/23 15:47 rosuvastatin AdvReac Intermediate BODY PAINS Verified 04/09/23 15:47 Consultations 04/09/23 14:42 ED Decision to Admit Stat 04/09/23 14:43 ED Decision to Admit Stat Procedures Performed Operation Date: 04/13/23 10:30 Actual Procedures p EGD Biopsy Cytology(Not Applicable) - Arnel King Jr, MD Ordered Studies 04/09/23 14:04 CT abd pelvis IV con only Stat 04/10/23 06:47 US venous doppler LE LT Urgent Abdomen/Pelvis CT 04/09/23 14:04 CT SCAN OF THE ABDOMEN AND PELVIS WITH IV CONTRAST CLINICAL HISTORY: GI bleeding. COMPARISON STUDY: Abdominal CT dated 03/07/2023. TECHNIQUE: Following the IV administration of 82 cc of Optiray 320, CT scan of the abdomen and pelvis is performed from the lung bases to the proximal femora. Images are reviewed in the axial, sagittal, and coronal planes. IV contrast was administered without complication. A dose lowering technique was utilized adhering to the principles of ALARA. The examination is degraded by motion artifact, as well as by streak artifact from the arms which could not be elevated above the abdomen. CT DOSE: 1217.67 mGy.cm FINDINGS: Lung bases: There is evidence of previous aortic valve surgery. The heart is enlarged and without pericardial effusion. The mitral annulus is densely calcified. The lung bases are clear noting bibasilar scarring/atelectasis. There is a small hiatal hernia. Liver: The contrast-enhanced liver is normal in size, contour, and attenuation. There is no intrahepatic biliary ductal dilatation. The hepatic veins and portal veins are patent. Gallbladder: Surgically absent noting clips in the gallbladder fossa. Spleen: Normal in size and attenuation. Pancreas: The pancreas is moderately atrophic and grossly unremarkable. Adrenal glands: Unremarkable. Kidneys: The contrast enhanced kidneys demonstrate mild cortical atrophy and are without hydronephrosis. The kidneys enhance symmetrically. A 1.8 cm cyst is noted on the left. Abdominal vasculature: The abdominal aorta is normal in course and caliber noting advanced atherosclerotic calcification. Bowel: There is no bowel obstruction. The bowel is not well assessed due to the degree of motion artifact. The appendix is well-visualized and normal. Peritoneum: There is no intraperitoneal free air or abdominal ascites. There is a small fat-containing umbilical hernia. Lymphadenopathy: None. Pelvic viscera: The bladder is decompressed from a Koroma catheter and cannot be evaluated. The uterus and adnexa are normal as visualized. Skeletal structures: The skeletal structures are osteopenic. An inferior endplate compression deformity of T12 and a burst type compression fracture of L1 with moderate loss of height and retropulsed fragments are grossly similar to previous. No lytic or blastic lesions are seen. There are bilateral pars defects at L5 with advanced disc space narrowing and 12 mm of anterolisthesis of L5-S1. Moderate lumbosacral spondylosis is observed. IMPRESSION: 1. Severely streak and motion compromised examination. 2. No acute infectious or inflammatory findings are clearly identified in the abdomen or pelvis. 3. Subacute appearing compression deformities are likely unchanged from 03/07/2023. 4. Cardiomegaly. 5. There is no bowel obstruction. 6. Additional findings as above. ACT 112: Negative or not required by law. Electronically signed by: Jatinder Masterson M.D. 04/09/2023 4:12 PM Venous Doppler Study 04/10/23 06:47 US venous doppler LE LT CLINICAL HISTORY: Concern for DVT, swelling TECHNIQUE: Left lower extremity real-time compression venous ultrasound with Color Doppler imaging. Utilizing real-time ultrasonic imaging multiple real time high-resolution ultrasonic images with compression and noncompression maneuvers of the deep venous system in addition to color doppler imaging were performed from the common femoral vein through the proximal calf veins. COMPARISON: None available at the time of this dictation. FINDINGS/IMPRESSION: Currently there is normal compressibility of the deep venous system from the common femoral vein through the proximal calf veins. No superficial venous thrombosis is identified. ACT 112: Negative or not required by law. Electronically signed by: Amos Gomez M.D. 04/10/2023 11:43 AM Hospital Course (1) Hemorrhagic shock: present on admission 2nd upper GI bleeding from portal hypertensive gastropathy, underlying cirrhosis 6 units of blood in total since hospital admission despite transfusional support, octreotide drip, PPI drip, EGD to exclude other causes of bleeding, pressors, fluids, and other supportive care she continued with bleeding and refractory shock called tertiary care 04/13 - [facility] - not a candidate for IR intervention (embolization procedure, emergency TIPS, etc) transitioned to comfort measures only 04/14 Ms. Ovalle peacefully this morning. (2) Portal hypertensive gastropathy: with resulting severe upper GI bleeding + hemorrhagic shock (3) Acute upper gastrointestinal bleeding: portal hypertensive gastropathy as seen on EGD small esophageal varices (non-bleeding) seen on EGD - not the source of bleeding no PUD duodenum clean (4) Acute blood loss anemia: (5) Cirrhosis: known diagnosis likely 2nd to COWART with portal hypertensive gastropathy with massive bleeding (6) Open left femoral fracture: 02/2023 - s/p extensive surgery by Dr Gagnon at that time. fully healed. had been rehabbing at [facility] prior to this admission. (7) HTN (hypertension): history of (8) Hyperlipidemia: history of (9) Asthma: no exacerbation while here (10) Depression: (11) Gastroesophageal reflux disease: (12) Hypothyroidism: (13) History of CVA (cerebrovascular accident): (14) Dementia: severe dementia at baseline (15) Type 2 diabetes mellitus: (16) Compression fracture of L1 lumbar vertebra: h/o such - 02/2023 (17) S/P TAVR (transcatheter aortic valve replacement): history of (18) Restless leg: (19) Catheter-associated urinary tract infection: 2nd e.coli stop IV abx Plan transfer to med/surg for CARTRIDGE LOADER support given to family appreciate critical care team assistance Total Time Total Time Spent Total Time Spent (In Minutes): 35 minutes spent today on clinical care activities Discharge Plan Discharge Items Patient Disposition: Other Date/Time: 04/15/23 08:32 Coding Level of Care Code 60304 INP/OBS DISCH >30 MIN Diagnoses Hemorrhagic shock R57.8 Portal hypertensive gastropathy K76.6; K31.89 Acute upper gastrointestinal bleeding K92.2 Acute blood loss anemia D62 Cirrhosis K74.60 Open left femoral fracture S72.92XB HTN (hypertension) I10 Hyperlipidemia E78.5 Asthma J45.20 Asthma complication type: unspecified Asthma persistence: intermittent Asthma severity: unspecified severity Depression F32.9 Gastroesophageal reflux disease K21.9 Hypothyroidism E03.9 History of CVA (cerebrovascular accident) Z86.73 Dementia F03.90 Type 2 diabetes mellitus E11.9 Compression fracture of L1 lumbar vertebra S32.010A S/P TAVR (transcatheter aortic valve replacement) Z95.2 Restless leg G25.81 Catheter-associated urinary tract infection T83.511A; N39.0
== END 2023-04-15 10:30 | disposition expired | DRG 442 ==
LOC: ED 13:51 → EDINP 16:42 → SUATTDRO 16:42 → 2S 21:20 → 1E 04-13 18:52 → 3E 04-14 21:04